=== PATIENT | female | born 1960 | race Caucasian/White ===

== ENCOUNTER → 2016-04-11 | Outpatient (CLI) | payer BC ==
[~2016-04-11] MED LIST: ACET-1138 PO; ALBUAER2 INH; CLB200 PO; CYAN10005 PO; DLD/2 PO; DXM4 PO; GABA-113 PO; IBUP-1427 PO; IBUP200T80 PO; KETO10TA PO; LDDP5 TD; MELATAB2 PO; METH4PAK PO; MRLP17X PO; NRN100 PO; NRN300 PO; ONDA4TAB10 SL; OXYC1CAP5 PO; OXYCODONE PO; PRAV10TA39 PO; PRED10TA PO; RXC5 PO; SYMIN160 INH; TRAM-10 PO; VNTHFA/IN INH
--- NOTE | 2016-04-11 12:27 | DIAGNOSTIC IMAGING REPORT ---
CT OF THE LUMBAR SPINE WITHOUT CONTRAST CT DOSE: 1360.89 mGy.cm CLINICAL HISTORY: Low back pain. Evaluate for hardware loosening. TECHNIQUE: Axial images of the lumbar spine were obtained without IV contrast. Sagittal and coronal reconstructions were viewed. COMPARISON STUDY: Lumbar spine MRI June 07, 2012 and lumbar spine radiographs November 15, 2015. FINDINGS: For purposes of numbering on this exam, the L5-S1 disc space is assigned to axial image 351 of 436. Alignment of the lumbar spine is anatomic. There are findings consistent with an L5-S1 discectomy and bilateral pedicle screw fusion posterior decompression. No significant bony bridging is noted at the level of the disc space. The bilateral pedicle screws are intact. There is no lucency surrounding the screws to indicate loosening by CT. The right L5 screw slightly extends through the right lateral aspect of the vertebral body. There are bilateral L5 pars defects. No suspicious lesion is identified. Central canal and neural foramen are suboptimally assessed by CT. Paravertebral soft tissues are unremarkable. IMPRESSION: 1. Status post L5-S1 discectomy and bilateral pedicle screw fusion. Hardware intact. No CT evidence for loosening. The right L5 pedicle screw slightly extends through the lateral aspect of the vertebral body. 2. Bilateral L5 pars defects which may be congenital, posttraumatic or postsurgical. 3. Suspected disc bulge at the L4-L5 level which is suboptimally assessed by CT. This likely results in mild narrowing of the central canal. Electronically signed by: Doc Parry M.D. 04/11/2016 12:26 PM Dictated Date/Time: 04/11/2016 12:18 PM
== END | disposition home or self-care (01) ==
LOC: C.CTS 11:52
PROVIDERS: ATTEND Orthopaedic Surgery Orthopaedic Surgery of the Spine
DX: M54.5 Low back pain (principal); Z98.1 Arthrodesis status

== ENCOUNTER → 2016-04-12 | Outpatient (CLI) | payer BC ==
[2016-04-12 11:29] LABS: BASO % 0.4 %; BASO ABS # 0.04 K/uL (0-0.2); COMPLETE YES; EOS % 1.5 %; HEMATOCRIT 39.1 % (37-47); IG% 0.2 %; LYMPH % 29.3 %; MEAN CELL VOLUME 86.3 fL (80-100); MEAN CORPUSCULAR HEMOGLOBIN 29.4 pg (25-34); MEAN PLATELET VOLUME 9.3 fL (7.4-10.4); MONO % 12.1 %; NEUT % 56.5 %; PLATELET COUNT 332 K/uL (130-400); RED BLOOD COUNT 4.53 M/uL (4.2-5.4); WHITE BLOOD COUNT 9.91 K/uL (4.8-10.8)
== END | disposition home or self-care (01) ==
LOC: C.LABBC 08:42
PROVIDERS: ATTEND Orthopaedic Surgery Orthopaedic Surgery of the Spine
DX: M54.9 Dorsalgia, unspecified (principal); M53.3 Sacrococcygeal disorders, not elsewhere classified

== ENCOUNTER 2016-05-01 19:35 | Emergency (ER) | payer BC ==
[~2016-05-01] VITALS: Ht 162.6 cm; Wt 95.0 kg
[~2016-05-01 19:35] MED LIST changes: -DLD/2 PO; -GABA-113 PO; -IBUP-1427 PO; -IBUP200T80 PO; -KETO10TA PO; -MELATAB2 PO; -METH4PAK PO; -NRN100 PO; -NRN300 PO; -ONDA4TAB10 SL; -OXYC1CAP5 PO; -OXYCODONE PO; -PRED10TA PO; -VNTHFA/IN INH
[2016-05-01 19:54] VITALS: TEMP 36.8; Ht 162.6 cm; Wt 95.0 kg
[2016-05-01] MEDS ORDERED: MoRPHine SULFATE 4 MG/ML 1 ML CARP\\VIAL IV STA (20:25)
[2016-05-01] MEDS ORDERED: PRED10TA PO (20:34)
[2016-05-01] MEDS ORDERED: NRN100 PO (20:34)
[2016-05-01] MEDS ORDERED: DLD/2 PO (20:34)
[2016-05-01] MEDS ORDERED: KETOROLAC TROMETHAMINE 30 MG/ML VIAL IV STA (20:44)
[2016-05-01] MEDS ORDERED: DEXAMETHASONE SOD INJ 10 MG/ML VIAL IV ONE (20:45)
[2016-05-01] MEDS ORDERED: MoRPHine SULFATE 4 MG/ML 1 ML CARP\\VIAL IV PRN (20:45)
[2016-05-01 20:55] LABS: BASO % 0.2 %; BASO ABS # 0.02 K/uL (0-0.2); COMPLETE YES; HEMATOCRIT 39.9 % (37-47); IG% 0.5 %; LYMPH % 10.9 %; LYMPH ABS # 1.01 K/uL (1.2-3.4); MEAN CELL VOLUME 88.5 fL (80-100); MEAN CORPUSCULAR HEMOGLOBIN 29.7 pg (25-34); MEAN CORPUSCULAR HGB CONC 33.6 g/dl (32-36); MEAN PLATELET VOLUME 9.3 fL (7.4-10.4); NEUT % 86.4 %; PLATELET COUNT 319 K/uL (130-400); RED BLOOD COUNT 4.51 M/uL (4.2-5.4)
--- NOTE | 2016-05-01 21:05 | EMERGENCY ROOM VISIT NOTE ---
History First contact with patient: 20:36 Chief Complaint: SYNCOPE Stated Complaint: SYNCOPE Nursing Triage Summary: Patient arrived via EMS. EMS reports patient had a witnessed fall from a standing position after exiting her vehicle with a coworker. Patient reported 10/10 back pain upon awakening from syncopal episode. Patient reports a history of chronic lwoer back pain and recently had a procedure done to lwoer back in which she states "they hit a nerve." Patioent has 10/10 back pain radiating down right leg. History of Present Illness The patient is a 55 year old female w/ hx of degenerative Disc disease (L5-S1) s/p Lumbar fusion LL5_s1) decompression, laminectomy, foraminectomy who presents to the Emergency Room with complaints of Lower Back pain and shooting pain down her right Right Lower extremity. 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 She also reports associated numbness in the right foot. Pain has been constant but worsens when putting pressure on on the right buttock. She received a cortisone injection in clinic approximately 3wks ago but has had minimal relief. She has been on Ibuprofen q4hrs , last dose 1PM. Review of Systems See HPI for pertinent positives & negatives. A total of 10 systems reviewed and were otherwise negative. Past Medical/Surgical History Medical Problems: (1) Kidney stones (2) Lumbar disc disease with radiculopathy (3) Personal History Of Urinary Calculi Surgical Problems: (1) S/P appendectomy (2) S/P cholecystectomy (3) S/P hysterectomy Social History Problems: (1) Tobacco Use Disorder Family History Atrial fibrillation Blood clots Cancer Diabetes mellitus Gallbladder disease Hypertension Kidney disease Kidney stones Social History Smoking Status: Current Every Day Smoker Alcohol Use: none Marital Status: Housing Status: lives with friends Occupation Status: employed Current/Historical Medications Scheduled Acetaminophen (Tylenol Extra Strength), 1,000 MG PO BID Budesonide/Formoterol Fumarate (Symbicort 160/4.5 Inhaler ), 2 PUFFS INH BID Cyanocobalamin (Vitamin B-12), 1,000 MCG PO DAILY Gabapentin (Gabapentin), 100 MG PO QID Pravastatin Sodium (Pravastatin Sodium), 10 MG PO HS Prednisone (Prednisone), 10 MG PO TAPER Scheduled PRN Albuterol (Ventolin), 2 PUFFS INH Q4 PRN for SOB/Wheezing Hydromorphone HCl (Hydromorphone HCl), 2 MG PO HS PRN for Pain Allergies Coded Allergies: Lemon (Verified Allergy, Unknown, HIVES, 05/01/16) Penicillins (Verified Allergy, Unknown, HIVES, 05/01/16) Unclassified Drugs (Verified Allergy, Unknown, METAL MORRO - RASH, ) Physical Exam Vital Signs Date Time Temp Pulse Resp B/P Pulse Ox O2 Delivery O2 Flow Rate FiO2 05/01/16 23:20 68 16 124/83 98 Room Air 05/01/16 21:48 82 16 118/76 97 Room Air 05/01/16 19:54 36.8 96 16 128/72 95 Room Air Physical Exam GENERAL: alert, mod. distress secondary to pain EYE EXAM: normal conjunctiva, PERRL and EOM's grossly intact NECK: supple, no nuchal rigidity, no adenopathy, non-tender LUNGS: Clear to auscultation. Normal chest wall mechanics HEART: no murmurs, S1 normal and S2 normal ABDOMEN: abdomen soft, non-tender, normo-active bowel sounds, no masses, no rebound or guarding. BACK: Back is symmetrical on inspection and there is no deformity. No spinal tenderness SKIN: no rashes and no bruising UPPER EXTREMITIES: upper extremities are grossly normal. LOWER EXTREMITIES: No pitting edema. exquisite tenderness to palpation, Right buttock NEURO EXAM: Normal sensorium, cranial nerves II-XII grossly intact, normal speech, no gross weakness of arms, no gross weakness of legs.Exquisite tenderness to palpation over Right buttock. Decreased sensation Right foot Medical Decision & Procedures Laboratory Results 05/01/16 20:00 Red Blood Count 4.51, Mean Corpuscular Volume 88.5, Mean Corpuscular Hemoglobin 29.7, Mean Corpuscular Hemoglobin Concent 33.6, Mean Platelet Volume 9.3, Neutrophils (%) (Auto) 86.4, Lymphocytes (%) (Auto) 10.9, Monocytes (%) (Auto) 2.0, Eosinophils (%) (Auto) 0.0, Basophils (%) (Auto) 0.2, Neutrophils # (Auto) 8.03, Lymphocytes # (Auto) 1.01, Monocytes # (Auto) 0.19, Eosinophils # (Auto) 0.00, Basophils # (Auto) 0.02 05/01/16 20:00 Test 05/01/16 20:00 White Blood Count 9.30 K/uL (4.8-10.8) Red Blood Count 4.51 M/uL (4.2-5.4) Hemoglobin 13.4 g/dL (12.0-16.0) Hematocrit 39.9 % (37-47) Mean Corpuscular Volume 88.5 fL (80-100) Mean Corpuscular Hemoglobin 29.7 pg (25-34) Mean Corpuscular Hemoglobin Concent 33.6 g/dl (32-36) Platelet Count 319 K/uL (130-400) Mean Platelet Volume 9.3 fL (7.4-10.4) Neutrophils (%) (Auto) 86.4 % Lymphocytes (%) (Auto) 10.9 % Monocytes (%) (Auto) 2.0 % Eosinophils (%) (Auto) 0.0 % Basophils (%) (Auto) 0.2 % Neutrophils # (Auto) 8.03 K/uL (1.4-6.5) Lymphocytes # (Auto) 1.01 K/uL (1.2-3.4) Monocytes # (Auto) 0.19 K/uL (0.11-0.59) Eosinophils # (Auto) 0.00 K/uL (0-0.5) Basophils # (Auto) 0.02 K/uL (0-0.2) RDW Standard Deviation 52.9 fL (36.4-46.3) RDW Coefficient of Variation 16.2 % (11.5-14.5) Immature Granulocyte % (Auto) 0.5 % Immature Granulocyte # (Auto) 0.05 K/uL (0.00-0.02) Erythrocyte Sedimentation Rate 37 mm/hr (0-21) Anion Gap 7.0 mmol/L (3-11) Est Creatinine Clear Calc Drug Dose 77.1 ml/min Estimated GFR () 82.3 Estimated GFR (Non- 71.0 BUN/Creatinine Ratio 21.6 (10-20) Calcium Level 9.3 mg/dl (8.5-10.1) C-Reactive Protein 0.89 mg/dl (0-0.29) Chemistry Specimen Hemolysis Medications Administered Medications (Trade) Dose Ordered Sig/Lulu Route Start Time Stop Time Status Last Admin Dose Admin Morphine Sulfate (MoRPHine SULFATE INJ) 4 mg NOW STAT IV 05/01/16 20:25 05/01/16 20:28 DC 05/01/16 20:48 4 MG Ketorolac Tromethamine (Toradol Inj) 30 mg NOW STAT IV 05/01/16 20:44 05/01/16 20:49 DC 05/01/16 21:10 30 MG Morphine Sulfate (MoRPHine SULFATE INJ) 4 mg Q1H PRN IV 05/01/16 20:45 05/15/16 20:44 05/01/16 22:22 4 MG Dexamethasone Sodium Phosphate (Decadron Inj) 10 mg NOW ONCE IV 05/01/16 20:45 05/01/16 20:49 DC 05/01/16 21:09 10 MG Lorazepam (Ativan Inj) 1 mg NOW STAT IV 05/01/16 21:47 05/01/16 21:48 DC 05/01/16 22:22 1 MG Medical Decision 55 year old female w/ hx of degenerative Disc disease (L5-S1) s/p Lumbar fusion LL5_s1) decompression, laminectomy, foraminectomy, p/w RLE radiculopathy and Lower back pain s/p cortisone shot 3 wks ago with minimal relief from Ibuprofen 600mg q4h, with dec'd sensation of the Rt foot Differential diagnoses includes but is not limited to lumbar radiculopathy, muscle strain, facture, cauda equina, mass, and disc herniation. -Given Decadron 10 mg Toradol 30 mg, Morphine 4 mg -MRI Lumbar spine: L4-L% 4mm post. disc herniation resulting in mild spinal canal narrowing, possible impingement of traversing L5 nerve roots. Facet arthropathy and Ligamentum Flavum contributing to mod. left, severe right, pastor foraminal narrowing -Patient was comfortable, sleeping s/p Toradol, morphine -Patient was discharged with outpatient followup with Percocet home-pack in addition to OTC ibuprofen, tylenol as needed Impression Primary Impression: Intractable low back pain Additional Impression: Lumbar disc disease with radiculopathy Departure Information Referrals Al Loera, D.O.Int.Med. (PCP) Patient Instructions My [facility] Resident Tracking Resident Involvement: Resident Care Provided Care Provided: Adult ED Problem Qualifiers
[2016-05-01 21:29] LABS: BUN/CREATININE RATIO 21.6 (10-20); C-REACTIVE PROTEIN 0.89 mg/dl (0-0.29); CALCIUM 9.3 mg/dl (8.5-10.1); CREATININE 0.9 mg/dl (0.60-1.20); POTASSIUM 4.1 mmol/L (3.5-5.1)
[2016-05-01] MEDS ORDERED: LORAZEPAM 2 MG/ML 1 ML VIAL IV STA (21:47)
[2016-05-02] MEDS ORDERED: PERCOCET HOME PACK PO ONE ×2 (00:31→00:45)
--- NOTE | 2016-05-02 00:32 | EMERGENCY ROOM VISIT NOTE ---
History Report prepared by Suzie: Stella Jonas Under the Supervision of: Dr. Jan Lambert D.O. First contact with patient: 20:26 Chief Complaint: SYNCOPE Stated Complaint: SYNCOPE Nursing Triage Summary: Patient arrived via EMS. EMS reports patient had a witnessed fall from a standing position after exiting her vehicle with a coworker. Patient reported 10/10 back pain upon awakening from syncopal episode. Patient reports a history of chronic lwoer back pain and recently had a procedure done to lwoer back in which she states "they hit a nerve." Patioent has 10/10 back pain radiating down right leg. History of Present Illness The patient is a 55 year old female who presents to the Emergency Room with complaints worsening low back pain for the past 3 weeks. She was brought to the ED via EMS. 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 She supposedly lost consciousness briefly during the episode, according to EMS, but the patient denies any loss of consciousness when asked. She rates her discomfort as a 10/10 and describes the pain as "shooting" in nature. She states the pain radiates down her right leg and she has numbness and tingling in her right foot. Movement worsens her discomfort. She has a history of chronic low back pain and recently had a cortisone injection by Dr. Larios at [facility], approximately 3 weeks ago, in which she states "they hit a nerve" and since then, the pain has worsened. She has tried taking Ibuprofen, with no relief. She reports she has an upcoming appointment with Dr. Larios later this week. She was recently prescribed a Prednisone taper and states she has already taken the first dose. 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 A total of 10 systems reviewed and were otherwise negative. Past Medical & Surgical Medical Problems: (1) Kidney stones (2) Lumbar disc disease with radiculopathy (3) Personal History Of Urinary Calculi Surgical Problems: (1) S/P appendectomy (2) S/P cholecystectomy (3) S/P hysterectomy Social History Problems: (1) Tobacco Use Disorder Family History Atrial fibrillation Blood clots Cancer Diabetes mellitus Gallbladder disease Hypertension Kidney disease Kidney stones Social History Smoking Status: Current Every Day Smoker Alcohol Use: none Marital Status: Housing Status: lives with friends Occupation Status: employed Current/Historical Medications Scheduled Acetaminophen (Tylenol Extra Strength), 1,000 MG PO BID Budesonide/Formoterol Fumarate (Symbicort 160/4.5 Inhaler ), 2 PUFFS INH BID Cyanocobalamin (Vitamin B-12), 1,000 MCG PO DAILY Gabapentin (Gabapentin), 100 MG PO QID Pravastatin Sodium (Pravastatin Sodium), 10 MG PO HS Prednisone (Prednisone), 10 MG PO TAPER Scheduled PRN Albuterol (Ventolin), 2 PUFFS INH Q4 PRN for SOB/Wheezing Hydromorphone HCl (Hydromorphone HCl), 2 MG PO HS PRN for Pain Allergies Coded Allergies: Lemon (Verified Allergy, Unknown, HIVES, 05/01/16) Penicillins (Verified Allergy, Unknown, HIVES, 05/01/16) Unclassified Drugs (Verified Allergy, Unknown, METAL MORRO - RASH, ) Physical Exam Vital Signs Date Time Temp Pulse Resp B/P Pulse Ox O2 Delivery O2 Flow Rate FiO2 05/01/16 23:20 68 16 124/83 98 Room Air 05/01/16 21:48 82 16 118/76 97 Room Air 05/01/16 19:54 36.8 96 16 128/72 95 Room Air Physical Exam CONSTITUTIONAL/VITAL SIGNS: Reviewed / noted above. GENERAL: Non-toxic in appearance. INTEGUMENTARY: Warm, dry, and [place]. HEAD: Normocephalic. EYES: without scleral icterus or trauma. ENT/OROPHARYNX: clear and moist. LYMPHADENOPATHY/NECK: Is supple without lymphadenopathy or meningismus. RESPIRATORY: Lungs clear and equal. CARDIOVASCULAR: Regular rate and rhythm. GI/ABDOMEN: Soft and nontender. No organomegaly or pulsatile mass. No rebound or guarding. Normal bowel sounds. EXTREMITIES: Warm and well perfused. Tenderness to palpation of right buttock area. Normal reflexes of lower extremities, both Achilles and Patellar tendons are intact, gross sensation of lower extremities are normal. BACK: No CVA tenderness. NEUROLOGICAL: Intact without focal deficits. PSYCHIATRIC: normal affect. MUSCULOSKELETAL: Normally developed with good muscle tone. Medical Decision & Procedures ER Provider Diagnostic Interpretation: This MRI was reviewed and interpreted by the radiologist and reviewed by myself. MRI L SPINE : Comparison is made to CT lumbar spine 04/11/16. There is normal lumbar lordosis. Vertebral body height and alignment are maintained. There is no evidence of acute fracture or subluxation. There are no marrow signal abnormalities. There has been prior posterior decompression and hardware fixation at L5-S1 with interbody fusion. The conus medullaris is seen opposite L1 and appears normal. There is multilevel disc desiccation in the lumbar spine with mild disc height loss at L2-L3 and L3-L4, and moderate disc height loss at L4-L5. L1-L2, L2-L3, L3-L4: No significant spinal canal or foraminal narrowing. L4-L5: There is a 4 mm posterior disc herniation resulting in mild spinal canal narrowing and moderate lateral recess narrowing bilaterally, possibly impinging upon the traversing L5 nerve roots. Facet arthropathy and ligamentum flavum thickening contribute to moderate left and severe right foraminal narrowing. L5-S1: There is no significant central spinal canal narrowing. Endplate osteophytes, facet degeneration, and ligamentum flavum thickening contribute to moderate bilateral foraminal narrowing. Radiologist: Lauren Smalls M.D. Laboratory Results 05/01/16 20:00 Red Blood Count 4.51, Mean Corpuscular Volume 88.5, Mean Corpuscular Hemoglobin 29.7, Mean Corpuscular Hemoglobin Concent 33.6, Mean Platelet Volume 9.3, Neutrophils (%) (Auto) 86.4, Lymphocytes (%) (Auto) 10.9, Monocytes (%) (Auto) 2.0, Eosinophils (%) (Auto) 0.0, Basophils (%) (Auto) 0.2, Neutrophils # (Auto) 8.03, Lymphocytes # (Auto) 1.01, Monocytes # (Auto) 0.19, Eosinophils # (Auto) 0.00, Basophils # (Auto) 0.02 05/01/16 20:00 Test 05/01/16 20:00 White Blood Count 9.30 K/uL (4.8-10.8) Red Blood Count 4.51 M/uL (4.2-5.4) Hemoglobin 13.4 g/dL (12.0-16.0) Hematocrit 39.9 % (37-47) Mean Corpuscular Volume 88.5 fL (80-100) Mean Corpuscular Hemoglobin 29.7 pg (25-34) Mean Corpuscular Hemoglobin Concent 33.6 g/dl (32-36) Platelet Count 319 K/uL (130-400) Mean Platelet Volume 9.3 fL (7.4-10.4) Neutrophils (%) (Auto) 86.4 % Lymphocytes (%) (Auto) 10.9 % Monocytes (%) (Auto) 2.0 % Eosinophils (%) (Auto) 0.0 % Basophils (%) (Auto) 0.2 % Neutrophils # (Auto) 8.03 K/uL (1.4-6.5) Lymphocytes # (Auto) 1.01 K/uL (1.2-3.4) Monocytes # (Auto) 0.19 K/uL (0.11-0.59) Eosinophils # (Auto) 0.00 K/uL (0-0.5) Basophils # (Auto) 0.02 K/uL (0-0.2) RDW Standard Deviation 52.9 fL (36.4-46.3) RDW Coefficient of Variation 16.2 % (11.5-14.5) Immature Granulocyte % (Auto) 0.5 % Immature Granulocyte # (Auto) 0.05 K/uL (0.00-0.02) Erythrocyte Sedimentation Rate 37 mm/hr (0-21) Anion Gap 7.0 mmol/L (3-11) Est Creatinine Clear Calc Drug Dose 77.1 ml/min Estimated GFR () 82.3 Estimated GFR (Non- 71.0 BUN/Creatinine Ratio 21.6 (10-20) Calcium Level 9.3 mg/dl (8.5-10.1) C-Reactive Protein 0.89 mg/dl (0-0.29) Chemistry Specimen Hemolysis Laboratory results as stated above per my review. Medications Administered Medications (Trade) Dose Ordered Sig/Lulu Route Start Time Stop Time Status Last Admin Dose Admin Morphine Sulfate (MoRPHine SULFATE INJ) 4 mg NOW STAT IV 05/01/16 20:25 05/01/16 20:28 DC 05/01/16 20:48 4 MG Ketorolac Tromethamine (Toradol Inj) 30 mg NOW STAT IV 05/01/16 20:44 05/01/16 20:49 DC 05/01/16 21:10 30 MG Morphine Sulfate (MoRPHine SULFATE INJ) 4 mg Q1H PRN IV 05/01/16 20:45 4 20:44 05/01/16 22:22 4 MG Dexamethasone Sodium Phosphate (Decadron Inj) 10 mg NOW ONCE IV 05/01/16 20:45 05/01/16 20:49 DC 05/01/16 21:09 10 MG Lorazepam (Ativan Inj) 1 mg NOW STAT IV 05/01/16 21:47 05/01/16 21:48 DC 05/01/16 22:22 1 MG ED Course 2037: Previous medical records were reviewed. The patient was evaluated in room C12. A complete history and physical examination was performed. 2024: Morphine Sulfate 4 mg IV. 2043: Toradol 30 mg IV. 2044: Decadron 10 mg IV, Morphine Sulfate 4 mg IV. 2146: Lorazepam 1 mg IV. 4: I reevaluated the patient. She is still in some pain but resting. 7: I reevaluated the patient. She is feeling much better. I discussed her results and discharge instructions and she verbalized complete understanding and agreement. Medical Decision Differential considered includes cauda equina syndrome, conus medullaris, spinal cord compression syndrome, peripheral nerve compression, fractures or subluxations, intra-abdominal pathology such as abdominal aortic aneurysm or kidney stones, muscle strain, transverse myelitis, spinal cord injury. This is a 55-year-old female who presents to the ED with a chief complaint of right buttock pain. The patient reports that she was trying a [employer] bus and developed pain in the right buttock area. She states that this occurred this afternoon/evening. She came in for evaluation of her symptoms. She does report some chronic right hip pain and had a steroid injection in that region about 3 weeks ago. The patient also reports history of lumbar disc disease and surgery. Not had any fevers or recent illness. She denies any specific trauma. Vital signs are normal Her exam reveals moderate tenderness to palpation the right buttock region. She has normal distal extremity reflexes, sensation and gross motor function. Her sensation is grossly normal CBC is unremarkable. Sedimentation rate and CRP is slightly elevated. BUN is 19. MRI of the spine reveals, among other things, shows some thickening of the ligamentum flavum in the L4 through S1 area and treated him to moderate left and severe right foraminal narrowing. The patient was treated here with IV morphine, Decadron IV, Toradol IV and Ativan IV. She was sleeping at the time of disposition. She will be discharged with a Percocet home pack. She has follow-up with her spine surgeon this Sunday. She was told to talk to them about the MRI report for continued evaluation. Impression Primary Impression: Sciatica of right side Scribe Attestation The scribe's documentation has been prepared under my direction and personally reviewed by me in its entirety. I confirm that the note above accurately reflects all work, treatment, procedures, and medical decision making performed by me. Departure Information Referrals Al Loera D.O.Int.Med. (PCP) Forms HOME CARE DOCUMENTATION FORM, IMPORTANT VISIT INFORMATION, Work Instructions Return To Work: 3 days Patient Instructions ED Sciatica, My [facility] Additional Instructions Follow-up with your doctor as scheduled. Return for any worsening or new concerns. No driving for the next 2 days or within 6 hours of use of Percocet.
[2016-05-02 00:49] VITALS: BP 131/76; PULSE 67; O2SAT 98
--- NOTE | 2016-05-02 07:35 | DIAGNOSTIC IMAGING REPORT ---
MRI OF THE LUMBAR SPINE WITHOUT IV CONTRAST CLINICAL HISTORY: Sciatica. COMPARISON STUDY: MRI of lumbar spine dated 03/11/2015. CT scan of lumbar spine dated 04/11/2016. TECHNIQUE: MRI of lumbar spine is performed using various T1 and T2-weighted sequences in the axial and sagittal planes. IV contrast was not administered for this examination. FINDINGS: Lumbar spine: Vertebral body height is maintained at the lumbar spine. Minimal retrolisthesis is seen at L4-L5. Alignment is otherwise preserved. There are postoperative changes from laminectomy and posterior fusion at L5-S1. No destructive bony lesion is seen. Mild chronic degenerative endplate change is seen at L2-L3. The transverse processes are intact as imaged. Intervertebral discs: There is evidence of discectomy at L5-S1. Mild degenerative disc desiccation is seen at the remaining lumbar levels. Only mild loss of height is seen, greatest at L2-L3. Spinal cord: The visualized spinal cord is normal in morphology and signal intensity. The conus medullaris terminates at the level of L1. The nerve roots of the cauda equina are normal in morphology. L1-L2: Unremarkable. L2-L3: There is minimal posterior disc bulge eccentric to the left with annular fissure. There is no significant acquired compromise of the central canal. The neural foramina are patent. There is minimal left-sided subarticular stenosis. L3-L4: There is minimal posterior disc bulge. The central canal and neural foramina are widely patent. Facet arthropathy is of no consequence. L4-L5: There is posterior disc bulge with annular fissure. Bilateral subarticular stenosis is noted. There may be impingement on the exiting bilateral L4 nerve roots. Facet arthropathy causes mild right-sided neural foraminal narrowing. There is no significant acquired compromise of the central canal at this level. L5-S1: The central canal and neural foramina are clear. Sacrum: Visualized sacrum is normal in morphology and signal intensity. Soft tissues: Postoperative change is seen posteriorly at L5-S1. The paraspinous soft tissues are otherwise normal in appearance. IMPRESSION: 1. Mild lumbosacral spondylosis as detailed above, greatest at L4-L5. See discussion for detailed level by level analysis. 2. There is no large disc herniation or significant acquired compromise of the central canal. 3. Again seen are postoperative changes from spinal fusion at L5-S1. Dictated: 05/02/2016 7:15 AM Transcribed: 05/02/2016 7:34 AM IRINA_Svitlana Electronically signed by: Phillip Marsh M.D. 05/02/2016 7:45 AM Dictated Date/Time: 05/02/2016 7:15 AM
[2016-05-04] MEDS ORDERED: IBUP-1427 PO (14:23)
[2016-05-04] MEDS ORDERED: MELATAB2 PO (14:23)
[2016-05-10] MEDS ORDERED: TRAM-10 PO (08:28)
[2016-05-10] MEDS ORDERED: GABA-113 PO (08:28)
[2016-05-10] MEDS ORDERED: OXYCODONE PO (08:28)
[2016-05-15] MEDS ORDERED: METH4PAK PO (15:22)
[2016-05-15] MEDS ORDERED: NRN300 PO (15:22)
[2016-05-15] MEDS ORDERED: DLD/2 PO (15:30)
== END 2016-05-02 00:52 | disposition home or self-care (01) ==
LOC: C.EDC 19:35 → EDBD 19:35 → C.EDC 05-02 00:52
DX: M51.16 Intervertebral disc disorders with radiculopathy, lumbar region (principal); G89.29 Other chronic pain; F17.200 Nicotine dependence, unspecified, uncomplicated; Z87.442 Personal history of urinary calculi; Z90.89 Acquired absence of other organs; Z90.49 Acquired absence of other specified parts of digestive tract; Z90.710 Acquired absence of both cervix and uterus; Z82.49 Family history of ischemic heart disease and other diseases of the circulatory system; Z83.3 Family history of diabetes mellitus; Z84.1 Family history of disorders of kidney and ureter; Z98.1 Arthrodesis status

== ENCOUNTER 2016-05-11 08:35 | Observation (INO) | payer BC ==
[2016-05-10 08:29] VITALS: BMI 36.0
[~2016-05-11] VITALS: Ht 162.6 cm; Wt 96.2 kg
[~2016-05-11 08:35] MED LIST changes: -ACET-1138 PO; -CLB200 PO; -CYAN10005 PO; -DXM4 PO; +GABA-113 PO; -LDDP5 TD; +MELATAB2 PO; -MRLP17X PO; +OXYCODONE PO; +PRED10TA PO; -RXC5 PO
[2016-05-11] MEDS ORDERED: DLD/2 PO (09:05)
[2016-05-11] MEDS ORDERED: OXYC1CAP5 PO (09:05)
[2016-05-11] MEDS ORDERED: IBUP200T80 PO (09:06)
[2016-05-11] MEDS ORDERED: VNTHFA/IN INH (09:06)
[2016-05-11] MEDS ORDERED: KETOROLAC TROMETHAMINE 30 MG/ML VIAL IV STA (09:13)
[2016-05-11] MEDS ORDERED: ONDANSETRON INJ 2 MG/ML 2 ML VIAL IV STA (09:13)
[2016-05-11] MEDS ORDERED: SODIUM CHLORIDE 0.9% 1000ML 1,000 ML IV STA (09:13)
[2016-05-11] MEDS ORDERED: DEXAMETHASONE SOD INJ 10 MG/ML VIAL IV ONE (09:15)
--- NOTE | 2016-05-11 09:17 | EMERGENCY ROOM VISIT NOTE ---
History Report prepared by Suzie: Xochitl Chatman Under the Supervision of: Dr. Domingo Oh D.O. First contact with patient: 09:07 Chief Complaint: BACK PAIN Stated Complaint: BACK PAIN History of Present Illness The patient is a 55 year old female who presents to the Emergency Room with complaints of right-sided low back pain. The patient states her symptoms began approximately 3-4 weeks ago. She noticed pain in the lower back which now radiates to the right buttocks. She's been recently seen in our facility and diagnosed with lumbar disc herniation with sciatica. The patient was taking pain medication for this but the pain medication ran out. She took her last dose of steroids this morning. She has been taking Motrin with little to no relief. She states her pain is very severe at this time. It worsens with any movement. She cannot stand because of the severe pain in her right leg. The patient denies having any numbness but does complain of significant pain in her right sciatic notch. The patient denies having any saddle anesthesia. She has not had any recent trauma. She is scheduled for surgery at the beginning of next month. She called her surgeon and was instructed to come to the emergency department by the nursing staff at his office. Source of History: patient Onset: 3-4 weeks ago Position: back (right lower) Symptom Intensity: severe Modifying Factors (Relieving): narcotics Associated Symptoms: No numbness Review of Systems See HPI for pertinent positives & negatives. A total of 10 systems reviewed and were otherwise negative. Past Medical & Surgical Medical Problems: (1) Kidney stones (2) Lumbar disc disease with radiculopathy (3) Personal History Of Urinary Calculi Surgical Problems: (1) S/P appendectomy (2) S/P cholecystectomy (3) S/P hysterectomy Social History Problems: (1) Tobacco Use Disorder Family History Atrial fibrillation Blood clots Cancer Diabetes mellitus Gallbladder disease Hypertension Kidney disease Kidney stones Social History Smoking Status: Former Smoker Alcohol Use: none Marital Status: Housing Status: lives with friends Occupation Status: employed Current/Historical Medications Scheduled Albuterol Hfa (Ventolin Hfa), 2-4 PUFFS INH Q6H Gabapentin (Neurontin), 300 MG PO TID Melatonin (Melatonin Maximum Strengt), 2 TAB PO HS Pravastatin Sodium (Pravastatin Sodium), 10 MG PO HS Tramadol (Ultram), 50 MG PO Q4-6H Scheduled PRN Budesonide/Formoterol Fumarate (Symbicort 160/4.5 Inhaler ), 2 PUFFS INH BID PRN for PRN Hydromorphone HCl (Hydromorphone HCl), 2 MG PO Q6H PRN for Pain Ibuprofen (Ibu-200), 4 TAB PO QID PRN for Pain Oxycodone Hcl (Oxycodone Hcl), 0 PO QID PRN for Pain [Oxycodone], 1 TAB PO Q6H PRN for RN Allergies Coded Allergies: Morphine (Verified Allergy, Intermediate, SHORTNESS OF BREATH, 05/11/16) SOB, feels like bugs are biting her, anxious, upper GI pain Lemon (Verified Allergy, Unknown, HIVES, 05/11/16) Penicillins (Verified Allergy, Unknown, HIVES, 05/11/16) Unclassified Drugs (Verified Allergy, Unknown, METAL MORRO - RASH, ) Physical Exam Vital Signs Date Time Temp Pulse Resp B/P Pulse Ox O2 Delivery O2 Flow Rate FiO2 05/11/16 13:06 75 05/11/16 12:20 68 123/52 96 Room Air 05/11/16 10:28 73 179/66 94 Room Air 05/11/16 09:42 77 05/11/16 08:37 36.8 91 20 104/67 97 Room Air Physical Exam GENERAL: Patient is awake and alert. She is very anxious and uncomfortable appearing. She appears to be in significant pain. EYES: The conjunctivae are clear. The pupils are round and reactive. EARS, NOSE, MOUTH AND THROAT: The nose is without any evidence of any deformity. Mucous membranes are moist tongue is midline NECK: The neck is nontender and supple. RESPIRATORY: Normal respiratory effort is noted there is no evidence of wheezing rhonchi or rales CARDIOVASCULAR: Regular rate and rhythm noted there no murmurs rubs or gallops normal S1 normal S2 GASTROINTESTINAL: The abdomen is soft. Bowel sounds are present in all quadrants. Abdomen is nontender BACK: There is significant midline tenderness in the low lumbar spine. There is also severe pain in the sciatic notch. MUSCULOSKELETAL/EXTREMITIES: There is no evidence of gross deformity full range of motion is noted in the hips and shoulders SKIN: There is no obvious evidence of any rash. There are no petechiae, pallor or cyanosis noted. NEUROLOGIC: Patient is awake alert and oriented x3 strength is symmetric patellar reflexes are 2+ bilaterally. Achilles tendon reflexes are 2 plus bilaterally. Great toe raise is symmetric. Patient has severe pain with any straight leg raising on the right leg especially. Medical Decision & Procedures ER Provider Diagnostic Interpretation: Radiology results as stated below per my review and radiologist interpretation: CHEST ONE VIEW PORTABLE CLINICAL HISTORY: syncope COMPARISON STUDY: 05/10/2016 FINDINGS: The cardiac and mediastinal contours are normal. There is no evidence of focal pulmonary consolidation. There is no evidence of failure. No pleural effusions are visualized.[ IMPRESSION: No active disease in the chest. Electronically signed by: Danny Kramer M.D. 05/11/2016 10:31 AM Dictated Date/Time: 05/11/2016 10:31 AM Laboratory Results 05/11/16 09:36 Red Blood Count 4.35, Mean Corpuscular Volume 87.6, Mean Corpuscular Hemoglobin 29.9, Mean Corpuscular Hemoglobin Concent 34.1, Mean Platelet Volume 8.5, Neutrophils (%) (Auto) 62.1, Lymphocytes (%) (Auto) 24.5, Monocytes (%) (Auto) 11.8, Eosinophils (%) (Auto) 0.8, Basophils (%) (Auto) 0.2, Neutrophils # (Auto ) 8.82, Lymphocytes # (Auto) 3.48, Monocytes # (Auto) 1.67, Eosinophils # (Auto ) 0.11, Basophils # (Auto) 0.03 05/11/16 09:36 Test 05/11/16 09:36 05/11/16 11:10 White Blood Count 14.20 K/uL (4.8-10.8) Red Blood Count 4.35 M/uL (4.2-5.4) Hemoglobin 13.0 g/dL (12.0-16.0) Hematocrit 38.1 % (37-47) Mean Corpuscular Volume 87.6 fL (80-100) Mean Corpuscular Hemoglobin 29.9 pg (25-34) Mean Corpuscular Hemoglobin Concent 34.1 g/dl (32-36) Platelet Count 295 K/uL (130-400) Mean Platelet Volume 8.5 fL (7.4-10.4) Neutrophils (%) (Auto) 62.1 % Lymphocytes (%) (Auto) 24.5 % Monocytes (%) (Auto) 11.8 % Eosinophils (%) (Auto) 0.8 % Basophils (%) (Auto) 0.2 % Neutrophils # (Auto) 8.82 K/uL (1.4-6.5) Lymphocytes # (Auto) 3.48 K/uL (1.2-3.4) Monocytes # (Auto) 1.67 K/uL (0.11-0.59) Eosinophils # (Auto) 0.11 K/uL (0-0.5) Basophils # (Auto) 0.03 K/uL (0-0.2) RDW Standard Deviation 54.1 fL (36.4-46.3) RDW Coefficient of Variation 16.8 % (11.5-14.5) Immature Granulocyte % (Auto) 0.6 % Immature Granulocyte # (Auto) 0.09 K/uL (0.00-0.02) Anion Gap 9.0 mmol/L (3-11) Est Creatinine Clear Calc Drug Dose 74.1 ml/min Estimated GFR () 81.2 Estimated GFR (Non- 70.0 BUN/Creatinine Ratio 26.8 (10-20) Calcium Level 8.9 mg/dl (8.5-10.1) Total Bilirubin 0.3 mg/dl (0.2-1) Direct Bilirubin < 0.1 mg/dl (0-0.2) Aspartate Amino Transf (AST/SGOT) 9 U/L (15-37) Alanine Aminotransferase (ALT/SGPT) 20 U/L (12-78) Alkaline Phosphatase 79 U/L (45-117) Troponin I < 0.015 ng/ml (0-0.045) Total Protein 6.5 gm/dl (6.4-8.2) Albumin 3.2 gm/dl (3.4-5.0) Lipase 81 U/L (73-393) Urine Color YELLOW Urine Appearance CLEAR (CLEAR) Urine pH 5.0 (4.5-7.5) Urine Specific [place] 1.017 (1.000-1.030) Urine Protein NEG (NEG) Urine Glucose (UA) NEG (NEG) Urine Ketones NEG (NEG) Urine Occult Blood NEG (NEG) Urine Nitrite NEG (NEG) Urine Bilirubin NEG (NEG) Urine Urobilinogen NEG (NEG) Urine Leukocyte Esterase NEG (NEG) Laboratory results per my review. Medications Administered Medications (Trade) Dose Ordered Sig/Lulu Route Start Time Stop Time Status Last Admin Dose Admin Sodium Chloride (Nss 1000ml) 1,000 ml @ 125 mls/hr Q8H STAT IV 05/11/16 09:13 05/11/16 15:41 DC 05/11/16 09:40 125 MLS/HR Morphine Sulfate (MoRPHine SULFATE INJ) 4 mg Q15M PRN IV 05/11/16 09:15 05/11/16 15:40 DC 05/11/16 12:49 4 MG Ondansetron HCl (Zofran Inj) 4 mg NOW STAT IV 05/11/16 09:13 05/11/16 09:15 DC 05/11/16 09:37 4 MG Ketorolac Tromethamine (Toradol Inj) 30 mg NOW STAT IV 05/11/16 09:13 05/11/16 09:15 DC 05/11/16 09:38 30 MG Dexamethasone Sodium Phosphate (Decadron Inj) 10 mg NOW ONCE IV 05/11/16 09:15 05/11/16 09:16 DC 05/11/16 09:38 10 MG Hydromorphone HCl (Dilaudid Inj) 0.5 mg NOW STAT IV 05/11/16 11:14 05/11/16 11:15 DC 05/11/16 11:31 0.5 MG Diphenhydramine HCl (Benadryl Inj) 12.5 mg NOW STAT IV 05/11/16 11:14 05/11/16 11:15 DC 05/11/16 11:31 12.5 MG ECG Indication: syncope Rate (beats per minute): 72 Rhythm: normal sinus Findings: no ectopy, other (no acute ST segment abnormality) Comparison ECG Date: 05/10/16 Change: no significant change ED Course 0910: The patient was evaluated in room B11B. A complete history and physical examination were performed. 912: Ordered Toradol Inj 30 mg IV, Zofran Inj 4 mg IV, NSS 1000 ml @ 125 mls/ hr IV. 15: Decadron Inj 10 mg IV, Morphine Sulfate 4 mg IV. 1059: I discussed the case with Dr. Larios - Orthopedic Surgery. He recommended hospitalizing the patient. 1114: Upon reevaluation, the patient is feeling better. I discussed results and treatment plan with the patient. She verbalizes agreement and understanding. Ordered Benadryl Inj 12.5 mg IV, Dilaudid Inj 0.5 mg IV. 1127: I discussed the case with Dr. Ruthie HOUSTON Hospitalist. The patient will be evaluated for further management. Medical Decision Prior records/ancillary studies reviewed. Triage Nursing notes reviewed. Previous electronic medical records reviewed. Differential diagnosis: Etiologies such as musculoskeletal, disc herniation, fracture, aortic disease, metastatic disease, cord compression, discitis, infection, renal colic, gastrointestinal, acute exacerbation of chronic back pain, sciatica, cauda equina, as well as others were entertained. The patient is a 55-year-old female who presented to the emergency department for severe right low back pain and right sciatica. The patient was recently diagnosed with spinal stenosis and had an MRI which was felt to be significant enough for her to schedule surgery with her primary orthopedic spinal specialist. She was seen in our facility recently for similar complaints. She was treated and was able to be released. The patient had a preop appointment yesterday. She returns today with a friend because of very severe pain which now appears to be worsened but appears to be similar in location. The patient did not have any focal neurologic deficit. The patient was treated with IV fluids IV pain medicine IV steroids and IV antiemetics in the emergency department. On subsequent reevaluation she was only minimally improved. I discussed her presentation with her primary spinal specialist. I also discussed her case with the on-call [facility] hospitalist group. They've agreed to evaluate the patient in the emergency department for further management and disposition. The patient did have an episode of syncope which she feels is secondary to her pain. She did not receive any pain medication prior to the episode of syncope. An EKG was performed as well as a chest x-ray. I did pass this on to the admitting service. Consults Time Called: 1050 Consulting Physician: Dr. Larios - Orthopedic Surgery Returned Call: [phone] I discussed the case with him. He recommended hospitalizing the patient. Additional Consults: Time Called: 1118 Consulted Physician: Dr. Ruthie HOUSTON Hospitalist Returned Call: [phone] Additional Comments: I discussed the case with him. The patient will be evaluated for further management. Impression Primary Impression: Intractable low back pain Additional Impressions: Sciatica Syncope Scribe Attestation The scribe's documentation has been prepared under my direction and personally reviewed by me in its entirety. I confirm that the note above accurately reflects all work, treatment, procedures, and medical decision making performed by me. Departure Information Dispostion Being Evaluated By Hospitalist Referrals Axel Larios DO (PCP) Patient Instructions My [facility] Problem Qualifiers Additional Impressions: Sciatica Laterality: right Qualified Codes: M54.31 - Sciatica, right side Syncope Syncope type: unspecified Qualified Codes: R55 - Syncope and collapse
[2016-05-11] MEDS: MoRPHine SULFATE 4 MG/ML 1 ML CARP\\VIAL IV PRN ×2 (09:39→12:49)
[2016-05-11 10:04] LABS: BASO % 0.2 %; BASO ABS # 0.03 K/uL (0-0.2); COMPLETE YES; EOS % 0.8 %; HEMATOCRIT 38.1 % (37-47); IG% 0.6 %; LYMPH % 24.5 %; LYMPH ABS # 3.48 K/uL (1.2-3.4); MEAN CELL VOLUME 87.6 fL (80-100); MEAN CORPUSCULAR HEMOGLOBIN 29.9 pg (25-34); MEAN CORPUSCULAR HGB CONC 34.1 g/dl (32-36); MEAN PLATELET VOLUME 8.5 fL (7.4-10.4); MONO % 11.8 %; NEUT % 62.1 %; PLATELET COUNT 295 K/uL (130-400); RED BLOOD COUNT 4.35 M/uL (4.2-5.4)
[2016-05-11 10:12] LABS: ALT/SGPT 20 U/L (12-78); BLOOD UREA NITROGEN 24 mg/dl (7-18); BUN/CREATININE RATIO 26.8 (10-20); CALCIUM 8.9 mg/dl (8.5-10.1); CARBON DIOXIDE 27 mmol/L (21-32); CHLORIDE 105 mmol/L (98-107); CREATININE 0.91 mg/dl (0.60-1.20); GLUCOSE 86 mg/dl (70-99); SODIUM 141 mmol/L (136-145)
[2016-05-11 10:16] LABS: ALKALINE PHOSPHATASE 79 U/L (45-117); AST/SGOT 9 U/L (15-37)
--- NOTE | 2016-05-11 10:32 | DIAGNOSTIC IMAGING REPORT ---
CHEST ONE VIEW PORTABLE CLINICAL HISTORY: syncope COMPARISON STUDY: 05/10/2016 FINDINGS: The cardiac and mediastinal contours are normal. There is no evidence of focal pulmonary consolidation. There is no evidence of failure. No pleural effusions are visualized.[ IMPRESSION: No active disease in the chest. Electronically signed by: Danny Kramer M.D. 05/11/2016 10:31 AM Dictated Date/Time: 05/11/2016 10:31 AM
[2016-05-11] MEDS ORDERED: DiphenhydrAMINE HCL 50 MG/ML VIAL IV STA (11:14)
[2016-05-11] MEDS ORDERED: HYDROmorphone INJ 0.5 MG/0.5 ML SYR IV STA (11:14)
[2016-05-11 11:52] LABS: URINE APPEARANCE CLEAR (CLEAR); URINE BILIRUBIN NEG (NEG); URINE COLOR YELLOW; URINE NITRITE NEG (NEG); URINE SPECIFIC GRAVITY 1.017 (1.000-1.030); UROBILINOGEN NEG (NEG)
[2016-05-11 11:56] LABS: MANUAL MICROSCOPIC REQUIRED? NO; REVIEW REQ? NO
[2016-05-11] MEDS ORDERED: BUDESONIDE/FORMOTEROL FUMARATE 160/4.5 60 PUFFS/INHALER INH PRN (13:15)
[2016-05-11] MEDS ORDERED: ONDANSETRON INJ 2 MG/ML 2 ML VIAL IV PRN (13:15)
[2016-05-11] MEDS ORDERED: ALBUT/IPRATROP 3MG/0.5MG NEB 3 ML VIAL INH PRN (13:15)
[2016-05-11] MEDS ORDERED: ACETAMINOPHEN 325 MG TAB PO PRN (13:15)
[2016-05-11] MEDS ORDERED: HYDROmorphone INJ 1 MG/ML SYR ONE (13:25)
--- NOTE | 2016-05-11 13:25 | History and Physical ---
History & Physical Date & Time of Service: May 11, 2016 at 13:15 Chief Complaint: Back Pain Primary Care Physician: Axel Larios DO History of Present Illness Source: patient, family, hospital records This patient is a 55-year-old female that presents the emergency department complaining of intractable lower back pain radiating down her right leg has gotten progressively worse over the last few weeks. The patient was seen in the emergency department a few weeks ago. An MRI was performed. It showed a mild disc bulge at L4-L5. The patient is following with Dr. Larios from orthopedics. 3 weeks ago, the patient had a steroid injection in her back. She thinks that this made the pain worse. She was seen in the emergency department on 05/05 intractable back pain. She was stepping out of a jay bus when she felt a sharp shooting pain in her right leg. This caused her to go unresponsive. An ambulance was called and she was brought to emergency department for evaluation. Patient denies any injuries. No significant abnormalities were noted during that ER visit. The patient presents to emergency department from home today. Her sister brought her in. She reportedly went unresponsive for a few seconds in the letter. The sister said that she just slumped over. She was not responding to verbal stimuli. There is no reports of shaking. No loss of control of urinary or bowel function. The patient denies any previous syncopal episodes prior to admit to that she has had in the last few weeks. She denies any chest pain or pressure. No dyspnea on exertion. She did not feel dizzy prior to the episode. No headaches or changes in vision. The patient has been taking Dilaudid for pain control. She did not take any this morning. She has been trying to only take ibuprofen, because she functions better without the narcotics. The patient does note that she thinks that the right leg is a little bit weaker than the left. She denies any saddle paresthesias. Dr. Larios was notified that she was in the emergency department. 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) Immunizations History of Influenza Vaccine: Yes History of Tetanus Vaccine?: Yes History of Pneumococcal: No History of Hepatitis B Vaccine: No Allergies Coded Allergies: Morphine (Verified Allergy, Intermediate, SHORTNESS OF BREATH, 05/11/16) SOB, feels like bugs are biting her, anxious, upper GI pain Lemon (Verified Allergy, Unknown, HIVES, 05/11/16) Penicillins (Verified Allergy, Unknown, HIVES, 05/11/16) Unclassified Drugs (Verified Allergy, Unknown, METAL MORRO - RASH, ) Home Medications Scheduled Albuterol Hfa (Ventolin Hfa), 2-4 PUFFS INH Q6H Gabapentin (Neurontin), 300 MG PO TID Melatonin (Melatonin Maximum Strengt), 2 TAB PO HS Pravastatin Sodium (Pravastatin Sodium), 10 MG PO HS Tramadol (Ultram), 50 MG PO Q4-6H Scheduled PRN Budesonide/Formoterol Fumarate (Symbicort 160/4.5 Inhaler ), 2 PUFFS INH BID PRN for PRN Hydromorphone HCl (Hydromorphone HCl), 2 MG PO Q6H PRN for Pain Ibuprofen (Ibu-200), 4 TAB PO QID PRN for Pain Oxycodone Hcl (Oxycodone Hcl), 0 PO QID PRN for Pain [Oxycodone], 1 TAB PO Q6H 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 of Systems 10 system review performed and negative unless noted in HPI or below Physical Exam Vital Signs Date Time Temp Pulse Resp B/P Pulse Ox O2 Delivery O2 Flow Rate FiO2 05/11/16 13:06 75 05/11/16 12:20 68 123/52 96 Room Air 05/11/16 10:28 73 179/66 94 Room Air 05/11/16 09:42 77 05/11/16 08:37 36.8 91 20 104/67 97 Room Air General Appearance: + mild distress (in mild discomfort rolled on her left side ) Head: normocephalic Eyes: PERRL, EOMI ENT: + pertinent finding (oral mucosa moist) Neck: no JVD Respiratory/Chest: lungs clear Cardiovascular: regular rate, rhythm Abdomen/GI: normal bowel sounds, non tender, soft Back: + pertinent finding (no tenderness to palpation noted over the spinous processes. Tenderness to palpation over the right buttock.) Extremities/Musculoskelatal: no calf tenderness, no pedal edema Neurologic/Psych: no motor/sensory deficits, oriented x 3, + pertinent finding (no weakness appreciated in the lower extremities bilaterally.) Skin: warm/dry Diagnostics Laboratory Results Results Past 24 Hours Test 05/11/16 09:36 05/11/16 11:10 Range/Units White Blood Count 14.20 4.8-10.8 K/uL Red Blood Count 4.35 4.2-5.4 M/uL Hemoglobin 13.0 12.0-16.0 g/dL Hematocrit 38.1 37-47 % Mean Corpuscular Volume 87.6 80-100 fL Mean Corpuscular Hemoglobin 29.9 25-34 pg Mean Corpuscular Hemoglobin Concent 34.1 32-36 g/dl Platelet Count 295 130-400 K/uL Mean Platelet Volume 8.5 7.4-10.4 fL Neutrophils (%) (Auto) 62.1 % Lymphocytes (%) (Auto) 24.5 % Monocytes (%) (Auto) 11.8 % Eosinophils (%) (Auto) 0.8 % Basophils (%) (Auto) 0.2 % Neutrophils # (Auto) 8.82 1.4-6.5 K/uL Lymphocytes # (Auto) 3.48 1.2-3.4 K/uL Monocytes # (Auto) 1.67 0.11-0.59 K/uL Eosinophils # (Auto) 0.11 0-0.5 K/uL Basophils # (Auto) 0.03 0-0.2 K/uL RDW Standard Deviation 54.1 36.4-46.3 fL RDW Coefficient of Variation 16.8 11.5-14.5 % Immature Granulocyte % (Auto) 0.6 % Immature Granulocyte # (Auto) 0.09 0.00-0.02 K/uL Sodium Level 141 136-145 mmol/L Potassium Level 4.0 3.5-5.1 mmol/L Chloride Level 105 98-107 mmol/L Carbon Dioxide Level 27 21-32 mmol/L Anion Gap 9.0 3-11 mmol/L Blood Urea Nitrogen 24 7-18 mg/dl Creatinine 0.91 0.60-1.20 mg/dl Est Creatinine Clear Calc Drug Dose 74.1 ml/min Estimated GFR () 81.2 Estimated GFR (Non- 70.0 BUN/Creatinine Ratio 26.8 10-20 Random Glucose 86 70-99 mg/dl Calcium Level 8.9 8.5-10.1 mg/dl Total Bilirubin 0.3 0.2-1 mg/dl Direct Bilirubin < 0.1 0-0.2 mg/dl Aspartate Amino Transf (AST/SGOT) 9 15-37 U/L Alanine Aminotransferase (ALT/SGPT) 20 12-78 U/L Alkaline Phosphatase 79 45-117 U/L Troponin I < 0.015 0-0.045 ng/ml Total Protein 6.5 6.4-8.2 gm/dl Albumin 3.2 3.4-5.0 gm/dl Lipase 81 73-393 U/L Urine Color YELLOW Urine Appearance CLEAR CLEAR Urine pH 5.0 4.5-7.5 Urine Specific [place] 1.017 1.000-1.030 Urine Protein NEG NEG Urine Glucose (UA) NEG NEG Urine Ketones NEG NEG Urine Occult Blood NEG NEG Urine Nitrite NEG NEG Urine Bilirubin NEG NEG Urine Urobilinogen NEG NEG Urine Leukocyte Esterase NEG NEG CXR normal EKG Normal sinus rhythm 72 bpm Impression Assessment and Plan 55-year-old female presents emergency department again with intractable back pain and a possible syncopal episode lasting a few seconds. Possible syncope-possibly secondary to vasovagal related to pain -Observe in telemetry -Trend cardiac enzymes -CT of the chest to rule out PE -Check echo COPD -Continue Symbicort twice daily -Duo nebs as needed Intractable back pain -Continue Dilaudid 1 mg every 3 hours as needed for severe pain -Continue gabapentin 300 mg 3 times daily -Orthopedic consult DVT prophylaxis -Hold off on chemical means for possible OR -Teds, SCDs CODE STATUS -LEVEL I FULL CODE Disco -PT/OT eval--> hopeful for DC home. Level of Care Telemetry Resuscitation Status FULL RESUSCITATION VTE Prophylaxis VTE Risk Assessment Done? Y/N: Yes Risk Level: Low Given or contraindicated: T.E.D. Stockings, SCD's
[2016-05-11] MEDS ORDERED: OPTIRAY 320 IV PRN (13:30)
[2016-05-11] MEDS ORDERED: HYDROmorphone INJ 1 MG/ML SYR IV ONE (13:30)
[2016-05-11] MEDS ORDERED: IV FLUIDS COMPLETED PRN (13:45)
[2016-05-11] MEDS: GABAPENTIN 300 MG CAP PO SCH ×2 (14:00→20:56)
--- NOTE | 2016-05-11 14:32 | CONSULTATION REPORT ---
DATE OF CONSULTATION: 05/11/2016 CHIEF COMPLAINT: Incapacitating buttock pain on the right hand side. HISTORY OF PRESENT ILLNESS: Sheela is a delightful patient. I have known her for several years in duration. She has significant stenosis of spine in the L4-5, L5-S1 region with incapacitating back and buttock pain. No true motor loss. No associated fever, sweats, or bowel and bladder issues. PAST MEDICAL HISTORY: Positive for kidney stones, history of urinary calculi, COPD, tobacco use. PAST SURGICAL HISTORY: Appendectomy, cholecystectomy, hysterectomy, and old spinal surgery. FAMILY HISTORY: AFib, blood clots, cancer, diabetes. SOCIAL HISTORY: She is an everyday smoker. No alcohol use. She is single, lives alone. 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 ALLERGIES: MORPHINE, LEMON, PENICILLINS. REVIEW OF SYSTEMS: Denies blurred vision, double vision, tinnitus, vertigo, and malaise. No fevers, sweats, or chills. Denies any chest pain and shortness of breath. No nausea, vomiting, no loss of bowel and bladder function. OBJECTIVE: She is alert, oriented, seeing her in the Emergency Room B1. Afebrile, pulse regular at 90, respirations 20, blood pressure 123/52, pulse ox 94. Cranial nerves intact. Facial nerve roots intact. Moves extremities. Slow to move the right leg severe pain. I really cannot even touch her back and buttock region on the right hand side. She is lying with the left side down position. She seems to be able to move all extremities. I do not detect any paralysis. I have not done a rectal examination on her. No abdominal discomfort, pain with percussion. IMAGING DATA: Old images from just within the last 10-20 days demonstrates significant stenosis of the spine at the L4-5 region, very narrow canal, looks to me she has a foraminal disc herniation as well. Her implants seem to be in good positioning. She had old pedicle screws placed. I do not think they have loosened. IMPRESSION: Delightful young lady I have known for years with severe back and lower extremity difficulty, severe stenosis, chronic obstructive pulmonary disease, a few allergies, and a current everyday smoker. DISPOSITION: We are thankful for the medical team for admitting her to the hospital for medical control. I did added Toradol round the clock q. 6 hours and Decadron as well. This should help control her symptoms. She is on p.r.n. Dilaudid which are appropriate. Neurontin could also be used as an adjunct. She is scheduled for surgery coming up in about 10-14 days. I do have my surgical calendar in front of me. In all likelihood because of all the surgeries are canceled today, we will try to get her pain under control in the next 48 hours. Hopefully, get her home at strict bed rest and bring her back in for her elective surgery as planned. Possibly injections at the L4-5 and L5-S1 region on the right hand side could be a good adjunct to pain control and I will put in a consultation for pain management.
--- NOTE | 2016-05-11 14:43 | DIAGNOSTIC IMAGING REPORT ---
CT HEAD WITHOUT CONTRAST (CT) CLINICAL HISTORY: sycnope COMPARISON STUDY: No previous studies for comparison. TECHNIQUE: Axial CT of the brain is performed from the vertex to the skull base. IV contrast was not administered for this examination. CT DOSE: 1498.00 mGy.cm FINDINGS: No intra or extra-axial mass lesions are visualized. There is no CT evidence of acute cortical infarction. There is no evidence of midline shift. There is no acute hemorrhage. No calvarial fractures are visualized. There are vertebral artery calcifications. There is no evidence of pathologic ventricular dilatation. There is no evidence of acute sinusitis IMPRESSION: No acute intracranial findings Electronically signed by: Danny Kramer M.D. 05/11/2016 2:42 PM Dictated Date/Time: 05/11/2016 2:41 PM
--- NOTE | 2016-05-11 14:47 | DIAGNOSTIC IMAGING REPORT ---
CT ANGIOGRAM OF THE CHEST CLINICAL HISTORY: Atypical chest pain. Back pain. COMPARISON STUDY: Chest CT scans dated 07/16/2015 and 03/27/2013. TECHNIQUE: Following the IV administration of 113 cc of Optiray 320, CT angiogram of the chest was performed from the upper abdomen to the thoracic inlet utilizing the pulmonary embolus protocol. Images are reviewed in the axial, sagittal, and coronal planes. 3-D MIPS images are created and assessed. IV contrast was administered without complication. The examination is degraded by suboptimal contrast opacification of the pulmonary arteries. FINDINGS: Thyroid: Imaged portions of the thyroid gland are normal in size and attenuation. Thoracic aorta: There is minimal atherosclerotic calcification of the thoracic aorta, which is normal in caliber and demonstrates standard 3-vessel arch anatomy. No dissection is seen. Pulmonary vasculature: The pulmonary trunk is normal in caliber. There are no central filling defects identified in main, lobar, or proximal segmental pulmonary artery branches to suggest pulmonary embolus. Evaluation of the peripheral vessels is degraded by suboptimal contrast opacification. Heart: The heart is normal in size and configuration, and without pericardial effusion. Lungs and pleural spaces: There is no airspace consolidation or pleural effusion. Linear atelectasis versus scarring seen at left lung as per the trachea and central airways are clear. A 10 mm nodular density in the right upper lobe seen on image #228 is peribronchial in location likely represents a lymph node. This is similar in appearance dating back to the 03/27/2013 examination. Mediastinum: There is no mediastinal lymphadenopathy. Melinda: Clear. Axillae: There is no axillary lymphadenopathy. Upper abdomen: A tiny hiatal hernia is identified. Cholecystotomy clips are identified. Mild central intrahepatic biliary ductal dilatation is likely on a postoperative basis. Skeletal structures: The skeletal structures are osteopenic. No lytic or blastic bony lesions are seen. IMPRESSION: 1. There is no evidence of central pulmonary embolus in the main, lobar, or proximal segmental branches. Evaluation of the peripheral branches is degraded by suboptimal contrast opacification. There are scattered calcified granulomas. 2. There is no airspace consolidation or pleural effusion. 3. A 10 mm round nodular density in the right upper lobe is peribronchial in location and may represent a lymph node. This has not significantly changed dating back to 03/27/2013. Electronically signed by: Phillip Marsh M.D. 05/11/2016 2:46 PM Dictated Date/Time: 05/11/2016 2:38 PM
[2016-05-11] MEDS: HYDROmorphone INJ 1 MG/ML SYR IV PRN ×3 (15:58→22:48)
[2016-05-11] MEDS ORDERED: GADAVIST IV PRN (16:45)
--- NOTE | 2016-05-11 16:48 | DIAGNOSTIC IMAGING REPORT ---
MRI OF THE BRAIN WITHOUT AND WITH IV CONTRAST CLINICAL HISTORY: Syncope. COMPARISON STUDY: Head CT May 11, 2016. TECHNIQUE: Utilizing a 1.5 Ivet magnet and dedicated coil, multiplanar, multiecho imaging of the brain was performed pre and postcontrast administration. IV administration of 9 mL of Gadavist contrast was uneventful. FINDINGS: There are no areas of restricted diffusion. No acute intracranial hemorrhage, midline shift or mass effect is present. Brain volume is normal. Ventricular system is normal. Basilar cisterns are patent. There are no extra-axial collections. Flow-voids for the major intracranial vessels are present. No intracranial mass or pathologic enhancement is present. Scattered small subcortical and periventricular white matter T2 hyperintense foci suggest small vessel disease. Calvarial signal is maintained. Orbits, sinuses and mastoid air cells are unremarkable. IMPRESSION: 1. No acute intracranial findings. 2. Scattered small white matter T2 hyperintense foci which likely reflect small vessel disease. 3. No intracranial masses or pathologic enhancement. Electronically signed by: Doc Paryr M.D. 05/11/2016 4:47 PM Dictated Date/Time: 05/11/2016 4:43 PM
[2016-05-11 17:05] VITALS: BP 124/69; PULSE 59; TEMP 36.5; O2SAT 98; Ht 162.6 cm; Wt 96.2 kg
[2016-05-11] MEDS: KETOROLAC TROMETHAMINE 30 MG/ML VIAL IV SCH ×2 (17:33→23:46)
[2016-05-11] MEDS: DEXAMETHASONE INJ 6 MG in SYRINGE 0 ML IV SCH ×2 (17:33→20:56)
[2016-05-11 19:46] VITALS: BP 132/78; PULSE 66; TEMP 36.5; O2SAT 92
[2016-05-11 20:13] LABS: CKMB/CK RATIO 1.7 (0-3.0)
[2016-05-11] MEDS: PRAVASTATIN SOD 10 MG TAB PO SCH (20:56)
[2016-05-12 00:22] VITALS: BP 134/75; PULSE 77; TEMP 36.6; O2SAT 93
[2016-05-12] MEDS: HYDROmorphone INJ 1 MG/ML SYR IV PRN ×3 (03:08→20:36)
[2016-05-12] MEDS: DEXAMETHASONE INJ 6 MG in SYRINGE 0 ML IV SCH ×4 (03:24→20:35)
[2016-05-12 03:27] LABS: BASO % 0.1 %; BASO ABS # 0.01 K/uL (0-0.2); COMPLETE YES; HEMATOCRIT 38.9 % (37-47); IG% 0.6 %; LYMPH ABS # 1.22 K/uL (1.2-3.4); MEAN CELL VOLUME 88.6 fL (80-100); MEAN CORPUSCULAR HEMOGLOBIN 30.5 pg (25-34); MEAN CORPUSCULAR HGB CONC 34.4 g/dl (32-36); MEAN PLATELET VOLUME 8.8 fL (7.4-10.4); MONO % 3.1 %; NEUT % 86.2 %; PLATELET COUNT 302 K/uL (130-400); RED BLOOD COUNT 4.39 M/uL (4.2-5.4); WHITE BLOOD COUNT 12.24 K/uL (4.8-10.8)
[2016-05-12 03:44] LABS: BLOOD UREA NITROGEN 30 mg/dl (7-18); GLUCOSE 140 mg/dl (70-99)
[2016-05-12 03:45] LABS: BUN/CREATININE RATIO 24.9 (10-20); CALCIUM 8.7 mg/dl (8.5-10.1); CARBON DIOXIDE 27 mmol/L (21-32); CHLORIDE 100 mmol/L (98-107); MAGNESIUM 2.4 mg/dl (1.8-2.4); POTASSIUM 4.4 mmol/L (3.5-5.1); SODIUM 136 mmol/L (136-145)
[2016-05-12 03:49] LABS: CKMB/CK RATIO 1.2 (0-3.0)
[2016-05-12 04:00] VITALS: BP 115/61; PULSE 69; TEMP 36.4; O2SAT 91
[2016-05-12] MEDS: KETOROLAC TROMETHAMINE 30 MG/ML VIAL IV SCH ×3 (05:44→17:53)
[2016-05-12 07:28] VITALS: BP 128/74; PULSE 88; TEMP 36.5; O2SAT 97
[2016-05-12] MEDS: GABAPENTIN 300 MG CAP PO SCH ×3 (10:13→20:35)
--- NOTE | 2016-05-12 10:49 | CONSULTATION REPORT ---
DATE OF CONSULTATION: 05/12/2016 Plan of care discussed with Dr. Jennifer Ward. CONSULTING PHYSICIAN: Dr. Axel Larios. CHIEF COMPLAINT: Right-sided gluteal pain with radicular pain to the level of the foot in an L5 and S1 distribution. HISTORY OF PRESENT ILLNESS: Ms. Turk is a 55-year-old white female, who is admitted due to intractable pain in the right gluteal region, which extends in a radicular pattern in a predominant L5 and S1 distribution to the level of the foot. The patient had a lumbar spinal surgery with Dr. Larios in March 2015 with similar symptomatic pain complaints. The patient had an L5-S1 laminectomy and fusion procedure performed. The patient reported onset of her current symptomatic complaints in early March, which significantly worsened over the past few weeks. She is describing an acute sharp pain in the right gluteal region, which then travels an L5 and S1 distribution to the level of the foot. She describes the pain as sharp, shooting and burning in characteristic. She underwent an injection into the gluteal region by Dr. Larios approximately 3 weeks ago, which, she reported, increased the leg pain component. 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 The patient reports the leg will "give out and feel weak". She denies falls or injuries. She is unable to sit or lie on her right gluteal region due to the increased discomfort. The patient denies any bowel or bladder incontinence. She denies saddle anesthesia. The patient reports increased pain in the gluteal and posterior thigh location with coughing and activities. The patient has no further constitutional complaints at this time. PAST MEDICAL HISTORY: 1. Nephrolithiasis. 2. COPD. 3. History of tobacco abuse. 4. Back pain. PAST SURGICAL HISTORY: 1. Appendectomy. 2. Hysterectomy. 3. Cholecystectomy. 4. L5-S1 decompression and fusion. 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 SOCIAL HISTORY: The patient is with 2 adult children. She reports rare alcohol consumption. She smokes 1/2-1 pack per day. She denies illicit drug use. ALLERGIES: 1. LEMON. 2. PENICILLIN. 3. METAL MORRO -- RASH. CURRENT MEDICATIONS: Reviewed extensively in EMR -- refer to EMR for current list. REVIEW OF SYSTEMS: The patient denies complaints related to cardiac, pulmonary, GI, , endocrine, neurologic, hepatic, renal, ENT, dermatologic, musculoskeletal other than described above in the HPI. PHYSICAL EXAMINATION: VITAL SIGNS: Temperature 36.5 degrees Celsius, pulse 88, respiration 20 and BP 128/74, pulse oximetry 97 on room air. GENERAL: Ms. Turk is lying in the left lateral decubitus position upon entering the room, in no acute distress, sleeping. She was easily arousable. Speech and thought process were appropriate. Mood and affect were appropriate. Cognition was intact. BACK AND SPINE: She has loss of lumbar lordosis with a well-healed midline surgical incision over the lower lumbar spine. She is tender in the right lumbosacral region to light palpation. She is nontender correspondingly on the left. There is no appreciable myofascial spasm in the paravertebral or quadratus lumborum musculature. She is exquisitely tender to the right gluteal region without evidence of skin breakdown. She is nontender correspondingly on the left. The patient is tender to palpation along the posterolateral aspect of the thigh, as well, without visible abnormalities. LOWER EXTREMITIES: Strength testing was 5/5 with EHL, dorsiflexion, plantar flexion and knee flexion/extension maneuvering. Sensation was intact without deficits to sharp and dull. Straight leg raising reproduced radicular pain on the right side. Negative SLR on the left. NEUROLOGIC: Cranial nerves grossly intact. Ambulatory function was not witnessed. Babinski downgoing bilaterally. IMAGING: Lumbar spine MRI, without contrast, was reviewed, dated 05/02/2016, which revealed mild lumbosacral spondylosis. It is greatest at L4-L5. Posterior disc bulge with annular fissure. Bilateral subarticular stenosis. May be impinging upon the exiting bilateral L4 nerve roots. Facet arthropathy causing mild right-sided neural foraminal narrowing. No large disc herniation or significant acquired compromise of the central canal was appreciated. Postoperative changes from spinal fusion at L5 and S1. Lumbar spine CT, without contrast, dated 04/11/2016, reveals status post L5 and S1 discectomy and bilateral pedicle screw fusion. Hardware is intact. No CT evidence for loosening. The right L5 pedicle screw slightly extends through the lateral aspect of the vertebral body. Bilateral L5 pars defects may be congenital, posttraumatic or postsurgical. Suspected disc bulge at the L4 level, which is suboptimally assessed by CT. This likely results in mild narrowing of the central canal. ASSESSMENT: 1. Lumbar radiculopathy -- right lower extremity. 2. History of L5-S1 laminectomy and fusion, March 2015. 3. Tobacco abuse. 4. Chronic obstructive pulmonary disease. TREATMENT AND RECOMMENDATIONS: 1. Will progress gabapentin to 600 mg t.i.d. Potential side effects and benefits reviewed with the patient. 2. Will initiate hydromorphone 2 mg p.o. q. 3h. on a p.r.n. basis for breakthrough pain to assess efficacy, for discharge planning to be used in place of IV hydromorphone. IV hydromorphone will be left in place for pain not well controlled with p.o. hydromorphone. 3. Would defer SURENDRA, as the patient is currently planned for surgical intervention within the next 10-14 days. Could consider MRI with contrast in an attempt to define whether epidural fibrosis is contributing to her symptomatic complaints. This will be left to the discretion of her surgeon. Thank you for the consultation on Ms. Turk. GARY
--- NOTE | 2016-05-12 11:21 | ECHOCARDIOGRAM REPORT ---
*NOTICE TO RECEIVING CONSTITUTION PARTY AGENCY This information is strictly Confidential and protected under [place] law. [place] law prohibits you from making any further disclosure of this information unless further disclosure is expressly permitted by the written consent of the person to whom it pertains or is authorized by law. A general authorization for the release of medical or other information is not sufficient for this purpose. Hospital accepts no responsibility if the information is made available to any other person, INCLUDING THE PATIENT. Interpretation Summary * Name: SOFÍA GOTTLIEB Study Date: 05/12/2016 09:24 AM BP: 115/61 mmHg * Patient Location: [facility] [place] HR: 74 * : 1960 (M/d/yyyy) Gender: Female Height: 64 in * Age: 55 yrs Ethnicity: [place] Weight: 198 lb * Ordering Physician: Jayne Bauer * Referring Physician: Self, Referred * Performed By: Katja Lovell RCS * * Reason For Study: SYNCOPE * BSA: 1.9 m2 * -- Conclusions -- * 1. Normal LV size. Mild concentric LVH. * 2. Normal LV systolic function. LVEF 60-65%. No regional wall motion abnormalities. * 3. Normal RV size and function. * 4. Grade I diastolic dysfunction. * 5. No significant valvular pathology. * 6. No prior studies for comparison. Procedure Details * Left Ventricle The left ventricle is grossly normal size. There is mild concentric left ventricular hypertrophy. Ejection Fraction = 60-65%. * Right Ventricle The right ventricle is grossly normal size. The right ventricular systolic function is normal as assessed by tricuspid annular plane systolic excursion (TAPSE) (normal >1.5 cm). * Atria Borderline left atrial enlargement. Right atrial size is normal. Septal dropout, cant rule out interatrial shunt by doppler * Mitral Valve The mitral valve is grossly normal. There is no mitral valve stenosis. There is trace mitral regurgitation. * Tricuspid Valve The tricuspid valve is not well visualized, but is grossly normal. There is no tricuspid stenosis. There is trace tricuspid regurgitation. * Aortic Valve The aortic valve opens well. The aortic valve is trileaflet. No hemodynamically significant valvular aortic stenosis. There is no significant aortic regurgitation. * Pulmonic Valve The pulmonary valve is inadequately visualized, but the Doppler data is adequate for interpretation. There is no pulmonic valvular stenosis. Trace pulmonic valvular regurgitation. * Great Vessels The aortic root and proximal ascending aorta are normal sized. No Doppler or imaging evidence of an aortic coarctation. * Pericardium/Pleural There is no pericardial effusion. * Great Vessels Normal inferior vena cava size and collapsability with sniff indicates a normal right atrial pressure of 3 mmHg There is no evidence of pulmonary hypertension. The PA systolic pressure is less than 36 mmHg. * Left Ventricular Diastolic Function Grade I diastolic dysfunction, (abnormal relaxation pattern). * * MMode 2D Measurements and Calculations * IVSd 1.2 cm * IVSs 1.3 cm * * LVIDd 4.7 cm * LVIDs 3.1 cm * LVPWd 1.3 cm * LVPWs 1.8 cm * * IVS/LVPW 0.92 * FS 32.4 % * EDV(Teich) 100.1 ml * ESV(Teich) 39.3 ml * EF(Teich) 60.7 % * * EDV(cubed) 100.8 ml * ESV(cubed) 31.2 ml * EF(cubed) 69.1 % * % IVS thick 6.7 % * % LVPW thick 40.1 % * * LV mass(C)d 223.3 grams * LV mass(C)dI 114.7 grams/m\S\2 * LV mass(C)s 179.5 grams * LV mass(C)sI 92.2 grams/m\S\2 * * CO(Teich) 6.5 l/min * CI(Teich) 3.3 l/min/m\S\2 * SV(Teich) 60.7 ml * SI(Teich) 31.2 ml/m\S\2 * CO(cubed) 7.5 l/min * CI(cubed) 3.8 l/min/m\S\2 * SV(cubed) 69.7 ml * SI(cubed) 35.8 ml/m\S\2 * * Ao root diam 3.6 cm * Ao root area 10.3 cm\S\2 * ACS 2.0 cm * LA dimension 4.2 cm * * asc Aorta Diam 3.0 cm * * LA/Ao 1.2 * * LVAd ap4 36.1 cm\S\2 * LVLd ap4 8.5 cm * EDV(MOD-sp4) 127.0 ml * LVAs ap4 20.0 cm\S\2 * LVLs ap4 6.9 cm * ESV(MOD-sp4) 51.0 ml * EF(MOD-sp4) 59.8 % * * LVAd ap2 34.6 cm\S\2 * LVLd ap2 8.7 cm * EDV(MOD-sp2) 116.0 ml * LVAs ap2 17.5 cm\S\2 * LVLs ap2 6.2 cm * ESV(MOD-sp2) 44.0 ml * EF(MOD-sp2) 62.1 % * * CO(MOD-sp4) 8.1 l/min * CI(MOD-sp4) 4.2 l/min/m\S\2 * SV(MOD-sp4) 76.0 ml * SI(MOD-sp4) 39.0 ml/m\S\2 * * CO(MOD-sp2) 7.7 l/min * CI(MOD-sp2) 4.0 l/min/m\S\2 * SV(MOD-sp2) 72.0 ml * SI(MOD-sp2) 37.0 ml/m\S\2 * * * * * * Doppler Measurements and Calculations * MV E max rogerio 105.6 cm/sec * MV A max rogerio 118.0 cm/sec * * MV E/A 0.90 * * MV P1/2t max rogerio 123.1 cm/sec * MV P1/2t 129.9 msec * MVA(P1/2t) 1.7 cm\S\2 * MV dec slope 277.6 cm/sec\S\2 * MV dec time 0.29 sec * * Ao V2 max 166.1 cm/sec * Ao max PG 11.0 mmHg * Ao max PG (full) 5.1 mmHg * * LV V1 max PG 5.9 mmHg * * LV V1 max 121.9 cm/sec * * PA V2 max 114.9 cm/sec * PA max PG 5.3 mmHg * * *
[2016-05-12 11:22] VITALS: BP 127/65; PULSE 74; TEMP 36.8; O2SAT 93
[2016-05-12] MEDS ORDERED: POLYETHYLENE (MIRALAX) 17 GM PACK PO PRN (13:00)
[2016-05-12] MEDS: HYDROmorphone HCL 2 MG TAB PO PRN (14:58)
--- NOTE | 2016-05-12 15:09 | PROGRESS NOTE ---
DATE: 05/12/2016 SUBJECTIVE: Moderate complaints of pain, no significant resolution. She is on fairly high dose medication. She has no fever, sweats or chills. OBJECTIVE: White cell count is slightly elevated at 12.4, hemoglobin stable 13.4. She is slightly weak in the lower extremity with quadriceps and dorsiflexion, pain with straight leg raising. She is minimally comfortable. Images reviewed, demonstrating stenosis of the spine. DISPOSITION: Includes conservative care ____ surgery coming up in a few weeks. We will try to get her quieted down this week and hopefully get her discharged.
--- NOTE | 2016-05-12 16:00 | Progress Note ---
Subjective Date of Service: May 12, 2016. Subjective Pt evaluation today including: conversation w/ patient, conversation w/ family , physical exam, chart review, lab review, review of studies, conversation w/ actuarial consultant, review of inpatient medication list Generally feeling better, however has severe right lateral thigh pain, radiation to right lower extremity Problem List Medical Problems: (1) Failure of outpatient treatment Status: Acute (2) Intractable low back pain Status: Acute (3) Lower back pain Status: Acute (4) Pyelonephritis Status: Acute (5) Sciatica Status: Acute (6) Syncope Status: Acute Review of Systems Constitutional: No chills, No fatigue, No fever, No problem reported, No sweats , No weakness, No weight loss Eyes: No diplopia, No discharge, No eye pain, No redness, No worsening of vision ENT: No dental problems, No hearing loss, No nasal symptoms, No sore throat, No tinnitus, No trouble swallowing, No unusual epistaxis Respiratory: No cough, No dyspnea at rest, No dyspnea on exertion, No hemoptysis, No shortness of breath, No sputum, No wheezing Cardiac: No PND, No chest pain, No claudication, No edema, No orthopnea, No palpitations Abdomen: No constipation, No diarrhea, No nausea, No pain, No vomiting Musculoskeletal: + joint pain, + muscle pain, No calf pain, No swelling Female : No abnormal vaginal bleeding, No dysuria, No hematuria, No incontinence, No urinary frequency, No vaginal discharge Neurologic: No balance problems, No memory loss, No numbness/tingling, No paralysis, No vertigo, No weakness Psychiatric: No anhedonism, No anxiety, No depression symptoms, No insomnia, No substance abuse Heme: No abnormal bleeding/bruising, No clotting problems, No night sweats, No swollen lymph nodes Endo: No excessive thirst, No excessive urination, No fatigue Skin: No bleeding, No color change, No itch, No new/changing skin lesions, No rash Objective Vital Signs Date Time Temp Pulse Resp B/P Pulse Ox O2 Delivery O2 Flow Rate FiO2 05/12/16 12:00 Room Air 05/12/16 11:22 36.8 74 18 127/65 93 Room Air 05/12/16 08:00 Room Air 05/12/16 07:28 36.5 88 20 128/74 97 Room Air 05/12/16 04:00 Room Air 05/12/16 04:00 36.4 69 16 115/61 91 Room Air 05/12/16 00:22 36.6 77 20 134/75 93 Room Air 05/12/16 00:00 Room Air 05/11/16 20:00 Room Air 05/11/16 19:46 36.5 66 18 132/78 92 Room Air 05/11/16 17:05 36.5 59 18 124/69 98 Room Air Physical Exam General Appearance: WD/WN, no apparent distress, + obese Eyes: normal inspection, PERRL, EOMI, sclerae normal ENT: normal ENT inspection, hearing grossly normal, pharynx normal Neck: supple, no adenopathy, thyroid normal, no JVD, no carotid bruits, trachea midline Respiratory/Chest: chest non-tender, lungs clear, normal breath sounds, no respiratory distress, no accessory muscle use Cardiovascular: regular rate, rhythm, no edema, no gallop, no JVD, no murmur Abdomen: normal bowel sounds, non tender, soft, no organomegaly, no pulsatile mass Extremities: normal range of motion, non-tender, normal inspection, no pedal edema, no calf tenderness, normal capillary refill, pelvis stable, + pertinent finding (right posterior butoock has severe tender, ) Neurologic/Psychiatric: 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 as tested, no motor/sensory deficits, alert, normal mood/affect, oriented x 3 Skin: normal color, warm/dry, no rash Lymphatic: no adenopathy Laboratory Results Last 24 Hours Test 05/11/16 19:35 05/12/16 03:16 Total Creatine Kinase 47 U/L 50 U/L Creatine Kinase MB 0.8 ng/ml 0.6 ng/ml Creatine Kinase MB Ratio 1.7 1.2 Troponin I < 0.015 ng/ml < 0.015 ng/ml White Blood Count 12.24 K/uL Red Blood Count 4.39 M/uL Hemoglobin 13.4 g/dL Hematocrit 38.9 % Mean Corpuscular Volume 88.6 fL Mean Corpuscular Hemoglobin 30.5 pg Mean Corpuscular Hemoglobin Concent 34.4 g/dl Platelet Count 302 K/uL Mean Platelet Volume 8.8 fL Neutrophils (%) (Auto) 86.2 % Lymphocytes (%) (Auto) 10.0 % Monocytes (%) (Auto) 3.1 % Eosinophils (%) (Auto) 0.0 % Basophils (%) (Auto) 0.1 % Neutrophils # (Auto) 10.56 K/uL Lymphocytes # (Auto) 1.22 K/uL Monocytes # (Auto) 0.38 K/uL Eosinophils # (Auto) 0.00 K/uL Basophils # (Auto) 0.01 K/uL RDW Standard Deviation 53.6 fL RDW Coefficient of Variation 16.5 % Immature Granulocyte % (Auto) 0.6 % Immature Granulocyte # (Auto) 0.07 K/uL Sodium Level 136 mmol/L Potassium Level 4.4 mmol/L Chloride Level 100 mmol/L Carbon Dioxide Level 27 mmol/L Anion Gap 9.0 mmol/L Blood Urea Nitrogen 30 mg/dl Creatinine 1.20 mg/dl Est Creatinine Clear Calc Drug Dose 57.8 ml/min Estimated GFR () 58.1 Estimated GFR (Non- 50.1 BUN/Creatinine Ratio 24.9 Random Glucose 140 mg/dl Calcium Level 8.7 mg/dl Magnesium Level 2.4 mg/dl Assessment and Plan 55-year-old female presents emergency department again with intractable back pain and a possible syncopal episode lasting a few seconds on 05/11/2016 Possible syncope-possibly secondary to vasovagal related to pain, stable improving no more episodes, MRI has no acute disease, monitoring analyst was not remarkable COPd: Stable continue current medication Lumbar spine stenosis with Intractable back pain asso with slightly weak and pain with straight leg raising. Continue Neurontin, dexamethasone, Dilaudid, continue follow-up Ortho's input, possible procedure next sunday CT of the chest to rule out PE, Check echo, check head CT and brain MRI was not remarkable Pain management consult input appreciated DVT prophylaxis -Teds, SCDs Continued [facility] stay due to: home environment unsafe for pt Discharge planning: uncertain
[2016-05-12 19:31] VITALS: BP 145/71; PULSE 77; TEMP 36.4; O2SAT 94
[2016-05-12] MEDS: DOCUSATE SODIUM 100 MG CAP PO SCH (20:34)
[2016-05-12] MEDS: PRAVASTATIN SOD 10 MG TAB PO SCH (20:34)
[2016-05-12 22:51] VITALS: BP 135/79; PULSE 76; TEMP 36.7; O2SAT 95
[2016-05-13] VITALS (7 sets, daily range): BP systolic 126–157; BP diastolic 64–79; PULSE 66–75; TEMP 36.5–36.8; O2SAT 93–96
[2016-05-13] MEDS: KETOROLAC TROMETHAMINE 30 MG/ML VIAL IV SCH ×5 (00:58→23:58)
[2016-05-13] MEDS: DEXAMETHASONE INJ 6 MG in SYRINGE 0 ML IV SCH ×2 (04:43→09:06)
[2016-05-13] MEDS: HYDROmorphone INJ 1 MG/ML SYR IV PRN ×5 (05:53→21:31)
[2016-05-13 06:14] LABS: BASO % 0.1 %; BASO ABS # 0.01 K/uL (0-0.2); COMPLETE YES; HEMATOCRIT 37.1 % (37-47); IG% 0.5 %; LYMPH % 6.3 %; LYMPH ABS # 1.06 K/uL (1.2-3.4); MEAN CELL VOLUME 87.1 fL (80-100); MEAN CORPUSCULAR HGB CONC 34.5 g/dl (32-36); MONO % 7.8 %; NEUT % 85.3 %; PLATELET COUNT 304 K/uL (130-400); RED BLOOD COUNT 4.26 M/uL (4.2-5.4); WHITE BLOOD COUNT 16.77 K/uL (4.8-10.8)
[2016-05-13 06:57] LABS: BUN/CREATININE RATIO 29.7 (10-20); CREATININE 0.88 mg/dl (0.60-1.20); POTASSIUM 4.4 mmol/L (3.5-5.1)
[2016-05-13] MEDS: GABAPENTIN 300 MG CAP PO SCH ×3 (08:25→21:30)
[2016-05-13] MEDS: DOCUSATE SODIUM 100 MG CAP PO SCH ×2 (08:25→21:30)
--- NOTE | 2016-05-13 10:57 | PROGRESS NOTE ---
DATE: 05/13/2016 DATE: 05/13/2016. SUBJECTIVE: Severe complaints of pain, right buttock pain, right lower extremity seemingly in the 4 possibly the 5 nerve root distribution right side. I have looked at her images thoroughly. She has a large facet, large synovial cyst on the right hand side trapping off the nerve root. OBJECTIVE: Vital signs stable. Alert and oriented. DISPOSITION: We have scheduled her for surgery Sunday, will probably commence around 2:00 p.m. We can keep her here, medicate her, get her comfortable. She had her EKG, lab work and our plan is for surgery on Sunday.
[2016-05-13] MEDS: HYDROmorphone HCL 2 MG TAB PO PRN (12:17)
--- NOTE | 2016-05-13 15:05 | Progress Note ---
Subjective Date of Service: May 13, 2016. Subjective Pt evaluation today including: conversation w/ patient, conversation w/ family , physical exam, chart review, lab review, review of studies, conversation w/ business risk consultant, review of inpatient medication list Generally feeling a little bit better, however the pain in the right buttock area was 8 out of 10 when up and walk, and 6 out of 10 when in rest currently Mild nausea edition, no chest pain, no fever and chill Problem List Medical Problems: (1) Failure of outpatient treatment Status: Acute (2) Intractable low back pain Status: Acute (3) Lower back pain Status: Acute (4) Pyelonephritis Status: Acute (5) Sciatica Status: Acute (6) Syncope Status: Acute Review of Systems Constitutional: + fatigue, + weakness, No chills, No fever, No problem reported , No sweats, No weight loss Eyes: No diplopia, No discharge, No eye pain, No redness, No worsening of vision ENT: No dental problems, No hearing loss, No nasal symptoms, No sore throat, No tinnitus, No trouble swallowing, No unusual epistaxis Respiratory: No cough, No dyspnea at rest, No dyspnea on exertion, No hemoptysis, No shortness of breath, No sputum, No wheezing Cardiac: No PND, No chest pain, No claudication, No edema, No orthopnea, No palpitations Abdomen: No constipation, No diarrhea, No nausea, No pain, No vomiting Musculoskeletal: No calf pain, No joint pain, No muscle pain, No swelling Female : No abnormal vaginal bleeding, No dysuria, No hematuria, No incontinence, No urinary frequency, No vaginal discharge Neurologic: + see HPI, No balance problems, No memory loss, No numbness/ tingling, No paralysis, No vertigo, No weakness Psychiatric: No anhedonism, No anxiety, No depression symptoms, No insomnia, No substance abuse Heme: No abnormal bleeding/bruising, No clotting problems, No night sweats, No swollen lymph nodes Endo: No excessive thirst, No excessive urination, No fatigue Skin: No bleeding, No color change, No itch, No new/changing skin lesions, No rash Objective Vital Signs Date Time Temp Pulse Resp B/P Pulse Ox O2 Delivery O2 Flow Rate FiO2 05/13/16 12:00 Room Air 05/13/16 11:48 36.8 75 20 157/75 95 Room Air 05/13/16 08:00 93 Room Air 05/13/16 07:38 36.5 66 16 127/64 93 Room Air 05/13/16 05:59 Room Air 05/13/16 05:08 36.7 68 18 134/73 94 Room Air 05/13/16 03:42 Room Air 05/13/16 00:15 Room Air 05/12/16 22:51 36.7 76 18 135/79 95 Room Air 05/12/16 20:00 Room Air 05/12/16 19:31 36.4 77 18 145/71 94 Room Air 05/12/16 16:00 Room Air Physical Exam General Appearance: WD/WN, no apparent distress, + obese Eyes: normal inspection, PERRL, EOMI, sclerae normal ENT: normal ENT inspection, hearing grossly normal, pharynx normal Neck: supple, no adenopathy, thyroid normal, no JVD, no carotid bruits, trachea midline Respiratory/Chest: chest non-tender, lungs clear, normal breath sounds, no respiratory distress, no accessory muscle use Cardiovascular: regular rate, rhythm, no edema, no gallop, no JVD, no murmur Abdomen: normal bowel sounds, non tender, soft, no organomegaly, no pulsatile mass Extremities: normal range of motion, non-tender, normal inspection, no pedal edema, no calf tenderness, normal capillary refill, pelvis stable 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/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: 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 tested, no motor/sensory deficits, alert, normal mood/affect, oriented x 3, + pertinent finding (hypotonic pain and straight leg raising test positive) Skin: normal color, warm/dry, no rash Lymphatic: no adenopathy Laboratory Results Last 24 Hours Test 05/13/16 05:41 White Blood Count 16.77 K/uL Red Blood Count 4.26 M/uL Hemoglobin 12.8 g/dL Hematocrit 37.1 % Mean Corpuscular Volume 87.1 fL Mean Corpuscular Hemoglobin 30.0 pg Mean Corpuscular Hemoglobin Concent 34.5 g/dl Platelet Count 304 K/uL Mean Platelet Volume 9.0 fL Neutrophils (%) (Auto) 85.3 % Lymphocytes (%) (Auto) 6.3 % Monocytes (%) (Auto) 7.8 % Eosinophils (%) (Auto) 0.0 % Basophils (%) (Auto) 0.1 % Neutrophils # (Auto) 14.31 K/uL Lymphocytes # (Auto) 1.06 K/uL Monocytes # (Auto) 1.30 K/uL Eosinophils # (Auto) 0.00 K/uL Basophils # (Auto) 0.01 K/uL RDW Standard Deviation 52.8 fL RDW Coefficient of Variation 16.6 % Immature Granulocyte % (Auto) 0.5 % Immature Granulocyte # (Auto) 0.09 K/uL Sodium Level 141 mmol/L Potassium Level 4.4 mmol/L Chloride Level 106 mmol/L Carbon Dioxide Level 28 mmol/L Anion Gap 7.0 mmol/L Blood Urea Nitrogen 26 mg/dl Creatinine 0.88 mg/dl Est Creatinine Clear Calc Drug Dose 78.9 ml/min Estimated GFR () 84.5 Estimated GFR (Non- 72.9 BUN/Creatinine Ratio 29.7 Random Glucose 145 mg/dl Calcium Level 9.0 mg/dl Assessment and Plan 55-year-old female presents emergency department with intractable back pain and a possible syncopal episode lasting a few seconds on 05/11/2016 Possible syncope-possibly secondary to vasovagal related to pain, stable improving no more episodes, MRI has no acute disease, dance instructor was not remarkable No Tele is use will change to [employer] COPd: Stable continue current medication Lumbar spine stenosis with Intractable back pain asso with slightly weak and pain with straight leg raising. Stable and little improving, PT And pain management on the case , Continue Neurontin, dexamethasone, Dilaudid, continue follow-up Ortho's input, possible procedure next sunday Chest pain medicine, and planning procedure on Sunday by orthopedic CT of the chest to rule out PE, Check echo, check head CT and brain MRI was not remarkable Pain management consult input appreciated DVT prophylaxis -Teds, SCDs Continued [facility] stay due to: home environment unsafe for pt Discharge planning: uncertain
[2016-05-13] MEDS: MAGNESIUM HYDROXIDE SUSP 30 ML UDC PO PRN (18:26)
[2016-05-13] MEDS: PRAVASTATIN SOD 10 MG TAB PO SCH (21:30)
[2016-05-13] MEDS: HEPARIN SOD 5000 UNIT/0.5 ML CARP SQ SCH (21:31)
[2016-05-14] VITALS (8 sets, daily range): BP systolic 124–154; BP diastolic 70–84; PULSE 62–83; TEMP 36.5–36.7; O2SAT 93–97
[2016-05-14] MEDS: HYDROmorphone INJ 1 MG/ML SYR IV PRN ×6 (01:28→23:04)
[2016-05-14] MEDS: KETOROLAC TROMETHAMINE 30 MG/ML VIAL IV SCH ×3 (05:56→17:58)
[2016-05-14 06:16] LABS: BASO % 0.1 %; BASO ABS # 0.01 K/uL (0-0.2); COMPLETE YES; HEMATOCRIT 36.5 % (37-47); IG% 0.6 %; LYMPH % 11.1 %; LYMPH ABS # 2.07 K/uL (1.2-3.4); MEAN CELL VOLUME 87.3 fL (80-100); MEAN CORPUSCULAR HEMOGLOBIN 28.9 pg (25-34); MEAN CORPUSCULAR HGB CONC 33.2 g/dl (32-36); MEAN PLATELET VOLUME 8.7 fL (7.4-10.4); MONO % 13.4 %; NEUT % 74.8 %; PLATELET COUNT 284 K/uL (130-400); RED BLOOD COUNT 4.18 M/uL (4.2-5.4); WHITE BLOOD COUNT 18.68 K/uL (4.8-10.8)
[2016-05-14] MEDS: GABAPENTIN 300 MG CAP PO SCH ×3 (08:42→20:59)
[2016-05-14] MEDS: DOCUSATE SODIUM 100 MG CAP PO SCH ×2 (08:43→20:59)
[2016-05-14] MEDS: HEPARIN SOD 5000 UNIT/0.5 ML CARP SQ SCH ×2 (08:45→20:38)
[2016-05-14] MEDS: MAGNESIUM HYDROXIDE SUSP 30 ML UDC PO PRN (10:11)
--- NOTE | 2016-05-14 15:06 | Progress Note ---
Subjective Date of Service: May 14, 2016. Subjective Pt evaluation today including: conversation w/ patient, physical exam, chart review, lab review, review of studies, conversation w/ eap consultant, review of inpatient medication list Right buttock lower extremity pain significantly improve, has been out of bed to the restroom, and up and walk with branch assistant Problem List Medical Problems: (1) Failure of outpatient treatment Status: Acute (2) Intractable low back pain Status: Acute (3) Lower back pain Status: Acute (4) Pyelonephritis Status: Acute (5) Sciatica Status: Acute (6) Syncope Status: Acute Review of Systems Constitutional: No chills, No fatigue, No fever, No problem reported, No sweats , No weakness, No weight loss Eyes: No diplopia, No discharge, No eye pain, No redness, No worsening of vision ENT: No dental problems, No hearing loss, No nasal symptoms, No sore throat, No tinnitus, No trouble swallowing, No unusual epistaxis Respiratory: No cough, No dyspnea at rest, No dyspnea on exertion, No hemoptysis, No shortness of breath, No sputum, No wheezing Cardiac: No PND, No chest pain, No claudication, No edema, No orthopnea, No palpitations Abdomen: No constipation, No diarrhea, No nausea, No pain, No vomiting Musculoskeletal: No calf pain, No joint pain, No muscle pain, No swelling Female : No abnormal vaginal bleeding, No dysuria, No hematuria, No incontinence, No urinary frequency, No vaginal discharge Neurologic: No balance problems, No memory loss, No numbness/tingling, No paralysis, No vertigo, No weakness Psychiatric: No anhedonism, No anxiety, No depression symptoms, No insomnia, No substance abuse Heme: No abnormal bleeding/bruising, No clotting problems, No night sweats, No swollen lymph nodes Endo: No excessive thirst, No excessive urination, No fatigue Skin: No bleeding, No color change, No itch, No new/changing skin lesions, No rash Objective Vital Signs Date Time Temp Pulse Resp B/P Pulse Ox O2 Delivery O2 Flow Rate FiO2 05/14/16 11:24 36.7 66 16 136/83 96 Room Air 05/14/16 08:00 Room Air 05/14/16 07:18 36.6 62 20 125/72 97 Room Air 05/14/16 05:29 36.6 68 18 130/73 96 Room Air 05/14/16 04:52 93 Room Air 05/14/16 00:05 93 Room Air 05/13/16 23:53 36.7 66 18 126/71 96 Room Air 05/13/16 20:00 Room Air 05/13/16 19:46 36.5 66 18 147/79 93 Room Air 05/13/16 16:00 Room Air 05/13/16 15:22 36.6 68 20 146/77 95 Room Air Physical Exam General Appearance: WD/WN, no apparent distress, + obese Eyes: normal inspection, PERRL, EOMI, sclerae normal ENT: normal ENT inspection, hearing grossly normal, pharynx normal Neck: supple, no adenopathy, thyroid normal, no JVD, no carotid bruits, trachea midline Respiratory/Chest: chest non-tender, lungs clear, normal breath sounds, no respiratory distress, no accessory muscle use Cardiovascular: regular rate, rhythm, no edema, no gallop, no JVD, no murmur Abdomen: normal bowel sounds, non tender, soft, no organomegaly, no pulsatile mass Extremities: normal range of motion, non-tender, normal inspection, no pedal edema, no calf tenderness, normal capillary refill, pelvis stable Neurologic/Psychiatric: 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 as tested, no motor/sensory deficits, alert, normal mood/affect, oriented x 3, + pertinent finding (right buttock local mild tender) Skin: normal color, warm/dry, no rash Lymphatic: no adenopathy Laboratory Results Last 24 Hours Test 05/14/16 05:51 White Blood Count 18.68 K/uL Red Blood Count 4.18 M/uL Hemoglobin 12.1 g/dL Hematocrit 36.5 % Mean Corpuscular Volume 87.3 fL Mean Corpuscular Hemoglobin 28.9 pg Mean Corpuscular Hemoglobin Concent 33.2 g/dl Platelet Count 284 K/uL Mean Platelet Volume 8.7 fL Neutrophils (%) (Auto) 74.8 % Lymphocytes (%) (Auto) 11.1 % Monocytes (%) (Auto) 13.4 % Eosinophils (%) (Auto) 0.0 % Basophils (%) (Auto) 0.1 % Neutrophils # (Auto) 13.98 K/uL Lymphocytes # (Auto) 2.07 K/uL Monocytes # (Auto) 2.50 K/uL Eosinophils # (Auto) 0.00 K/uL Basophils # (Auto) 0.01 K/uL RDW Standard Deviation 54.7 fL RDW Coefficient of Variation 17.0 % Immature Granulocyte % (Auto) 0.6 % Immature Granulocyte # (Auto) 0.12 K/uL Assessment and Plan 55-year-old female presents emergency department with intractable back pain and a possible syncopal episode lasting a few seconds on 05/11/2016 Possible syncope, which is possibly secondary to vasovagal and related to pain, stable improving, no more episodes, MRI has no acute disease, monitor worker was not remarkable No Tele is use will change to [employer] COPd: Stable continue current medication Lumbar spine stenosis with Intractable back pain asso with slightly weak and pain with straight leg raising. Stable and significant improving, PT And pain management on the case , Has been on Neurontin, dexamethasone, Dilaudid, Will discontinue dexamethasone, Increase the Neurontin Continue Dilaudid as needed for the pain continue follow-up Ortho's input, procedure tomorrow CT of the chest to rule out PE, Chest CT showed A 10 mm round nodular density in the right upper lobe is peribronchial in location and may represent a lymph node. This has not significantly changed dating back to 03/27/2013. I told patient to continue follow-up with PCP about this. check head CT and brain MRI was not remarkable Pain management consult input appreciated DVT prophylaxis -Teds, SCDs Continued [facility] stay due to: home environment unsafe for pt Discharge planning: uncertain
[2016-05-14] MEDS ORDERED: HYDROmorphone INJ 1 MG/ML SYR IV PRN (18:00)
[2016-05-14] MEDS: PRAVASTATIN SOD 10 MG TAB PO SCH (20:59)
[2016-05-14] MEDS ORDERED: NURSING VERBAL MED ORDER ONE (22:45)
[2016-05-15] MEDS: KETOROLAC TROMETHAMINE 30 MG/ML VIAL IV SCH ×3 (00:19→12:30)
[2016-05-15] MEDS: HYDROmorphone INJ 1 MG/ML SYR IV PRN ×5 (02:38→14:16)
--- NOTE | 2016-05-15 07:50 | ORTHOPEDICS PROGRESS NOTE ---
DATE: 05/11/2016 SUBJECTIVE: Significant complaints of pain, barely ambulatory. Also, admits some GI upset has not moved her bowels. Denies any shortness of breath, confusion, chest pain. IMAGING DATA: MRI scan demonstrates a significant pressure on the lumbar spine, L4-L5. ASSESSMENT: Spinal stenosis, lumbar spine. DISPOSITION: Includes surgery tomorrow, which the 15 of May for lumbar spine laminectomy, decompression of the spine, possibly fusion of the spine. I anticipate the surgery will take approximately 2 hours under general anesthetic and her length of stay approximately 2 additional days.
[2016-05-15 07:52] VITALS: BP 112/60; PULSE 69; TEMP 36.6; O2SAT 94
[2016-05-15] MEDS: GABAPENTIN 300 MG CAP PO SCH ×2 (08:05→12:25)
[2016-05-15] MEDS: DOCUSATE SODIUM 100 MG CAP PO SCH (08:05)
[2016-05-15] MEDS: HEPARIN SOD 5000 UNIT/0.5 ML CARP SQ SCH (08:06)
--- NOTE | 2016-05-15 15:07 | Progress Note ---
Subjective Date of Service: May 15, 2016. Subjective Pt evaluation today including: conversation w/ patient, conversation w/ family , physical exam, chart review, lab review, review of studies, conversation w/ data consultant, review of inpatient medication list Pain better controlled, patient is ready to have procedure today, no other complaint Problem List Medical Problems: (1) Failure of outpatient treatment Status: Acute (2) Intractable low back pain Status: Acute (3) Lower back pain Status: Acute (4) Pyelonephritis Status: Acute (5) Sciatica Status: Acute (6) Syncope Status: Acute Review of Systems Constitutional: No chills, No fatigue, No fever, No problem reported, No sweats , No weakness, No weight loss Eyes: No diplopia, No discharge, No eye pain, No redness, No worsening of vision ENT: No dental problems, No hearing loss, No nasal symptoms, No sore throat, No tinnitus, No trouble swallowing, No unusual epistaxis Respiratory: No cough, No dyspnea at rest, No dyspnea on exertion, No hemoptysis, No shortness of breath, No sputum, No wheezing Cardiac: No PND, No chest pain, No claudication, No edema, No orthopnea, No palpitations Abdomen: No constipation, No diarrhea, No nausea, No pain, No vomiting Musculoskeletal: + joint pain, No calf pain, No muscle pain, No swelling Female : No abnormal vaginal bleeding, No dysuria, No hematuria, No incontinence, No urinary frequency, No vaginal discharge Neurologic: No balance problems, No memory loss, No numbness/tingling, No paralysis, No vertigo, No weakness Psychiatric: No anhedonism, No anxiety, No depression symptoms, No insomnia, No substance abuse Heme: No abnormal bleeding/bruising, No clotting problems, No night sweats, No swollen lymph nodes Endo: No excessive thirst, No excessive urination, No fatigue Skin: No bleeding, No color change, No itch, No new/changing skin lesions, No rash Objective Vital Signs Date Time Temp Pulse Resp B/P Pulse Ox O2 Delivery O2 Flow Rate FiO2 05/15/16 11:50 Room Air 05/15/16 07:52 36.6 69 16 112/60 94 Room Air 05/15/16 07:45 Room Air 05/15/16 00:00 Room Air 05/14/16 23:47 36.5 83 20 154/84 94 Room Air 05/14/16 20:00 36.5 67 18 127/78 94 Room Air 05/14/16 20:00 Room Air 05/14/16 16:00 Room Air Physical Exam General Appearance: WD/WN, no apparent distress, + obese Eyes: normal inspection, PERRL, EOMI, sclerae normal ENT: normal ENT inspection, hearing grossly normal, pharynx normal Neck: supple, no adenopathy, thyroid normal, no JVD, no carotid bruits, trachea midline Respiratory/Chest: chest non-tender, lungs clear, normal breath sounds, no respiratory distress, no accessory muscle use Cardiovascular: regular rate, rhythm, no edema, no gallop, no JVD, no murmur Abdomen: normal bowel sounds, non tender, soft, no organomegaly, no pulsatile mass Extremities: normal range of motion, non-tender, normal inspection, no pedal edema, no calf tenderness, normal capillary refill, pelvis stable, + pertinent finding (right lower neck pain) 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/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: 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 as tested, no motor/sensory deficits, alert, normal mood/affect, oriented x 3 Skin: normal color, warm/dry, no rash Lymphatic: no adenopathy Assessment and Plan 55-year-old female presents emergency department with intractable back pain and a possible syncopal episode lasting a few seconds on 05/11/2016 Possible syncope, which is possibly secondary to vasovagal and related to pain, stable improving, no more episodes, MRI has no acute disease, buttonhole facer was not remarkable Was in telemetry Has changed to [employer] COPd: Stable continue current medication Lumbar spine stenosis with Intractable back pain asso with slightly weak and pain with straight leg raising. Stable and significant improving, PT And pain management on the case , Has been on Neurontin, dexamethasone, Dilaudid, Has discontinue dexamethasone, Increase the Neurontin Continue Dilaudid as needed for the pain continue follow-up Ortho's input, procedure will be done today CT of the chest to rule out PE, Chest CT showed A 10 mm round nodular density in the right upper lobe is peribronchial in location and may represent a lymph node. This has not significantly changed dating back to 03/27/2013. I told patient to continue follow-up with PCP about this. check head CT and brain MRI was not remarkable Pain management consult input appreciated DVT prophylaxis -Teds, SCDs Continued [facility] stay due to: home environment unsafe for pt Discharge planning: uncertain
[2016-05-15] MEDS ORDERED: METH4PAK PO (15:22)
[2016-05-15] MEDS ORDERED: NRN300 PO (15:22)
--- NOTE | 2016-05-15 15:22 | Discharge Instructions ---
Discharge Instructions Date of Service May 15, 2016. Admission Reason for Admission: Syncope Discharge Discharge Diagnosis / Problem: Lumbar spine stenosis with Intractable back pain Discharge Goals Goal(s): Decrease discomfort, Improve function, Increase independence, Improve disease control, Improve nutritional status, Learn about illness, Diagnostic testing, Therapeutic intervention Activity Recommendations Activity Limitations: as noted below . Instructions / Follow-Up Instructions / Follow-Up you have Possible syncope, which is possibly secondary to vasovagal and related to pain, you have Lumbar spine stenosis with Intractable back pain asso with slightly weak and pain with straight leg raising. I give you higher dose of Neurontin, I am giving you medro dose pack I am giving you Dilaudid piclls you need to follow up with pcp for pain magt. you need to follow up with ortho for procedure plan - you need to follow up with your primary care physician in 1 week, - take medication as instructed, never overdose or any misuse, or take with alcohol, because misuse of medicine may cause organ damage or , call your primary care physician if have questions of medicaitons. - call your primary care physician OR go to local emergency room if has any fever/chill, chest pain, shortness of breathing, nausea/vomiting/abdominal pain , facial droop/slurry speech/local weakness, or if has any questions. - fall precaution - diet as instructed - you need to follow up with your subspecialist - you should understand that it is important to follow up the above instruction , and "not following the above instruction" may cause delayed or missed care of your medical conditions which may cause permanent organ damage and even . Current Hospital Diet Patient's current hospital diet: AHA Diet (Heart Healthy) Discharge Diet Recommended Diet: AHA Diet (Heart Healthy) Pending Studies Studies pending at discharge: no Laboratory Results Hemoglobin A1c Test 02/28/16 08:53 Range/Units Estimated Average Glucose 120 mg/dl Hemoglobin A1c 5.8 H 4.5-5.6 % Lipid Panel Test 02/28/16 08:53 Range/Units Triglycerides Level 329 H 0-150 mg/dl Cholesterol Level 216 H 0-200 mg/dl HDL Cholesterol 41 mg/dl Cholesterol/HDL Ratio 5.3 LDL Cholesterol, Calculated 109 mg/dl Medical Emergencies . Who to Call and When: Medical Emergencies: If at any time you feel your situation is an emergency, please call 911 immediately. . Non-Emergent Contact Non-Emergency issues call your: Primary Care Provider, Specialist (ortho) . . "Provider Documentation" section prepared by Santiago Hendricks. VTE Core Measure Inpt VTE Proph given/why not?: Parker Mcgraw, SCD's
[2016-05-15] MEDS ORDERED: DLD/2 PO (15:30)
--- NOTE | 2016-05-15 15:58 | PROGRESS NOTE ---
DATE: 05/15/2016 SUBJECTIVE: Significant complaints of pain. Bed rest, left lateral decubitus, barely ambulatory. Alert, oriented. No chest pain. 36.5 hematocrit. Afebrile, moves his bowels. ASSESSMENT: Severe spinal stenosis, lumbar spine with facet joint arthrosis, nerve root compression. DISPOSITION: Because of insurance issues, we are discharging her home now. Bed rest, narcotics, medication, walker, ice and will try to get her approved for surgery at the earliest convenience. Definitely would try to get her on for May 22, may be as early as, the or .
[2016-05-15] MEDS ORDERED: NURSING VERBAL MED ORDER ONE ×2 (16:00→16:15)
[2016-05-15] MEDS ORDERED: HYDROmorphone INJ 1 MG/ML SYR IV ONE (16:00)
[2016-05-15 16:09] VITALS: BP 112/60; PULSE 69; TEMP 36.6; O2SAT 94
[2016-05-15] MEDS ORDERED: METHYLPREDNISOLONE 4 MG TAB PO ONE (16:15)
--- NOTE | 2016-05-15 16:16 | Discharge Summary ---
Discharge Summary Date of Service May 15, 2016. Discharge Summary Admission Date: May 11, 2016 at 13:14 Discharge Date: May 15, 2016 Principal Diagnosis: Lumbar spine stenosis with Intractable back pain Problems/Secondary Diagnoses: Possible syncope, which is possibly secondary to vasovagal and related to pain, Immunizations: Have You Had Influenza Vaccine: Yes History of Tetanus Vaccine?: Yes History of Pneumococcal: No History of Hepatitis B Vaccine: No Procedures: no Consultations: Dr. Larios Medication Reconciliation New Medications: Methylprednisolone (Medrol Dosepak) 4 Mg Luis Miguel 1 PKT PO UD for 6 Days, #1 PKT Gabapentin (Gabapentin) 300 Mg Cap 600 MG PO TID for 30 Days, #180 CAP Continued Medications: Albuterol Hfa (Ventolin Hfa) 200 Puffs/45955 Mcg Aers 2-4 PUFFS INH Q6H, #1 INHALER Budesonide/Formoterol Fumarate (Symbicort 160/4.5 Inhaler ) Aero 2 PUFFS INH BID PRN for PRN, INHALER Hydromorphone HCl (Hydromorphone HCl) 2 Mg Tab 2 MG PO Q6H PRN for Pain for 3 Days, #10 (This prescription has been renewed) Ibuprofen (Ibu-200) 200 Mg Tab 4 TAB PO QID PRN for Pain for 5 Days, #80 TAB Melatonin (Melatonin Maximum Strengt) 5 Mg Tab 2 TAB PO HS, TAB Oxycodone Hcl (Oxycodone Hcl) 5 Mg Cap 0 PO QID PRN for Pain for 30 Days, CAP dose unknown she thinks it might be a 10mg Pravastatin Sodium (Pravastatin Sodium) 10 Mg Tab 10 MG PO HS for 90 Days, #90 TAB 3 Refills Tramadol (Ultram) 50 Mg Tab 50 MG PO Q4-6H, TAB Discontinued Medications: Gabapentin (Neurontin) 300 Mg Cap 300 MG PO TID, CAP [Oxycodone] () 1 TAB PO Q6H PRN for consultant intern Exam upset/crying b/c insurance denied procedure Review of Systems: Constitutional: + problem reported (see today's note) Physical Exam: General Appearance: + pertinent finding (see today's note) Hospital Course 55-year-old female presents emergency department with intractable back pain and a possible syncopal episode lasting a few seconds on 05/11/2016 Possible syncope, which is possibly secondary to vasovagal and related to pain, stable improving, no more episodes, MRI has no acute disease, 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 Stable and significant improving, PT And pain management on the case , Has been on Neurontin, dexamethasone, Dilaudid, Has discontinue dexamethasone, Increase the Neurontin Continue Dilaudid as needed for the pain has been follow-up Ortho's input, upset/crying b/c insurance denied procedure CT of the chest to rule out PE, Chest CT showed A 10 mm round nodular density in the right upper lobe is peribronchial in location and may represent a lymph node. This has not significantly changed dating back to 03/27/2013. I told patient to continue follow-up with PCP about this. check head CT and brain MRI was not remarkable Pain management consult input appreciated has discussed with patient , sister Magui, with present to RN, detail discussed the plan to home and options, pt reported to me , [place], she has roommate friend live together whose now is Lisa, but Lisa will work at day time, I asked Sheela be careful for the fall at home, I asked Magui to pass message to Lisa to watch Sheela more for the safety, I also asked Magui to check Sheela more if she is possible. I have watch Sheela in 2-3 days, with better pain control, she has been able to be up and walk with walker to rest room several times in recent 2 days, she has been reported pain is better controlled, she did concern about if the pain flair up without iv pain meds, I addressed this issues, I told her in recent 3 days her pain relieve is not only from dilaudid , but also from Neurontin, and dexamethasone, will make sure Neurontin, and dexamethasone, given upon she is leaving [facility], remind them to get Rx filled in time today, Sheela also told me she still has plenty pain pills at home, such as dilaudid, I told pt and fam that she can come to ED at anytime if pain not controlled, or if she has concerns DVT prophylaxis -Teds, SCDs Instructions / Follow-Up you have Possible syncope, which is possibly secondary to vasovagal and related to pain, you have Lumbar spine stenosis with Intractable back pain asso with slightly weak and pain with straight leg raising. I give you higher dose of Neurontin, I am giving you medro dose pack I am giving you Dilaudid piclls you need to follow up with pcp for pain magt. you need to follow up with ortho for procedure plan - you need to follow up with your primary care physician in 1 week, - take medication as instructed, never overdose or any misuse, or take with alcohol, because misuse of medicine may cause organ damage or , call your primary care physician if have questions of medicaitons. - call your primary care physician OR go to local emergency room if has any fever/chill, chest pain, shortness of breathing, nausea/vomiting/abdominal pain , facial droop/slurry speech/local weakness, or if has any questions. - fall precaution - diet as instructed - you need to follow up with your subspecialist - you should understand that it is important to follow up the above instruction , and "not following the above instruction" may cause delayed or missed care of your medical conditions which may cause permanent organ damage and even . Total Time Spent: Greater than 30 minutes This includes examination of the patient, discharge planning, medication reconciliation, and communication with other providers. Discharge Instructions Please refer to the electronic Patient Visit Report (Discharge Instructions) for additional information. Additional Copies To Al Loera D.O.Int.Med.; Axel Larios, DO
[2016-05-15 16:34] VITALS: BP 129/78; PULSE 62; TEMP 36.8; O2SAT 92
[2016-12-28] MEDS ORDERED: KETO10TA PO (11:02)
[2016-12-28] MEDS ORDERED: GABA-113 PO (11:02)
[2016-12-28] MEDS ORDERED: CYCL10TA6 PO (11:02)
[2016-12-28] MEDS ORDERED: HYDR4TAB78 PO (11:02)
== END 2016-05-15 17:15 | disposition home or self-care (01) ==
LOC: ENRESERVTM → ENRESERVDT → C.EDB 08:37 → C.MED 13:14
PROVIDERS: ADMIT Hospitalist; ATTEND Hospitalist
DX: M48.06 Spinal stenosis, lumbar region (principal); M54.40 Lumbago with sciatica, unspecified side; M47.816 Spondylosis without myelopathy or radiculopathy, lumbar region; M54.16 Radiculopathy, lumbar region; Z87.442 Personal history of urinary calculi; Z90.89 Acquired absence of other organs; Z90.49 Acquired absence of other specified parts of digestive tract; Z90.710 Acquired absence of both cervix and uterus; F17.200 Nicotine dependence, unspecified, uncomplicated; Z82.49 Family history of ischemic heart disease and other diseases of the circulatory system; Z83.3 Family history of diabetes mellitus; Z83.79 Family history of other diseases of the digestive system; Z84.1 Family history of disorders of kidney and ureter; Z83.2 Family history of diseases of the blood and blood-forming organs and certain disorders involving the immune mechanism; J44.9 Chronic obstructive pulmonary disease, unspecified; Z98.1 Arthrodesis status; Z91.048 Other nonmedicinal substance allergy status; E66.9 Obesity, unspecified; E78.00 Pure hypercholesterolemia, unspecified

== ENCOUNTER 2016-05-18 10:50 | Observation (INO) | payer BC ==
[2016-05-10 08:29] VITALS: BMI 36.0
--- NOTE | 2016-05-10 09:06 | PAT Medication Instructions ---
Service Date May 10, 2016. 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 Instructions For Your Scheduled Surgery - Take the following medications the morning of surgery with a sip of water: Tramadol (Ultram), 50 MG PO Q4-6H (may take if needed up to 4 hours prior to surgery) [Oxycodone], 1 TAB PO Q6H PRN (may take if needed up to 4 hours prior to surgery ) Gabapentin (Neurontin), 300 MG PO TID Albuterol (Ventolin), 2 PUFFS INH Q4 PRN for SOB/Wheezing (USE IF NEEDED; BRING TO HOSPITAL) Budesonide/Formoterol Fumarate (Symbicort 160/4.5 Inhaler ), 2 PUFFS INH BID PRN for PRN - Take the following medications as scheduled the night before surgery: Tramadol (Ultram), 50 MG PO Q4-6H [Oxycodone], 1 TAB PO Q6H PRN Gabapentin (Neurontin), 300 MG PO TID Melatonin (Melatonin Maximum Strengt), 2 TAB PO HS Pravastatin Sodium (Pravastatin Sodium), 10 MG PO HS Albuterol (Ventolin), 2 PUFFS INH Q4 PRN for SOB/Wheezing Budesonide/Formoterol Fumarate (Symbicort 160/4.5 Inhaler ), 2 PUFFS INH BID PRN for PRN If you have any questions please call us at [phone] or [phone] or [phone]
[2016-05-10 09:24] LABS: URINE APPEARANCE CLEAR (CLEAR); URINE BILIRUBIN NEG (NEG); URINE COLOR YELLOW; URINE NITRITE NEG (NEG); URINE SPECIFIC GRAVITY 1.021 (1.000-1.030); UROBILINOGEN NEG (NEG)
[2016-05-10 09:29] LABS: INR 0.9 (0.9-1.1); PARTIAL THROMBOPLASTIN RATIO 0.9; PROTHROMBIN TIME (PATIENT) 9.4 SECONDS (9.0-12.0)
[2016-05-10 09:30] LABS: MANUAL MICROSCOPIC REQUIRED? NO; REVIEW REQ? NO
--- NOTE | 2016-05-10 09:31 | DIAGNOSTIC IMAGING REPORT ---
CHEST PREADMISSION(PA/LAT) CLINICAL HISTORY: Preoperative evaluation. COMPARISON STUDY: Chest CT July 16, 2015. FINDINGS: Lung volumes are normal. Lungs are clear. There is no pneumothorax or pleural effusion. Cardiac size is normal. Mediastinal contours are normal. There is no evidence of pulmonary edema. IMPRESSION: No acute cardiopulmonary findings. Electronically signed by: Doc Parry M.D. 05/10/2016 9:30 AM Dictated Date/Time: 05/10/2016 9:27 AM
[2016-05-17 14:08] VITALS: BMI 36.0
[~2016-05-18] VITALS: Ht 162.6 cm; Wt 94.6 kg
[~2016-05-18 10:50] MED LIST changes: -ALBUAER2 INH; +CLINDAMYCIN 600 MG/54 ML D5W 54 ML IV SCH; +DLD/2 PO; -GABA-113 PO; +IBUP200T80 PO; +LACTATED RINGER'S 1000ML 1,000 ML IV SCH; +METH4PAK PO; +NRN300 PO; +NSS 1000ML IV SCH; +OXYC1CAP5 PO; -OXYCODONE PO; -PRED10TA PO; +VNTHFA/IN INH
[2016-05-18 11:38] VITALS: BP 92/63; PULSE 97; TEMP 36.8; O2SAT 96; Ht 162.6 cm; Wt 94.6 kg
[2016-05-18 11:47] LABS: BASO % 0.2 %; BASO ABS # 0.02 K/uL (0-0.2); EOS % 0.7 %; HEMATOCRIT 38.2 % (37-47); IG% 0.9 %; LYMPH ABS # 1.31 K/uL (1.2-3.4); MEAN CELL VOLUME 88.2 fL (80-100); MEAN CORPUSCULAR HEMOGLOBIN 29.8 pg (25-34); MEAN PLATELET VOLUME 8.7 fL (7.4-10.4); MONO % 9.4 %; NEUT % 78.8 %; PLATELET COUNT 285 K/uL (130-400); RED BLOOD COUNT 4.33 M/uL (4.2-5.4); WHITE BLOOD COUNT 13.05 K/uL (4.8-10.8)
[2016-05-18] MEDS ORDERED: FENTANYL CITRATE INJ 50 MCG/1 ML 2 ML VIAL ONE (11:57)
[2016-05-18] MEDS ORDERED: MIDAZOLAM HCL 1 MG/ML 2ML VIAL ONE (11:57)
[2016-05-18 12:03] LABS: COMPLETE YES; MEAN CORPUSCULAR HGB CONC 33.8 g/dl (32-36)
[2016-05-18] MEDS ORDERED: KETAMINE HCL INJ 50 MG/ML 10 ML VIAL ONE (12:41)
[2016-05-18] MEDS ORDERED: SODIUM CHLORIDE 0.9% INJ 10 ML VIAL ONE (12:41)
[2016-05-18] MEDS ORDERED: EpHEDrine SULFATE INJ 50 MG/ML AMP IV PRN (14:00)
[2016-05-18] MEDS ORDERED: ONDANSETRON INJ 2 MG/ML 2 ML VIAL IV PRN ×2 (14:00→17:30)
[2016-05-18] MEDS ORDERED: ATROPINE SULFATE 0.1 MG/ML 5ML SYR IV PRN (14:00)
[2016-05-18] MEDS ORDERED: HYDROmorphone INJ 0.5 MG/0.5 ML SYR IV PRN (14:00)
[2016-05-18] MEDS ORDERED: THROMBIN FOR SOLN 20000 UNIT KIT ONE (14:11)
[2016-05-18] MEDS ORDERED: BUPIVACAINE/EPINEPHRINE 0.5% MPF 1:200,000 30 ML VIAL ONE ×2 (14:11)
[2016-05-18] MEDS ORDERED: VANCOMYCIN HCL 1000MG/20ML VIAL ONE (14:11)
[2016-05-18] MEDS ORDERED: GELATIN SPONGE SZ 100 ONE (14:11)
[2016-05-18] MEDS ORDERED: BACITRACIN 50000 UNIT VIAL ONE (14:12)
--- NOTE | 2016-05-18 14:15 | History & Physical Bridge Note ---
H&P Re-Evaluation Bridge Note: I have examined the patient, reviewed the History & Physical and in the interval since the performance of the History & Physical I have noted the following changes of clinical significance: No changes noted
--- NOTE | 2016-05-18 14:29 | History and Physical ---
History & Physical Date May 18, 2016. History of Present Illness The patient is a 55 year old female with complaints of Past Medical/Surgical History Medical Problems: (1) Kidney stones (2) Lumbar disc disease with radiculopathy (3) Personal History Of Urinary Calculi Surgical Problems: (1) S/P appendectomy (2) S/P cholecystectomy (3) S/P hysterectomy Social History Problems: (1) Tobacco Use Disorder Additional History Hepatic Disease: No Endocrine Disorder: Yes Kidney Disease: Yes Heart Disease: No Bleeding Tendencies: No Infectious Diseases: No Allergies Coded Allergies: Morphine (Verified Allergy, Intermediate, HIVES, 05/18/16) SOB, feels like bugs are biting her, anxious, upper GI pain Lemon (Verified Allergy, Unknown, HIVES, 05/11/16) Penicillins (Verified Allergy, Unknown, HIVES, 05/11/16) Unclassified Drugs (Verified Allergy, Unknown, METAL MORRO - RASH, ) Home Medications Scheduled Albuterol Hfa (Ventolin Hfa), 2-4 PUFFS INH Q6H Gabapentin (Gabapentin), 600 MG PO TID Melatonin (Melatonin Maximum Strengt), 2 TAB PO HS Methylprednisolone (Medrol Dosepak), 1 PKT PO UD Pravastatin Sodium (Pravastatin Sodium), 10 MG PO HS Tramadol (Ultram), 50 MG PO Q4-6H Scheduled PRN Budesonide/Formoterol Fumarate (Symbicort 160/4.5 Inhaler ), 2 PUFFS INH BID PRN for PRN Hydromorphone HCl (Hydromorphone HCl), 2 MG PO Q6H PRN for Pain Ibuprofen (Ibu-200), 4 TAB PO QID PRN for Pain Physical Examination Skin: warm/dry, no rash Eyes: normal inspection ENT: normal ENT inspection Head: atraumatic Respiratory/Chest: lungs clear Cardiovascular: regular rate, rhythm, no edema Abdomen / GI: normal bowel sounds Back: normal inspection Extremities: normal range of motion Neurologic/Psych: alert Diagnosis Severe stenosis L4-5 ASA Classification: ASA Class III Plan of Treatment laminectomy L4-5
--- NOTE | 2016-05-18 14:35 | History & Physical Bridge Note ---
H&P Re-Evaluation Bridge Note: I have examined the patient, reviewed the History & Physical and in the interval since the performance of the History & Physical I have noted the following changes of clinical significance. Fusion L4-5, addition
[2016-05-18] MEDS ORDERED: HYDROmorphone INJ 2 MG/ML SYR/VIAL ONE (15:00)
[2016-05-18] MEDS ORDERED: ONDANSETRON INJ 2 MG/ML 2 ML VIAL ONE ×2 (15:14→16:14)
[2016-05-18] MEDS ORDERED: PROPOFOL IV EMULSION 10 MG/ML 20 ML VIAL IV ONE (15:14)
[2016-05-18] MEDS ORDERED: LIDOCAINE HCL 2% 2 ML VIAL (20MG/ML) ONE (15:14)
[2016-05-18] MEDS ORDERED: GLYCOPYRROLATE INJ 0.2 MG/ML VIAL ONE (15:14)
[2016-05-18] MEDS ORDERED: ROCURONIUM BROMIDE 10 MG/ML 5 ML VIAL ONE (15:14)
[2016-05-18] MEDS ORDERED: NEOSTIGMINE METHYLSULFATE 5 MG/5 ML SYR ONE (15:14)
[2016-05-18] MEDS ORDERED: DEXAMETHASONE SOD INJ 4 MG/ML VIAL ONE (15:14)
[2016-05-18] MEDS ORDERED: PHENYLEPHRINE HCL INJ 10 MG/ML VIAL ONE (15:14)
[2016-05-18] MEDS ORDERED: ACETAMINOPHEN 1000 MG/100 ML IV IV ONE (15:41)
--- NOTE | 2016-05-18 16:47 | DIAGNOSTIC IMAGING REPORT ---
Intraoperative lumbar spine single view CLINICAL HISTORY: L4-L5 LAMINECTOMY COMPARISON STUDY: No previous studies for comparison. FINDINGS: 3 seconds of fluoroscopic time was utilized. A single intraoperative fluoroscopic spot images provided for interpretation. There are postsurgical changes of discectomies and interbody fusions at the L4-5 and L5-S1 levels. Pedicle screws are visualized the L4, L5, and S1 levels. IMPRESSION: Postsurgical changes as described above Electronically signed by: Danny Kramer M.D. 05/18/2016 4:45 PM Dictated Date/Time: 05/18/2016 4:44 PM
[2016-05-18] MEDS: SODIUM CHLORIDE 0.9% 1000ML 1,000 ML IV SCH ×2 (17:16→22:25)
[2016-05-18] MEDS ORDERED: SODIUM CHLORIDE 0.9% 1000ML 1,000 ML IV SCH (17:16)
--- NOTE | 2016-05-18 17:19 | [facility] Post Operative Brief Note ---
Immediate Operative Summary Operative Date May 18, 2016. Pre-Operative Diagnosis Severe stenosis at L4-L5 Post-Operative Diagnosis Severe stenosis at L4-L5 Procedure(s) Performed Removal prior instrumentation, reinsertion of instrumentation L4-S1, Decompression and posterior lumbar interbody fusion L4-L5 Surgeon Dr. Larios Remote Broadcast Technician Surgeon(s) Chay Lackey PA-C Estimated Blood Loss 250ML Findings stenosis and instability Specimens A. Explanted spine hardware Complication(s) None Disposition Recovery Room / PACU
[2016-05-18] MEDS: FENTANYL CITRATE INJ 50 MCG/1 ML 2 ML VIAL IV PRN ×2 (17:28→17:35)
[2016-05-18] MEDS ORDERED: METOCLOPRAMIDE HCL INJ 5 MG/ML 2 ML VIAL IV PRN (17:30)
[2016-05-18] MEDS ORDERED: NALOXONE HCL 0.4 MG/1 ML VIAL/CARP IV PRN (17:30)
[2016-05-18] MEDS ORDERED: ACETAMINOPHEN 325 MG TAB PO PRN (17:30)
[2016-05-18] MEDS ORDERED: BUDESONIDE/FORMOTEROL FUMARATE 160/4.5 60 PUFFS/INHALER INH PRN (17:30)
[2016-05-18] MEDS ORDERED: PROMETHAZINE HCL INJ 12.5 MG in SODIUM CHLORIDE 0.9% 50ML 50 ML IV PRN (17:30)
[2016-05-18] MEDS ORDERED: IBUPROFEN 800 MG TAB PO PRN (17:30)
[2016-05-18] MEDS ORDERED: CEFAZOLIN IV 1,000 MG in DEXTROSE 5% 50ML 50 ML IV SCH (17:30)
[2016-05-18] MEDS ORDERED: LORAZEPAM INJ 1 MG in SYRINGE 0 ML IV PRN (17:30)
[2016-05-18] MEDS ORDERED: MAGNESIUM HYDROXIDE SUSP 30 ML UDC PO PRN (17:30)
[2016-05-18] MEDS ORDERED: LORAZEPAM 1 MG TAB PO PRN (17:30)
[2016-05-18] MEDS ORDERED: HYDROmorphone HCL 0.5MG/ML 50 ML CASSETTE ONE (17:32)
--- NOTE | 2016-05-18 17:40 | Anesthesiology Progress Note ---
Anesthesia Post Op Note Date & Time May 18, 2016 at 17:40 Vital Signs Vital Signs Past 12 Hours Date Time Temp Pulse Resp B/P Pulse Ox O2 Delivery O2 Flow Rate FiO2 05/18/16 11:38 36.8 97 16 92/63 96 Room Air Notes Mental Status: alert / awake / arousable, participated in evaluation Pt Amnestic to Procedure: Yes Nausea / Vomiting: adequately controlled Pain: adequately controlled Airway Patency, RR, SpO2: stable & adequate BP & HR: stable & adequate Hydration State: stable & adequate Anesthetic Complications: no major complications apparent
[2016-05-18 17:52] LABS: HEMATOCRIT 35.7 % (37-47)
--- NOTE | 2016-05-18 17:59 | OPERATIVE REPORT ---
DATE OF OPERATION: 05/18/2016 PREOPERATIVE DIAGNOSES: Painful implants, lumbar spine; spinal stenosis, lumbar spine; instability, lumbar spine. POSTOPERATIVE DIAGNOSES: Same. PROCEDURES: 1. Removal of painful implants, specifically the L5 pedicle screw on the right hand side; decompression of L4 and L5 foraminotomy; partial facetectomy; decompression of nerve roots bilaterally. 2. Pedicle screw instrumentation L4, L5 and sacrum. 3. Posterior lumbar interbody fusion L4-L5.pulmonary 4. Posterolateral fusion at L4-L5. SURGEON: Axel Larios DO AUTOMATIC PAINT SPRAYER OPERATOR: Chay Lackey PA-C DESCRIPTION OF PROCEDURE: The patient was taken to the operating room, a general intubated anesthetic provided to patient, placed prone, scrubbed, prepped, draped sterile. We made a skin incision, fascial incision, put in a deep self-retaining retractor. We could see the implants quite readily from old prior surgery. We then were able to remove the implant at 5 and implant at the sacrum and realigning reinsertions after the case was fdc underway. We were able to decompress the neural elements. We did good foraminotomies, good facetectomies at L4 and L5, and I was very pleased with the decompression of nerve roots on the right and on the left. We then instrumented the spine safely, got pedicle screw into L4, L5 and the sacrum bilaterally. Then we also did an interbody fusion at L4-L5. I thought there were some pretty growth instability. We retracted the dura over from the left hand side. We were able to do a complete clean out of the disc. We packed this with bone. We advanced interbody device or a cage at L4-L5 given patient interbody support. I was pleased with that fixation. We tightened down the construct. We put some compression on the construct. We tightened all the lug nuts. We then irrigated. We bone grafted out of the transverse processes with patient's own bone or autograft. We closed fascia to fascia over vancomycin powder and over Hemovac drain with 1 Vicryl. We closed 2-0 on the subcuticular layer, 3-0 nylon on the skin. Sterile dressings applied. The patient returned to PACU stable. No apparent complications. I attest to the content of the Intraoperative Record and any orders documented therein. Any exceptio ns are noted below.
[2016-05-18 18:15] VITALS: BP_SYST 116; BP_SYST 119; BP_DIAS 71; BP_DIAS 74; PULSE 71; PULSE 90; TEMP 36.4; TEMP 36.7; O2SAT 98; O2SAT 99
[2016-05-18] MEDS: HYDROmorphone HCL 0.5MG/ML 50 ML CASSETTE IV PRN ×2 (18:16→22:52)
[2016-05-18 18:45] VITALS: BP 111/69; PULSE 81; TEMP 36.7; O2SAT 98
[2016-05-18 19:15] VITALS: BP 117/73; PULSE 87; TEMP 36.8; O2SAT 91
--- NOTE | 2016-05-18 19:45 | Medical Consult ---
History General Date of Service: May 18, 2016. Stated Complaint: L4-L5 Disc Herniation HPI The patient is a 55 year old female who presents to [facility] with complaints of L4-L5 Disc Herniation. The patient's primary care provider is Al Loera D.O.Int.Med.. Historian: patient Review of Systems Constitutional: denies: chills, diaphoresis Cardiovascular: denies: chest pain, chest pressure, no symptoms Respiratory: denies: cough, no symptoms, orthopnea Gastrointestinal: denies: abdominal pain, constipation, diarrhea Genitourinary - Female: denies: hematuria, hesitancy Past Medical History Past Medical History: asthma, kidney stones Past Surgical History: appendectomy, cholecystectomy, hysterectomy, lithotripsy , ureteral stent Family History Atrial fibrillation Blood clots Cancer Diabetes mellitus Gallbladder disease Hypertension Kidney disease Kidney stones Social History Hx Tobacco Use In Past Year?: No (SMOKED 1/2-1 PPD X 39 YRS-QUIT 04/11/15) Smoking Status: Former Smoker Alcohol: never Marital status: Housing status: lives alone Occupational Status: employed Immunizations History of Influenza Vaccine: Yes History of Tetanus Vaccine?: Yes History of Pneumococcal: No History of Hepatitis B Vaccine: No Allergies Coded Allergies: Morphine (Verified Allergy, Intermediate, HIVES, 05/18/16) SOB, feels like bugs are biting her, anxious, upper GI pain Lemon (Verified Allergy, Unknown, HIVES, 05/11/16) Penicillins (Verified Allergy, Unknown, HIVES, 05/11/16) Unclassified Drugs (Verified Allergy, Unknown, METAL MORRO - RASH, ) Current Medications Reported Home Medications Medications Dose Route/Sig Max Daily Dose Days Date Category Hydromorphone HCl 2 Mg Tab 2 Mg PO Q6H PRN 3 05/15/16 Rx Medrol Dosepak (Methylprednisolone) 4 Mg Luis Miguel 1 Pkt PO UD 6 05/15/16 Rx Gabapentin 300 Mg Cap 600 Mg PO TID 30 05/15/16 Rx Ventolin Hfa (Albuterol) 200 Puffs/47540 Mcg Aers 2-4 Puffs INH Q6H 05/11/16 Reported Ibu-200 (Ibuprofen) 200 Mg Tab 4 Tab PO QID PRN 5 05/11/16 Reported Ultram (Tramadol HCl) 50 Mg Tab 50 Mg PO Q4-6H 05/10/16 Reported Melatonin Maximum Strengt (Melatonin) 5 Mg Tab 2 Tab PO HS 05/04/16 Reported Symbicort 160/4.5 Inhaler (Budesonide/Formoterol Fumarate) Aero 2 Puffs INH BID PRN 11/15/15 Reported Pravastatin Sodium 10 Mg Tab 10 Mg PO HS 90 11/15/15 Reported Physical Physical Exam Vital Signs: Date Time Temp Pulse Resp B/P Pulse Ox O2 Delivery O2 Flow Rate FiO2 05/18/16 19:15 36.8 87 16 117/73 91 Nasal Cannula 4.0 05/18/16 18:45 36.7 81 16 111/69 98 Nasal Cannula 4.0 05/18/16 17:55 36.9 73 14 129/71 97 Nasal Cannula 4 05/18/16 17:45 87 23 140/70 97 Nasal Cannula 4 05/18/16 17:35 92 21 114/92 100 Mask 10 05/18/16 17:25 79 13 145/67 100 Mask 10 05/18/16 17:15 36.8 90 16 152/80 100 Mask 10 05/18/16 11:38 36.8 97 16 92/63 96 Room Air Diagnostics Labs Results Past 24 Hours Test 05/18/16 11:36 05/18/16 11:39 05/18/16 17:21 05/18/16 17:40 Range/Units Bedside Glucose 106 128 70-90 mg/dl White Blood Count 13.05 4.8-10.8 K/uL Red Blood Count 4.33 4.2-5.4 M/uL Hemoglobin 12.9 11.9 12.0-16.0 g/dL Hematocrit 38.2 35.7 37-47 % Mean Corpuscular Volume 88.2 80-100 fL Mean Corpuscular Hemoglobin 29.8 25-34 pg Mean Corpuscular Hemoglobin Concent 33.8 32-36 g/dl Platelet Count 285 130-400 K/uL Mean Platelet Volume 8.7 7.4-10.4 fL Neutrophils (%) (Auto) 78.8 % Lymphocytes (%) (Auto) 10.0 % Monocytes (%) (Auto) 9.4 % Eosinophils (%) (Auto) 0.7 % Basophils (%) (Auto) 0.2 % Neutrophils # (Auto) 10.28 1.4-6.5 K/uL Lymphocytes # (Auto) 1.31 1.2-3.4 K/uL Monocytes # (Auto) 1.23 0.11-0.59 K/uL Eosinophils # (Auto) 0.09 0-0.5 K/uL Basophils # (Auto) 0.02 0-0.2 K/uL RDW Standard Deviation 55.5 36.4-46.3 fL RDW Coefficient of Variation 17.2 11.5-14.5 % Immature Granulocyte % (Auto) 0.9 % Immature Granulocyte # (Auto) 0.12 0.00-0.02 K/uL Radiology Interpretation: CXR NORMAL EKG Interpretation: NORMAL EKG Impression Assessment and Plan 55 F doing well post op continue inhalers for reactive airway pain control per primary team mild glucose elevation follow with ssi mild acute blood loss anemia no need for transfusion at present dvt prevention is mechanical
[2016-05-18] MEDS: KETOROLAC TROMETHAMINE 30 MG/ML VIAL IV SCH ×2 (19:59→23:42)
[2016-05-18] MEDS: PRAVASTATIN SOD 10 MG TAB PO SCH (20:58)
[2016-05-18] MEDS: INSULIN ASPART 100 UNITS/ML 3 ML PEN SC SCH (20:58)
[2016-05-18] MEDS ORDERED: MELATONIN PO SCH (21:00)
[2016-05-18 21:14] VITALS: BP 143/91; PULSE 81; TEMP 36.3; O2SAT 95
[2016-05-18] MEDS: CLINDAMYCIN IV 600 MG in DEXTROSE 5% ADD-VANTAGE 50ML 50 ML IV SCH (21:55)
[2016-05-18] MEDS ORDERED: NURSING VERBAL MED ORDER ONE (22:30)
[2016-05-18 23:22] VITALS: BP 110/65; PULSE 76; TEMP 36.4; O2SAT 94
[2016-05-18] MEDS: DEXAMETHASONE INJ 10 MG in SYRINGE 0 ML IV SCH (23:43)
[2016-05-19 03:49] VITALS: BP 125/78; PULSE 63; TEMP 36.6; O2SAT 99
[2016-05-19] MEDS: KETOROLAC TROMETHAMINE 30 MG/ML VIAL IV SCH ×3 (05:45→18:38)
[2016-05-19] MEDS: CLINDAMYCIN IV 600 MG in DEXTROSE 5% ADD-VANTAGE 50ML 50 ML IV SCH ×2 (05:45→15:09)
[2016-05-19] MEDS ORDERED: BISACODYL 10 MG SUPP PR PRN (06:00)
[2016-05-19] MEDS ORDERED: DC PCA SCH (06:00)
[2016-05-19] MEDS ORDERED: BISACODYL 5 MG TABEC PO PRN (06:00)
[2016-05-19 07:00] VITALS: BP 111/67; PULSE 60; TEMP 36.4; O2SAT 94
[2016-05-19] MEDS ORDERED: OXYCODONE/ACETAMINOPHEN 5-325 TAB PO PRN (08:00)
[2016-05-19] MEDS ORDERED: HYDROmorphone INJ 2 MG/ML SYR/VIAL IV PRN (08:00)
[2016-05-19] MEDS: POLYETHYLENE (MIRALAX) 17 GM PACK PO SCH (08:21)
[2016-05-19] MEDS: GABAPENTIN 300 MG CAP PO SCH ×3 (08:22→20:38)
[2016-05-19] MEDS: DEXAMETHASONE INJ 10 MG in SYRINGE 0 ML IV SCH ×3 (08:23→23:41)
--- NOTE | 2016-05-19 08:29 | Anesthesiology Progress Note ---
Anesthesia Post Op Note Date & Time May 19, 2016 at 08:28 Vital Signs Pain Intensity: 1.0 Vital Signs Past 12 Hours Date Time Temp Pulse Resp B/P Pulse Ox O2 Delivery O2 Flow Rate FiO2 05/19/16 07:00 36.4 60 18 111/67 94 Room Air 05/19/16 03:49 36.6 63 18 125/78 99 Room Air 05/18/16 23:45 Room Air 05/18/16 23:22 36.4 76 16 110/65 94 Room Air 05/18/16 21:14 36.3 81 18 143/91 95 Nasal Cannula 4.0 Notes Mental Status: alert / awake / arousable, participated in evaluation Pt Amnestic to Procedure: Yes Nausea / Vomiting: adequately controlled Pain: adequately controlled Airway Patency, RR, SpO2: stable & adequate BP & HR: stable & adequate Hydration State: stable & adequate Anesthetic Complications: no major complications apparent
--- NOTE | 2016-05-19 08:40 | PROGRESS NOTE ---
DATE: 05/19/2016 DATE: 05/19/2016. SUBJECTIVE: Improved, stable. We eradicated her leg pain. OBJECTIVE: VITAL SIGNS: Temperature 36.4, 111/67 blood pressure, 35.7 hematocrit. IMPRESSION: Status post lumbar spine decompression and fusion lumbar spine for severe stenosis of the spine L4 to sacrum. DISPOSITION: Will have her up and ambulatory today and she has informed me that she has already been walking. Her dressings will be changed tomorrow. Hopefully, discharge her home tomorrow after lunch time. Dr. Velázquez will be rounding on Ms. Turk tomorrow on Sunday.
--- NOTE | 2016-05-19 08:43 | Discharge Instructions ---
Discharge Instructions Date of Service May 19, 2016. Admission Reason for Admission: L4-L5 Disc Herniation Discharge Discharge Diagnosis / Problem: stenosi/reconstruction Discharge Goals Goal(s): Improve function Activity Recommendations Activity Limitations: as noted below Lifting Limitations: until after follow-up appointment Exercise/Sports Limitations: until after follow-up appointment May Resume Sexual Activity: after follow-up appointment Shower/Bathe: keep incision dry Driving or Machine Use: . Current Hospital Diet Patient's current hospital diet: Regular Diet Discharge Diet Recommended Diet: Regular Diet Procedures Procedures Performed: Removal prior instrumentation, reinsertion of instrumentation L4-S1, Decompression and posterior lumbar interbody fusion L4-L5 Pending Studies Studies pending at discharge: no Laboratory Results Hemoglobin A1c Test 02/28/16 08:53 Range/Units Estimated Average Glucose 120 mg/dl Hemoglobin A1c 5.8 H 4.5-5.6 % Lipid Panel Test 02/28/16 08:53 Range/Units Triglycerides Level 329 H 0-150 mg/dl Cholesterol Level 216 H 0-200 mg/dl HDL Cholesterol 41 mg/dl Cholesterol/HDL Ratio 5.3 LDL Cholesterol, Calculated 109 mg/dl Medical Emergencies . Who to Call and When: Medical Emergencies: If at any time you feel your situation is an emergency, please call 911 immediately. . Non-Emergent Contact Non-Emergency issues call your: Surgeon Call Non-Emergent contact if: you have any medication questions . "Provider Documentation" section prepared by Axel Larios. VTE Core Measure Inpt VTE Proph given/why not?: Treatment not indicated
[2016-05-19] MEDS: INSULIN ASPART 100 UNITS/ML 3 ML PEN SC SCH ×4 (09:19→22:23)
[2016-05-19 09:34] LABS: BUN/CREATININE RATIO 22.3 (10-20); CALCIUM 8.7 mg/dl (8.5-10.1); CREATININE 1.1 mg/dl (0.60-1.20); POTASSIUM 4.1 mmol/L (3.5-5.1)
[2016-05-19] MEDS: HYDROmorphone INJ 1 MG/ML SYR IV PRN ×2 (10:26→21:36)
[2016-05-19] MEDS ORDERED: IV FLUIDS COMPLETED PRN (12:15)
--- NOTE | 2016-05-19 12:28 | Progress Note ---
Subjective Date of Service: May 19, 2016. Subjective Pt evaluation today including: conversation w/ patient, physical exam, chart review, lab review, review of studies, review of inpatient medication list No concerns expressed Resting comfortably in bed Problem List Medical Problems: (1) Failure of outpatient treatment Status: Acute (2) Lower back pain Status: Acute (3) Pyelonephritis Status: Acute (4) Sciatica Status: Acute (5) Syncope Status: Acute Review of Systems Constitutional: No chills, No fever Respiratory: No cough, No dyspnea on exertion, No shortness of breath, No sputum, No wheezing Cardiac: No chest pain, No orthopnea Abdomen: No constipation, No diarrhea, No nausea, No pain, No vomiting Musculoskeletal: No joint pain, No muscle pain Female : No dysuria, No urinary frequency Skin: No itch, No rash Objective Vital Signs Date Time Temp Pulse Resp B/P Pulse Ox O2 Delivery O2 Flow Rate FiO2 05/19/16 08:33 Room Air 05/19/16 07:00 36.4 60 18 111/67 94 Room Air 05/19/16 03:49 36.6 63 18 125/78 99 Room Air 05/18/16 23:45 Room Air 05/18/16 23:22 36.4 76 16 110/65 94 Room Air 05/18/16 21:14 36.3 81 18 143/91 95 Nasal Cannula 4.0 05/18/16 19:15 36.8 87 16 117/73 91 Nasal Cannula 4.0 05/18/16 18:45 36.7 81 16 111/69 98 Nasal Cannula 4.0 05/18/16 18:20 Nasal Cannula 4.0 05/18/16 18:20 Nasal Cannula 4.0 05/18/16 18:15 36.7 90 18 116/71 99 Nasal Cannula 4.0 05/18/16 18:15 36.4 71 18 119/74 98 Nasal Cannula 4.0 05/18/16 17:55 36.9 73 14 129/71 97 Nasal Cannula 4 05/18/16 17:45 87 23 140/70 97 Nasal Cannula 4 05/18/16 17:35 92 21 114/92 100 Mask 10 05/18/16 17:25 79 13 145/67 100 Mask 10 05/18/16 17:15 36.8 90 16 152/80 100 Mask 10 Physical Exam General Appearance: WD/WN, no apparent distress Neck: supple, no adenopathy Respiratory/Chest: lungs clear, normal breath sounds Cardiovascular: no edema, no gallop Abdomen: non tender, soft Neurologic/Psychiatric: alert, oriented x 3 Laboratory Results Last 24 Hours Test 05/18/16 17:21 05/18/16 17:40 05/19/16 07:42 05/19/16 09:00 Bedside Glucose 128 mg/dl 229 mg/dl Hemoglobin 11.9 g/dL Hematocrit 35.7 % Sodium Level 135 mmol/L Potassium Level 4.1 mmol/L Chloride Level 98 mmol/L Carbon Dioxide Level 27 mmol/L Anion Gap 10.0 mmol/L Blood Urea Nitrogen 25 mg/dl Creatinine 1.10 mg/dl Est Creatinine Clear Calc Drug Dose 63.0 ml/min Estimated GFR () 64.5 Estimated GFR (Non- 55.7 BUN/Creatinine Ratio 22.3 Random Glucose 185 mg/dl Calcium Level 8.7 mg/dl Test 05/19/16 12:17 Bedside Glucose 161 mg/dl Assessment and Plan 55 F doing well post op no acute blood loss anemia continue inhalers for reactive airway pain control per primary team mild glucose elevation follow with ssi mild acute blood loss anemia no need for transfusion at present dvt prevention is mechanical OK to DC from medical perspective
[2016-05-19 13:23] VITALS: BP 119/73; PULSE 86; O2SAT 95
[2016-05-19] MEDS: OXYCODONE/ACETAMINOPHEN 5-325 TAB PO PRN ×2 (15:14→20:38)
[2016-05-19 15:28] VITALS: BP 129/72; PULSE 76; TEMP 36.6; O2SAT 97
[2016-05-19] MEDS: PRAVASTATIN SOD 10 MG TAB PO SCH (20:37)
[2016-05-19 23:01] VITALS: BP 109/60; PULSE 67; TEMP 36.5; O2SAT 95
[2016-05-20] MEDS: HYDROmorphone INJ 1 MG/ML SYR IV PRN ×2 (00:45→04:22)
[2016-05-20] MEDS: OXYCODONE/ACETAMINOPHEN 5-325 TAB PO PRN ×2 (02:32→08:49)
[2016-05-20 06:57] VITALS: BP 101/63; PULSE 75; TEMP 36.5; O2SAT 96
[2016-05-20 07:30] VITALS: BP 101/63; PULSE 75; TEMP 36.5; O2SAT 96
--- NOTE | 2016-05-20 08:37 | PROGRESS NOTE ---
DATE: 05/20/2016 DATE: 05/20/2016. SUBJECTIVE: A 55-year-old white female postop day 2 from a posterior spinal decompression. She is doing pretty well. Pain seems to be controlled. Denies any chest pain or shortness of breath. Not feeling dizzy or lightheaded. OBJECTIVE: VITAL SIGNS: Temperature 36.5. Vital signs stable. PHYSICAL EXAMINATION: GENERAL: Reveals a pleasant elderly female. She is walking around her room with a walker quite well when I visited her this morning. BACK: Examination of the back reveals the dressing to be clean, dry and intact. She can dorsiflex and plantarflex her feet appropriately. Neurologically she is intact. ASSESSMENT: A 55-year-old white female postop day 2 from a posterior decompression for stenosis doing reasonably well. Pain seems to be controlled. PLAN: We are going to get her some therapy today. She is doing pretty well with current pain regimen. If she does okay in therapy will discharge her home. She has got home tramadol as well as Vicodin. She will follow up with Dr. Larios in 10-12 days.
[2016-05-20] MEDS: INSULIN ASPART 100 UNITS/ML 3 ML PEN SC SCH (08:42)
[2016-05-20] MEDS: GABAPENTIN 300 MG CAP PO SCH (08:47)
[2016-05-20] MEDS: DEXAMETHASONE INJ 10 MG in SYRINGE 0 ML IV SCH (08:48)
[2016-05-20] MEDS: POLYETHYLENE (MIRALAX) 17 GM PACK PO SCH (08:48)
--- NOTE | 2016-05-24 09:52 | DISCHARGE SUMMARY ---
DATE OF DISCHARGE: 05/20/2016. Improved, stable. Minimal complaints of pain. Vital signs stable. Wound clean and dry. Neurologically intact. ASSESSMENT: Status post reconstructive spine surgery. She will be discharged home in improved and stable condition. Instructions given. Precautions given. Prescriptions and a back brace. Followup examination in the office in 10 days.
[2016-12-28] MEDS ORDERED: CYCL10TA6 PO (11:02)
[2016-12-28] MEDS ORDERED: HYDR4TAB78 PO (11:02)
[2016-12-28] MEDS ORDERED: KETO10TA PO (11:02)
[2016-12-28] MEDS ORDERED: GABA-113 PO (11:02)
== END 2016-05-20 10:40 | disposition home or self-care (01) ==
LOC: ENRESERVDT → ENRESERVTM → C.ACU 10:50 → C.3E 17:22 → INTOOBSV 17:22
PROVIDERS: ADMIT Orthopaedic Surgery Orthopaedic Surgery of the Spine; ATTEND Orthopaedic Surgery Orthopaedic Surgery of the Spine
DX: M48.06 Spinal stenosis, lumbar region (principal)

== ENCOUNTER → 2016-09-29 | Outpatient (CLI) | payer BC ==
[~2016-09-29] MED LIST changes: -CLINDAMYCIN 600 MG/54 ML D5W 54 ML IV SCH; +CYCL5TAB PO; +KETO10TA PO; -LACTATED RINGER'S 1000ML 1,000 ML IV SCH; -METH4PAK PO; +NITR-5 PO; -NSS 1000ML IV SCH; +ONDA4TAB10 SL; -OXYC1CAP5 PO; +TIZA4CAP PO; +TRAZ50TA35 PO
--- NOTE | 2016-09-29 13:50 | DIAGNOSTIC IMAGING REPORT ---
KUB HISTORY: Lower right back pain. COMPARISON: KUB 10/12/2015. FINDINGS: The bowel gas pattern is unremarkable. There are no dilated loops of small bowel to suggest an obstruction. No renal calculi. No ureteral calculi. No pneumoperitoneum or pneumatosis. Cholecystectomy. Stable calcification adjacent to the right L5 transverse process consistent with a phlebolith. Posterior decompression fusion from L4 through S1 with pedicle screws and rods. IMPRESSION: No renal or ureteral stones. Electronically signed by: Tre Barnes M.D. 09/29/2016 1:49 PM Dictated Date/Time: 09/29/2016 1:47 PM
== END | disposition home or self-care (01) ==
LOC: C.RAD 13:14
PROVIDERS: ATTEND Nurse Practitioner Family
DX: N20.0 Calculus of kidney (principal)

== ENCOUNTER 2016-11-16 09:28 | Emergency (ER) | payer BC ==
[~2016-11-16] VITALS: Ht 160 cm; Wt 91.1 kg
[~2016-11-16 09:28] MED LIST changes: -CYCL5TAB PO; -KETO10TA PO; -NITR-5 PO; -ONDA4TAB10 SL; -TIZA4CAP PO; -TRAZ50TA35 PO
[2016-11-16 09:35] VITALS: TEMP 36.8; Ht 160 cm; Wt 91.1 kg
[2016-11-16] MEDS ORDERED: KETO10TA PO (10:01)
[2016-11-16] MEDS ORDERED: ONDANSETRON INJ 2 MG/ML 2 ML VIAL IV STA (10:42)
[2016-11-16] MEDS ORDERED: HYDROmorphone INJ 1 MG/ML SYR IV STA (10:42)
[2016-11-16 11:05] LABS: MANUAL MICROSCOPIC REQUIRED? NO; REVIEW REQ? NO; URINE APPEARANCE CLEAR (CLEAR); URINE BILIRUBIN NEG (NEG); URINE COLOR YELLOW; URINE EPITHELIAL CELL AUTO >30 /lpf (0-5); URINE NITRITE POS (NEG); URINE PH 6.5 (4.5-7.5); URINE SPECIFIC GRAVITY 1.014 (1.000-1.030); UROBILINOGEN NEG (NEG)
[2016-11-16 11:10] LABS: BASO % 0.4 %; BASO ABS # 0.03 K/uL (0-0.2); COMPLETE YES; EOS % 0.7 %; HEMATOCRIT 40.9 % (37-47); IG% 0.3 %; LYMPH % 36.1 %; LYMPH ABS # 2.53 K/uL (1.2-3.4); MEAN CELL VOLUME 90.1 fL (80-100); MEAN CORPUSCULAR HGB CONC 33.3 g/dl (32-36); MEAN PLATELET VOLUME 8.8 fL (7.4-10.4); MONO % 10.1 %; NEUT % 52.4 %; PLATELET COUNT 268 K/uL (130-400); RED BLOOD COUNT 4.54 M/uL (4.2-5.4); WHITE BLOOD COUNT 7.01 K/uL (4.8-10.8)
[2016-11-16] MEDS ORDERED: LORAZEPAM 2 MG/ML 1 ML VIAL IV STA (11:11)
[2016-11-16 11:29] LABS: BUN/CREATININE RATIO 22.5 (10-20); CALCIUM 8.8 mg/dl (8.5-10.1); CREATININE 0.83 mg/dl (0.60-1.20); POTASSIUM 4.1 mmol/L (3.5-5.1)
--- NOTE | 2016-11-16 12:17 | DIAGNOSTIC IMAGING REPORT ---
LUMBAR SPINE W/O CONTRAST CLINICAL HISTORY: 56 years-old Female presenting with low back pain radiating down rt leg. TECHNIQUE: Multisequence, multiplanar MR imaging of the lumbar spine was performed without the use of intravenous contrast. IV contrast: None. COMPARISON: 05/01/2016. FINDINGS: Localizer images: Unremarkable. Postsurgical changes of bilateral transpedicular screw and reta fixation, which has been extended from L5-S1 to now span from L4-S1 with laminectomy defects of L4 and L5. Minimal T2 hyperintensity in the operative bed without focal fluid collection. Adequate posterior decompression at these levels. Otherwise normal lumbar lordosis. Vertebral bodies maintain normal height, alignment, and bone marrow signal intensity. Intervertebral disc desiccation at L4-5 and L5-S1. An interbody spacer may be present at L4-5. Nonoperative disc levels are normal. No significant spinal canal narrowing although mild disc bulges are noted at L2-3 and L3-4. This does not result in significant neural foraminal narrowing at L2-3, however, in combination with mild facet arthropathy, mild bilateral neural foraminal narrowing noted at L3-4. These degenerative changes are not significantly different than prior exam. Spinal cord ends in good position at L1. Cauda equina normal in morphology. No apparent mass effect on the exiting nerve roots. Paraspinal soft tissues at the nonoperative levels are normal. IMPRESSION: 1. Interval extension of posterior lumbar fusion now spanning from L4 to S1 with associated laminectomy defects. 2. Mild degenerative changes at L2-3 and L3-4 with mild bilateral neural foraminal narrowing at L3-4. This is not significantly changed from the prior exam. Electronically signed by: Nnamdi Jensen M.D. 11/16/2016 12:15 PM Dictated Date/Time: 11/16/2016 12:09 PM
[2016-11-16] MEDS ORDERED: ONDA4TAB10 SL (13:08)
--- NOTE | 2016-11-16 13:13 | EMERGENCY ROOM VISIT NOTE ---
History Report prepared by Suzie: Tawanda Gleason Under the Supervision of: Dr. Chay Sun M.D. First contact with patient: 10:35 Chief Complaint: BACK PAIN Stated Complaint: BACK PAIN History of Present Illness The patient is a 56 year old female who presents to the Emergency Room with complaints of constant centralized lower back pain beginning three days ago. She has had two previous back surgeries with the most recent one occurring six months ago. She describes her current pain as "pinching". The patient denies any recent injury or trauma. She also complains of intermittent tingling to her right leg beginning thee days ago. She saw her surgeon two days ago and is awaiting approval for an MRI. The patient states that she has been vomiting and has had chills. She denies any fevers. She notes that she has a history of kidney stones. The patient states that her current pain and tingling feels like previous symptoms that she has had. Source of History: patient, family Onset: Three days ago Position: back (lower centralized) Quality: other ("pinching") Timing: constant Associated Symptoms: + chills, + vomiting, No fevers Note: Additional symptoms: intermittent right leg tingling. Review of Systems See HPI for pertinent positives & negatives. A total of 10 systems reviewed and were otherwise negative. Past Medical & Surgical Medical Problems: (1) Kidney stones (2) Lumbar disc disease with radiculopathy (3) Lumbar stenosis (4) Personal History Of Urinary Calculi Surgical Problems: (1) S/P appendectomy (2) S/P cholecystectomy (3) S/P hysterectomy Social History Problems: (1) Tobacco Use Disorder Old medical records were reviewed. Nurse's notes were reviewed and I agree with. Family History Atrial fibrillation Blood clots Cancer Diabetes mellitus Gallbladder disease Hypertension Kidney disease Kidney stones Social History Smoking Status: Current Every Day Smoker Alcohol Use: none Drug Use: none Marital Status: Housing Status: lives with friends Occupation Status: employed Current/Historical Medications Scheduled Albuterol Hfa (Ventolin Hfa), 2-4 PUFFS INH Q6H Gabapentin (Gabapentin), 600 MG PO TID Ondasetron Odt (Zofran Odt), 4 MG SL Q6H Scheduled PRN Budesonide/Formoterol Fumarate (Symbicort 160/4.5 Inhaler ), 2 PUFFS INH BID PRN for PRN Hydromorphone HCl (Hydromorphone HCl), 2 MG PO Q6H PRN for Pain Ibuprofen (Ibu-200), 4 TAB PO QID PRN for Pain Ketorolac (Toradol), 10 MG PO Q6 PRN for Pain Allergies Coded Allergies: Morphine (Verified Allergy, Intermediate, HIVES, 05/18/16) SOB, feels like bugs are biting her, anxious, upper GI pain Lemon (Verified Allergy, Unknown, HIVES, 05/11/16) Penicillins (Verified Allergy, Unknown, HIVES, 05/11/16) Unclassified Drugs (Verified Allergy, Unknown, METAL MORRO - RASH, ) Physical Exam Vital Signs Date Time Temp Pulse Resp B/P (MAP) Pulse Ox O2 Delivery O2 Flow Rate FiO2 11/16/16 13:30 78 16 103/74 97 11/16/16 12:21 84 16 120/72 94 Room Air 11/16/16 11:17 84 16 119/74 94 Room Air 11/16/16 09:35 36.8 99 20 120/72 96 Room Air Physical Exam General: Well developed well nourished in no acute distress, breathing comfortably on room air. Normal speech. Appears uncomfortable. HEENT: Normal cephalic atraumatic. Pupils are equal round and reactive to light. Extraocular movements are intact. Oropharynx is pink with moist mucous membranes. No swelling of the mouth lips or tongue. Neck: Supple with a midline trachea. No meningeal signs or stiffness, no JVD or bruits. No Stridor. Chest: Clear to auscultation bilaterally. No wheezes or rhonchi. No increased work of breathing. Heart: regular rate and rhythm. Abdomen: Soft nontender, nondistended without rebound guarding or rigidity. Extremities: No cyanosis clubbing or edema. No calf tenderness or assymetry. Reflexes intact. Spine/Back. No CVA tenderness. Back pain is worse with movement. Skin: Good turgor without rashes. Neurologic exam: Cranial nerves two through 12 are intact. Motor and sensation are intact and symmetrical throughout. Normal reflexes. Medical Decision & Procedures ER Provider Diagnostic Interpretation: Radiology results as stated below per my review and radiologist interpretation: LUMBAR SPINE W/O CONTRAST FINDINGS: Localizer images: Unremarkable. Postsurgical changes of bilateral transpedicular screw and reta fixation, which has been extended from L5-S1 to now span from L4-S1 with laminectomy defects of L4 and L5. Minimal T2 hyperintensity in the operative bed without focal fluid collection. Adequate posterior decompression at these levels. Otherwise normal lumbar lordosis. Vertebral bodies maintain normal height, alignment, and bone marrow signal intensity. Intervertebral disc desiccation at L4-5 and L5-S1. An interbody spacer may be present at L4-5. Nonoperative disc levels are normal. No significant spinal canal narrowing although mild disc bulges are noted at L2-3 and L3-4. This does not result in significant neural foraminal narrowing at L2-3, however, in combination with mild facet arthropathy, mild bilateral neural foraminal narrowing noted at L3-4. These degenerative changes are not significantly different than prior exam. Spinal cord ends in good position at L1. Cauda equina normal in morphology. No apparent mass effect on the exiting nerve roots. Paraspinal soft tissues at the nonoperative levels are normal. IMPRESSION: 1. Interval extension of posterior lumbar fusion now spanning from L4 to S1 with associated laminectomy defects. 2. Mild degenerative changes at L2-3 and L3-4 with mild bilateral neural foraminal narrowing at L3-4. This is not significantly changed from the prior exam. Electronically signed by: Nnamdi Jensen M.D. 11/16/2016 12:15 PM Laboratory Results 11/16/16 11:00 Red Blood Count 4.54, Mean Corpuscular Volume 90.1, Mean Corpuscular Hemoglobin 30.0, Mean Corpuscular Hemoglobin Concent 33.3, Mean Platelet Volume 8.8, Neutrophils (%) (Auto) 52.4, Lymphocytes (%) (Auto) 36.1, Monocytes (%) (Auto) 10.1, Eosinophils (%) (Auto) 0.7, Basophils (%) (Auto) 0.4, Neutrophils # (Auto ) 3.67, Lymphocytes # (Auto) 2.53, Monocytes # (Auto) 0.71, Eosinophils # (Auto ) 0.05, Basophils # (Auto) 0.03 11/16/16 11:00 Test 11/16/16 10:45 11/16/16 11:00 Urine Color YELLOW Urine Appearance CLEAR (CLEAR) Urine pH 6.5 (4.5-7.5) Urine Specific [place] 1.014 (1.000-1.030) Urine Protein NEG (NEG) Urine Glucose (UA) NEG (NEG) Urine Ketones NEG (NEG) Urine Occult Blood NEG (NEG) Urine Nitrite POS (NEG) Urine Bilirubin NEG (NEG) Urine Urobilinogen NEG (NEG) Urine Leukocyte Esterase TRACE (NEG) Urine WBC (Auto) 5-10 /hpf (0-5) Urine RBC (Auto) 0-4 /hpf (0-4) Urine Hyaline Casts (Auto) 1-5 /lpf (0-5) Urine Epithelial Cells (Auto) >30 /lpf (0-5) Urine Bacteria (Auto) 4+ (NEG) White Blood Count 7.01 K/uL (4.8-10.8) Red Blood Count 4.54 M/uL (4.2-5.4) Hemoglobin 13.6 g/dL (12.0-16.0) Hematocrit 40.9 % (37-47) Mean Corpuscular Volume 90.1 fL (80-100) Mean Corpuscular Hemoglobin 30.0 pg (25-34) Mean Corpuscular Hemoglobin Concent 33.3 g/dl (32-36) Platelet Count 268 K/uL (130-400) Mean Platelet Volume 8.8 fL (7.4-10.4) Neutrophils (%) (Auto) 52.4 % Lymphocytes (%) (Auto) 36.1 % Monocytes (%) (Auto) 10.1 % Eosinophils (%) (Auto) 0.7 % Basophils (%) (Auto) 0.4 % Neutrophils # (Auto) 3.67 K/uL (1.4-6.5) Lymphocytes # (Auto) 2.53 K/uL (1.2-3.4) Monocytes # (Auto) 0.71 K/uL (0.11-0.59) Eosinophils # (Auto) 0.05 K/uL (0-0.5) Basophils # (Auto) 0.03 K/uL (0-0.2) RDW Standard Deviation 50.6 fL (36.4-46.3) RDW Coefficient of Variation 15.4 % (11.5-14.5) Immature Granulocyte % (Auto) 0.3 % Immature Granulocyte # (Auto) 0.02 K/uL (0.00-0.02) Anion Gap 8.0 mmol/L (3-11) Est Creatinine Clear Calc Drug Dose 79.2 ml/min Estimated GFR () 90.1 Estimated GFR (Non- 77.7 BUN/Creatinine Ratio 22.5 (10-20) Calcium Level 8.8 mg/dl (8.5-10.1) Laboratory studies as stated above per my review. Medications Administered Medications (Trade) Dose Ordered Sig/Lulu Route Start Time Stop Time Status Last Admin Dose Admin Ondansetron HCl (Zofran Inj) 4 mg NOW STAT IV 11/16/16 10:42 11/16/16 10:44 DC 11/16/16 11:04 4 MG Hydromorphone HCl (Dilaudid Inj) 1 mg NOW STAT IV 11/16/16 10:42 11/16/16 10:44 DC 11/16/16 11:04 1 MG Lorazepam (Ativan Inj) 0.5 mg NOW STAT IV 11/16/16 11:11 11/16/16 11:12 DC 11/16/16 11:17 0.5 MG ED Course 1036: Past medical records reviewed. The patient was evaluated in room B7, and a complete history and physical examination were performed. 1042: Ordered Dilaudid Inj 1 mg IV, Zofran Inj 4 mg IV. 1111: Ordered Ativan Inj 0.5 mg IV. 1304: Upon reevaluation, the patient is resting comfortably. She denies any urinary symptoms. I discussed the results and treatment plan with her. She verbalized agreement of the treatment plan. The patient was discharged home. Medical Decision Differentials include, but are not limited to; disc disease, acute exacerbation of chronic pain, infection, trauma and electrolyte or metabolic abnormality. This patient comes in as described above. She was placed in room B7. She's been having ongoing back pain. She has of chronic back pain has had several surgeries. She was seen recently by Dr. Larios. She's had some nausea as well. She's been on Dilaudid at home as well as Toradol. On my exam, she appears mildly uncomfortable with movement. She has no acute deficits. She does state it radiates down her leg but she has no numbness or weakness. She has nothing to suggest cauda equina syndrome. IV access established and she was given Dilaudid 1 mg IV here as well as IV Zofran. She also received Ativan 0.5 mg IV as she was very claustrophobic to enable the MRI. MRI shows no acute findings compared to her old she does have some chronic degenerative changes she has no white count or fever to suggest infection. She's had no acute electrode or metabolic abnormalities. Her urinalysis is suboptimal greater than 30 epithelial cells but there is some bacteria. She has no symptoms to suggest UTI.she has no CVA tenderness. She has no dysuria or hematuria. She feels better when like to go home and to get her prescription for Zofran she can use if needed for nausea. I think some of the pain medication may be making her nauseated. She to return if: increasing pain, worsening of symptoms, fever or chills, any new problems or concerns. She is happy the plan and discharged home. Medication Reconcilliation Current Medication List: was personally reviewed by me Blood Pressure Screening Patient's blood pressure: Normal blood pressure Blood pressure disposition: Did not require urgent referral Consults Time Called: 1040 Consulting Physician: Dr. Larios -Orthopedics Returned Call: [phone] Discussed the patient's case. Dr. Larios recommends an MRI spine without contrast. Impression Primary Impression: Low back pain Additional Impression: Lumbar disc disease Scribe Attestation The scribe's documentation has been prepared under my direction and personally reviewed by me in its entirety. I confirm that the note above accurately reflects all work, treatment, procedures, and medical decision making performed by me. Departure Information Dispostion Home / Self-Care Prescriptions Ondasetron Odt (ZOFRAN ODT) 4 Mg Tab 4 MG SL Q6H for Nausea, #15 TAB Prov: Chay Sun M.D. 11/16/16 Referrals Axel Larios DO (PCP) Forms HOME CARE DOCUMENTATION FORM, IMPORTANT VISIT INFORMATION Patient Instructions My [facility] Additional Instructions Rest. Drink plenty of fluids. For nausea May use Zofran 4 mg every 6 hours as needed May take before you take your pain medicine and take her pain medicine with food Return if: Increasing pain, numbness weakness, fever or chills, any new problems or concerns. Follow-up with Dr. Larios or your regular doctor this week or early next week for recheck Return to ER any point if symptoms worsen Problem Qualifiers
[2016-11-16 13:30] VITALS: BP 103/74; PULSE 78; O2SAT 97
== END 2016-11-16 13:34 | disposition home or self-care (01) ==
LOC: C.EDB 09:30
DX: M54.5 Low back pain (principal); M51.16 Intervertebral disc disorders with radiculopathy, lumbar region; Z82.49 Family history of ischemic heart disease and other diseases of the circulatory system; Z83.3 Family history of diabetes mellitus; F17.200 Nicotine dependence, unspecified, uncomplicated

== ENCOUNTER 2016-11-23 13:03 | Emergency (ER) | payer BC ==
[~2016-11-23] VITALS: Ht 160 cm; Wt 91.4 kg
[~2016-11-23 13:03] MED LIST changes: +KETO10TA PO; -MELATAB2 PO; +ONDA4TAB10 SL; -PRAV10TA39 PO; -TRAM-10 PO
[2016-11-23 13:08] VITALS: TEMP 36.8; Ht 160 cm; Wt 91.4 kg
[2016-11-23] MEDS ORDERED: NITR-5 PO (13:37)
[2016-11-23] MEDS ORDERED: TRAZ50TA35 PO (13:37)
[2016-11-23] MEDS ORDERED: TIZA4CAP PO (13:37)
--- NOTE | 2016-11-23 13:41 | EMERGENCY ROOM VISIT NOTE ---
History First contact with patient: 13:13 Chief Complaint: BACK PAIN Stated Complaint: BACK PAIN History of Present Illness The patient is a 56 year old female who presents to the Emergency Room with complaints of low back pain times one and half weeks. The patient does report a history of lumbar surgery completed in May of this year. She was seen here in the emergency department approximately one half weeks ago and diagnosed with a urinary tract infection on urine culture. The patient states she was given a call approximately one week ago and advised to start taking Macrobid. She states she has only been taking this medication for one or 2 days. The patient did have an MRI completed at that time which did not show any acute changes of the hardware in her lumbar spine. She states she also has a history of "problems with kidney stones" and is concerned that that could be her problem at this time. The patient is currently taking Zanaflex, Zofran, Macrobid, and trazodone for her pain, urinary tract infection, and nausea. She became more concerned this morning when she got out of the shower approximately 3 hours ago and noticed a lump in the left side of her lower back. She states she initially thought it was a charley horse, but it did not improve after rubbing the lump. She states the pain is significant especially on palpation of that area. She has been taking her regular medications without relief of the discomfort. Her low back pain is the same pain as has been going on for 1-1/2 weeks, but she states it is worsening. She does describe some slight suprapubic discomfort and pain and burning with urination, but states that is improving with the Macrobid. She called Dr. Larios's office today and was advised come to the emergency department in case there was a problem with her hardware. She is describing some numbness and tingling into her legs, but states this is normally related to her chronic neuropathy. She does take gabapentin for that problem and states it does help. She denies any bowel or bladder dysfunction, denies any fever, chills, bodyaches, chest pain, dyspnea, or other concerning symptoms. She states she has been nauseated and vomiting and Zofran does help. Nausea and vomiting worsen with food. She denies any hematuria. Review of Systems A complete 10 point review of systems was reviewed with the patient with pertinent positives and negatives as per history of present illness. All else were negative. Past Medical/Surgical History Medical Problems: (1) Kidney stones (2) Lumbar disc disease with radiculopathy (3) Lumbar stenosis (4) Personal History Of Urinary Calculi Surgical Problems: (1) S/P appendectomy (2) S/P cholecystectomy (3) S/P hysterectomy Social History Problems: (1) Tobacco Use Disorder Family History Atrial fibrillation Blood clots Cancer Diabetes mellitus Gallbladder disease Hypertension Kidney disease Kidney stones Social History Smoking Status: Current Every Day Smoker Alcohol Use: none Drug Use: none Marital Status: Housing Status: lives with friends Occupation Status: employed Current/Historical Medications Scheduled Cyclobenzaprine Hcl (Flexeril), 5-10 MG PO TID Gabapentin (Gabapentin), 600 MG PO TID Nitrofurantoin Monohyd Macrocr (Macrobid), 100 MG PO BID Ondasetron Odt (Zofran Odt), 4 MG SL Q6H Scheduled PRN Tizanidine (Zanaflex), 4-8 MG PO Q8 PRN for Muscle Spasms Trazodone Hcl (Trazodone), 50-100 MG PO HS PRN for Sleep Physical Exam Vital Signs Date Time Temp Pulse Resp B/P (MAP) Pulse Ox O2 Delivery O2 Flow Rate FiO2 11/23/16 14:52 66 20 144/95 96 Room Air 11/23/16 14:07 72 11/23/16 13:49 78 18 129/98 94 Room Air 11/23/16 13:08 36.8 83 18 145/91 95 Room Air Physical Exam VITALS: Vitals are noted on the nurse's note and reviewed by myself. Vital signs stable. GENERAL: This is a 56-year-old female, in no acute distress, nondiaphoretic, well-developed well-nourished. SKIN: The skin was without rashes, erythema, edema, or bruising. There is no tenting of the skin. Capillary reflex less than 2 seconds. HEAD: Normocephalic atraumatic. EARS: External auditory canals clear, tympanic membranes pearly encinas without erythema or effusion bilaterally. EYES: Pupils equal round and reactive to light and accommodation. Conjunctivae without injection, sclerae without icterus. Extraocular movements intact. NOSE: Patent, turbinates without inflammation or discharge. No sinus tenderness. MOUTH: Mucous membranes moist. Tonsils are not enlarged. Pharynx without erythema or exudate. Uvula midline. Airway patent. Tongue does not deviate. NECK: Supple without nuchal rigidity. No lymphadenopathy. No thyromegaly. Cervical spine is nontender. No JVD. HEART: Regular rate and rhythm without murmurs gallops or rubs. LUNGS: Clear to auscultation bilaterally without wheezes, rales or rhonchi. No dullness to percussion. No retractions or accessory muscle use. ABDOMEN: Positive bowel sounds x 4. Normal tympanic percussion. Significant tenderness and guarding on very light palpation of the left side of the abdomen. Left upper and left lower quadrants. Unable to complete a very thorough examination due to the patient's discomfort and her pushing my hands away. Otherwise, the abdomen was soft, nontender, without masses or organomegaly. Michaels sign negative. No guarding or rebound tenderness. MUSCULOSKELETAL: No muscle atrophy, erythema, or edema noted. Full range of motion without joint tenderness in all extremities. There is some significant tenderness in the left lumbar region. This is to the left of the spine. There is a knot and muscle spasms noted in this area. Normal gait. Strength 5/5 throughout. NEURO: Patient was alert and oriented to person place and time. Normal sensation to light and sharp touch. Deep tendon reflexes 2+ throughout. No focal neurological deficits. Medical Decision & Procedures ER Provider Diagnostic Interpretation: LABS: Urinalysis was unremarkable. CBC was without leukocytosis, anemia, thrombocytopenia. Lipase was positive at 710. CMP was unremarkable. Renal and hepatic function normal. Electrolytes were normal. Cardiac enzymes were negative. CT ABD/PELVIS WITH IV AND PO CONTRAST: Reviewed by myself, and interpreted by radiologist: ABD/PELVIS IV AND ORAL CONT CLINICAL HISTORY: 56 years-old Female presenting with Left side abdominal pain/tenderness. TECHNIQUE: Multidetector CT of the abdomen and pelvis was performed after the administration of oral and intravenous contrast. IV contrast: 93 mL of Optiray 320. A dose lowering technique was used consistent with the principles of ALARA (as low as reasonably achievable). COMPARISON: 07/13/2015. CT DOSE (mGy.cm): The estimated cumulative dose is 693.87 mGy.cm. FINDINGS: Parent Aide topogram: Cholecystectomy clips and posterior lumbar fusion hardware from L4 to S1. Lung bases: Minimal dependent changes likely atelectasis. Normal heart size. No pericardial or pleural effusion. Liver: Normal morphology. No liver lesion. Patent hepatic vasculature. Biliary: Mild prominence of intrahepatic and extrahepatic bile ducts likely a reservoir effect in the post cholecystectomy state. Gallbladder surgically absent. Pancreas: Mild parenchymal atrophy. Spleen: Normal. Adrenal glands: Normal. Kidneys and ureters: Interval resolution of perinephric fat stranding seen previously. Well-defined exophytic hypodensity in the left kidney consistent with simple cyst. Scarring at the posterior upper pole of the left kidney may indicate chronic reflux uropathy. Mild pelviectasis bilaterally. No convincing evidence of hydronephrosis. No nephrolithiasis. No significant urothelial thickening. Ureters normal. Bladder: Normal. Pelvic organs: Uterus surgically absent. No adnexal masses. Bowel: Diverticulosis of the sigmoid colon. No pericolonic fat stranding. No bowel obstruction. Peritoneal cavity: No free fluid or intraperitoneal gas. Lymph nodes: No enlarged lymph nodes in the abdomen or pelvis. Vasculature: Atherosclerosis of the normal caliber abdominal aorta. IVC patent. Abdominal wall: Normal. Musculoskeletal: Postsurgical changes of L4-S1 posterior fusion with interbody spacers and L5 laminectomy. IMPRESSION: 1. No acute intra-abdominal pathology. 2. Resolution of previously perinephric fat stranding and urothelial bladder wall thickening. Electronically signed by: Nnamdi Jensen M.D. 11/23/2016 4:12 PM Dictated Date/Time: 11/23/2016 4:04 PM Laboratory Results 11/23/16 13:40 Red Blood Count 4.34, Mean Corpuscular Volume 90.6, Mean Corpuscular Hemoglobin 30.9, Mean Corpuscular Hemoglobin Concent 34.1, Mean Platelet Volume 9.0, Neutrophils (%) (Auto) 52.9, Lymphocytes (%) (Auto) 34.5, Monocytes (%) (Auto) 10.7, Eosinophils (%) (Auto) 1.2, Basophils (%) (Auto) 0.5, Neutrophils # (Auto ) 3.45, Lymphocytes # (Auto) 2.25, Monocytes # (Auto) 0.70, Eosinophils # (Auto ) 0.08, Basophils # (Auto) 0.03 11/23/16 13:40 Test 11/23/16 13:30 11/23/16 13:32 11/23/16 13:40 Urine Color YELLOW Urine Appearance CLEAR (CLEAR) Urine pH 5.5 (4.5-7.5) Urine Specific [place] 1.016 (1.000-1.030) Urine Protein NEG (NEG) Urine Glucose (UA) NEG (NEG) Urine Ketones NEG (NEG) Urine Occult Blood NEG (NEG) Urine Nitrite NEG (NEG) Urine Bilirubin NEG (NEG) Urine Urobilinogen NEG (NEG) Urine Leukocyte Esterase NEG (NEG) Urine Test NEG (NEG) Creatine Kinase MB Ratio (0-3.0) White Blood Count 6.52 K/uL (4.8-10.8) Red Blood Count 4.34 M/uL (4.2-5.4) Hemoglobin 13.4 g/dL (12.0-16.0) Hematocrit 39.3 % (37-47) Mean Corpuscular Volume 90.6 fL (80-100) Mean Corpuscular Hemoglobin 30.9 pg (25-34) Mean Corpuscular Hemoglobin Concent 34.1 g/dl (32-36) Platelet Count 277 K/uL (130-400) Mean Platelet Volume 9.0 fL (7.4-10.4) Neutrophils (%) (Auto) 52.9 % Lymphocytes (%) (Auto) 34.5 % Monocytes (%) (Auto) 10.7 % Eosinophils (%) (Auto) 1.2 % Basophils (%) (Auto) 0.5 % Neutrophils # (Auto) 3.45 K/uL (1.4-6.5) Lymphocytes # (Auto) 2.25 K/uL (1.2-3.4) Monocytes # (Auto) 0.70 K/uL (0.11-0.59) Eosinophils # (Auto) 0.08 K/uL (0-0.5) Basophils # (Auto) 0.03 K/uL (0-0.2) RDW Standard Deviation 50.8 fL (36.4-46.3) RDW Coefficient of Variation 15.2 % (11.5-14.5) Immature Granulocyte % (Auto) 0.2 % Immature Granulocyte # (Auto) 0.01 K/uL (0.00-0.02) Anion Gap 8.0 mmol/L (3-11) Est Creatinine Clear Calc Drug Dose 79.3 ml/min Estimated GFR () 90.1 Estimated GFR (Non- 77.7 BUN/Creatinine Ratio 22.6 (10-20) Calcium Level 9.2 mg/dl (8.5-10.1) Total Bilirubin 0.5 mg/dl (0.2-1) Aspartate Amino Transf (AST/SGOT) 11 U/L (15-37) Alanine Aminotransferase (ALT/SGPT) 20 U/L (12-78) Alkaline Phosphatase 96 U/L (45-117) Creatine Kinase MB 0.7 ng/ml (0.5-3.6) Troponin I < 0.015 ng/ml (0-0.045) Total Protein 7.8 gm/dl (6.4-8.2) Albumin 3.7 gm/dl (3.4-5.0) Globulin 4.1 gm/dl (2.5-4.0) Albumin/Globulin Ratio 0.9 (0.9-2) Lipase 710 U/L (73-393) Medications Administered Medications (Trade) Dose Ordered Sig/Lulu Route Start Time Stop Time Status Last Admin Dose Admin Ketorolac Tromethamine (Toradol Inj) 30 mg NOW STAT IV 11/23/16 14:21 11/23/16 14:22 DC 11/23/16 14:32 30 MG Ondansetron HCl (Zofran Inj) 4 mg NOW STAT IV 11/23/16 14:21 11/23/16 14:22 DC 11/23/16 14:32 4 MG Hydromorphone HCl (Dilaudid Inj) 1 mg NOW STAT IV 11/23/16 16:06 11/23/16 16:07 DC 11/23/16 16:13 1 MG ECG Indication: abdominal pain Rate (beats per minute): 69 Rhythm: normal sinus Findings: no acute ischemic change, no ectopy Medical Decision The patient was seen and evaluated as above. She did present with similar pain to what she has experienced chronically. The patient did report noticing a lump in her left lower back, which I do feel is related to a muscle spasm. The patient is on chronic pain management, and did request pain medication throughout the emergency Department visit. She was initially given Toradol 30 mg IV, and noted significant improvement in her pain. A little while later, she did request more pain medication. She was given 1 mg Dilaudid through the IV and noted improvement. The patient's lipase was noted to be elevated, and she does report a family history of pancreatitis as well as pancreatic cancer. Her lipase was 710, and not high enough to be admitted. I do not suspect that her pancreas as the cause of her acute pain, but I did encourage her to follow up closely with gastroenterology. I discussed with the patient that I suspect muscle spasms as the cause of her discomfort. She is encouraged to follow-up with her back surgeon and consider chronic pain management. Differential diagnosis includes: Pancreatitis, diverticulitis, gastroenteritis, muscle spasms, low back strain, chronic low back pain, nephrolithiasis, hydronephrosis, urinary tract infection, pyelonephritis, malignancy, and others. [place] Drug Monitoring Program Search Results: patient reviewed within database Medication Reconcilliation Current Medication List: was personally reviewed by me Blood Pressure Screening Patient's blood pressure: Normal blood pressure Impression Primary Impression: Strain of lumbar region Additional Impressions: Muscle spasm of back Abdominal pain Elevated lipase Departure Information Dispostion Home / Self-Care Condition GOOD Prescriptions Cyclobenzaprine Hcl (FLEXERIL) 5 Mg Tab 5-10 MG PO TID, #18 TAB PRN Prov: Michelle Reeves PA-C 11/23/16 Referrals Corin Rader MD (PCP) Patient Instructions ED Abdominal Pain Unkn Cause, ED Neck Back Pain General, [facility] Additional Instructions You have been treated in the Emergency Department your Abdominal and back Pain. Laboratory results and imaging studies have ruled out any emergent causes for your abdominal pain which would warrant admission or surgery. The hardware in your back did not appear to be causing a problem. You have received pain medicine in the emergency department which impairs your ability to operate a vehicle. It is illegal for you to drive after receiving these medicines. We did note an elevated lipase test on your labs. This could indicate a problem with your pancreas. This does not suggest acute pancreatitis at this time, but I do recommend to follow-up with your PCP and/or second watch sergeant for further evaluation. You have been prescribed Flexeril (cyclobenzaprine) 1-2 tabs orally, three times per day. Do NOT exceed 30 mg (6 tabs) per day. Take your first dose at bedtime as it can make you drowsy. Always take all medications as prescribed. This is to be taken in place of the Zanaflex which was previously prescribed to you. Please finish the antibiotics you've been started on for urinary tract infection. Please use your regularly prescribed pain medication. Please take Zofran as previously prescribed for nausea and/or vomiting. For pain control, you can use the following [id number] medicines (if >12 yo): Ibuprofen(Motrin, Advil) may be used for fever or pain. Use 600mg every six hours as needed. Take with food. Avoid using more than 2400mg in a 24 hour period. Do not use 2400mg per day for more than three consecutive days without physician direction. Prolonged inappropriate use can lead to stomach upset or ulcers. (AND/OR) Acetaminophen(Tylenol) may be used for fever or pain. Use 1000mg every six hours as needed. Avoid using more than 3000mg in a 24 hour period. Use a heating pad to help loosen the muscles in her back. You should use this throughout the day. Drink plenty of water and stay well hydrated. As with any trip to the Emergency Department, you should follow-up with your Primary Care Provider in 1 to 2 days from today's visit. Return to the emergency department if your symptoms persist despite treatment plan outlined above or if the following symptoms occur: increased fevers, chills , worsening nausea/vomiting, blood in your stool or urine or intractable pain despite aforementioned treatment course, loss of control of your bowel or bladder, numbness or tingling in your groin. Work Instructions Return To Work: 1 day Problem Qualifiers Primary Impression: Strain of lumbar region Encounter type: subsequent encounter Qualified Codes: S39.012D - Strain of muscle, fascia and tendon of lower back, subsequent encounter Additional Impressions: Abdominal pain Abdominal location: generalized Qualified Codes: R10.84 - Generalized abdominal pain
[2016-11-23 13:45] LABS: URINE APPEARANCE CLEAR (CLEAR); URINE BILIRUBIN NEG (NEG); URINE COLOR YELLOW; URINE NITRITE NEG (NEG); URINE PH 5.5 (4.5-7.5); URINE SPECIFIC GRAVITY 1.016 (1.000-1.030); UROBILINOGEN NEG (NEG); ZZUR CULT IF INDIC CLEAN CATCH NO
[2016-11-23 13:46] LABS: MANUAL MICROSCOPIC REQUIRED? NO; REVIEW REQ? NO
[2016-11-23 13:47] LABS: PREG INTERNAL NEGATIVE QC NEG CLEAR BACKGROUND; PREG INTERNAL POSITIVE QC POS CONTROL LINE
[2016-11-23 14:02] LABS: BASO % 0.5 %; BASO ABS # 0.03 K/uL (0-0.2); COMPLETE YES; EOS % 1.2 %; HEMATOCRIT 39.3 % (37-47); IG% 0.2 %; LYMPH % 34.5 %; LYMPH ABS # 2.25 K/uL (1.2-3.4); MEAN CELL VOLUME 90.6 fL (80-100); MEAN CORPUSCULAR HEMOGLOBIN 30.9 pg (25-34); MEAN CORPUSCULAR HGB CONC 34.1 g/dl (32-36); MONO % 10.7 %; NEUT % 52.9 %; PLATELET COUNT 277 K/uL (130-400); RED BLOOD COUNT 4.34 M/uL (4.2-5.4); WHITE BLOOD COUNT 6.52 K/uL (4.8-10.8)
[2016-11-23] MEDS ORDERED: ONDANSETRON INJ 2 MG/ML 2 ML VIAL IV STA (14:21)
[2016-11-23] MEDS ORDERED: KETOROLAC TROMETHAMINE 30 MG/ML VIAL IV STA (14:21)
[2016-11-23 14:40] LABS: BLOOD UREA NITROGEN 19 mg/dl (7-18); BUN/CREATININE RATIO 22.6 (10-20); CALCIUM 9.2 mg/dl (8.5-10.1); CARBON DIOXIDE 25 mmol/L (21-32); CHLORIDE 107 mmol/L (98-107); CREATININE 0.83 mg/dl (0.60-1.20); GLUCOSE 90 mg/dl (70-99); POTASSIUM 3.9 mmol/L (3.5-5.1); SODIUM 140 mmol/L (136-145)
[2016-11-23 14:46] LABS: ALB/GLOB RATIO 0.9 (0.9-2); ALKALINE PHOSPHATASE 96 U/L (45-117); ALT/SGPT 20 U/L (12-78); AST/SGOT 11 U/L (15-37)
[2016-11-23] MEDS ORDERED: OPTIRAY 320 IV PRN (15:30)
[2016-11-23] MEDS ORDERED: HYDROmorphone INJ 1 MG/ML SYR IV STA (16:06)
--- NOTE | 2016-11-23 16:14 | DIAGNOSTIC IMAGING REPORT ---
ABD/PELVIS IV AND ORAL CONT CLINICAL HISTORY: 56 years-old Female presenting with Left side abdominal pain/tenderness. TECHNIQUE: Multidetector CT of the abdomen and pelvis was performed after the administration of oral and intravenous contrast. IV contrast: 93 mL of Optiray 320. A dose lowering technique was used consistent with the principles of ALARA (as low as reasonably achievable). COMPARISON: 07/13/2015. CT DOSE (mGy.cm): The estimated cumulative dose is 693.87 mGy.cm. FINDINGS: Government Teacher topogram: Cholecystectomy clips and posterior lumbar fusion hardware from L4 to S1. Lung bases: Minimal dependent changes likely atelectasis. Normal heart size. No pericardial or pleural effusion. Liver: Normal morphology. No liver lesion. Patent hepatic vasculature. Biliary: Mild prominence of intrahepatic and extrahepatic bile ducts likely a reservoir effect in the post cholecystectomy state. Gallbladder surgically absent. Pancreas: Mild parenchymal atrophy. Spleen: Normal. Adrenal glands: Normal. Kidneys and ureters: Interval resolution of perinephric fat stranding seen previously. Well-defined exophytic hypodensity in the left kidney consistent with simple cyst. Scarring at the posterior upper pole of the left kidney may indicate chronic reflux uropathy. Mild pelviectasis bilaterally. No convincing evidence of hydronephrosis. No nephrolithiasis. No significant urothelial thickening. Ureters normal. Bladder: Normal. Pelvic organs: Uterus surgically absent. No adnexal masses. Bowel: Diverticulosis of the sigmoid colon. No pericolonic fat stranding. No bowel obstruction. Peritoneal cavity: No free fluid or intraperitoneal gas. Lymph nodes: No enlarged lymph nodes in the abdomen or pelvis. Vasculature: Atherosclerosis of the normal caliber abdominal aorta. IVC patent. Abdominal wall: Normal. Musculoskeletal: Postsurgical changes of L4-S1 posterior fusion with interbody spacers and L5 laminectomy. IMPRESSION: 1. No acute intra-abdominal pathology. 2. Resolution of previously perinephric fat stranding and urothelial bladder wall thickening. Electronically signed by: Nnamdi Jensen M.D. 11/23/2016 4:12 PM Dictated Date/Time: 11/23/2016 4:04 PM
[2016-11-23] MEDS ORDERED: CYCL5TAB PO (16:36)
[2016-11-23 16:58] VITALS: BP 126/79; PULSE 84; O2SAT 95
== END 2016-11-23 17:00 | disposition home or self-care (01) ==
LOC: C.EDB 13:04
DX: R10.84 Generalized abdominal pain (principal); S39.012D Strain of muscle, fascia and tendon of lower back, subsequent encounter; X58.XXXD Exposure to other specified factors, subsequent encounter; G89.29 Other chronic pain; G62.9 Polyneuropathy, unspecified; Z87.442 Personal history of urinary calculi; Z90.49 Acquired absence of other specified parts of digestive tract; Z90.710 Acquired absence of both cervix and uterus; F17.210 Nicotine dependence, cigarettes, uncomplicated; Z80.9 Family history of malignant neoplasm, unspecified; Z83.3 Family history of diabetes mellitus; Z82.49 Family history of ischemic heart disease and other diseases of the circulatory system; Z84.1 Family history of disorders of kidney and ureter; Z79.899 Other long term (current) drug therapy

== ENCOUNTER → 2016-11-28 | Outpatient (CLI) | payer BC ==
[~2016-11-28] MED LIST changes: +CYCL5TAB PO; -DLD/2 PO; -IBUP200T80 PO; -KETO10TA PO; +NITR-5 PO; -SYMIN160 INH; +TIZA4CAP PO; +TRAZ50TA35 PO; -VNTHFA/IN INH
[2016-11-28 18:17] LABS: URINE APPEARANCE CLEAR (CLEAR); URINE BILIRUBIN NEG (NEG); URINE COLOR DK YELLOW; URINE NITRITE NEG (NEG); URINE SPECIFIC GRAVITY 1.022 (1.000-1.030); UROBILINOGEN NEG (NEG)
[2016-11-28 18:21] LABS: MANUAL MICROSCOPIC REQUIRED? NO; REVIEW REQ? NO
== END | disposition home or self-care (01) ==
LOC: C.LABSPEC 17:32
PROVIDERS: ATTEND Family Medicine
DX: R30.0 Dysuria (principal)

== ENCOUNTER 2016-12-04 10:42 | Emergency (ER) | payer BC ==
[~2016-12-04] VITALS: Ht 160 cm; Wt 90.0 kg
[2016-12-04 11:09] VITALS: Ht 160 cm; Wt 90.0 kg
[2016-12-04] MEDS ORDERED: IBUP-1451 PO (11:56)
[2016-12-04] MEDS ORDERED: ONDANSETRON INJ 2 MG/ML 2 ML VIAL IV STA (12:00)
[2016-12-04] MEDS ORDERED: SODIUM CHLORIDE 0.9% 500ML 500 ML IV STA (12:00)
[2016-12-04] MEDS ORDERED: HYDROmorphone INJ 1 MG/ML SYR IV STA ×2 (12:00→13:17)
[2016-12-04] MEDS ORDERED: KETOROLAC TROMETHAMINE 30 MG/ML VIAL IV STA ×2 (12:00→20:09)
--- NOTE | 2016-12-04 12:10 | EMERGENCY ROOM VISIT NOTE ---
History Report prepared by Suzie: Milana Quiñones Under the Supervision of: Dr. Jan Montes M.D. First contact with patient: 11:52 Chief Complaint: BACK PAIN Stated Complaint: BACK PAIN History of Present Illness The patient is a 56 year old female who presents to the Emergency Room with complaints of constant left lower back pain beginning in May. The patient notes lightheadedness, dizziness nausea, and decreased appetite but denies loss of control of bowels or bladder. She had a back surgery done in May and has had two other back surgeries previously. The patient follows up with Dr. Larios- Orthopedics and saw him a month ago. The patient has been taking 800 mg of ibuprofen for her pain. She notes that she is unstable when going down stairs. The patient also follows up with Dr. Salas and her last appointment was with her last week and was told not to take her Toradol until she saw her again. The patient is prescribed Gabapentin, hydromorphone and prednisone but states she hasn't been taking any of them. Source of History: patient Onset: May Position: back (lower) Timing: constant Modifying Factors (Relieving): other (none) Associated Symptoms: + nausea, No urinary symptoms Review of Systems See HPI for pertinent positives & negatives. A total of 10 systems reviewed and were otherwise negative. Past Medical & Surgical Medical Problems: (1) Kidney stones (2) Lumbar disc disease with radiculopathy (3) Lumbar stenosis (4) Personal History Of Urinary Calculi Surgical Problems: (1) S/P appendectomy (2) S/P cholecystectomy (3) S/P hysterectomy Social History Problems: (1) Tobacco Use Disorder Family History Atrial fibrillation Blood clots Cancer Diabetes mellitus Gallbladder disease Hypertension Kidney disease Kidney stones Social History Smoking Status: Never Smoker Alcohol Use: none Drug Use: none Marital Status: Housing Status: lives with friends Occupation Status: employed Current/Historical Medications Scheduled Lidocaine (Lidoderm Patch 5%), 1 PATCH TD DAILY Scheduled PRN Ibuprofen Tab (Motrin), 800 MG PO Q8H PRN for Pain Oxycodone/Acetaminophen 5MG/325MG (Percocet 5MG/325MG), 1-2 TAB PO Q4H PRN for Pain Allergies Coded Allergies: Morphine (Verified Allergy, Intermediate, HIVES, 12/04/16) SOB, feels like bugs are biting her, anxious, upper GI pain Lemon (Verified Allergy, Unknown, HIVES, 12/04/16) Penicillins (Verified Allergy, Unknown, HIVES, 12/04/16) Unclassified Drugs (Verified Allergy, Unknown, METAL MORRO - RASH, 12/04) Physical Exam Vital Signs Date Time Temp Pulse Resp B/P (MAP) Pulse Ox O2 Delivery O2 Flow Rate FiO2 12/04/16 20:35 36.8 84 18 115/69 96 12/04/16 19:42 83 10 97 12/04/16 19:31 147/80 12/04/16 19:18 115/67 12/04/16 19:12 82 11 97 12/04/16 18:50 84 18 115/69 96 Nasal Cannula 2.0 12/04/16 18:43 115/69 12/04/16 18:42 97 15 12/04/16 18:12 82 17 12/04/16 17:42 87 19 93 12/04/16 17:16 103/47 12/04/16 17:16 79 18 103/47 97 Nasal Cannula 2.0 12/04/16 17:12 78 18 96 12/04/16 16:59 78 12/04/16 16:42 76 15 95 12/04/16 16:15 85 18 147/76 97 Room Air 12/04/16 16:12 84 27 95 12/04/16 15:42 86 16 94 12/04/16 15:31 147/76 12/04/16 15:20 104/72 12/04/16 15:14 148/91 12/04/16 15:12 93 17 98 12/04/16 15:11 127/67 12/04/16 14:42 95 14 97 12/04/16 14:26 91 18 132/56 94 Nasal Cannula 2.0 12/04/16 14:25 132/56 12/04/16 13:42 81 20 93 12/04/16 13:36 123/63 12/04/16 13:36 79 18 123/63 97 Room Air 12/04/16 13:12 95 20 12/04/16 12:42 82 14 96 12/04/16 12:40 89 18 127/83 95 Room Air 12/04/16 12:38 127/83 12/04/16 12:38 96 Room Air 12/04/16 12:35 109 12/04/16 12:30 96 18 112/75 110 132/113 12/04/16 12:28 132/113 12/04/16 11:09 36.8 103 18 137/84 96 Room Air Physical Exam GENERAL: Patient is a healthy-appearing well-nourished female. Can walk on heels and toes. HEAD: Normocephalic atraumatic EYES: Ocular movements intact pupils equal and react to light OROPHARYNX mucous membranes are moist no exudates present no erythema or edema present NECK: Supple no nuchal rigidity CHEST: Good equal expansion LUNGS: Clear and equal to auscultation CARDIAC: Normal S1 and S2 ABDOMEN: Soft nontender no guarding BACK: No CVA tenderness EXTREMITIES: No pain upon palpation normal muscle strength in all groups no clubbing cyanosis or edema NEURO: Patient is following commands and answering questions appropriately. Alert and oriented x3 Cranial Nerves 2-12 grossly intact Medical Decision & Procedures ER Provider Diagnostic Interpretation: Radiology results as stated below per my review and radiologist interpretation: CHEST ONE VIEW PORTABLE FINDINGS: The bones soft tissues and hemidiaphragms are normal. The cardiomediastinal silhouette is normal. The lungs are clear. The pulmonary vasculature is normal. IMPRESSION: Negative chest. The above report was generated using voice recognition software. It may contain grammatical, syntax or spelling errors. Electronically signed by: Brandon Mcelroy M.D. CT HEAD WITHOUT CONTRAST (CT) FINDINGS: No intra or extra-axial mass lesions are visualized. There is no CT evidence of acute cortical infarction. There is no evidence of midline shift. There is no acute hemorrhage. No calvarial fractures are visualized. There are minimal white matter hypodensities likely on a small vessel basis. There is no evidence of pathologic ventricular dilatation. There is no evidence of acute sinusitis There is pneumatization of the left middle turbinate. IMPRESSION: No acute intracranial findings Electronically signed by: Danny Kramer M.D. L-SPINE MIN 4 VIEWS ROUTINE FINDINGS: There is no pathologic bowel dilatation. There are surgical clips in the right upper quadrant consistent with a prior cholecystectomy. There are postsurgical changes of an L4-5 and L5-S1 discectomy with interbody fusion. There is posterior pedicle screw fixation with L4-L5 and S1 pedicle screws with adjoining spinal rods. The L4-5 interbody implant is positioned with its radiopaque marker, at or just posterior to the posterior margins of the L4 and L5 vertebra. IMPRESSION: No significant change from the prior study. Postsurgical changes of discectomies and interbody fusions at the L4-5, and L5-S1 levels. Electronically signed by: Danny Kramer M.D. Laboratory Results 12/04/16 12:18 Red Blood Count 5.02, Mean Corpuscular Volume 91.0, Mean Corpuscular Hemoglobin 29.7, Mean Corpuscular Hemoglobin Concent 32.6, Mean Platelet Volume 8.9, Neutrophils (%) (Auto) 57.4, Lymphocytes (%) (Auto) 31.5, Monocytes (%) (Auto) 9.4, Eosinophils (%) (Auto) 0.9, Basophils (%) (Auto) 0.3, Neutrophils # (Auto) 5.33, Lymphocytes # (Auto) 2.92, Monocytes # (Auto) 0.87, Eosinophils # (Auto) 0.08, Basophils # (Auto) 0.03 12/04/16 12:18 12/04/16 13:14 Test 12/04/16 12:18 12/04/16 12:36 12/04/16 12:44 12/04/16 13:14 White Blood Count 9.28 K/uL (4.8-10.8) Red Blood Count 5.02 M/uL (4.2-5.4) Hemoglobin 14.9 g/dL (12.0-16.0) Hematocrit 45.7 % (37-47) Mean Corpuscular Volume 91.0 fL (80-100) Mean Corpuscular Hemoglobin 29.7 pg (25-34) Mean Corpuscular Hemoglobin Concent 32.6 g/dl (32-36) Platelet Count 339 K/uL (130-400) Mean Platelet Volume 8.9 fL (7.4-10.4) Neutrophils (%) (Auto) 57.4 % Lymphocytes (%) (Auto) 31.5 % Monocytes (%) (Auto) 9.4 % Eosinophils (%) (Auto) 0.9 % Basophils (%) (Auto) 0.3 % Neutrophils # (Auto) 5.33 K/uL (1.4-6.5) Lymphocytes # (Auto) 2.92 K/uL (1.2-3.4) Monocytes # (Auto) 0.87 K/uL (0.11-0.59) Eosinophils # (Auto) 0.08 K/uL (0-0.5) Basophils # (Auto) 0.03 K/uL (0-0.2) RDW Standard Deviation 53.0 fL (36.4-46.3) RDW Coefficient of Variation 15.9 % (11.5-14.5) Immature Granulocyte % (Auto) 0.5 % Immature Granulocyte # (Auto) 0.05 K/uL (0.00-0.02) Anion Gap 5.0 mmol/L (3-11) Est Creatinine Clear Calc Drug Dose 70.2 ml/min Estimated GFR () 78.5 Estimated GFR (Non- 67.7 BUN/Creatinine Ratio 28.7 (10-20) Calcium Level 9.3 mg/dl (8.5-10.1) Total Bilirubin 0.7 mg/dl (0.2-1) Alanine Aminotransferase (ALT/SGPT) 29 U/L (12-78) Alkaline Phosphatase 102 U/L (45-117) Creatine Kinase MB < 0.5 ng/ml (0.5-3.6) Creatine Kinase MB Ratio (0-3.0) Troponin I < 0.015 ng/ml (0-0.045) Total Protein 8.1 gm/dl (6.4-8.2) Albumin 3.7 gm/dl (3.4-5.0) Thyroid Stimulating Hormone (TSH) 1.930 uIu/ml (0.300-4.500) Bedside Glucose 105 mg/dl (70-90) Urine Color DK YELLOW Urine Appearance CLEAR (CLEAR) Urine pH 5.0 (4.5-7.5) Urine Specific [place] 1.025 (1.000-1.030) Urine Protein NEG (NEG) Urine Glucose (UA) NEG (NEG) Urine Ketones NEG (NEG) Urine Occult Blood NEG (NEG) Urine Nitrite NEG (NEG) Urine Bilirubin NEG (NEG) Urine Urobilinogen NEG (NEG) Urine Leukocyte Esterase NEG (NEG) Direct Bilirubin 0.1 mg/dl (0-0.2) Aspartate Amino Transf (AST/SGOT) 12 U/L (15-37) Total Creatine Kinase 32 U/L (26-192) Labs reviewed by ED physician. Medications Administered Medications (Trade) Dose Ordered Sig/Lulu Route Start Time Stop Time Status Last Admin Dose Admin Hydromorphone HCl (Dilaudid Inj) 1 mg NOW STAT IV 12/04/16 12:00 12/04/16 12:04 DC 12/04/16 12:38 1 MG Ketorolac Tromethamine (Toradol Inj) 30 mg NOW STAT IV 12/04/16 12:00 12/04/16 12:04 DC 12/04/16 12:38 30 MG Ondansetron HCl (Zofran Inj) 4 mg NOW STAT IV 12/04/16 12:00 12/04/16 12:04 DC 12/04/16 12:37 4 MG Sodium Chloride 500 ml @ 999 mls/hr Q31M STAT IV 12/04/16 12:00 12/04/16 12:30 DC 12/04/16 12:38 999 MLS/HR Hydromorphone HCl (Dilaudid Inj) 1 mg NOW STAT IV 12/04/16 13:17 12/04/16 13:18 DC 12/04/16 13:36 1 MG Lidocaine (Lidoderm Patch 5%) 1 patch QAM STAT TD 12/04/16 14:34 12/04/16 14:35 DC 12/04/16 14:43 1 PATCH Cyclobenzaprine HCl (Flexeril Tab) 10 mg NOW STAT PO 12/04/16 19:56 12/04/16 19:58 DC 12/04/16 20:15 10 MG Oxycodone/ Acetaminophen (Percocet 5-325mg Tab) 2 tab NOW ONCE PO 12/04/16 20:15 12/04/16 20:16 DC 12/04/16 20:28 2 TAB Oxycodone/ Acetaminophen (Percocet 5/ 325MG Home Pack) 1 homepack UD ONCE PO 12/04/16 20:15 12/04/16 20:16 DC 12/04/16 20:28 1 HOMEPACK Ketorolac Tromethamine (Toradol Inj) 30 mg NOW STAT IV 12/04/16 20:09 12/04/16 20:10 DC 12/04/16 20:29 30 MG ED Course 1152: Past medical records reviewed. The patient was evaluated in room C7. A complete history and physical examination was performed. 1200: Sodium Chloride 500 ml @ 999 mls/hr, Zofran Inj 4 mg IV, Toradol Inj 30 mg IV, Dilaudid Inj 1 mg IV. 1236: I checked on the patient. Per nursing staff, the patient passed out when she stood up. 1317: Dilaudid Inj 1 mg IV. 1356: I reevaluated the patient. She is tearful and states that she is still in pain. 1434: Lidocaine 1 patch TD. 1534: I updated patient on test going to try to get her into a rehab center. Medical Decision Differential diagnosis: Etiologies such as musculoskeletal, disc herniation, fracture, aortic disease, metastatic disease, cord compression, discitis, infection, renal colic, gastrointestinal, acute exacerbation of chronic back pain, sciatica, cauda equina, as well as others were entertained. This is a 56-year-old female who presents emergency department complaining of multiple complaints. The patient is complaining of lightheadedness, dizziness, back pain. She also reports she's had multiple falls at home. I will note that the patient has been seen twice this month for her back pain. An IV was established, patient given normal saline bolus, Dilaudid, Lidoderm. I will note that the patient has a normal CBC normal renal profile normal EKG normal cardiac enzymes. In addition the patient also has a normal chest x-ray as well as a normal lumbar spine x-ray. She also has a normal CT of the head. As the patient has had multiple falls at home I strongly recommended to the patient that she go to rehabilitation facility. She was evaluated by physical therapy and occupational therapy in the emergency department. Unfortunately she did not meet criteria for hospital admission and she is unable to meet criteria for heartide tonight. For this reason I contacted case management who [facility]. In the meanwhile, the patient will be started on a lidoderm patch and given a short supply of percocet for pain control. Medication Reconcilliation Current Medication List: was personally reviewed by me Blood Pressure Screening Patient's blood pressure: Normal blood pressure Impression Primary Impression: Strain of lumbar region Scribe Attestation The scribe's documentation has been prepared under my direction and personally reviewed by me in its entirety. I confirm that the note above accurately reflects all work, treatment, procedures, and medical decision making performed by me. Departure Information Dispostion Home / Self-Care Prescriptions Lidocaine (Lidoderm Patch 5%) 1 Ea Tdsy 1 PATCH TD DAILY for 30 Days, #30 PATCH Prov: Jan Montes MD 12/04/16 Oxycodone/Acetaminophen 5MG/325MG (PERCOCET 5MG/325MG) Tab 1-2 TAB PO Q4H Y for Pain, #14 TAB Prov: Jan Montes MD 12/04/16 Referrals Corin Rader MD (PCP) Patient Instructions My [facility] Problem Qualifiers Primary Impression: Strain of lumbar region Encounter type: initial encounter Qualified Codes: S39.012A - Strain of muscle, fascia and tendon of lower back, initial encounter
[2016-12-04 12:36] LABS: BASO % 0.3 %; BASO ABS # 0.03 K/uL (0-0.2); COMPLETE YES; EOS % 0.9 %; HEMATOCRIT 45.7 % (37-47); IG% 0.5 %; LYMPH % 31.5 %; LYMPH ABS # 2.92 K/uL (1.2-3.4); MEAN CORPUSCULAR HEMOGLOBIN 29.7 pg (25-34); MEAN CORPUSCULAR HGB CONC 32.6 g/dl (32-36); MEAN PLATELET VOLUME 8.9 fL (7.4-10.4); MONO % 9.4 %; NEUT % 57.4 %; PLATELET COUNT 339 K/uL (130-400); RED BLOOD COUNT 5.02 M/uL (4.2-5.4); WHITE BLOOD COUNT 9.28 K/uL (4.8-10.8)
[2016-12-04 12:38] VITALS: O2SAT 96
[2016-12-04 12:57] LABS: URINE APPEARANCE CLEAR (CLEAR); URINE BILIRUBIN NEG (NEG); URINE COLOR DK YELLOW; URINE NITRITE NEG (NEG); URINE SPECIFIC GRAVITY 1.025 (1.000-1.030); UROBILINOGEN NEG (NEG)
[2016-12-04 12:58] LABS: MANUAL MICROSCOPIC REQUIRED? NO; REVIEW REQ? NO
[2016-12-04 13:09] LABS: ALKALINE PHOSPHATASE 102 U/L (45-117); ALT/SGPT 29 U/L (12-78); BLOOD UREA NITROGEN 27 mg/dl (7-18); BUN/CREATININE RATIO 28.7 (10-20); CALCIUM 9.3 mg/dl (8.5-10.1); CARBON DIOXIDE 26 mmol/L (21-32); CHLORIDE 105 mmol/L (98-107); CREATININE 0.93 mg/dl (0.60-1.20); GLUCOSE 94 mg/dl (70-99); SODIUM 136 mmol/L (136-145)
--- NOTE | 2016-12-04 13:38 | DIAGNOSTIC IMAGING REPORT ---
CT HEAD WITHOUT CONTRAST (CT) CLINICAL HISTORY: Multiple falls. Dizziness, weakness, confusion. COMPARISON STUDY: 05/11/2016 TECHNIQUE: Axial CT of the brain is performed from the vertex to the skull base. IV contrast was not administered for this examination. A dose lowering technique was utilized adhering to the principles of ALARA. CT DOSE: 679.75 mGycm FINDINGS: No intra or extra-axial mass lesions are visualized. There is no CT evidence of acute cortical infarction. There is no evidence of midline shift. There is no acute hemorrhage. No calvarial fractures are visualized. There are minimal white matter hypodensities likely on a small vessel basis. There is no evidence of pathologic ventricular dilatation. There is no evidence of acute sinusitis There is pneumatization of the left middle turbinate. IMPRESSION: No acute intracranial findings Electronically signed by: Danny Kramer M.D. 12/04/2016 1:37 PM Dictated Date/Time: 12/04/2016 1:28 PM
--- NOTE | 2016-12-04 14:04 | DIAGNOSTIC IMAGING REPORT ---
CHEST ONE VIEW PORTABLE CLINICAL HISTORY: Pt c/o gen weakness dyspnea COMPARISON STUDY: 05/11/2016 FINDINGS: The bones soft tissues and hemidiaphragms are normal. The cardiomediastinal silhouette is normal. The lungs are clear. The pulmonary vasculature is normal. IMPRESSION: Negative chest. The above report was generated using voice recognition software. It may contain grammatical, syntax or spelling errors. Electronically signed by: Brandon Mcelroy M.D. 12/04/2016 2:03 PM Dictated Date/Time: 12/04/2016 2:03 PM
--- NOTE | 2016-12-04 14:28 | DIAGNOSTIC IMAGING REPORT ---
L-SPINE MIN 4 VIEWS ROUTINE CLINICAL HISTORY: Low back pain COMPARISON STUDY: 11/14/2016 FINDINGS: There is no pathologic bowel dilatation. There are surgical clips in the right upper quadrant consistent with a prior cholecystectomy. There are postsurgical changes of an L4-5 and L5-S1 discectomy with interbody fusion. There is posterior pedicle screw fixation with L4-L5 and S1 pedicle screws with adjoining spinal rods. The L4-5 interbody implant is positioned with its radiopaque marker, at or just posterior to the posterior margins of the L4 and L5 vertebra. IMPRESSION: No significant change from the prior study. Postsurgical changes of discectomies and interbody fusions at the L4-5, and L5-S1 levels. Electronically signed by: Danny Kramer M.D. 12/04/2016 2:26 PM Dictated Date/Time: 12/04/2016 2:22 PM
[2016-12-04] MEDS ORDERED: LIDODERM (LIDOCAINE) PATCH 5% TD STA (14:34)
[2016-12-04 15:06] LABS: POTASSIUM 4.4 mmol/L (3.5-5.1)
[2016-12-04] MEDS ORDERED: CYCLOBENZAPRINE HCL 5 MG TAB PO STA (19:56)
[2016-12-04] MEDS ORDERED: NF656 TD (20:12)
[2016-12-04] MEDS ORDERED: OXYC-57 PO (20:12)
[2016-12-04] MEDS ORDERED: PERCOCET HOME PACK PO ONE (20:15)
[2016-12-04] MEDS ORDERED: OXYCODONE/ACETAMINOPHEN 5-325 TAB PO ONE (20:15)
[2016-12-04 20:35] VITALS: BP 115/69; PULSE 84; TEMP 36.8; O2SAT 96
== END 2016-12-04 20:35 | disposition home or self-care (01) ==
LOC: C.EDB 10:48 → C.EDC 20:35
DX: S39.012A Strain of muscle, fascia and tendon of lower back, initial encounter (principal); X58.XXXA Exposure to other specified factors, initial encounter; M54.16 Radiculopathy, lumbar region; F17.200 Nicotine dependence, unspecified, uncomplicated; Z87.442 Personal history of urinary calculi; Z90.49 Acquired absence of other specified parts of digestive tract; Z90.710 Acquired absence of both cervix and uterus; Z98.890 Other specified postprocedural states; Z88.0 Allergy status to penicillin; Z88.5 Allergy status to narcotic agent; Z91.018 Allergy to other foods; Z80.9 Family history of malignant neoplasm, unspecified; Z83.3 Family history of diabetes mellitus; Z83.79 Family history of other diseases of the digestive system; Z82.49 Family history of ischemic heart disease and other diseases of the circulatory system; Z84.1 Family history of disorders of kidney and ureter; Z83.2 Family history of diseases of the blood and blood-forming organs and certain disorders involving the immune mechanism

== ENCOUNTER → 2017-05-16 | Outpatient (CLI) | payer BC ==
[~2017-05-16] MED LIST changes: +CYCL10TA6 PO; -CYCL5TAB PO; +GABA-113 PO; +HYDR4TAB78 PO; +IBUP-1451 PO; +KETO10TA PO; +NF656 TD; -NITR-5 PO; -NRN300 PO; -ONDA4TAB10 SL; -TIZA4CAP PO; -TRAZ50TA35 PO
--- NOTE | 2017-05-16 12:45 | DIAGNOSTIC IMAGING REPORT ---
KUB CLINICAL HISTORY: Nephrolithiasis. Right flank pain. Hematuria. COMPARISON STUDY: KUB September 29, [address] of the abdomen and pelvis November 23, 2016. FINDINGS: There are are cholecystectomy clips and postoperative findings within the lumbosacral spine. A 4 mm calcification overlying the right transverse process of L5 was shown to represent a phlebolith on prior CT. No urinary calculi are identified on this exam. The bowel gas pattern is normal. IMPRESSION: 1. No urinary calculi identified. 2. No evidence for a bowel obstruction. Electronically signed by: Doc Parry M.D. 05/16/2017 12:44 PM Dictated Date/Time: 05/16/2017 12:42 PM
== END | disposition home or self-care (01) ==
LOC: C.RAD 12:12
PROVIDERS: ATTEND Urology
DX: N20.0 Calculus of kidney (principal)

== ENCOUNTER → 2017-06-06 | Outpatient (CLI) | payer BC ==
[~2017-06-06] MED LIST changes: +OPTIRAY 300 IV PRN
--- NOTE | 2017-06-06 15:19 | DIAGNOSTIC IMAGING REPORT ---
IVP W/OR W/O TOMOGRAMS CLINICAL HISTORY: Nephrolithiasis COMPARISON STUDY: KUB dated 05/16/2017, CT scan dated 11/23/2016 FINDINGS: Web Development Instructor radiograph reveals a normal bowel gas pattern. There are postsurgical changes within the lower lumbar spine. There are surgical clips within the right upper quadrant consistent with a prior cholecystectomy. No urinary tract calculi are visualized. The patient was injected with 20 cc of Optiray 300. The 1 minute film reveals prompt bilateral nephrograms. Nephrotomography reveal an exophytic 4.5 cm mid pole left renal mass, consistent with the patient's known cyst. Single nondilated ureters drain each kidney. No collecting system or ureteral filling defects are visualized. There is no significant calyceal displacement. There is a very small post void residual. No bladder lesions were evident. IMPRESSION: 1. 4.5 cm mid pole left renal mass consistent with the patient's known cyst 2. No calculi identified. No obstructive changes are visualized. Electronically signed by: Danny Kramer M.D. 06/06/2017 3:18 PM Dictated Date/Time: 06/06/2017 3:15 PM
== END | disposition home or self-care (01) ==
LOC: C.RAD 05-28 12:27
PROVIDERS: ATTEND Urology
DX: N20.0 Calculus of kidney (principal); N28.89 Other specified disorders of kidney and ureter

== ENCOUNTER 2019-07-12 13:57 | Inpatient (IN) ==
[2019-07-12] MEDS ORDERED: dilTIAZem HCl 5 MG/ML 5 ML VIAL IV STA (14:14)
[2019-07-12] MEDS ORDERED: STAT IV Infusion **Titration per Protocol STA (14:14)
[2019-07-12] MEDS ORDERED: LORazepam 0.5 MG/1 ML VIAL IV STA ×2 (14:14→16:56)
[2019-07-12] MEDS ORDERED: ACETAMINOPHEN 1,000 MG/100 ML VIAL IV STA (14:14)
[2019-07-12] MEDS ORDERED: dilTIAZem HCL 125 MG in DEXTROSE 5% 100 ML IV SCH (14:15)
[2019-07-12] MEDS ORDERED: SODIUM CHLORIDE 0.9% 500 ML IV SCH (14:15)
--- NOTE | 2019-07-12 14:20 | Emergency Department Note ---
Impression & Plan Atrial fibrillation with RVR, Precordial chest pain, SOB (shortness of breath), Hypokalemia ED Provider Note NAME: SOFÍA GOTTLIEB AGE: 58 SEX: F : 1960 ARRIVES VIA: Ambulance INFORMANT: [Patient][ems, nurses] ED PROVIDER(S): [Phillip Akins MD] CHIEF COMPLAINT: Chest pain HISTORY OF PRESENT ILLNESS: The patient is a 58-year-old female presents with an hour or so of left-sided chest pain and left arm numbness. She feels her heart racing. She feels somewhat short of breath. She describes the pain as sharp, constant and a 10/10. Pain is nonradiating. Nothing makes things better or worse. The patient states that she ate lunch and this suddenly came over her. The patient was in this ED about 24 hours ago, she was diagnosed with bronchitis. She has pending coronavirus testing. The patient states that she is using her inhaler as prescribed. She has never had A. fib or A flutter. No history of any heart disease or lung disease really. As per EMS, she was in A. fib by ECG. REVIEW OF SYSTEMS: See HPI for pertinent positives and negatives. A total of ten systems were reviewed and were otherwise negative. PMHx/PSHx: See Below SOCIAL HISTORY: See Below. PHYSICAL EXAM: GENERAL: Patient is in moderate distress, anxious HEENT: No acute trauma, normocephalic atraumatic, mucous membranes moist, no nasal congestion, no scleral icterus. NECK: No stridor, no adenopathy, no meningismus, trachea is midline. LUNGS: Clear to auscultation bilaterally, no wheeze, no rhonchi, breath sounds equal. She does cough with exhalation. HEART: Tachycardic, irregular, no murmurs heard. ABDOMEN: Soft, nontender, bowel sounds positive, no hernias, no peritonitis. EXTREMITIES: No cyanosis or edema, full range of motion of all the joints without pain or difficulty, no signs for acute trauma. NEUROLOGIC: Oriented x 3, no acute motor or sensory deficits, no focal weakness. SKIN: No rash, no jaundice, no diaphoresis. Psychiatric: Seems anxious, nonsuicidal DIFFERENTIAL DIAGNOSIS: Cardiac ischemia, aortic dissection, pulmonary embolism, pneumothorax, pneumonia, pericarditis, myocarditis, esophageal rupture, GERD, atrial fibrillation or atrial flutter, SVT, coronavirus, cholecystitis, pancreatitis, musculoskeletal, as well as other pathologies. EMERGENCY DEPARTMENT COURSE/PROCEDURES: ECG: Indication was chest pain. EKG shows atrial fibrillation with a rapid response. The heart rate is 127. There is some nondescript diffuse ST change, no ST elevation, no PVCs. The QTc is 438. Continuous Cardiac Monitoring: An order was placed for continuous cardiac monitoring. The monitor shows a rate of 98 with atrial fibrillation. Critical Care Note: I have personally spent greater than 41 minutes of critical care time in the direct management of this patient. This includes bedside care, interpretation of diagnostic studies, and testing, discussion with consultants, patient, and family members, and other required patient management activities. This 41 minutes is in excess of all separately billable procedures. MEDICAL DECISION MAKING: There is no leukocytosis or concerning anemia. No coagulopathy. Potassium was somewhat low at 3.3, no kidney failure. No concerning liver enzyme elevation. The patient appeared to be in a euthyroid state. Chest film did not show pneumonia, CHF or pneumothorax. EKG showed a rapid A. fib, no acute ischemic change. Cardiac enzyme testing x1 was not consistent with acute cardiac injury. Rapid coronavirus testing was negative. The patient presented somewhat distressed. She appeared short of breath, she seemed uncomfortable. She was anxious, she was quite tachycardic. The patient was aggressively managed. She was given IV saline for hydration. She received IV Ativan to help with her anxiety. She was given a dose of IV potassium because of the lower potassium value. She was given a bolus of IV Cardizem and placed on a Cardizem drip. She received IV Tylenol for pain. With the above medications, the patient seems improved. Her heart rate has decreased. She seems to be much more comfortable. The patient requires a hospital stay. She presents in a rapid A. fib. She was recently diagnosed with bronchitis. She was reassured that she did not have coronavirus. I spoke to the patient and case management. The on-call hospitalist has been consulted. Past Med/Surg History Medical History Dependent edema (Resolved) Depression (Resolved) Dyslipidemia (Chronic) Dysuria (Resolved) Headache (Resolved) Insomnia (Resolved) Kidney stones (Resolved) Low vitamin B12 level (Resolved) Neck pain (Resolved) Nephrolithiasis (Resolved 05/01/13) Prediabetes (Chronic) Surgical History History of lumbar fusion S/P appendectomy (Resolved) S/P cholecystectomy (Resolved) S/P hysterectomy (Resolved) Family History Sister Colorectal cancer Afib Brother Colorectal cancer Mother Myocardial infarction Afib Father Prostate cancer Denies family history of Ovarian cancer Breast cancer Social History Preferred Language: Indonesian Communication Ability: Effective Visual Impairment: No Limitations Hearing Ability: Normal Regional Transportation Manager Required: No Beliefs That Will Affect Care: None marital status: Current Living Situation: Alone current occupational status: employed 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 Other Information That Helps Us Care for You: No Feels Safe at Home: Yes Safety Concerns: Feels Safe At This Time Smoking Status: Current every day smoker Tobacco Type: cigarettes ; Age Started Using Tobacco: 13 ; packs per day: 0.75 ; Cigarettes Per Day: 15 ; Do You Dip or Chew Tobacco: No ; Second Hand Exposure: No ; Tobacco Cessation Education Requested by Patient: No Hx Alcohol Use: Yes Alcohol Intake Frequency: Rarely Hx Substance Use: No Childhood Exposure to Second-Hand Smoke: No Dental Care, Regularly: Yes Physical Activity Frequency: 3-4 Times per Week Seatbelt Use: always Sunscreen Use: Yes Allergies Allergies Allergy/AdvReac Type Severity Reaction Status Date / Time morphine Allergy Intermediate HIVES Verified 07/12/19 16:33 lemon Allergy Unknown HIVES Verified 07/12/19 16:33 Penicillins Allergy Unknown HIVES Verified 07/12/19 16:33 Unclassified Drugs Allergy Unknown METAL Uncoded 07/12/19 16:33 MORRO - RASH Home Meds Home Medications Medication Instructions Recorded Confirmed acetaminophen [Tylenol] 325 - 650 mg PO QID PRN MDD 3,000 07/12/19 07/12/19 mg Previous Rx's Medication Instructions Recorded albuterol sulfate 90 mcg/actuation 1 puffs INH Q6H PRN #18 gm 03/06/19 aerosol inhaler budesonide-formoterol HFA 160 2 puffs INH BID #10.2 gm 03/06/19 mcg-4.5 mcg/actuation aerosol inhaler dicyclomine 20 mg tablet 20 mg PO QID #120 tab 03/21/19 Results & Data (ED) Vital Signs Vital Signs - 24 hr 07/12/19 14:03 07/12/19 14:53 07/12/19 14:55 Temperature 37 C Temperature Source Oral Pulse Rate 141 H 105 H 99 H Pulse Rate from SpO2 Sensor 106 H 108 H Respiratory Rate 21 18 15 Respiratory Effort / Characteristics Non-Labored Spontaneous Respiratory Depth Normal Blood Pressure 111/75 109/69 117/74 Blood Pressure Mean 81 82 96 Blood Pressure Position Lying Pulse Oximetry 96 98 79 L Oxygen Delivery Method Room Air Sepsis Recent Fever Within 48 Hours Yes Sepsis Action Taken by Nursing No Action Required 07/12/19 14:56 07/12/19 15:00 07/12/19 15:01 Temperature Temperature Source Pulse Rate 99 H 108 H 117 H Pulse Rate from SpO2 Sensor 104 H 109 H 118 H Respiratory Rate 17 19 18 Respiratory Effort / Characteristics Respiratory Depth Blood Pressure 121/70 Blood Pressure Mean 79 Blood Pressure Position Pulse Oximetry 85 L 93 89 L Oxygen Delivery Method Sepsis Recent Fever Within 48 Hours Sepsis Action Taken by Nursing 07/12/19 15:04 07/12/19 15:14 07/12/19 15:15 Temperature Temperature Source Pulse Rate 115 H 115 H Pulse Rate from SpO2 Sensor 108 H 111 H Respiratory Rate 19 23 Respiratory Effort / Characteristics Respiratory Depth Blood Pressure 105/68 Blood Pressure Mean 77 Blood Pressure Position Pulse Oximetry 96 96 96 Oxygen Delivery Method Room Air Sepsis Recent Fever Within 48 Hours Sepsis Action Taken by Nursing 07/12/19 15:16 07/12/19 15:17 07/12/19 15:20 Temperature Temperature Source Pulse Rate 111 H 122 H 110 H Pulse Rate from SpO2 Sensor 110 H 123 H 117 H Respiratory Rate 20 23 22 Respiratory Effort / Characteristics Respiratory Depth Blood Pressure 112/77 113/60 Blood Pressure Mean 83 74 Blood Pressure Position Pulse Oximetry 95 95 96 Oxygen Delivery Method Sepsis Recent Fever Within 48 Hours Sepsis Action Taken by Nursing 07/12/19 15:25 07/12/19 15:30 07/12/19 15:31 Temperature Temperature Source Pulse Rate 110 H 105 H 102 H Pulse Rate from SpO2 Sensor 108 H 111 H 104 H Respiratory Rate 18 19 23 Respiratory Effort / Characteristics Respiratory Depth Blood Pressure 119/79 99/69 L Blood Pressure Mean 91 81 Blood Pressure Position Pulse Oximetry 94 93 93 Oxygen Delivery Method Sepsis Recent Fever Within 48 Hours Sepsis Action Taken by Nursing 07/12/19 15:35 07/12/19 15:40 07/12/19 15:49 Temperature Temperature Source Pulse Rate 107 H 107 H 114 H Pulse Rate from SpO2 Sensor 113 H 104 H 112 H Respiratory Rate 23 24 13 Respiratory Effort / Characteristics Respiratory Depth Blood Pressure 100/73 98/66 L 88/63 L Blood Pressure Mean 84 71 74 Blood Pressure Position Pulse Oximetry 93 95 95 Oxygen Delivery Method Sepsis Recent Fever Within 48 Hours Sepsis Action Taken by Nursing 07/12/19 15:55 07/12/19 16:00 07/12/19 16:05 Temperature Temperature Source Pulse Rate 107 H 100 H 96 H Pulse Rate from SpO2 Sensor 109 H 97 H 104 H Respiratory Rate 25 H 19 19 Respiratory Effort / Characteristics Respiratory Depth Blood Pressure 114/89 115/70 118/74 Blood Pressure Mean 97 102 90 Blood Pressure Position Pulse Oximetry 96 93 95 Oxygen Delivery Method Sepsis Recent Fever Within 48 Hours Sepsis Action Taken by [facility] Medications Current Medication List: was personally reviewed by me Laboratory Data Attestation: I reviewed the patient's lab results. Result diagrams: 07/12/19 14:35 07/12/19 14:35 Lab Results 07/12/19 07/12/19 07/12/19 Range/Units 14:35 14:35 14:35 WBC 5.03 (4.8-10.8) K/uL RBC 4.52 (4.2-5.4) M/uL Hgb 13.9 (12.0-16.0) g/dL Hct 40.9 (37-47) % MCV 90.5 (80-100) fL MCH 30.8 (25-34) pg MCHC 34.0 (32-36) g/dL RDW Std Deviation 47.3 H (36.4-46.3) fL RDW Coeff of Sylwia 14.4 (11.5-14.5) % Plt Count 173 (130-400) K/uL MPV 9.1 (7.4-10.4) fL Immature Gran % (Auto) 0.2 % Neut % (Auto) 37.2 % Lymph % (Auto) 42.7 % Crawford % (Auto) 18.3 % Eos % (Auto) 1.0 % Baso % (Auto) 0.6 % Immature Gran # (Auto) 0.01 (0.00-0.02) K/uL Neut # (Auto) 1.87 (1.4-6.5) K/uL Lymph # (Auto) 2.15 (1.2-3.4) K/uL Crawford # (Auto) 0.92 H (0.11-0.59) K/uL Eos # (Auto) 0.05 (0-0.5) K/uL Baso # (Auto) 0.03 (0-0.2) K/uL PT 10.3 (9.0-12.0) Seconds INR 1.0 (0.9-1.1) APTT 28.0 (21.0-31.0) Seconds PTT Ratio 1.0 Sodium 141 (136-145) mmol/L Potassium 3.3 L (3.5-5.1) mmol/L Chloride 110 H (98-107) mmol/L Carbon Dioxide 24 (21-32) mmol/L Anion Gap 6.0 (3-11) BUN 9 D (7-18) mg/dl Creatinine 0.83 (0.6-1.2) mg/dl Est Cr Clr Drug Dosing 75.5 ml/min Est GFR ( Amer) 88.8 Est GFR (Non-Af Amer) 76.6 BUN/Creatinine Ratio 10.3 (10-20) Glucose 122 H (70-99) mg/dl Calcium 9.2 (8.5-10.1) mg/dl Magnesium 2.1 (1.8-2.4) mg/dl Total Bilirubin 0.2 (0.2-1) mg/dl AST 24 (15-37) U/L ALT 28 (12-78) U/L Alkaline Phosphatase 91 (45-117) U/L Troponin I 0.027 (0-0.045) ng/ml Total Protein 7.5 (6.4-8.2) gm/dl Albumin 3.2 L (3.4-5.0) gm/dl Globulin 4.3 H (2.5-4.0) gm/dl Albumin/Globulin Ratio 0.8 L (0.9-2) TSH 1.540 (0.300-4.500) uIu/ml COVID-19 PCR (Negative) 07/12/19 Range/Units 14:40 WBC (4.8-10.8) K/uL RBC (4.2-5.4) M/uL Hgb (12.0-16.0) g/dL Hct (37-47) % MCV (80-100) fL MCH (25-34) pg MCHC (32-36) g/dL RDW Std Deviation (36.4-46.3) fL RDW Coeff of Sylwia (11.5-14.5) % Plt Count (130-400) K/uL MPV (7.4-10.4) fL Immature Gran % (Auto) % Neut % (Auto) % Lymph % (Auto) % Crawford % (Auto) % Eos % (Auto) % Baso % (Auto) % Immature Gran # (Auto) (0.00-0.02) K/uL Neut # (Auto) (1.4-6.5) K/uL Lymph # (Auto) (1.2-3.4) K/uL Crawford # (Auto) (0.11-0.59) K/uL Eos # (Auto) (0-0.5) K/uL Baso # (Auto) (0-0.2) K/uL PT (9.0-12.0) Seconds INR (0.9-1.1) APTT (21.0-31.0) Seconds PTT Ratio Sodium (136-145) mmol/L Potassium (3.5-5.1) mmol/L Chloride (98-107) mmol/L Carbon Dioxide (21-32) mmol/L Anion Gap (3-11) BUN (7-18) mg/dl Creatinine (0.6-1.2) mg/dl Est Cr Clr Drug Dosing ml/min Est GFR ( Amer) Est GFR (Non-Af Amer) BUN/Creatinine Ratio (10-20) Glucose (70-99) mg/dl Calcium (8.5-10.1) mg/dl Magnesium (1.8-2.4) mg/dl Total Bilirubin (0.2-1) mg/dl AST (15-37) U/L ALT (12-78) U/L Alkaline Phosphatase (45-117) U/L Troponin I (0-0.045) ng/ml Total Protein (6.4-8.2) gm/dl Albumin (3.4-5.0) gm/dl Globulin (2.5-4.0) gm/dl Albumin/Globulin Ratio (0.9-2) TSH (0.300-4.500) uIu/ml COVID-19 PCR NEGATIVE (Negative) Administered Medications Diltiazem HCl 125 mg/ Dextrose 125 mls @ 7.5 mls/hr IV .[id number] [facility]; Protocol Stop: 08/11/19 14:14 Last Titration: 07/12/19 16:23 Dose: 7.5 mg/hr, 7.5 mls/hr Documented by: [id number] Cosigned by: [id number] Admin: 07/12/19 15:15 Dose: 5 mg/hr, 5 mls/hr Documented by: [id number] Cosigned by: [id number] Discontinued Medications Aspirin (Aspirin) Confirm Administered Dose 324 mg .ROUTE .STK-MED ONE Stop: 07/12/19 16:41 Last Admin: 07/12/19 16:58 Dose: 324 mg Documented by: [id number] Diltiazem HCl (Cardizem) 15 mg IV NOW STA Stop: 07/12/19 14:15 Last Admin: 07/12/19 14:45 Dose: 15 mg Documented by: [id number] Cosigned by: [id number] Heparin Sodium/Dextrose () 1 ea IV Q15M [facility]; Protocol Stop: 08/11/19 16:14 Last Admin: 07/12/19 16:23 Dose: 1 ea Documented by: [id number] Heparin Sodium/Dextrose (Heparin Sodium/Dextrose) Confirm Administered Dose 25,000 units IV .STK-MED ONE Stop: 07/12/19 16:08 Last Admin: 07/12/19 16:18 Dose: Not Given Documented by: [id number] Sodium Chloride (Nss) 500 mls @ 999 mls/hr IV .Q31M [facility] Stop: 07/12/19 14:45 Last Infusion: 07/12/19 15:59 Dose: 0 mls/hr Documented by: [id number] Admin: 07/12/19 14:44 Dose: 999 mls/hr Documented by: [id number] Lorazepam (Ativan) 0.5 mg in 1 mls @ 1 mls/min IV NOW STA Stop: 07/12/19 14:15 Last Admin: 07/12/19 14:44 Dose: 1 mls/min Documented by: [id number] Acetaminophen (Ofirmev) 1,000 mg in 100 mls @ 400 mls/hr IV NOW STA Stop: 07/12/19 14:28 Last Infusion: 07/12/19 15:45 Dose: 0 mls/hr Documented by: [id number] Admin: 07/12/19 14:49 Dose: 400 mls/hr Documented by: [id number] Potassium Chloride (K David / Wtr) 10 meq in 100 mls @ 100 mls/hr IV ONE ONE Stop: 07/12/19 16:13 Last Infusion: 07/12/19 17:43 Dose: 0 mls/hr Documented by: [id number] Admin: 07/12/19 16:18 Dose: 100 mls/hr Documented by: [id number] Sodium Chloride (Nss 1000ml) 500 mls @ 999 mls/hr IV .Q31M ONE Stop: 07/12/19 16:12 Last Infusion: 07/12/19 16:32 Dose: 0 mls/hr Documented by: [id number] Admin: 07/12/19 15:58 Dose: 999 mls/hr Documented by: [id number] Lorazepam (Ativan) Confirm Administered Dose 2 mg .ROUTE .STK-MED ONE Stop: 07/12/19 17:02 Last Increment: 07/12/19 17:04 Dose: 0.5 mg Documented by: [id number] Metoprolol Tartrate (Lopressor) Confirm Administered Dose 5 mg IV .STK-MED ONE Stop: 07/12/19 16:51 Last Admin: 07/12/19 16:58 Dose: 5 mg Documented by: [id number] Metoprolol Tartrate (Lopressor) 25 mg PO NOW STA Stop: 07/12/19 18:36 Last Admin: 07/12/19 18:53 Dose: 25 mg Documented by: [id number] Miscellaneous () 1 ea N/A NOW STA Stop: 07/12/19 14:15 Last Admin: 07/12/19 15:24 Dose: 1 ea Documented by: [id number] Imaging Data Radiologist's Impression: XR chest 1V portable CLINICAL HISTORY: weakness COMPARISON STUDY: 07/11/2019 FINDINGS: The cardiac and mediastinal contours are normal. There is no evidence of focal pulmonary consolidation. There is no evidence of failure. No pleural effusions are visualized.[ IMPRESSION: No active disease in the chest. Blood Pressure Blood Pressure Findings: Normal blood pressure Discharge Plan Visit Data Chief Complaint: Chest Pain Stated Complaint: Chest Pain (Tested for COVID - No results yet) ED Provider: Phillip Akins Discharge Problem: Atrial fibrillation with RVR, Precordial chest pain, SOB (shortness of breath), Hypokalemia Patient Disposition: Admitted As Inpatient Condition: Good Discharge Instructions Interventions: ED Discharge Assessment Last Done: 07/12/19 18:35
[2019-07-12 14:50] LABS: Basophils # (auto) 0.03 K/uL (0-0.2); Basophils % (auto) 0.6 %; Eosinophils # (auto) 0.05 K/uL (0-0.5); Hematocrit (blood only) 40.9 % (37-47); Hemoglobin 13.9 g/dL (12.0-16.0); Immature Granulocytes # (auto) 0.01 K/uL (0.00-0.02); Immature Granulocytes % (auto) 0.2 %; Lymphocytes # (auto) 2.15 K/uL (1.2-3.4); Lymphocytes % (auto) 42.7 %; Mean Corpuscular Hemoglobin 30.8 pg (25-34); Mean Corpuscular Volume 90.5 fL (80-100); Mean Platelet Volume 9.1 fL (7.4-10.4); Monocytes # (auto) 0.92 K/uL (0.11-0.59); Monocytes % (auto) 18.3 %; Neutrophils # (auto) 1.87 K/uL (1.4-6.5); Neutrophils % (auto) 37.2 %; Platelet Count 173 K/uL (130-400); RDW Coefficient of Variation 14.4 % (11.5-14.5); RDW Standard Deviation 47.3 fL (36.4-46.3); Red Blood Count 4.52 M/uL (4.2-5.4); White Blood Count 5.03 K/uL (4.8-10.8)
[2019-07-12 15:05] LABS: Prothrombin Time 10.3 Seconds (9.0-12.0)
--- NOTE | 2019-07-12 15:07 | XRay Report ---
XR chest 1V portable CLINICAL HISTORY: weakness COMPARISON STUDY: 07/11/2019 FINDINGS: The cardiac and mediastinal contours are normal. There is no evidence of focal pulmonary co nsolidation. There is no evidence of failure. No pleural effusions are visualized.[ IMPRESSION: No active disease in the chest. ACT 112: Negative or not required by law. Electronically signed by: Danny Kramer M.D. 07/12/2019 3:05 PM
[2019-07-12 15:12] LABS: Albumin Level 3.2 gm/dl (3.4-5.0); BUN Creatinine Ratio 10.3 (10-20); Calcium 9.2 mg/dl (8.5-10.1); Creatinine Clr Calc Pharmacy 75.5 ml/min; Est GFR (African American) 88.8; Est GFR (Non-African American) 76.6; Magnesium 2.1 mg/dl (1.8-2.4); Potassium 3.3 mmol/L (3.5-5.1)
[2019-07-12] MEDS ORDERED: POTASSIUM CHLORIDE / WTR 10 MEQ/100 ML PLCT IV ONE (15:14)
[2019-07-12 15:25] LABS: Albumin Globulin Ratio 0.8 (0.9-2); Bilirubin,Total 0.2 mg/dl (0.2-1); Globulin 4.3 gm/dl (2.5-4.0); Thyroid Stimulating Hormone 1.54 uIu/ml (0.300-4.500); Total Protein 7.5 gm/dl (6.4-8.2); Troponin I 0.027 ng/ml (0-0.045)
[2019-07-12] MEDS ORDERED: SODIUM CHLORIDE 0.9% 1000ML 500 ML IV ONE ×2 (15:42→18:41)
[2019-07-12] MEDS ORDERED: HEPARIN 25000 UNIT/500 ML D5W IV ONE (16:07)
[2019-07-12] MEDS: Heparin IV Low Dose *NO* Bolus IV SCH ×5 (16:23→22:56)
[2019-07-12] MEDS ORDERED: ASPIRIN CHEW 324 MG PO STA (16:32)
--- NOTE | 2019-07-12 16:35 | History & Physical Report ---
Date of Service July 12, 2019 Assessment & Plan (1) Atrial fibrillation with RVR: Anticoagulation with IV heparin drip Initially started on diltiazem IV drip in ER, bolus + 10mg/hr. Given possible ACS (see below) will switch to metoprolol. 5mg IV given stat which improved HR considerably to approx 70 bpm. Start metoprolol tartrate 25mg BID (2) Chest pain: Mostly chest wall pain but unable to rule out underlying cardiac pain from CAD in setting of rapid rate. Not much improvement with rate-control but Ativan did seem to help suggesting more MSK although difficult to r/o underlying ACS since occurred at time of a. fib. Continue to trend troponins (3) Left upper extremity numbness: Associated left arm numbness concerning for cardiac pain vs. CVA. However mostly likely acute neuropathic pain from cervical spine. No acute trauma to suggest need for re-imaging but given current stress and muscle spasm in back suspect this is exacerbating underlying degenerative changes in her C5-6 as seen on prior XRs. Continue to monitor for now. If troponin significantly increasing will treat more aggressively with nitroglycerin/morphine. Admission and Anticipated Discharge Date Admission Date: 07/12/2019 History of Present Illness Chief Complaint: Chest pain, rapid heart rate Primary Care Provider: Corin Rader MD Sheela Turk is a 58 year old female who presents to the ER with chest pain. Initial episode started yesterday, lasted for around 10-15 minutes, relieved with rest, milder than today. She felt well on getting up this morning. Recurrent episode of chest pain started around 1pm. Started around 15-20 minutes after eating with generalized feeling of illness. Severity 10/10, currently 5.5/10 with ativan given in ER which helped. She notes also having some diarrhea. Generally "not eating right" for the last week. Just not felt like eating. No taste or appetite 2-3 days. Allergies Allergy/AdvReac Type Severity Reaction Status Date / Time morphine Allergy Intermediate HIVES Verified 07/12/19 16:33 lemon Allergy Unknown HIVES Verified 07/12/19 16:33 Penicillins Allergy Unknown HIVES Verified 07/12/19 16:33 Unclassified Drugs Allergy Unknown METAL Uncoded 07/12/19 16:33 MORRO - RASH Home Medications Home Medications Medication Instructions Recorded Confirmed Type albuterol sulfate 90 mcg/actuation 1 puffs INH Q6H PRN #18 gm 03/06/19 07/12/19 Rx aerosol inhaler budesonide-formoterol HFA 160 2 puffs INH BID #10.2 gm 03/06/19 07/12/19 Rx mcg-4.5 mcg/actuation aerosol inhaler dicyclomine 20 mg tablet 20 mg PO QID #120 tab 03/21/19 07/12/19 Rx acetaminophen [Tylenol] 325 - 650 mg PO QID PRN MDD 3,000 07/12/19 07/12/19 History mg Past Med/Surg History Medical History Dependent edema (Resolved) Depression (Resolved) Dyslipidemia (Chronic) Dysuria (Resolved) Headache (Resolved) Insomnia (Resolved) Kidney stones (Resolved) Low vitamin B12 level (Resolved) Neck pain (Resolved) Nephrolithiasis (Resolved 05/01/13) Prediabetes (Chronic) Surgical History History of lumbar fusion S/P appendectomy (Resolved) S/P cholecystectomy (Resolved) S/P hysterectomy (Resolved) Family History Sister Colorectal cancer Afib Brother Colorectal cancer Mother Myocardial infarction Afib Father Prostate cancer Denies family history of Ovarian cancer Breast cancer Social History Preferred Language: Vietnamese Communication Ability: Effective Visual Impairment: No Limitations Hearing Ability: Normal Hse Advisor Required: No Beliefs That Will Affect Care: None marital status: Current Living Situation: Alone current occupational status: employed 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 Other Information That Helps Us Care for You: No Feels Safe at Home: Yes Safety Concerns: Feels Safe At This Time Smoking Status: Current every day smoker Tobacco Type: cigarettes ; Age Started Using Tobacco: 13 ; packs per day: 0.75 ; Cigarettes Per Day: 15 ; Do You Dip or Chew Tobacco: No ; Second Hand Exposure: No ; Tobacco Cessation Education Requested by Patient: No Hx Alcohol Use: Yes Alcohol Intake Frequency: Rarely Hx Substance Use: No Childhood Exposure to Second-Hand Smoke: No Dental Care, Regularly: Yes Physical Activity Frequency: 3-4 Times per Week Seatbelt Use: always Sunscreen Use: Yes Review of Systems Review of Systems: All systems reviewed & are unremarkable except as noted in HPI & below Physical Exam Constitutional: well developed and + acute distress (chest pain); + not well nourished Eyes: PERRL, conjunctivae normal, anicteric sclerae ENMT: external ear and nose normal, oropharynx normal Neck: trachea midline, no thyromegaly Respiratory: normal respiratory effort, lungs clear to auscultation Cardiovascular: Rate/Rhythm: + tachycardic and + irregularly irregular Heart Sounds: no murmur Vessels: no JVD Extremities: normal capillary refill; no calf tenderness and no pedal edema Pain on palpation of left chest wall Gastrointestinal (Abdomen): normal bowel sounds, soft, nontender, no hepatosplenomegaly Skin: no rashes, warm and dry Neurologic: moves all extremities and awake Motor/Sensory: + sensory deficit (Left T1 distribution numbness); no tremor Psychiatric: A+Ox3, euthymic affect Results & Data Results & Data ([facility]) Vital Signs (Past 12 Hours) Vital Signs Temp Pulse Resp BP Pulse Ox 07/12/19 16:23 110 H 21 96 07/12/19 16:15 108 H 20 117/77 93 07/12/19 16:05 96 H 19 118/74 95 07/12/19 16:00 100 H 19 115/70 93 07/12/19 15:55 107 H 25 H 114/89 96 07/12/19 15:49 114 H 13 88/63 L 95 07/12/19 15:40 107 H 24 98/66 L 95 07/12/19 15:35 107 H 23 100/73 93 07/12/19 15:31 102 H 23 93 07/12/19 15:30 105 H 19 99/69 L 93 07/12/19 15:25 110 H 18 119/79 94 07/12/19 15:20 110 H 22 113/60 96 07/12/19 15:17 122 H 23 112/77 95 07/12/19 15:16 111 H 20 95 07/12/19 15:15 115 H 23 105/68 96 07/12/19 15:14 115 H 19 96 07/12/19 15:04 96 07/12/19 15:01 117 H 18 89 L 07/12/19 15:00 108 H 19 121/70 93 07/12/19 14:56 99 H 17 85 L 07/12/19 14:55 99 H 15 117/74 79 L 07/12/19 14:53 105 H 18 109/69 98 07/12/19 14:03 37 C 141 H 21 111/75 96 Diagnostic Findings XR chest 1V portable IMPRESSION: No active disease in the chest. ECG Indication: chest pain and tachycardia Rate (beats per minute): 127 Rhythm: atrial fibrillation Comparison ECG Date: from (02/25/2019) Change: the following changes noted (Atrial fibrillation has replaced NSR) Code Status & VTE Plan Code Status Everything except intubation VTE Prophylaxis Plan VTE Prophylaxis will be ordered: Yes PG Care Time/CCT Total # of Minutes Spent Total Time Spent with Patient: Total time spent is greater than 50% in coordination of care (as documented) at patient's floor/unit and/or counseling patient: Coding Level of Care Code 23227 Initial Inpt Care Lvl 3 Diagnoses Atrial fibrillation with RVR I48.91 Chest pain R07.9 Left upper extremity numbness R20.0
[2019-07-12] MEDS ORDERED: METOPROLOL TARTRATE 1 MG/ML VIAL IV STA (16:39)
[2019-07-12] MEDS ORDERED: ASPIRIN CHEW 324 MG ONE (16:40)
[2019-07-12] MEDS ORDERED: METOPROLOL TARTRATE 1 MG/ML VIAL IV ONE (16:50)
[2019-07-12] MEDS ORDERED: LORazepam 2 MG/4 ML VIAL ONE (17:01)
[2019-07-12] MEDS ORDERED: HEPARIN SODIUM/DEXTROSE 25,000 UNITS/500 ML BAG IV SCH ×2 (17:20→19:45)
[2019-07-12] MEDS ORDERED: Heparin IV Standard *NO* Bolus ONE (18:12)
[2019-07-12] MEDS ORDERED: METOPROLOL TARTRATE 25 MG TAB PO STA (18:35)
[2019-07-12] MEDS ORDERED: ONDANSETRON INJ 2 MG/ML 2 ML VIAL IV PRN (19:27)
[2019-07-12] MEDS ORDERED: ACETAMINOPHEN 325 MG TAB PO PRN (19:27)
[2019-07-12] MEDS ORDERED: POLYETHYLENE (MIRALAX) 17 GM PACK PO PRN (19:27)
[2019-07-12] MEDS ORDERED: LACTATED RINGER'S 500 ML IV ONE (20:50)
[2019-07-12] MEDS: Heparin IV Standard *NO* Bolus IV SCH ×4 (21:03→22:55)
[2019-07-12 21:11] LABS: Hematocrit (blood only) 35.4 % (37-47); Hemoglobin 11.8 g/dL (12.0-16.0); Mean Corpuscular Hemoglobin 30.3 pg (25-34); Mean Platelet Volume 9.3 fL (7.4-10.4); Platelet Count 169 K/uL (130-400); RDW Coefficient of Variation 14.5 % (11.5-14.5); RDW Standard Deviation 47.7 fL (36.4-46.3); Red Blood Count 3.89 M/uL (4.2-5.4); White Blood Count 5.36 K/uL (4.8-10.8)
[2019-07-12] MEDS: LORazepam 0.5 MG TAB PO PRN (21:15)
[2019-07-12 21:16] LABS: Mean Corpuscular Hgb Conc 33.3 g/dL (32-36)
[2019-07-12] MEDS: LACTATED RINGER'S 1,000 ML IV SCH (21:19)
[2019-07-12 21:24] LABS: BUN Creatinine Ratio 11.4 (10-20); Calcium 7.9 mg/dl (8.5-10.1); Creatinine Clr Calc Pharmacy 77.4 ml/min; Est GFR (African American) 91.5; Est GFR (Non-African American) 78.9; Potassium 3.3 mmol/L (3.5-5.1)
[2019-07-12] MEDS: DICYCLOMINE HCL 20 MG TAB PO SCH ×2 (21:27→21:28)
[2019-07-12 22:03] LABS: Partial Thromboplastin Ratio > 5.0; Partial Thromboplastin Time > 139.0 Seconds (21.0-31.0)
[2019-07-12 22:03] LABS: Basophils # (auto) 0.03 K/uL (0-0.2); Basophils % (auto) 0.6 %; Eosinophils # (auto) 0.06 K/uL (0-0.5); Eosinophils % (auto) 1.1 %; Immature Granulocytes # (auto) 0.01 K/uL (0.00-0.02); Immature Granulocytes % (auto) 0.2 %; Lymphocytes # (auto) 2.85 K/uL (1.2-3.4); Lymphocytes % (auto) 53.2 %; Monocytes # (auto) 0.87 K/uL (0.11-0.59); Monocytes % (auto) 16.2 %; Neutrophils # (auto) 1.54 K/uL (1.4-6.5); Neutrophils % (auto) 28.7 %; RBC Morphology Unremarkable
[2019-07-12] MEDS ORDERED: POTASSIUM CHLORIDE 20 MEQ TABCR PO STA (22:28)
[2019-07-12 23:31] LABS: Partial Thromboplastin Ratio 1.1; Partial Thromboplastin Time 30.4 Seconds (21.0-31.0)
[2019-07-12] MEDS ORDERED: HEPARIN IV BOLUS 5,000 UNITS in SYRINGE 0 ML IV ONE (23:41)
[2019-07-13] MEDS: LACTATED RINGER'S 1,000 ML IV SCH ×2 (02:08→10:39)
[2019-07-13 06:58] LABS: Hematocrit (blood only) 34.7 % (37-47); Hemoglobin 11.6 g/dL (12.0-16.0); Mean Corpuscular Hemoglobin 30.3 pg (25-34); Mean Corpuscular Hgb Conc 33.4 g/dL (32-36); Mean Corpuscular Volume 90.6 fL (80-100); Mean Platelet Volume 9.3 fL (7.4-10.4); Platelet Count 181 K/uL (130-400); RDW Coefficient of Variation 14.5 % (11.5-14.5); RDW Standard Deviation 48.3 fL (36.4-46.3); Red Blood Count 3.83 M/uL (4.2-5.4); White Blood Count 6.55 K/uL (4.8-10.8)
[2019-07-13 07:22] LABS: Partial Thromboplastin Ratio 2.7
[2019-07-13 07:27] LABS: Partial Thromboplastin Time 74.6 Seconds (21.0-31.0)
[2019-07-13 07:30] LABS: Calcium 8.3 mg/dl (8.5-10.1); Potassium 3.5 mmol/L (3.5-5.1)
--- NOTE | 2019-07-13 07:41 | Electrocardiogram Report ---
Test Reason : Blood Pressure : / mmHG Vent. Rate : 127 BPM Atrial Rate : 087 BPM P-R Int : 000 ms QRS Dur : 090 ms QT Int : 302 ms P-R-T Axes : 000 066 080 degrees QTc Int : 438 ms Atrial fibrillation with rapid ventricular response Cannot rule out Anterior infarct , age undetermined Abnormal ECG When compared with ECG of 25-FEB-2019 10:52, Atrial fibrillation has replaced Sinus rhythm Vent. rate has increased BY 47 BPM Confirmed by Tadeo Steel ([id number]) on 07/13/2019 7:41:02 AM Referred By: REFERRED SELF Confirmed By:Tadeo Steel
[2019-07-13 07:42] LABS: BUN Creatinine Ratio 11.1 (10-20); Creatinine Clr Calc Pharmacy 104.5 ml/min; Est GFR (African American) 114.8; Est GFR (Non-African American) 99.1; Troponin I 0.025 ng/ml (0-0.045)
--- NOTE | 2019-07-13 07:46 | Electrocardiogram Report ---
Test Reason : Blood Pressure : / mmHG Vent. Rate : 099 BPM Atrial Rate : 115 BPM P-R Int : 000 ms QRS Dur : 086 ms QT Int : 364 ms P-R-T Axes : 000 043 070 degrees QTc Int : 467 ms Atrial fibrillation Cannot rule out Anterior infarct (cited on or before 12-JUL-2019) Abnormal ECG When compared with ECG of 12-JUL-2019 14:03, (unconfirmed) No significant change was found Confirmed by Tadeo Steel ([id number]) on 07/13/2019 7:46:13 AM Referred By: REFERRED SELF Confirmed By:Tadeo Steel
--- NOTE | 2019-07-13 07:49 | Electrocardiogram Report ---
Test Reason : Blood Pressure : / mmHG Vent. Rate : 069 BPM Atrial Rate : 241 BPM P-R Int : 000 ms QRS Dur : 088 ms QT Int : 430 ms P-R-T Axes : 000 074 085 degrees QTc Int : 460 ms Atrial fibrillation Abnormal ECG When compared with ECG of 12-JUL-2019 16:46, (unconfirmed) No significant change was found Confirmed by Tadeo Steel ([id number]) on 07/13/2019 7:49:18 AM Referred By: REFERRED SELF Confirmed By:Tadeo Stele
[2019-07-13] MEDS: DICYCLOMINE HCL 20 MG TAB PO SCH ×4 (07:53→20:03)
[2019-07-13] MEDS: FLUTICASONE/VILANTEROL 200/25MCG 14 PUFFS/INHALER INH SCH (07:54)
[2019-07-13] MEDS: ACETAMINOPHEN 325 MG TAB PO SCH ×4 (07:54→20:04)
--- NOTE | 2019-07-13 10:03 | XCELERA ---
[id number]
[2019-07-13] MEDS: APIXABAN 5 MG TABLET PO SCH ×2 (10:39→20:04)
[2019-07-13] MEDS: METOPROLOL TARTRATE 25 MG TAB PO SCH ×2 (10:39→20:04)
--- NOTE | 2019-07-13 12:55 | Hospitalist Progress Note ---
Date of Service July 13, 2019 Assessment & Plan (1) Atrial fibrillation with RVR: New onset this admission. TSH WNL Anticoagulation: Switched heparin IV drip to Eliquis 5mg BID Rate control with metoprolol tartrate 25mg BID (2) Chest pain: Mostly chest wall pain. No troponin rise and significant pain therefore not ACS. Appears to be improving today without intervention. (3) Left upper extremity numbness: T1 numbness. Initially felt possibly demand ischemia but given lack of troponin elevation and continued numbness much more likely related to degenerative changes in neck. (4) Syncope: Occurred 07/12/2019 in setting of diltiazem and metoprolol use. Diltiazem drip now discontinued. (5) Anxiety: Continue lorazepam 0.5mg PO Q6H PRN during admission. Suggest follow up with PCP after this. (6) BRBPR (bright red blood per rectum): In setting of syncope yesterday and starting anticoagulation. Repeat CBC in AM. Ok to continue on Eliquis currently. Admission and Anticipated Discharge Date Admission Date: July 12, 2019 Initially planned on discharge today but patient started having blood in stool. Therefore given syncopal episode the night before in addition to starting anticoagulation will keep overnight for repeat H&H in AM. Anticipated date of discharge: 07/14/19 Subjective Patient reports doing generally well this morning. Had a fainting episode on getting up last night in setting of both diltiazem and metoprolol use during transition period. Chest pain improved but still present on palpation. Left arm numbness the same in T1 distribution. No change with better heart rate control. Keen to go home. In afternoon bright red blood per rectum noted by patient. No chest pain, dizziness, shortness of breath. Review of Systems Review of Systems: All systems reviewed & are unremarkable except as noted in HPI & below Physical Exam Constitutional: well developed; + not well nourished and no acute distress Eyes: + anicteric sclerae; normal pupil size ENMT: external ear and nose normal, oropharynx normal Respiratory: normal respiratory effort, lungs clear to auscultation Cardiovascular: Rate/Rhythm: regular rate and + irregularly irregular Heart Sounds: no murmur Vessels: no JVD Extremities: normal capillary refill; no calf tenderness and no pedal edema Gastrointestinal (Abdomen): normal bowel sounds, soft, nontender, no hepatosplenomegaly Skin: no rashes, warm and dry Neurologic: moves all extremities and awake Motor/Sensory: + sensory deficit (Left T1 distribution numbness); no tremor Psychiatric: A+Ox3, euthymic affect Results & Data Results & Data ([facility]) Vital Signs (Past 12 Hours) Vital Signs Temp Pulse Resp BP BP Pulse Ox 07/13/19 12:11 36.7 C 116 H 20 110/74 96 07/13/19 08:04 36.9 C 87 18 113/74 96 07/13/19 04:31 36.8 C 79 18 122/76 97 PG Care Time/CCT Total # of Minutes Spent Total Time Spent with Patient: Total time spent is greater than 50% in coordination of care (as documented) at patient's floor/unit and/or counseling patient: Coding Level of Care Code 57308 Subseq Hosp Care Lvl 2 Diagnoses Atrial fibrillation with RVR I48.91 Chest pain R07.9 Left upper extremity numbness R20.0 Syncope R55 Anxiety F41.9 BRBPR (bright red blood per rectum) K62.5
[2019-07-14] MEDS ORDERED: ALBUTEROL 0.083% NEBU SOLN 3 ML VIAL NEB ONE (05:04)
[2019-07-14] MEDS: DICYCLOMINE HCL 20 MG TAB PO SCH ×4 (08:23→19:37)
[2019-07-14] MEDS: APIXABAN 5 MG TABLET PO SCH ×2 (08:23→19:36)
[2019-07-14] MEDS: METOPROLOL TARTRATE 25 MG TAB PO SCH ×2 (08:23→19:38)
[2019-07-14] MEDS: ACETAMINOPHEN 325 MG TAB PO SCH ×4 (08:24→19:37)
[2019-07-14] MEDS: FLUTICASONE/VILANTEROL 200/25MCG 14 PUFFS/INHALER INH SCH (08:24)
[2019-07-14] MEDS: LORazepam 0.5 MG TAB PO PRN ×3 (08:26→22:06)
[2019-07-14 08:59] LABS: Hemoglobin 11.3 g/dL (12.0-16.0); Mean Corpuscular Hemoglobin 29.8 pg (25-34); Mean Corpuscular Hgb Conc 32.3 g/dL (32-36); Mean Corpuscular Volume 92.3 fL (80-100); Mean Platelet Volume 9.3 fL (7.4-10.4); Platelet Count 226 K/uL (130-400); RDW Coefficient of Variation 14.4 % (11.5-14.5); RDW Standard Deviation 48.9 fL (36.4-46.3); Red Blood Count 3.79 M/uL (4.2-5.4); White Blood Count 6.22 K/uL (4.8-10.8)
[2019-07-14 09:35] LABS: BUN Creatinine Ratio 12.5 (10-20); Calcium 8.6 mg/dl (8.5-10.1); Creatinine Clr Calc Pharmacy 81.3 ml/min; Est GFR (African American) 92.9; Est GFR (Non-African American) 80.1; Potassium 3.3 mmol/L (3.5-5.1)
--- NOTE | 2019-07-14 09:54 | Hospitalist Progress Note ---
Date of Service July 14, 2019 Assessment & Plan (1) Atrial fibrillation with RVR: New onset this admission. TSH WNL Anticoagulation: Switched heparin IV drip to Eliquis 5mg BID Rate control with metoprolol tartrate 25mg BID HR appears well controlled. (2) Chest pain: Mostly chest wall pain. No troponin rise and significant pain therefore not ACS. Appears to be improving today without intervention. (3) Left upper extremity numbness: T1 numbness. Initially felt possibly demand ischemia but given lack of troponin elevation and continued numbness much more likely related to degenerative changes in neck. (4) Syncope: Occurred 07/12/2019 in setting of diltiazem and metoprolol use. Diltiazem drip now discontinued. Patient had another episode of syncpe. Consulted cardio. Echo already completed, was on monitor, however as she fell it appears the monitor was disconnected. This loss of signal was for a few seconds. Doubt that she was in any sort of arrythmia. Will continue to monitor and check orthostatic vitals. will monitor for another 24 hours. (5) Anxiety: Continue lorazepam 0.5mg PO Q6H PRN during admission. Suggest follow up with PCP after this. (6) BRBPR (bright red blood per rectum): In setting of syncope yesterday and starting anticoagulation. hemoglobin appears stable. Ok to continue on Eliquis currently. Admission and Anticipated Discharge Date Admission Date: July 12, 2019 Subjective Patient had a code purple as she was ambulating the halls with the Physical therapist. She had ambulated baout 45 feet from her room, but patient reported feeling lightheaded and weak. She went to sit dwon on the ground andher eyes rolled back as per the physcial therapist. Patient was then placed supine on the ground, BP was taken and was elevated at 170/90. Patient did not fully pass out and did not lose consciousness. She was never post ictal and did not have urinary or fecal incontinence. Nor did she bite her toungue. Patient does not fully remember the event and appears distraught about it. She states she has not had an significant bleeding today from her bottom. Reviewed tele monitor, her monitor went off at 9:3 near the time she passed out. She states she has left sided chest pain at this time. Revieweing her chart it appears she had another syncopal episode on 07/11. Review of Systems Review of Systems: All systems reviewed & are unremarkable except as noted in HPI & below Physical Exam Physical Exam: Constitutional: well developed; + not well nourished and no acute distress Eyes: + anicteric sclerae; normal pupil size ENMT: external ear and nose normal, oropharynx normal Respiratory: normal respiratory effort, lungs clear to auscultation Cardiovascular: Rate/Rhythm: regular rate and + irregularly irregular Heart Sounds: no murmur Vessels: no JVD Extremities: normal capillary refill; no calf tenderness and no pedal edema Gastrointestinal (Abdomen): normal bowel sounds, soft, nontender, no hepatosplenomegaly Skin: no rashes, warm and dry Neurologic: moves all extremities and awake Motor/Sensory: + sensory deficit (Left T1 distribution numbness); no tremor Psychiatric: A+Ox3, euthymic affect Results & Data Results & Data ([facility]) Vital Signs (Past 12 Hours) Vital Signs Temp Pulse Pulse Resp BP Pulse Ox 07/14/19 06:38 36.6 C 79 18 131/80 93 07/14/19 05:16 76 22 96 07/14/19 03:37 36.7 C 74 18 111/72 95 07/14/19 00:17 36.6 C 81 18 128/81 95 07/13/19 23:28 78 PG Care Time/CCT Total # of Minutes Spent Total Time Spent with Patient: Total time spent is greater than 50% in coordination of care (as documented) at patient's floor/unit and/or counseling patient: Coding Level of Care Code 72648 Subseq Hosp Care Lvl 3 Diagnoses Atrial fibrillation with RVR I48.91 Chest pain R07.9 Left upper extremity numbness R20.0 Syncope R55 Anxiety F41.9 BRBPR (bright red blood per rectum) K62.5 Time Spent (min) 35
--- NOTE | 2019-07-14 10:51 | Cardiology Consultation ---
Date of Consultation July 14, 2019 Assessment & Plan (1) Paroxysmal atrial fibrillation: Mrs. Turk is a 58 year old female with a history of Depression, Anxiety, Prediabetes, Lumbar Spinal Stenosis who was admitted to [facility] on 07/12/2019 after experiencing a poor appetite, decreased taste and smell, and loose stools x 3 days followed by the onset of tingling in the posterior left upper arm, atypical chest discomfort, and palpitations. She was concerned that she may have had coronavirus -- but her COVID 19 test was negative. Patient was iagnosed with PAF with RVR and she was and still is Hypokalemic -- fortunately she has converted back to a normal sinus rhythm. We had a long discussion regarding what atrial fibrillation is, the natural history of atrial fibrillation, and various management strategies. Patient verbalizes understanding of this discussion. Patient's [id number] is 1 based on her gender -- so either aspirin or oral anticoagulation is indicated. Recommend the followin. Continue Eliquis 5 mg b.i.d. to reduce the risk of stroke associated with atrial fibrillation. 2. Continue Lopressor 25 mg b.i.d.. Can convert to long-acting Toprol XL 50 mg daily at the time of discharge if patient desires. 3. Correct hypokalemia. We will continue to follow. Plan on seeing her within 1-2 weeks of discharge from the hospital. (2) Atrial fibrillation with RVR: Patient converted back to normal sinus rhythm spontaneously. -- Continue Eliquis 5 mg b.i.d. to reduce the risk of stroke associated with atrial fibrillation. -- Continue Lopressor 25 mg b.i.d.. Can convert to long-acting Toprol XL 50 mg daily at the time of discharge if patient desires. -- Correct hypokalemia. (3) Syncope: First episode of near syncope / ? syncope was likely secondary to iatrogenic hypotension -- after Diltiazem discontinued her BP is up normal to high range. Her second episode of weakness and dark vision had no hemodynamic reason to occur -- she was in a NSR at a normal rate without evidence of any arrhythmias on the monitor when this occurred, and she was actually hypertensive while lying and sitting immediately afterwards. Continue on telemetry for the time being. Her Echocardiogram 07/13/2019 showed a structurally normal heart with normal biventricular systolic function, no significant valvular abnormalities. Check orthostatic vital signs. Patient had one 12 beat run of nonsustained V-tach on telemetry which was asymptomatic. (4) Hypokalemia: -- Give one dose of KCL 20 mEq now. -- Follow daily labs. History of Present Illness Reason for Consultation: -- Newly diagnosed Paroxysmal Atrial Fibrillation with RVR. -- ? Syncope. Requesting Physician: Mil Valladares Attending Physician: Tadeo Steel MD History of Present Illness Mrs. Turk is a 58 year old female with a history of Depression, Anxiety, Prediabetes, Lumbar Spinal Stenosis who was admitted to [facility] on 07/12/2019 after experiencing a poor appetite, decreased taste and smell, and loose stools x 3 days followed by the onset of tingling in the posterior left upper arm, chest discomfort, and palpitations. She was concerned that she may have had coronavirus -- but her COVID 19 test was negative. Diagnosed with PAF with RVR and she is hypokalemic. Patient was initially placed on a Diltiazem bolus and drip (which improved her ventricular response rate) and on a Heparin drip. The plan was to transition to Metoprolol -- which was added on 07/13/2019. On 07/13/2019, patient became hypotensive secondary to Diltiazem and Metoprolol with systolic BP's in the 80's -- and possibly had a syncopal episode. Diltiazem was then discontinued and BP mara to her baseline range. Chest pain remained present and was atypical -- worsened by movement of torso and with direct palpation. No associated symptoms -- specifically denies any associated nausea, vomiting, diaphoresis, or dyspnea. No radiation of her chest pain. Cardiac enzymes are negative x 3. Initial EKGs showed A-Fib, but no ST abnormalities. Today's EKG shows NSR at 76 bpm. Earlier today, patient was ambulating in the hallway with the physical therapist, developed a feeling of weakness and vision "went black" but she did not lose consciousness -- she was helped to a seated position followed by a lying position -- SBP lying was 170 mmHg and after sitting up went to 155 mmHg, HR was regular in the 70's and 80's -- no abnormal rhythms or cardiac pause was noted with either episode. Allergies Allergy/AdvReac Type Severity Reaction Status Date / Time morphine Allergy Intermediate HIVES Verified 07/12/19 16:33 lemon Allergy Unknown HIVES Verified 07/12/19 16:33 Penicillins Allergy Unknown HIVES Verified 07/12/19 16:33 Unclassified Drugs Allergy Unknown METAL Uncoded 07/12/19 16:33 MORRO - RASH Home Medications Home Medications Medication Instructions Recorded Confirmed Type albuterol sulfate 90 mcg/actuation 1 puffs INH Q6H PRN #18 gm 03/06/19 07/12/19 Rx aerosol inhaler budesonide-formoterol HFA 160 2 puffs INH BID #10.2 gm 03/06/19 07/12/19 Rx mcg-4.5 mcg/actuation aerosol inhaler dicyclomine 20 mg tablet 20 mg PO QID #120 tab 03/21/19 07/12/19 Rx acetaminophen [Tylenol] 325 - 650 mg PO QID PRN MDD 3,000 07/12/19 07/12/19 History mg Patient History Medical History Dependent edema (Resolved) Depression (Resolved) Dyslipidemia (Chronic) Dysuria (Resolved) Headache (Resolved) Insomnia (Resolved) Kidney stones (Resolved) Low vitamin B12 level (Resolved) Neck pain (Resolved) Nephrolithiasis (Resolved 05/01/13) Prediabetes (Chronic) Surgical History History of lumbar fusion S/P appendectomy (Resolved) S/P cholecystectomy (Resolved) S/P hysterectomy (Resolved) Family History Sister Colorectal cancer Afib Brother Colorectal cancer Mother Myocardial infarction Afib Father Prostate cancer Denies family history of Ovarian cancer Breast cancer Social History Preferred Language: Mauritanian Communication Ability: Effective Visual Impairment: No Limitations Hearing Ability: Normal Hair Spinner Required: No Beliefs That Will Affect Care: None marital status: Current Living Situation: Alone current occupational status: employed 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 Other Information That Helps Us Care for You: No Feels Safe at Home: Yes Safety Concerns: Feels Safe At This Time Smoking Status: Current every day smoker Tobacco Type: cigarettes ; Age Started Using Tobacco: 13 ; packs per day: 0.75 ; Cigarettes Per Day: 15 ; Do You Dip or Chew Tobacco: No ; Second Hand Exposure: No ; Tobacco Cessation Education Requested by Patient: No Hx Alcohol Use: Yes Alcohol Intake Frequency: Rarely Hx Substance Use: No Childhood Exposure to Second-Hand Smoke: No Dental Care, Regularly: Yes Physical Activity Frequency: 3-4 Times per Week Seatbelt Use: always Sunscreen Use: Yes Physical Exam Physical Exam: GENERAL: Patient in no acute distress. HEENT: Head is atraumatic, normocephalic. EOM's intact. Facies symmetric. No perioral cyanosis. NECK: No JVD. JVP is at the level of the clavicle sitting upright. Carotid upstrokes are + 2 bilaterally. No bruits are noted. CHEST/LUNGS: Diminished breath sounds throughout, otherwise clear. No wheezes, rales, or crackles. CVS: S1 and S2 are regular without murmurs, gallops, or rubs. PMI is nondisplaced. No lifts, heaves, or thrills. No abdominal aortic or renal bruits. ABDOMINAL EXAM: Bowel sounds are present. No masses, organomegaly, or tenderness. EXTREMITIES: No clubbing or cyanosis. No edema. Intact posterior tibial and radial pulses bilaterally. MUSCULOSKELETAL EXAM: Reproducible chest wall tenderness to palpation. NEUROLOGIC EXAM: Patient is awake, alert, and oriented. Pleasant and cooperative. Answers questions appropriately. Speech is clear. Normal movement in all 4 extremities. TELEMETRY: -- NSR today -- no significant pause when patient converted from A-Fib to NSR. -- One asymptomatic 12 beat run of non-sustained V-Tach on 07/13/2019 at 8:03 pm. -- No cardiac pauses. ECHOCARDIOGRAM 07/13/2019: -- Normal biventricular systolic function. -- LVEF 55% to 60%. -- Normal LV size, wall motion, and systolic function. -- Normal biatrial dimensions. -- Mild MR. -- No LVH. -- Normal estimated RVSP. Results & Data ([facility]) Vital Signs (Past 12 Hours) Vital Signs Temp Pulse Pulse Resp BP Pulse Ox 07/14/19 06:38 36.6 C 79 18 131/80 93 07/14/19 05:16 76 22 96 07/14/19 03:37 36.7 C 74 18 111/72 95 07/14/19 00:17 36.6 C 81 18 128/81 95 07/13/19 23:28 78 Laboratory Results Laboratory Results - last 24 hr 07/13/19 07/14/19 07/14/19 12:35 08:33 08:33 WBC 6.22 RBC 3.79 L Hgb 11.3 L Hct 35.0 L MCV 92.3 MCH 29.8 MCHC 32.3 RDW Std Deviation 48.9 H RDW Coeff of Sylwia 14.4 Plt Count 226 MPV 9.3 Sodium 141 Potassium 3.3 L Chloride 111 H Carbon Dioxide 25 Anion Gap 6.0 BUN 10 Creatinine 0.80 Est Cr Clr Drug Dosing 81.3 Est GFR ( Amer) 92.9 Est GFR (Non-Af Amer) 80.1 BUN/Creatinine Ratio 12.5 Glucose 127 H POC Glucose Calcium 8.6 Stool Occult Bld Scrn Negative 07/14/19 09:39 WBC RBC Hgb Hct MCV MCH MCHC RDW Std Deviation RDW Coeff of Sylwia Plt Count MPV Sodium Potassium Chloride Carbon Dioxide Anion Gap BUN Creatinine Est Cr Clr Drug Dosing Est GFR ( Amer) Est GFR (Non-Af Amer) BUN/Creatinine Ratio Glucose POC Glucose 147 H Calcium Stool Occult Bld Scrn Medications Administered Active Medications Generic Name Dose Route Start Last Admin Trade Name Freq PRN Reason Stop Dose Admin Acetaminophen 650 mg 07/13/19 08:00 07/14/19 08:24 Tylenol PO 08/12/19 07:59 650 mg Q4HWA GURPREET Administration Apixaban 5 mg 07/13/19 09:30 07/14/19 08:23 Eliquis PO 08/12/19 09:29 5 mg BID GURPREET Administration Dicyclomine HCl 20 mg 07/12/19 19:45 07/14/19 08:23 Bentyl PO 08/11/19 19:44 20 mg QID GURPREET Administration Fluticasone/Vilanterol 1 puffs 07/13/19 09:00 07/14/19 08:24 Breo Ellipta 200/25 Mcg Inh INH 08/12/19 08:59 1 puffs DAILY GURPREET Administration Lorazepam 0.5 mg 07/12/19 21:02 07/14/19 08:26 Ativan PO 08/11/19 21:01 0.5 mg Q6H PRN Administration Anxiety Metoprolol Tartrate 25 mg 07/13/19 09:30 07/14/19 08:23 Lopressor PO 08/12/19 09:29 25 mg BID GURPREET Administration Ondansetron HCl 4 mg 07/12/19 19:27 Zofran IV 08/11/19 19:26 Q6H PRN Nausea Polyethylene Glycol 17 gm 07/12/19 19:27 Miralax Powder Packet PO 08/11/19 19:26 DAILY PRN Constipation PG Care Time/CCT Total # of Minutes Spent Total Time Spent with Patient: Total time spent is greater than 50% in coordination of care (as documented) at patient's floor/unit and/or counseling patient: Coding Level of Care Code 17461 Inpt Consult Level 4 Diagnoses Paroxysmal atrial fibrillation I48.0 Atrial fibrillation with RVR I48.91 Syncope R55 Hypokalemia E87.6
[2019-07-14] MEDS ORDERED: POTASSIUM CHLORIDE 20 MEQ TABCR PO ONE (14:37)
--- NOTE | 2019-07-14 16:23 | Electrocardiogram Report ---
Test Reason : Blood Pressure : / mmHG Vent. Rate : 076 BPM Atrial Rate : 076 BPM P-R Int : 168 ms QRS Dur : 096 ms QT Int : 418 ms P-R-T Axes : 052 058 072 degrees QTc Int : 470 ms Normal sinus rhythm Normal ECG When compared with ECG of 13-JUL-2019 06:52, Sinus rhythm has replaced Atrial fibrillation Confirmed by Tadeo Steel ([id number]) on 07/14/2019 4:23:35 PM Referred By: REFERRED SELF Confirmed By:Tadeo Steel
[2019-07-15] MEDS: ACETAMINOPHEN 325 MG TAB PO SCH ×3 (08:44→15:22)
[2019-07-15] MEDS: APIXABAN 5 MG TABLET PO SCH (08:44)
[2019-07-15] MEDS: DICYCLOMINE HCL 20 MG TAB PO SCH ×3 (08:44→16:44)
[2019-07-15] MEDS: METOPROLOL TARTRATE 25 MG TAB PO SCH (08:44)
[2019-07-15] MEDS: FLUTICASONE/VILANTEROL 200/25MCG 14 PUFFS/INHALER INH SCH (08:45)
--- NOTE | 2019-07-21 23:38 | Discharge Summary ---
Date of Service July 15, 2019 Admission HPI Per Admitting Provider Sheela Turk is a 58 year old female who presents to the ER with chest pain. Initial episode started yesterday, lasted for around 10-15 minutes, relieved with rest, milder than today. She felt well on getting up this morning. Recurrent episode of chest pain started around 1pm. Started around 15-20 minutes after eating with generalized feeling of illness. Severity 10/10, currently 5.5/10 with ativan given in ER which helped. She notes also having some diarrhea. Generally "not eating right" for the last week. Just not felt like eating. No taste or appetite 2-3 days. Principal Diagnosis a. fib rvr Discharge Exam Constitutional: well developed; + not well nourished and no acute distress Eyes: + anicteric sclerae; normal pupil size ENMT: external ear and nose normal, oropharynx normal Respiratory: normal respiratory effort, lungs clear to auscultation Cardiovascular: Rate/Rhythm: regular rate and + irregularly irregular Heart Sounds: no murmur Vessels: no JVD Extremities: normal capillary refill; no calf tenderness and no pedal edema Gastrointestinal (Abdomen): normal bowel sounds, soft, nontender, no hepatosplenomegaly Skin: no rashes, warm and dry Neurologic: moves all extremities and awake Motor/Sensory: + sensory deficit (Left T1 distribution numbness); no tremor Psychiatric: A+Ox3, euthymic affect Discharge Data Allergies Allergy/AdvReac Type Severity Reaction Status Date / Time morphine Allergy Intermediate HIVES Verified 07/18/19 09:17 lemon Allergy Unknown HIVES Verified 07/18/19 09:17 Penicillins Allergy Unknown HIVES Verified 07/18/19 09:17 Unclassified Drugs Allergy Unknown METAL Uncoded 07/18/19 09:17 MORRO - RASH Consultations 07/12/19 15:42 ED Decision to Admit Stat 07/14/19 09:48 Consult Cardiology Routine Hospital Course (1) Atrial fibrillation with RVR: New onset this admission. TSH WNL Anticoagulation: Switched heparin IV drip to Eliquis 5mg BID Rate control with metoprolol tartrate 25mg BID HR appears well controlled. (2) Chest pain: Mostly chest wall pain. No troponin rise and significant pain therefore not ACS. Appears to be improving today without intervention. (3) Left upper extremity numbness: T1 numbness. Initially felt possibly demand ischemia but given lack of troponin elevation and continued numbness much more likely related to degenerative changes in neck. (4) Syncope: Occurred 07/12/2019 in setting of diltiazem and metoprolol use. Diltiazem drip now discontinued. Patient had another episode of syncpe. Consulted cardio. Echo already completed, was on monitor, however as she fell it appears the monitor was disconnected. This loss of signal was for a few seconds. Doubt that she was in any sort of arrythmia. Will continue to monitor and check orthostatic vitals. will monitor for another 24 hours. D/W cardio, cardio will set up outpatient cardiac monitoring (5) Anxiety: Continue lorazepam 0.5mg PO Q6H PRN during admission. Suggest follow up with PCP after this. (6) BRBPR (bright red blood per rectum): In setting of syncope yesterday and starting anticoagulation. hemoglobin appears stable. Ok to continue on Eliquis currently. Total Time Total Time Spent Total Time Spent (In Minutes): 32 Total Time Includes: Examination of the Patient, Discharge Planning and Medication Reconciliation Discharge Plan Discharge Items Patient Disposition: Home - Self-Care Reason For Visit: [place]. DEON WITH RVR Discharge Diagnosis: Atrial fibrillation with rapid ventricular rate Left sided costochondritis Left T1 radiculopathy Condition on Discharge: Good Activity: Resume your previous activity Non-emergency contact: Primary Care Provider Call non-emergency contact if: you have any medication questions and your symptoms worsen Follow-up/Referrals: Corin Rader MD [Primary Care Provider] - 07/25/19 10:20 am (appt: with Dr Rader) Diet: Heart Healthy Addtl Attending Provider Instructions: You have been hospitalized for an acute medical problem. During your stay at [facility], we have made an effort to correct the problem that brought you to the hospital while keeping you as comfortable as possible. Medications were used to bring your condition under control and your discharge instructions will include directions for any medications you should take after leaving the hospital. Please make sure you see your Primary Care Provider as part of your follow up plan. Check BMP and CBC in 1 week. Pending Studies at Discharge: No Stand-Alone Forms: My [facility] [employer], Work/School Release (Inpt), Smoking Cessation Medications and DC Order Prescriptions: New Eliquis 5 mg Tablet 5 mg PO BID Qty: 60 RF: 0 metoprolol succinate 50 mg tablet extended release 24 hr 50 mg PO QPM Qty: 30 RF: 0 Continued albuterol sulfate [Ventolin HFA] 90 mcg/actuation HFA aerosol inhaler 1 puffs INH Q6H PRN (Reason: Shortness Of Breath) Qty: 18 RF: 3 dicyclomine 20 mg tablet 20 mg PO QID Qty: 120 RF: 2 acetaminophen [Tylenol] 325 mg Tablet 325 - 650 mg PO QID MDD 3,000 mg PRN (Reason: Pain) RF: 0 No Action potassium chloride 20 mEq tablet extended release 20 meq PO BID Qty: 7 RF: 0 Discharge Orders: Discharge Order (Routine); Ordered 07/15/19 Ordered By: Mil Valladares Admission Data Admit Date/Time: 07/12/19 16:09 Attending Provider: Mil Valladares Admit Provider: Calvin Fallon Primary Care Provider: Corin Rader Other Providers: Calvin Fallon ; Tadeo Steel Other Interventions: Discharge Summary Assessment (RN) Last Done: 07/15/19 16:35 DC Date/Time DO NOT enter until pt leaves facility: 07/15/19 17:38 Coding Level of Care Code D/C Day Management >30 mins Diagnoses Atrial fibrillation with RVR I48.91 Chest pain R07.9 Left upper extremity numbness R20.0 Syncope R55 Anxiety F41.9 BRBPR (bright red blood per rectum) K62.5 Time Spent (min) 32
== END 2019-07-15 17:38 | disposition home or self-care (01) | DRG 309 ==
LOC: ED 13:57 → SUATTDRO 16:09 → 2S 16:09

== ENCOUNTER 2021-10-05 14:50 | Inpatient (IN) ==
[2021-10-05 16:28] LABS: Basophils # (auto) 0.06 K/uL (0-0.2); Basophils % (auto) 0.7 %; Eosinophils # (auto) 0.08 K/uL (0-0.50); Hematocrit (blood only) 36.9 % (34.1-44.9); Hemoglobin 11.6 g/dl (12.0-16.0); Immature Granulocytes # (auto) 0.04 K/uL (0.00-0.02); Immature Granulocytes % (auto) 0.5 %; Lymphocytes # (auto) 2.52 K/uL (1.2-3.4); Mean Corpuscular Hemoglobin 28.1 pg (25.0-34.0); Mean Corpuscular Hgb Conc 31.4 g/dL (32.0-36.0); Mean Corpuscular Volume 89.3 fL (80.0-100.0); Mean Platelet Volume 9.1 fL (9.4-12.3); Monocytes % (auto) 11.1 %; Neutrophils # (auto) 4.52 K/uL (1.4-6.5); Neutrophils % (auto) 55.7 %; Platelet Count 369 K/uL (130-400); RDW Coefficient of Variation 16.9 % (11.5-14.5); RDW Standard Deviation 54.6 fL (36.4-46.3); Red Blood Count 4.13 M/uL (3.93-5.22); White Blood Count 8.12 K/ul (4.8-10.8)
[2021-10-05 16:46] LABS: Alanine Aminotransferase 9 U/L (7-52); Albumin Globulin Ratio 1.3 (0.9-2); Albumin Level 4.1 gm/dl (3.4-5.0); Alkaline Phosphatase 115 U/L (34-104); Anion Gap 8 (3-11); Aspartate Aminotransferase 12 U/L (13-39); BUN Creatinine Ratio 15.9 (10-20); Bilirubin,Total 0.2 mg/dl (0.2-1.0); Blood Urea Nitrogen 14 mg/dl (6-23); Calcium 9.3 mg/dl (8.5-10.1); Carbon Dioxide 24 mmol/L (21-32); Chloride 107 mmol/L (98-107); Est GFR (Non-African American) 69.9 ml/min; Globulin 3.1 gm/dl (2.5-4.0); Glucose 109 mg/dl (70-99(Fasting)); Potassium 3.8 mmol/L (3.5-5.1); Sodium 139 mmol/L (136-145); Total Protein 7.2 gm/dl (6.0-8.3)
[2021-10-05] MEDS ORDERED: ONDANSETRON INJ 2 MG/ML 2 ML VIAL IV STA (17:26)
[2021-10-05] MEDS ORDERED: MoRPHine SULFATE 4 MG/ML 1 ML CARP\\VIAL IV STA ×2 (17:26→19:10)
[2021-10-05] MEDS ORDERED: dexAMETHasone**PF** 10 MG/ML VIAL IV ONE (17:26)
--- NOTE | 2021-10-05 18:26 | Emergency Department Note ---
Impression & Plan Lumbar radiculopathy, Central stenosis of spinal canal ED Provider Note CHIEF COMPLAINT: Back pain HISTORY OF PRESENT ILLNESS: Sheela Turk is a 61 year old female with history of chronic right sided lower back pain with RLE radiculopathy s/p spinal fusion from L4-S1, a-fib on Eliquis and bASA, HTN, DLD, among others listed below who presents to the Emergency Department for evaluation of an exacerbation of pain to her right lower back radiating into her right hip/buttock and lateral thigh which has been worsening over the past several days. The patient did recently visit Orthopedic Spine at [facility] and had an MRI of her lumbar spine on 09/28/21 which did show a large posterior disc osteophyte complex at L3-4 with mild- moderate central canal stenosis and a large right lateral disc extrusion which impinges on the exiting right L3 nerve root. After reviewing her MRI, Orthopedic Spine did state that surgical intervention would likely be necessary, however, she has not yet had the surgical consultation with Dr. Schmidt and states that it is not scheduled until next week. The patient had previously been seen in the ED for similar problems last month and was placed on a Medrol dose pack at that time but did not notice much change after taking it. After following up with her PCP, she was also prescribed Oxycodone IR, however, she states that she has not been able to take it as she has continued to work. She has only been taking Tylenol and cyclobenzaprine which she states has not provided any relief. Over the past few days, her pain has subsequently become much worse and she has been having trouble sleeping secondary to this. Currently, she rates her discomfort as a 10/10 which worsens with certain positions. She does note numbness/tingling radiating down her right lateral thigh as well as her bilateral feet. She also notes weakness to her right leg and has to use her hands to help lift it up. She otherwise denies saddle paresthesias or loss of continence of her bowels/bl adder. No pain radiating into her upper back, neck, or upper extremities. No recent fevers/chills, respiratory difficulties, chest pain, abdominal pain, nausea, vomiting, diarrhea or urinary symptoms. REVIEW OF SYSTEMS: 10 systems were reviewed and were negative unless otherwise stated in HPI as above PHYSICAL EXAM: VITALS: Vitals are noted on the nurse's note and reviewed by myself. Hyperte nsive, additional vital signs stable. General: Resting in bed, tearful, appears uncomfortable complaining of back pain HEENT: Normocephalic, PERRL, EOMI, mucous membranes moist, oropharynx clear Neck: No mid-line cervical or paraspinal cervical tenderness, ROM intact without pain Resp: Good inspiratory effort on room air, lung sounds clear bilaterally CV: Regular rate and rhythm, peripheral pulses palpated Back: Tender to palpation over the midline lumbar spine and right paraspinal musculature Abd: Soft, non-distended, non-tender MSK/neuro: Notes tenderness over the right hip and lateral thigh but not reproducible to palpation. Notes numbness/tingling to the right lateral thigh and bilateral feet but sensation intact on exam. Strength 4/5 throughout RLE. No tenderness to palpation over the LLE or BUE, strength remains 5/5 and sensation intact throughout these extremities Neuro: Awake, alert and oriented x 3, interacting and answering questions appropriately Differential diagnosis includes musculoskeletal, disc herniation, fracture, cord compression, discitis, sciatica, cauda equina, as well as other pathologies. EMERGENCY DEPARTMENT COURSE: Physical exam and history were performed. Nursing triage notes, EMR, and medication list were personally reviewed. Patient was noted to be hypertensive, additional vital signs stable. Patient is a 61 year old female with history of chronic right sided lower back pain with RLE radiculopathy s/p spinal fusion from L4-S1, a-fib on Eliquis and bASA, HTN, DLD, among others listed below who presents to the Emergency Department for evaluation of an exacerbation of pain to her right lower back radiating into her right hip/buttock and lateral thigh which has been worsening over the past several days. The patient did recently visit Orthopedic Spine at [facility] and had an MRI of her lumbar spine on 09/28/21 which did show a large posterior disc osteophyte complex at L3-4 with mild-moderate central canal stenosis and a large right lateral disc extrusion which impinges on the exiting right L3 nerve root. After reviewing her MRI, Orthopedic Spine did state that surgical intervention would likely be necessary, however, she has not yet had the surgical consultation with Dr. Schmidt and states that it is not scheduled until next week. Additional history as described above. See physical exam as noted above. The patient was offered pain medication. IV access was established and she was given morphine 4 mg x 2, Decadron 10 mg IV and Zofran 4 mg throughout her emergency department course. Labs were obtained as ordered by triage and reviewed by myself as below. Of note, no concern for leukocytosis with WBC of 8.12. Very mild anemia with hemoglobin 11.6. Electrolytes WNL. Renal indices stable. LFTs nondiagnostic. The patient was reevaluated several times throughout her emergency department course and continued with pain despite given the medications as noted above. She did not feel like she could go home due to her ongoing symptoms. I did contact Dr. Schmidt and discussed her case with him. He did agree to admit the patient to the hospital for further management as necessary. The patient did verbalize her understanding agreement with treatment plan as above The chart was completed utilizing [employer]. Grammatical errors, random word insertions, pronoun errors, and incomplete se ntences are an occasional consequence of this system due to software limitations, ambient noise, and hardware issues. Any formal questions or concerns about the content, text, or information contained within the body of this dictation should be directly addressed to the provider for clarification. Past Med/Surg History Medical History Asthma Depression Dyslipidemia History of COVID-19 02/2020 History of kidney stones HTN (hypertension) Insomnia Nephrolithiasis Obesity Paroxysmal atrial fibrillation on Eliquis, follows with [facility] cardiology Prediabetes Surgical History H/O arthroscopy of right knee History of section x2 History of colonoscopy History of lithotripsy History of lumbar fusion x2--2015/2016 History of tooth extraction full upper denture S/P appendectomy S/P cholecystectomy S/P hysterectomy candy bso [place] teeth removed Family History Sister Afib Family history of diabetes mellitus Pancreatic cancer Heart disease Kidney stones Mother Afib Myocardial infarction Family history of diabetes mellitus Heart disease Father Prostate cancer Grandmother (Maternal) Family history of diabetes mellitus Brother Kidney stones Other No family history of adverse response to anesthesia Denies family history of Ovarian cancer Breast cancer Social History Smoking Status: Current some day smoker Tobacco Type: Cigarettes Age Started Using Tobacco: 16; Age Quit Using Tobacco: 58; packs per day: 0.75; Years Smoked: 42; Cigarettes Per Day: 6 cigs per day or less; Second Hand Exposure: No; Hx Alcohol Use: Yes Alcohol type: wine Hx Substance Use: No Preferred Language: Bulgarian Communication Ability: Effective Visual Impairment: No Limitations Hearing Ability: Normal Lime Supervisor Required: No Beliefs That Will Affect Care: None marital status: Current Living Situation: Alone current occupational status: employed 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 How many Children do You have: 3 Feels Safe at Home: Yes Childhood Exposure to Second-Hand Smoke: No caffeine: Yes during the past year weight has: increased > 10 lbs Dental Care, Regularly: Yes Physical Activity Frequency: 1-2 Times per Week Seatbelt Use: always Sunscreen Use: Yes Assistive Devices: Denture - Upper and Glasses Allergies Allergies Allergy/AdvReac Type Severity Reaction Status Date / Time lemon Allergy Intermediate Hives Verified 10/05/21 17:00 Penicillins Allergy Intermediate Hives Verified 10/05/21 17:00 bupropion [From Wellbutrin] AdvReac Intermediate Gastrointestinal Verified 10/05/21 17:00 Upset surgical syed Allergy Intermediate "infection Uncoded 10/05/21 17:00 at hysterectomy site d/t allergy from syed" Home Meds Home Medications Medication Instructions Recorded Confirmed aspirin 81 mg tablet,delayed 81 mg PO QAM 02/26/20 10/05/21 release multivitamin 1 tab PO QAM 10/28/20 10/05/21 diltiazem HCl 120 mg 120 mg PO HS 02/14/21 10/05/21 capsule,extended release 24 hr ibuprofen 125 mg-acetaminophen 250 1 tab PO Q8H PRN Pain 05/05/21 10/05/21 mg tablet (Advil Dual Action) benzonatate 200 mg capsule 200 mg PO TID PRN Cough 10/05/21 10/05/21 bupropion HCl 150 mg tablet,12 hr 150 mg PO BID 10/05/21 10/05/21 sustained-release cholecalciferol (vitamin D3) 1,250 50,000 unit PO 2XWK 10/05/21 10/05/21 mcg (50,000 unit) capsule Previous Rx's Medication Instructions Recorded albuterol sulfate 90 mcg/actuation 1 puff inhalation Q6H PRN 05/18/20 aerosol inhaler (Ventolin HFA) Shortness Of Breath #18 grams diclofenac sodium 1 % topical gel 2 g topical QID #100 grams 04/18/21 ondansetron HCl 4 mg tablet 4 mg PO Q8H PRN nausea and 04/30/21 vomiting #10 tabs apixaban 5 mg tablet (Eliquis) 5 mg PO BID #180 tabs 06/30/21 cyclobenzaprine 10 mg tablet 10 mg PO HS PRN Muscle Spasm #30 08/08/21 tabs famotidine 40 mg tablet 40 mg PO PM #90 tabs 08/08/21 oxycodone 10 mg tablet 10 mg PO BID PRN pain #30 tabs 09/14/21 dicyclomine 10 mg capsule 10 mg PO QID PRN Gi Upset #90 caps 09/26/21 atorvastatin 80 mg tablet 80 mg PO PM #90 tabs 10/05/21 Results & Data (ED) Vital Signs Vital Signs - 24 hr 10/05/21 14:52 10/05/21 18:38 Temperature 36.8 C Temperature Source Temporal Artery Scan Pulse Rate 97 H Pulse Rate [Right Finger] 71 Respiratory Rate 18 16 Respiratory Effort / Characteristics Non-Labored Spontaneous Respiratory Depth Normal Normal Respiratory Pattern Regular Blood Pressure 133/80 Blood Pressure [Right Arm] 166/84 H Blood Pressure Mean 97 Blood Pressure Mean [Right Arm] 111 Pulse Oximetry 94 94 Oxygen Delivery Method Room Air Room Air Sepsis Recent Fever Within 48 Hours No Sepsis New/Unexplained Change in Mental Status No Sepsis Action Taken by Nursing No Action Required Laboratory Data Result diagrams: 10/05/21 16:01 10/05/21 16:01 Lab Results 10/05/21 10/05/21 10/05/21 Range/Units 16:01 16:01 20:25 WBC 8.12 (4.8-10.8) K/ul RBC 4.13 (3.93-5.22) M/uL Hgb 11.6 L (12.0-16.0) g/dl Hct 36.9 (34.1-44.9) % MCV 89.3 (80.0-100.0) fL MCH 28.1 (25.0-34.0) pg MCHC 31.4 L (32.0-36.0) g/dL RDW Std Deviation 54.6 H (36.4-46.3) fL RDW Coeff of Sylwia 16.9 H (11.5-14.5) % Plt Count 369 (130-400) K/uL MPV 9.1 L (9.4-12.3) fL Immature Gran % (Auto) 0.5 % Neut % (Auto) 55.7 % Lymph % (Auto) 31.0 % [place] % (Auto) 11.1 % Eos % (Auto) 1.0 % Baso % (Auto) 0.7 % Neut # (Auto) 4.52 (1.4-6.5) K/uL Lymph # (Auto) 2.52 (1.2-3.4) K/uL [place] # (Auto) 0.90 H (0.24-0.82) K/uL Eos # (Auto) 0.08 (0-0.50) K/uL Baso # (Auto) 0.06 (0-0.2) K/uL Immature Gran # (Auto) 0.04 H (0.00-0.02) K/uL Sodium 139 (136-145) mmol/L Potassium 3.8 (3.5-5.1) mmol/L Chloride 107 (98-107) mmol/L Carbon Dioxide 24 (21-32) mmol/L Anion Gap 8 (3-11) BUN 14 (6-23) mg/dl Creatinine 0.88 (0.6-1.2) mg/dl Est Cr Clr Drug Dosing Not Reportable Est GFR ( Amer) 81.0 ml/min Est GFR (Non-Af Amer) 69.9 ml/min BUN/Creatinine Ratio 15.9 (10-20) Glucose 109 H (70-99(Fasting)) mg/dl Calcium 9.3 (8.5-10.1) mg/dl Total Bilirubin 0.2 (0.2-1.0) mg/dl AST 12 L (13-39) U/L ALT 9 (7-52) U/L Alkaline Phosphatase 115 H (34-104) U/L Total Protein 7.2 (6.0-8.3) gm/dl Albumin 4.1 (3.4-5.0) gm/dl Globulin 3.1 (2.5-4.0) gm/dl Albumin/Globulin Ratio 1.3 (0.9-2) SARS-CoV-2, RNA, NAAT NEGATIVE (NEGATIVE) Administered Medications Discontinued Medications Dexamethasone Sodium Phosphate (DexamethasonePf 10 Mg/Ml Vial) 10 mg IV NOW ONE Stop: 10/05/21 17:27 Last Admin: 10/05/21 17:37 Dose: 10 mg Documented By: KEITH Morphine Sulfate (Morphine Sulfate 4 Mg/Ml 1 Ml Carp\\Vial) 4 mg IV NOW STA Stop: 10/05/21 17:27 Last Admin: 10/05/21 17:37 Dose: 4 mg Documented By: KEITH Morphine Sulfate (Morphine Sulfate 4 Mg/Ml 1 Ml Carp\\Vial) 4 mg IV NOW STA Stop: 10/05/21 19:11 Last Admin: 10/05/21 19:25 Dose: 4 mg Documented By: MIRANDA Ondansetron HCl (Ondansetron Inj 2 Mg/Ml 2 Ml Vial) 4 mg IV NOW STA Stop: 10/05/21 17:27 Last Admin: 10/05/21 17:37 Dose: 4 mg Documented By: KEITH Discharge Plan Visit Data Chief Complaint: Back Injury/Pain Stated Complaint: LOWER BACK PAIN ED Provider: Savage Harding ED Midlevel Provider: Iram Whitten Discharge Problem: Lumbar radiculopathy, Central stenosis of spinal canal Patient Disposition: Admitted As Inpatient Forms Stand Alone Forms: [facility] Prescriptions Prescriptions: No Action albuterol sulfate [Ventolin HFA] 90 mcg/actuation HFA aerosol inhaler 1 puff INH Q6H PRN (Reason: Shortness Of Breath) Qty: 18 3RF oxycodone 10 mg tablet 10 mg PO BID PRN (Reason: pain) Qty: 30 0RF dicyclomine 10 mg capsule 10 mg PO QID PRN (Reason: Gi Upset) Qty: 90 1RF atorvastatin 80 mg tablet 80 mg PO PM Qty: 90 3RF multivitamin Tablet 1 tab PO QAM Eliquis 5 mg tablet 5 mg PO BID Qty: 180 3RF diclofenac sodium 1 % gel 2 g topical QID Qty: 100 2RF Rx Instructions: apply to single elbow, wrist or hand; for hand includes palm/fingers/back of hand cyclobenzaprine 10 mg tablet 10 mg PO HS PRN (Reason: Muscle Spasm) Qty: 30 1RF famotidine 40 mg tablet 40 mg PO PM Qty: 90 3RF aspirin 81 mg Tablet,Delayed Release (Dr/Ec) 81 mg PO QAM diltiazem HCl 120 mg capsule,extended release 24hr 120 mg PO HS Advil Dual Action 125-250 mg Tablet 1 tab PO Q8H PRN (Reason: Pain) bupropion HCl 150 mg tablet sustained-release 12 hr 150 mg PO BID benzonatate 200 mg capsule 200 mg PO TID PRN (Reason: Cough) cholecalciferol (vitamin D3) 1,250 mcg (50,000 unit) capsule 50,000 unit PO 2XWK Rx Instructions: 50,000 unit PO twice weekly; ondansetron HCl 4 mg tablet 4 mg PO Q8H PRN (Reason: nausea and vomiting) Qty: 10 0RF Referrals Referrals: Corin Rader MD [Primary Care Provider] -
[2021-10-05] MEDS ORDERED: HYDROmorphone INJ 1 MG/ML SYRINGE ONE (22:03)
[2021-10-05] MEDS ORDERED: PROMETHAZINE HCL 12.5 MG in SODIUM CHLORIDE 0.9% 50 ML IV PRN (22:47)
[2021-10-05] MEDS ORDERED: ONDANSETRON 4 MG OD TAB PO PRN (22:47)
[2021-10-05] MEDS ORDERED: ACETAMINOPHEN 500 MG TAB PO PRN (22:47)
[2021-10-05] MEDS ORDERED: NALOXONE HCL 0.4 MG/1 ML VIAL/CARP IV PRN (22:47)
[2021-10-05] MEDS ORDERED: DICYCLOMINE HCL 10 MG CAP PO PRN (22:47)
[2021-10-05] MEDS ORDERED: METOCLOPRAMIDE HCL INJ 5 MG/ML 2 ML VIAL IV PRN (22:47)
[2021-10-05] MEDS ORDERED: ONDANSETRON INJ 2 MG/ML 2 ML VIAL IV PRN (22:47)
[2021-10-05] MEDS ORDERED: MAGNESIUM HYDROXIDE SUSP 30 ML UDC PO PRN (22:47)
[2021-10-05] MEDS ORDERED: BENZONATATE 100 MG CAPSULE PO PRN (22:47)
[2021-10-05] MEDS ORDERED: LORazepam 0.5 MG TAB PO PRN (22:47)
[2021-10-05] MEDS ORDERED: traMADol HCL 50 MG TABLET PO PRN (22:47)
[2021-10-05] MEDS ORDERED: ACETAMINOPHEN 1,000 MG/100 ML VIAL IV PRN (22:47)
[2021-10-05] MEDS ORDERED: HYDROmorphone INJ 0.5 MG/0.5 ML SYR IV PRN (22:47)
[2021-10-06] MEDS: HYDROmorphone INJ 1 MG/ML SYRINGE IV PRN ×6 (00:49→23:24)
[2021-10-06] MEDS: ATORVASTATIN 40 MG TAB PO SCH ×2 (00:50→20:24)
[2021-10-06] MEDS: LACTATED RINGER'S 1,000 ML IV SCH ×2 (00:50→13:08)
[2021-10-06] MEDS: dilTIAZem HCL 120 MG CAPCR PO SCH ×2 (00:51→20:24)
[2021-10-06] MEDS: buPROPion SR 150 MG TABCR PO SCH ×3 (00:51→20:24)
[2021-10-06] MEDS: FAMOTIDINE 40 MG TABLET PO SCH ×2 (00:51→20:25)
[2021-10-06] MEDS: DOCUSATE SODIUM/SENNA 50/8.6MG TAB PO SCH ×2 (00:51→20:29)
[2021-10-06] MEDS: oxyCODONE HCL IR 5 MG TAB (IMMEDIATE RELEASE) PO PRN ×2 (03:10→17:41)
--- NOTE | 2021-10-06 08:58 | Hospitalist Consultation ---
Date of Consultation October 06, 2021 Assessment & Plan (1) Lumbar radiculopathy: Attending: Dr. Chino Impression: 61-year-old female with history of central canal stenosis of the lower back. Status post lumbar fusion discectomy with Dr. Schmidt in the past. She presents with severe pain which has been ongoing. She was started on narcotics as well as cyclobenzaprine by outpatient providers and most recently had CT scan, x-rays, MRI of the back showing acute changes. Dr. Schmidt is admitting the patient for probable surgical intervention. The medicine team was consulted for medical management. (2) Central stenosis of spinal canal: Status post lumbar fusion with Dr. Schmidt in the past Recent MRI with herniation of the disc. Anticipate surgical intervention tomorrow Last dose of apixaban was yesterday morning. Hold while inpatient until surgery Neurochecks per protocol Fall precaution should be implemented Further management per Dr. Schmidt (3) Prediabetes: Hemoglobin A1c was obtained 08/09/2021 and was 5.8% Patient is currently not on any insulin or diabetic medications orally. Random glucose is 109 on admission Will follow BSG's secondary to steroid use and acute stress secondary to pain while inpatient. Patient to go to the OR tomorrow. We will start diabetic carb consistent diet today No indication for sliding scale insulin at this time. We will follow BSG's and implement as needed Continue with outpatient management (4) Dyslipidemia: Continue atorvastatin 80 mg p.o. daily Outpatient management (5) Depression: Exacerbated by chronic back pain Continue Wellbutrin 150 mg p.o. twice daily Continue with pain control with narcotics and analgesics as prescribed by orthopedics and primary care PDMP is reviewed and there is no evidence of chronic narcotic or benzodiazepine use. Patient does appear to take Advil on a regular basis at home for pain. We will continue with famotidine and alternate with Tylenol to reduce chance of gastritis (6) Anxiety: It does not appear the she has any benzodiazepines prescribed per the [place] drug management program. Patient may benefit from low-dose lorazepam to help with anxiety and pain as w ell as possible nausea while inpatient but would defer outpatient prescriptions to PCP for monitoring (7) Paroxysmal atrial fibrillation: Patient anticoagulated with apixaban 5 mg p.o. twice daily Last dose was the morning of 10/05/2021. Continue to hold as patient is most likely going to have surgery tomorrow Patient currently is in normal sinus rhythm and is rate controlled. No indication for heparin drip or other anticoagulation at this time Was an EKG is from February 14, 2021. Inasmuch as patient most likely will require surgical intervention per outpatient notes from orthopedics, will obtain EKG this morning check QTC Outpatient medications include Diltiazem 120 mg PO HS Patient is currently rate controlled with a pulse of 80 bpm. (8) Vitamin D deficiency: Continue cholecalciferol 50,000 units p.o. 2 times weekly as an outpatient. Okay to hold while inpatient (9) PAD (peripheral artery disease): Anticoagulated with apixaban as well as aspirin 81 mg p.o. daily as an antiplatelet agent Monitoring of pedal pulses qshift (10) HTN (hypertension): Continue home dose of diltiazem Currently she is hemodynamically stable. Her current blood pressure is 110/64 (11) Nephrolithiasis: Previously followed with urology. History of stent placement with lithotripsy in April 2021 Followed up with urology in May 2021 for cystoscopy and stent removal Patient has had no other outpatient visits or follow-ups required since that time. (12) Tobacco use: [id number] smoking history Patient continues to smoke about 1/2 pack/day Discussed need for complete tobacco abstention due to comorbidities as well as risk of poor tissue healing No prior pulmonary function testing Will order albuterol HFA as needed shortness of breath or wheezes Patient does not feel the need for nicotine patch at this time Continue to encourage complete abstention of tobacco products. Smoking cessation education ordered (13) DVT prophylaxis: Patient is chronically anticoagulated with apixaban 5 mg p.o. twice daily as well as taking baby aspirin for peripheral arterial disease At this time will defer on chemical prophylaxis secondary to probable surgical intervention Will order JEFF hose and SCDs Ambulate per orders of orthopedics Supervising Physician Co-Signing Physician Notes PA Supervision Note: I personally saw and examined the patient. I verified all mirza points and agree with MARYELLEN Pizano with the following exceptions and/or additions: S-Pt here with intractable pain from lumbar radiculopathy Denies CP, SOB, abd pain. Last dose Eliquis AM of 10/05 Plans for OR with Dr. Schmidt for lumbar surgery tomorrow History and ROS reviewed as above O- Vitals reviewed Gen: [AAOx3, NAD] HEENT: [anicteric sclerae, EOMI] CV: [RRR no mgr nl S1S2] Pulm: [CTAB no wcr] Abd: [+BS soft NT ND no masses or hernias] Ext: [no edema] Skin: [no rashes, warm/dry] Labs, Rads, and ECG reviewed A/P-61 yo female here with lumbar radiculopathy, HNP, needs surgery Medically optimized for this intermediate risk surgery and should proceed as planned control DM with insulin while steroids on board Recommend smoking cessation after discharge History of Present Illness Reason for Consultation: Medical management Requesting Physician: Dr. Schmidt Attending Physician: Feliciano Schmidt DO History of Present Illness Attending: Dr. Chino This is a 61-year-old female that was admitted yesterday for lumbar pain. She has a past medical history status post spinal fusion of L4-S1 in the past. She also has a history of atrial fibrillation on anticoagulation with Eliquis as well as aspirin, hypertension, degenerative disc disease, dyslipidemia, vitamin D deficiency, peripheral arterial disease with decreased pedal pulses, nephrolithiasis. Patient was seen in the emergency department 08/29/2021 for right lower back pain. A CT scan of the lumbar spine was obtained at that time and showed minimal degenerative change and posterior fixation of hardware spanning L4-S1. There were no issues or concerns for acute abnormalities at that time. Patient was then referred to Dr. Schmidt as an outpatient. She was given acute narcotics in the emergency department but was not sent home with any other additional medications. She was however sent home with a Medrol Dosepak starting 08/30/2021. The patient was then seen by Dr. Schmidt in the outpatient clinic on 09/16/2021. X-ray of the lumbar spine 3 view was obtained and shows stable L4-S1 fusion with adjacent disc disease at L3-L4. There is mild retrolisthesis and interbody displacement at L4-L5. MRI of her lumbar spine on 09/28/21 revealed a large posterior disc osteophyte complex at L3-4 with mild-moderate central canal stenosis and a large right lateral disc extrusion which impinges on the exiting right L3 nerve root. After reviewing her MRI, Orthopedic Spine did state that surgical intervention would likely be necessary. Patient is scheduled see Dr. Schmidt next week. Patient had post ER visit on 09/01/[address] Wayne Cifuentes in [place]. At that point the patient was continued on Medrol Dosepak and prescribed oxycodone ER 10 mg twice daily. Due to her chronic issues and surgical history he did not feel it was appropriate to refer to physical therapy at that time. [facility] paperwork was completed for [address] Cifuentes at that time. Due to increased pain and ambulatory dysfunction, patient was referred for admission and evaluation by Dr. Schmidt. Patient also has a history of nephrolithiasis. Patient had previous procedure done in April 2021 with Cystoscopy, Ureteronephroscopy, Retrograde Pyelogram, Laser Lithotripsy, basket extraction of stone, Insertion of Stent Catheter Left. She was seen in follow-up 05/14/2021 for cystoscopy and removal of stent. Her most recent urology visit was 05/30/2021. She has been stable since that time. Patient states her back pain is significant better with pain medication. W ithout the pain medication she has severe pain and cannot ambulate or even roll in bed. She states when she gets her pain medication on time that she can function. Patient did have to ambulate to the bathroom while I was there for her evaluation. She had difficulty standing but did use a rolling walker with kyphotic positioning to get into the bathroom. She is able to participate with the examination as well as interview. She reports that she was seen by Dr. Schmidt this morning and he will plan on taking her to the OR tomorrow. Patient reports that she is a current everyday smoker. She has approximately 40 pack years history. She currently does not desire nicotine patch. She denies any COPD, asthma, other pulmonary disease. Patient currently denies fever, chills, sweats, rigors. No shortness of breath. She does report occasional wheezes at home but no dyspnea. She has no chest pain or tightness. She has radiculopathy in the legs but no claudication and she denies any calf tenderness or pain. She has no asymmetrical edema of the lower extremities. She has no other acute complaints at this time. Allergies Allergy/AdvReac Type Severity Reaction Status Date / Time lemon Allergy Intermediate Hives Verified 10/05/21 17:00 Penicillins Allergy Intermediate Hives Verified 10/05/21 17:00 bupropion [From Wellbutrin] AdvReac Intermediate Gastrointestinal Verified 10/05/21 17:00 Upset surgical syed Allergy Intermediate "infection Uncoded 10/05/21 17:00 at hysterectomy site d/t allergy from syed" Home Medications Medication Instructions Recorded Confirmed Type aspirin 81 mg tablet,delayed 81 mg PO QAM 02/26/20 10/05/21 History release albuterol sulfate 90 mcg/actuation 1 puff inhalation Q6H PRN 05/18/20 10/05/21 Rx aerosol inhaler (Ventolin HFA) Shortness Of Breath #18 grams multivitamin 1 tab PO QAM 10/28/20 10/05/21 History diltiazem HCl 120 mg 120 mg PO HS 02/14/21 10/05/21 History capsule,extended release 24 hr diclofenac sodium 1 % topical gel 2 g topical QID #100 grams 04/18/21 10/05/21 Rx ondansetron HCl 4 mg tablet 4 mg PO Q8H PRN nausea and 04/30/21 10/05/21 Rx vomiting #10 tabs ibuprofen 125 mg-acetaminophen 250 1 tab PO Q8H PRN Pain 05/05/21 10/05/21 History mg tablet (Advil Dual Action) apixaban 5 mg tablet (Eliquis) 5 mg PO BID #180 tabs 06/30/21 10/05/21 Rx cyclobenzaprine 10 mg tablet 10 mg PO HS PRN Muscle Spasm #30 08/08/21 10/05/21 Rx tabs famotidine 40 mg tablet 40 mg PO PM #90 tabs 08/08/21 10/05/21 Rx oxycodone 10 mg tablet 10 mg PO BID PRN pain #30 tabs 09/14/21 10/05/21 Rx dicyclomine 10 mg capsule 10 mg PO QID PRN Gi Upset #90 caps 09/26/21 10/05/21 Rx atorvastatin 80 mg tablet 80 mg PO PM #90 tabs 10/05/21 10/05/21 Rx benzonatate 200 mg capsule 200 mg PO TID PRN Cough 10/05/21 10/05/21 History bupropion HCl 150 mg tablet,12 hr 150 mg PO BID 10/05/21 10/05/21 History sustained-release cholecalciferol (vitamin D3) 1,250 50,000 unit PO 2XWK 10/05/21 10/05/21 History mcg (50,000 unit) capsule Patient History Medical History Asthma Depression Dyslipidemia History of COVID-19 02/2020 History of kidney stones HTN (hypertension) Insomnia Nephrolithiasis Obesity Paroxysmal atrial fibrillation on Eliquis, follows with [facility] cardiology Prediabetes Tobacco use Surgical History H/O arthroscopy of right knee History of section x2 History of colonoscopy History of lithotripsy History of lumbar fusion x2-- History of tooth extraction full upper denture S/P appendectomy S/P cholecystectomy S/P hysterectomy candy bso [place] teeth removed Family History Sister Afib Family history of diabetes mellitus Pancreatic cancer Heart disease Kidney stones Mother Afib Myocardial infarction Family history of diabetes mellitus Heart disease Father Prostate cancer Grandmother (Maternal) Family history of diabetes mellitus Brother Kidney stones Other No family history of adverse response to anesthesia Denies family history of Ovarian cancer Breast cancer Social History Smoking Status: Current every day smoker Tobacco Type: Cigarettes Age Started Using Tobacco: 16; Age Quit Using Tobacco: 58; packs per day: 0.75; Years Smoked: 42; Cigarettes Per Day: 10; Second Hand Exposure: No; Do You Dip or Chew Tobacco: No; Hx Alcohol Use: Yes Alcohol type: wine Hx Substance Use: No Preferred Language: Kazakh Communication Ability: Effective Visual Impairment: No Limitations Hearing Ability: Normal Geospatial Intelligence Analyst Required: No Beliefs That Will Affect Care: None marital status: Current Living Situation: Alone current occupational status: employed 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 Patient does appear to have acute distress with ambulation or moving about in the bed. EYES: No icterus, gaze conjugate. Pupils are equal and round NOSE: No evidence of epistaxis MOUTH: No lesions or candidiasis. Tongue is midline NECK: Supple. No carotid bruits or lymphadenopathy appreciated LUNGS: CTA B/L, no wheezes, rales or rhonchi HEART: Regular, rate controlled. No ectopy. Patient appears to be in normal sinus rhythm at the time of my examination. ABDOMEN: Soft, NT, ND, BS Present EXTREMITIES: No asymmetrical LE edema, pedal pulses intact and equal bilaterally. No calf tenderness. Sensation is equal and appropriate bilateral lower extremities. NEURO: A&OX3. Patient able to move all 4 extremities spontaneously and to command. Results & Data Results & Data ([facility]) Vital Signs (Past 12 Hours) Vital Signs Temp Pulse Pulse Resp BP Pulse Ox O2 Del Method 10/06/21 07:06 36.7 C 80 16 110/64 93 Room Air 10/06/21 05:31 Room Air 10/06/21 05:20 36.6 C 74 16 172/92 H 91 Room Air 10/05/21 22:35 36.8 C 91 H 16 146/84 H 92 Room Air Critical Care Results & Data Vital Signs (Past 12 Hours) Vital Signs Temp Pulse Pulse Resp BP Pulse Ox O2 Del Method 10/06/21 07:06 36.7 C 80 16 110/64 93 Room Air 10/06/21 05:31 Room Air 10/06/21 05:20 36.6 C 74 16 172/92 H 91 Room Air 10/05/21 22:35 36.8 C 91 H 16 146/84 H 92 Room Air Lab & Micro Results (Past 24 Hours) RBC 4.13 M/uL (3.93-5.22) 10/05/21 WBC 8.12 K/ul (4.8-10.8) 10/05/21 Hgb 11.6 g/dl (12.0-16.0) L 10/05/21 Hct 36.9 % (34.1-44.9) 10/05/21 MCV 89.3 fL (80.0-100.0) 10/05/21 MCH 28.1 pg (25.0-34.0) 10/05/21 MCHC 31.4 g/dL (32.0-36.0) L 10/05/21 RDW Standard Deviation 54.6 fL (36.4-46.3) H 10/05/21 RDW Coefficient of Variation 16.9 % (11.5-14.5) H 10/05/21 Plt Count 369 K/uL (130-400) 10/05/21 MPV 9.1 fL (9.4-12.3) L 10/05/21 Neutrophils (%) (Auto) 55.7 % 10/05/21 Lymphocytes (%) (Auto) 31.0 % 10/05/21 Monocytes # (Auto) 0.90 K/uL (0.24-0.82) H 10/05/21 Eosinophils # (Auto) 0.08 K/uL (0-0.50) 10/05/21 Immature Granulocyte % (Auto) 0.5 % 10/05/21 Neutrophils # (Auto) 4.52 K/uL (1.4-6.5) 10/05/21 Lymphocytes # (Auto) 2.52 K/uL (1.2-3.4) 10/05/21 Monocytes # (Auto) 0.90 K/uL (0.24-0.82) H 10/05/21 Eosinophils # (Auto) 0.08 K/uL (0-0.50) 10/05/21 Basophils # (Auto) 0.06 K/uL (0-0.2) 10/05/21 Immature Granulocyte # (Auto) 0.04 K/uL (0.00-0.02) H 10/05 Na 139 mmol/L (136-145) 10/05/21 K 3.8 mmol/L (3.5-5.1) 10/05/21 Cl 107 mmol/L (98-107) 10/05/21 CO2 24 mmol/L (21-32) 10/05/21 Anion Gap 8 (3-11) 10/05/21 BUN 14 mg/dl (6-23) 10/05/21 Creatinine 0.88 mg/dl (0.6-1.2) 10/05/21 Estimated GFR ( Amer) 81.0 ml/min 10/05/21 Estimated GFR (Non-Af Amer) 69.9 ml/min 10/05/21 BUN/Creatinine Ratio 15.9 (10-20) 10/05/21 Glu 109 mg/dl (70-99(Fasting)) H 10/05/21 Ca 9.3 mg/dl (8.5-10.1) 10/05/21 Total Bilirubin 0.2 mg/dl (0.2-1.0) 10/05/21 AST 12 U/L (13-39) L 10/05/21 ALT 9 U/L (7-52) 10/05/21 Alkaline Phosphatase 115 U/L (34-104) H 10/05/21 TP 7.2 gm/dl (6.0-8.3) 10/05/21 Albumin 4.1 gm/dl (3.4-5.0) 10/05/21 Globulin 3.1 gm/dl (2.5-4.0) 10/05/21 Albumin/Globulin Ratio 1.3 (0.9-2) 10/05/21 Calcium Level 9.3 mg/dl (8.5-10.1) 10/05/21 16:01 RT Ventilator Mngmt (Last Documented) Ventilator Ordered Settings Respiratory Rate 16 10/06/21 07:06 Ventilator - PT Measurements Respiratory Rate 16 PG Care Time/CCT Total # of Minutes Spent Total Time Spent with Patient: Total time spent is greater than 50% in coordination of care (as documented) at patient's floor/unit and/or counseling patient: 60 Coding Level of Care Code 75214 Inpt Consult Level 5 Diagnoses Lumbar radiculopathy M54.16 Central stenosis of spinal canal M48.00 Prediabetes R73.03 Dyslipidemia E78.5 Depression F32.9 Anxiety F41.9 Paroxysmal atrial fibrillation I48.0 Vitamin D deficiency E55.9 PAD (peripheral artery disease) I73.9 HTN (hypertension) I10 Nephrolithiasis N20.0 Tobacco use Z72.0 DVT prophylaxis Z29.9 Time Spent (min) 60
[2021-10-06] MEDS: ASPIRIN 81 MG ECTAB PO SCH (10:00)
--- NOTE | 2021-10-06 10:28 | History & Physical Report ---
Date of Service October 06, 2021 Assessment & Plan (1) Lumbar radiculopathy: Plan: MRI lumbar spine does demonstrate adjacent level spinal stenosis with disc osteophyte complex creating subarticular foraminal stenosis and gross neural compression bilaterally. In light of her findings and clinical presentation with steady decline in function I am recommending a lumbar decompression and fusion L3-L4 with removal instrumentation L4-S1 urgently. She would be at risk for permanent neurologic deficit. Risk benefits pros cons and alternatives were outlined in detail. Risk include but not limited to anesthesia blindness stroke paralysis nerve damage bilateral prior transfusion infection requiring reoperation. Passively marked improvement of her neurogenic claudication and radiculopathy and hopefully up and ambulating as soon as possible. At this time we will make her n.p.o. after midnight we will plan for surgery tomorrow. Admission and Anticipated Discharge Date Admission Date: October 05, 2021 History of Present Illness Chief Complaint: Back and right leg pain Primary Care Provider: Corin Rader MD This is a 61-year-old female who presents emergency room with consistent decline in function. She has pain rating into the right buttock lateral thigh extending to her foot. It is markedly exacerbated with standing and walking. Is become increasingly limiting in nature. She is undergone extensive course of nonoperative care without improvement. She does have a history of undergoing an L4-L5 L5-S1 fusion approximately [address] Brantley and had been doing well for many years. She denies any precipitating trauma fall or event. 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 The left lower extremity is asymptomatic. Allergies Allergy/AdvReac Type Severity Reaction Status Date / Time lemon Allergy Intermediate Hives Verified 10/05/21 17:00 Penicillins Allergy Intermediate Hives Verified 10/05/21 17:00 bupropion [From Wellbutrin] AdvReac Intermediate Gastrointestinal Verified 10/05/21 17:00 Upset surgical syed Allergy Intermediate "infection Uncoded 10/05/21 17:00 at hysterectomy site d/t allergy from syed" Home Medications Medication Instructions Recorded Confirmed Type aspirin 81 mg tablet,delayed 81 mg PO QAM 02/26/20 10/05/21 History release albuterol sulfate 90 mcg/actuation 1 puff inhalation Q6H PRN 05/18/20 10/05/21 Rx aerosol inhaler (Ventolin HFA) Shortness Of Breath #18 grams multivitamin 1 tab PO QAM 10/28/20 10/05/21 History diltiazem HCl 120 mg 120 mg PO HS 02/14/21 10/05/21 History capsule,extended release 24 hr diclofenac sodium 1 % topical gel 2 g topical QID #100 grams 04/18/21 10/05/21 Rx ondansetron HCl 4 mg tablet 4 mg PO Q8H PRN nausea and 04/30/21 10/05/21 Rx vomiting #10 tabs ibuprofen 125 mg-acetaminophen 250 1 tab PO Q8H PRN Pain 05/05/21 10/05/21 History mg tablet (Advil Dual Action) apixaban 5 mg tablet (Eliquis) 5 mg PO BID #180 tabs 06/30/21 10/05/21 Rx cyclobenzaprine 10 mg tablet 10 mg PO HS PRN Muscle Spasm #30 08/08/21 10/05/21 Rx tabs famotidine 40 mg tablet 40 mg PO PM #90 tabs 08/08/21 10/05/21 Rx oxycodone 10 mg tablet 10 mg PO BID PRN pain #30 tabs 09/14/21 10/05/21 Rx dicyclomine 10 mg capsule 10 mg PO QID PRN Gi Upset #90 caps 09/26/21 10/05/21 Rx atorvastatin 80 mg tablet 80 mg PO PM #90 tabs 10/05/21 10/05/21 Rx benzonatate 200 mg capsule 200 mg PO TID PRN Cough 10/05/21 10/05/21 History bupropion HCl 150 mg tablet,12 hr 150 mg PO BID 10/05/21 10/05/21 History sustained-release cholecalciferol (vitamin D3) 1,250 50,000 unit PO 2XWK 10/05/21 10/05/21 History mcg (50,000 unit) capsule Past Med/Surg History Medical History Asthma Depression Dyslipidemia History of COVID-19 02/2020 History of kidney stones HTN (hypertension) Insomnia Nephrolithiasis Obesity Paroxysmal atrial fibrillation on Eliquis, follows with [facility] cardiology Prediabetes Surgical History H/O arthroscopy of right knee History of section x2 History of colonoscopy History of lithotripsy History of lumbar fusion x2--2016/2016 History of tooth extraction full upper denture S/P appendectomy S/P cholecystectomy S/P hysterectomy candy bso [place] teeth removed Family History Sister Afib Family history of diabetes mellitus Pancreatic cancer Heart disease Kidney stones Mother Afib Myocardial infarction Family history of diabetes mellitus Heart disease Father Prostate cancer Grandmother (Maternal) Family history of diabetes mellitus Brother Kidney stones Other No family history of adverse response to anesthesia Denies family history of Ovarian cancer Breast cancer Social History Smoking Status: Current every day smoker Tobacco Type: Cigarettes Age Started Using Tobacco: 16; Age Quit Using Tobacco: 58; packs per day: 0.75; Years Smoked: 42; Cigarettes Per Day: 10; Second Hand Exposure: No; Do You Dip or Chew Tobacco: No; Hx Alcohol Use: Yes Alcohol type: wine Hx Substance Use: No Preferred Language: Wolof Communication Ability: Effective Visual Impairment: No Limitations Hearing Ability: Normal Marine Engineer Required: No Beliefs That Will Affect Care: None marital status: Current Living Situation: Alone current occupational status: employed 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 She exhibits a negative logroll bilaterally. She is +5 or 5 plantar flexion dorsiflexion bilaterally. Quadriceps is a 4/5 on the right compared to 5 or 5 on the left. Sensory is markedly diminished to the right lower extremity compared to the left. Deep tendon reflexes diminished. Results & Data Results & Data ([facility]) Vital Signs (Past 12 Hours) Vital Signs Temp Pulse Pulse Resp BP Pulse Ox O2 Del Method 10/06/21 07:06 36.7 C 80 16 110/64 93 Room Air 10/06/21 05:31 Room Air 10/06/21 05:20 36.6 C 74 16 172/92 H 91 Room Air 10/05/21 22:35 36.8 C 91 H 16 146/84 H 92 Room Air Code Status & VTE Plan VTE Prophylaxis Plan VTE Prophylaxis will be ordered: Yes
[2021-10-06] MEDS ORDERED: ALBUTEROL HFA 8 GM INHALER INH PRN (11:38)
--- NOTE | 2021-10-06 15:22 | Electrocardiogram Report ---
Test Reason : Blood Pressure : / mmHG Vent. Rate : 063 BPM Atrial Rate : 063 BPM P-R Int : 238 ms QRS Dur : 088 ms QT Int : 424 ms P-R-T Axes : 052 023 060 degrees QTc Int : 433 ms Sinus rhythm with 1st degree A-V block Poor R wave progression, consider anterior [place] vs. lead placement vs. LVH Abnormal ECG When compared with ECG of 14-FEB-2021 20:36, [place] interval has increased Vent. rate has decreased BY 31 BPM Confirmed by Clayton Wu ([id number]) on 10/06/2021 3:21:51 PM Referred By: REFERRED SELF Confirmed By:Clayton Wu
--- NOTE | 2021-10-06 17:21 | Anesthesiology Consultation ---
Date of Service October 06, 2021 Assessment & Plan (1) Encounter for pre-operative examination: Chart Review Chart Review: Acceptable Risk for Surgery and Patient NOT seen in Pre Admission Testing Patient tolerated general anesthesia on 05/12/23. Consults Requested none History Surgery Operation Date: 10/07/21 12:50 Proposed Procedures p L3-L4 Decompression and Fusion, L4-S1 Hardware Removal, Spinal Cord Monitoring - Feliciano Schmidt, Height/Weight Height: 5 ft 4 in Weight: 95.9 kg Allergies Allergy/AdvReac Type Severity Reaction Status Date / Time lemon Allergy Intermediate Hives Verified 10/05/21 17:00 Penicillins Allergy Intermediate Hives Verified 10/05/21 17:00 bupropion [From Wellbutrin] AdvReac Intermediate Gastrointestinal Verified 10/05/21 17:00 Upset surgical syed Allergy Intermediate "infection Uncoded 10/05/21 17:00 at hysterectomy site d/t allergy from syed" Medications Home Medications Medication Instructions Recorded Confirmed Last Taken aspirin 81 mg tablet,delayed 81 mg PO QAM 02/26/20 10/05/21 05/11/21 06:30 release albuterol sulfate 90 mcg/actuation 1 puff inhalation Q6H PRN 05/18/20 10/05/21 Unknown aerosol inhaler (Ventolin HFA) Shortness Of Breath #18 grams multivitamin 1 tab PO QAM 10/28/20 10/05/21 05/10/21 08:30 diltiazem HCl 120 mg 120 mg PO HS 02/14/21 10/05/21 05/10/21 20:30 capsule,extended release 24 hr diclofenac sodium 1 % topical gel 2 g topical QID #100 grams 04/18/21 10/05/21 05/04/21 23:30 ondansetron HCl 4 mg tablet 4 mg PO Q8H PRN nausea and 04/30/21 10/05/21 Unknown vomiting #10 tabs ibuprofen 125 mg-acetaminophen 250 1 tab PO Q8H PRN Pain 05/05/21 10/05/21 05/10/21 20:30 mg tablet (Advil Dual Action) apixaban 5 mg tablet (Eliquis) 5 mg PO BID #180 tabs 06/30/21 10/05/21 Unknown cyclobenzaprine 10 mg tablet 10 mg PO HS PRN Muscle Spasm #30 08/08/21 10/05/21 Unknown tabs famotidine 40 mg tablet 40 mg PO PM #90 tabs 08/08/21 10/05/21 Unknown oxycodone 10 mg tablet 10 mg PO BID PRN pain #30 tabs 09/14/21 10/05/21 Unknown dicyclomine 10 mg capsule 10 mg PO QID PRN Gi Upset #90 caps 09/26/21 10/05/21 Unknown atorvastatin 80 mg tablet 80 mg PO PM #90 tabs 10/05/21 10/05/21 Unknown benzonatate 200 mg capsule 200 mg PO TID PRN Cough 10/05/21 10/05/21 Unknown bupropion HCl 150 mg tablet,12 hr 150 mg PO BID 10/05/21 10/05/21 Unknown sustained-release cholecalciferol (vitamin D3) 1,250 50,000 unit PO 2XWK 10/05/21 10/05/21 Unknown mcg (50,000 unit) capsule Active Medications Generic Name Dose Route Start Last Admin Trade Name Freq PRN Reason Stop Dose Admin Aspirin 81 mg 10/06/21 09:00 10/06/21 10:00 Aspirin 81 Mg Ectab PO 11/05/21 08:59 81 mg QAM GURPREET Administration Atorvastatin Calcium 80 mg 10/05/21 22:47 10/06/21 00:50 Atorvastatin 40 Mg Tab PO 11/04/21 22:46 80 mg PM GURPREET Administration Bupropion HCl 150 mg 10/05/21 22:47 10/06/21 10:00 Bupropion Sr 150 Mg Tabcr PO 11/04/21 22:46 150 mg BID GURPREET Administration Diltiazem HCl 120 mg 10/05/21 22:47 10/06/21 00:51 Diltiazem Hcl 120 Mg Capcr PO 11/04/21 22:46 120 mg HS GURPREET Administration Famotidine 40 mg 10/05/21 22:47 10/06/21 00:51 Famotidine 40 Mg Tablet PO 11/04/21 22:46 40 mg PM GURPREET Administration Hydromorphone HCl 1 mg 10/05/21 22:47 10/06/21 13:11 Hydromorphone Inj 1 Mg/Ml Syringe IV 10/19/21 22:46 1 mg Q3H PRN Administration severe pain (scale 7-10) Lactated Ringer's 1,000 mls @ 75 mls/hr 10/05/21 22:47 10/06/21 13:08 Lr IV 11/04/21 22:46 Infused .[id number] GURPREET Infusion Oxycodone HCl 5 - 10 mg 10/05/21 22:47 10/06/21 03:10 Oxycodone Hcl Ir 5 Mg Tab (Immediate Release) PO 10/19/21 22:46 10 mg Q4H PRN Administration mod to severe pain Senna/Docusate Sodium 2 tab 10/05/21 22:47 10/06/21 00:51 Docusate Sodium/Senna 50/8.6mg Tab PO 11/04/21 22:46 Not Given HS GURPREET NPO Date Last Intake of Fluids: 10/05/21 Time Last Intake of Fluids: 23:59 Date Last Intake of Solids: 10/05/21 Time Last Intake of Solids: 23:59 Past Medical History Medical History Asthma Depression Dyslipidemia History of COVID-19 02/2020 History of kidney stones HTN (hypertension) Insomnia Nephrolithiasis Obesity Paroxysmal atrial fibrillation on Eliquis, follows with [facility] Prediabetes Tobacco use Past Family History Family History Sister Afib Family history of diabetes mellitus Pancreatic cancer Heart disease Kidney stones Mother Afib Myocardial infarction Family history of diabetes mellitus Heart disease Father Prostate cancer Grandmother (Maternal) Family history of diabetes mellitus Brother Kidney stones Other No family history of adverse response to anesthesia Denies family history of Ovarian cancer Breast cancer Past Surgical History Surgical History H/O arthroscopy of right knee History of section x2 History of colonoscopy History of lithotripsy History of lumbar fusion x2-- History of tooth extraction full upper denture S/P appendectomy S/P cholecystectomy S/P hysterectomy candy bso [place] teeth removed Social History Smoking Status: Current every day smoker tobacco type: cigarettes Smoking cigarettes per day: 10 Do You Dip or Chew Tobacco: No Hx Alcohol Use: Yes Alcohol type: wine alcohol intake frequency: holidays/special occasions only Hx Substance Use: No substance use type: does not use Physical Exam Vital Signs Last Vital Signs Temp 36.6 C 10/06/21 15:28 Pulse 74 10/06/21 15:28 Resp 17 10/06/21 15:28 BP 135/76 10/06/21 15:28 Pulse Ox 93 10/06/21 15:28 O2 Del Method 10/06/21 15:28 Testing Laboratory Results 10/05/21 16:01 10/05/21 16:01 Blood Type O Positive 10/06/21 15:40 Antibody Screen NEGATIVE 10/06/21 15:40 10/06/21 16:45 POC Glucose 161 H Electrocardiogram Date: 10/06/21 DICTATED BY:Clayton Wu MD Test Reason : Blood Pressure : / mmHG Vent. Rate : 063 BPM Atrial Rate : 063 BPM P-R Int : 238 ms QRS Dur : 088 ms QT Int : 424 ms P-R-T Axes : 052 023 060 degrees QTc Int : 433 ms Sinus rhythm with 1st degree A-V block Poor R wave progression, consider anterior [place] vs. lead placement vs. LVH Abnormal ECG When compared with ECG of 14-FEB-2021 20:36, [place] interval has increased Vent. rate has decreased BY 31 BPM Confirmed by Clyaton Wu ([id number]) on 10/06/2021 3:21:51 PM Referred By: REFERRED SELF Confirmed By:Clayton Wu Echocardiogram Date: 07/13/19 EF: 55-60 LV Function: normal Valvular Disease: + MR (mild)
[2021-10-07] MEDS: LACTATED RINGER'S 1,000 ML IV SCH ×3 (07:19→18:16)
[2021-10-07] MEDS: HYDROmorphone INJ 1 MG/ML SYRINGE IV PRN ×3 (07:25→16:51)
[2021-10-07] MEDS: buPROPion SR 150 MG TABCR PO SCH ×2 (07:50→19:57)
[2021-10-07] MEDS: ASPIRIN 81 MG ECTAB PO SCH (07:51)
[2021-10-07] MEDS ORDERED: PROPOFOL IV EMULSION 10 MG/ML 20 ML VIAL IV ONE ×2 (11:50→16:02)
[2021-10-07] MEDS ORDERED: ONDANSETRON INJ 2 MG/ML 2 ML VIAL ONE (11:50)
[2021-10-07] MEDS ORDERED: LIDOCAINE 2% MPF LOCAL 5 ML VIAL INFIL ONE (11:50)
[2021-10-07] MEDS ORDERED: DEXAMETHASONE SOD INJ 4 MG/ML VIAL ONE (11:50)
[2021-10-07] MEDS ORDERED: MIDAZOLAM HCL 1 MG/ML 2ML VIAL ONE (11:50)
[2021-10-07] MEDS ORDERED: fentaNYL citrate 100 MCG/2 ML VIAL ONE (11:51)
[2021-10-07] MEDS ORDERED: KETAMINE 50 MG/5 ML SYRINGE ONE (11:51)
[2021-10-07] MEDS ORDERED: HYDROmorphone INJ 2 MG/ML SYR/VIAL ONE (11:51)
[2021-10-07] MEDS ORDERED: PROMETHAZINE HCL 12.5 MG in SODIUM CHLORIDE 0.9% 50 ML IV PRN ×2 (13:00→18:05)
[2021-10-07] MEDS ORDERED: ATROPINE SULFATE 0.1 MG/ML 10ML SYR IV PRN (13:00)
[2021-10-07] MEDS ORDERED: ONDANSETRON INJ 2 MG/ML 2 ML VIAL IV PRN ×2 (13:00→18:05)
--- NOTE | 2021-10-07 13:28 | History & Physical Bridge Note ---
Date of Service October 07, 2021 History & Physical Bridge Note I have examined the patient, reviewed the History & Physical and in the interval since the performance of the History & Physical I have noted the following changes of clinical significance: no changes noted Lumbar decompression and fusion L3-L4, removal hardware L4-S1
[2021-10-07] MEDS ORDERED: CLINDAMYCIN 600 MG/D5W 50 ML BAG IV ONE (13:44)
[2021-10-07] MEDS ORDERED: BUPIVACAINE/EPINEPHRINE 0.25% 1:200,000 30 ML VIAL ONE (13:44)
[2021-10-07] MEDS ORDERED: ceFAZolin 330 MG/ML 1 GM VIAL ONE (13:45)
[2021-10-07] MEDS ORDERED: FLOSEAL HEMOSTATIC MATRIX 10ML TOP ONE (14:59)
[2021-10-07] MEDS ORDERED: ROCURONIUM BROMIDE 10 MG/ML 5 ML VIAL IV ONE (15:22)
--- NOTE | 2021-10-07 16:05 | Operative Report ---
Post Operative Report Pre & Post Diagnosis Operation Date: 10/07/21 12:50 Pre-Op Diagnosis: Lumbar spinal stenosis with radiculopathy Post-Op Diagnosis: Same I identified the patient and participated in the time-out.: Yes Procedure Operation Date: 10/07/21 12:50 Actual Procedures #1 removal of posterior instrumentation L4-S1. #2 exploration of fusion L4-S1. #3 lumbar decompression bilateral medial facetectomies and foraminotomies L2-L3 L3-L4. #4 posterior spinal fusion L3-L4. #5 placement of posterior instrumentation L3-S1. #5 interbody fusion L3-L4. #6 placement of Spira lamina 22 mm cage at L3-L4. #8 placement locally harvested morselized autograft in the posterior gutters. #9 placement of I factor model V toss interbody space and posterior lateral gutters. Surgeon Feliciano Schmidt, DO Senior [employer] Security Analyst Anders Alvarado Estimated Blood Loss 50 Findings See Below Patient is 5 foot 4 weighs over 95 kg with a BMI in excess of 36. The patient's body habitus did contribute to significant technical difficulty requiring her deeper retractors longer instruments in order to perform her procedure. This at least 50% increased operative time. Specimens None Indications This is a 61-year-old female who presents with severe lumbar radiculopathy and inability to ambulate subsequent here for urgent decompression fusion. Description of Procedure Patient was met with identified informed consent obtained. Patient was then taken to the operative suite underwent a patient placed in a prone position on the Shashi table on top of the Luis Carlos frame. All bony prominences well-padded eyes inspected to ensure no external pressure placed upon them. This point the lumbar spine was prepped and draped in a normal sterile fashion. Sharp dissection with the assistance of Bovie cautery was performed down to and exposing the lamina and transverse processes of L3 and instrumentation at L4-L5 and S1 levels bilaterally. I then proceeded to move the hardware bilaterally explore the fusion mass and noted to be mature and intact. Then performed a complete laminectomy of L3 partial laminectomy of L2 including bilateral medial facetectomies and foraminotomies addressing for severe spinal stenosis as well as evidence of disc herniation extending into the right neuroforamen at L3-L4. Pedicle screws were then placed at L3-L4 and S1 levels bilaterally with assistance of fluoroscopy the proper sized reta placed. By way the transforaminal approach on the right a complete discectomy of L3-L4 was performed endplates curetted to subcortically bone and a 11 x 22 mm spiral cage filled with I factor tapped in position. The rods then locked in final position bilaterally. The transverse processes of L3 3 L4 burred to subcortical bleeding bone. I factor combined with V toss and locally harvested morselized autograft was placed in the posterior gutters. 15 round ANT drain inserted. The incision was then closed with 1 Vicryl in the fascia 2-0 Vicryl subcutaneously and 4 Monocryl for final skin closure. Steri-Strip sterile dressings placed. Patient waken taken PACU stable condition. Please note spinal cord monitoring was utilized throughout the procedure no changes noted. Lastly Anders Alvarado was present at the entire surgeon while the patient positioning complex portions of the surgery and final skin closure. I attest to the content of the Intraoperative Record and any orders documented therein. Any exceptions are noted below.
--- NOTE | 2021-10-07 16:47 | Fluoroscopy Report ---
FL lumbar spine 2-3V CLINICAL HISTORY: L3-L4 DECOMPRESSION AND FUSION/ L4-S1 HW REMOVAL COMPARISON STUDY: Lumbar spine CT August 30, 2019. Lumbar spine MRI September 28, 2021. FLUOROSCOPY TIME: 11 seconds. FLUOROSCOPIC IMAGES: 2 FINDINGS: Posterior decompression is noted. There are bilateral pedicle screws at the L3, L4 and S1 l evels. Interval L3-L4 discectomy with interbody spacer placement as noted. Previous L5-S1 and L4-L5 d iscectomies are noted. There is slight posterior positioning of the L4-L5 , unchanged. No unexpected radiopaque foreign bodies. Hardware is intact. IMPRESSION: Postoperative findings consistent with interval L3-L4 discectomy and posterior decompres charissa with pedicle screw fusion from L3 through S1. ACT 112: Negative or not required by law. Electronically signed by: Doc Parry M.D. 10/07/2021 4:45 PM
--- NOTE | 2021-10-07 17:08 | Anesthesiology Progress Note ---
Date of Service October 07, 2021 Anesthesia Post Procedure Vital Signs Vital Signs: Temp Pulse Pulse Resp BP BP Pulse Ox 10/07/21 16:50 69 12 139/65 94 10/07/21 16:40 60 7 L 139/73 96 10/07/21 17:00 67 14 121/83 95 10/07/21 16:30 63 15 132/71 99 10/07/21 16:21 36.7 C 65 27 H 117/83 98 10/07/21 12:28 36.6 C 73 20 129/60 94 10/07/21 10:56 36.6 C 63 18 153/75 H 94 10/07/21 08:00 36.8 C 68 18 145/79 H 95 10/07/21 00:05 36.7 C 64 20 125/63 94 10/06/21 20:19 80 14 147/76 H 96 O2 Del Method O2 Flow Rate 10/07/21 16:50 Room Air 10/07/21 16:40 Room Air 10/07/21 17:00 Room Air 10/07/21 16:30 Oxymask 5 10/07/21 16:21 Oxymask 5 10/07/21 12:28 Room Air 10/07/21 10:56 Room Air 10/07/21 08:00 Room Air 10/07/21 00:05 Room Air 10/06/21 20:19 Room Air Pain Intensity Back: Pain Intensity: 4 Transfer of Care Handoff Completed per policy Notes Mental Status: alert / awake / arousable and participated in evaluation Patient Amnestic to Procedure: Yes Nausea / Vomiting: adequately controlled Pain: adequately controlled Airway Patency, RR, SpO2: stable & adequate BP & HR: stable & adequate Hydration State: stable & adequate Anesthetic Complications: no major complications apparent and Pt Satisfied with anesthetic care
[2021-10-07] MEDS: CLINDAMYCIN/D5W 600 MG/50 ML BAG IV SCH ×2 (17:32→17:35)
[2021-10-07] MEDS ORDERED: SOD PHOSPHATE/SOD BIPHOSPHATE ENEMA 132 ML BTL PR PRN (18:05)
[2021-10-07] MEDS ORDERED: ALUMINUM/MAGNESIUM SUSP 30 ML UDC PO PRN (18:05)
[2021-10-07] MEDS ORDERED: LORazepam 0.5 MG in SYRINGE 0.25 ML IV PRN (18:05)
[2021-10-07] MEDS ORDERED: LORazepam 0.5 MG TAB PO PRN (18:05)
[2021-10-07] MEDS ORDERED: MAGNESIUM HYDROXIDE SUSP 30 ML UDC PO PRN (18:05)
[2021-10-07] MEDS ORDERED: FAMOTIDINE 20 MG TAB PO PRN (18:05)
[2021-10-07] MEDS ORDERED: traMADol HCL 50 MG TABLET PO PRN (18:05)
[2021-10-07] MEDS ORDERED: ACETAMINOPHEN 1,000 MG/100 ML VIAL IV PRN (18:05)
[2021-10-07] MEDS ORDERED: bisacodyL 10 MG SUPP PR PRN (18:05)
[2021-10-07] MEDS ORDERED: diphenhydrAMINE Capsule 25 MG CAP PO PRN (18:05)
[2021-10-07] MEDS ORDERED: METOCLOPRAMIDE HCL INJ 5 MG/ML 2 ML VIAL IV PRN (18:05)
[2021-10-07] MEDS ORDERED: ONDANSETRON 4 MG OD TAB PO PRN (18:05)
[2021-10-07] MEDS ORDERED: NALOXONE HCL 0.4 MG/1 ML VIAL/CARP IV PRN (18:05)
[2021-10-07] MEDS ORDERED: hydrOXYzine HCl 25 MG TAB PO PRN (18:05)
--- NOTE | 2021-10-07 19:05 | Hospitalist Progress Note ---
Date of Service October 07, 2021 Assessment & Plan (1) Lumbar radiculopathy: Plan: Pt is a 61-year-old female with history of central canal stenosis of the lower back. Status post lumbar fusion discectomy with Dr. Schmidt in the past. She presents with severe pain which has been ongoing. She was started on narcotics as well as cyclobenzaprine by outpatient providers and most recently had CT scan, x-rays, MRI of the back showing acute changes. Dr. Schmidt admitted the patient for surgical intervention. The medicine team was consulted for medical management. Now s/p removal of posterior instrumentation L4-S1, lumbar decompression bilateral medial facetectomies and foraminotomies L2-L3 L3-L4, posterior spinal fusion L3-L4, placement of posterior instrumentation L3-S1, interbody fusion L3- L4, placement of Spira lamina 22 mm cage at L3-L4, placement locally harvested morselized autograft in the posterior gutters, and placement of I factor model V toss interbody space and posterior lateral gutters. -doing well post-op -pain control, bowel regimen, IVFs as per Ortho -drain management as per Ortho -continue to hold home Eliquis until ok to restart as per Ortho -follow CBC, BMP in AM (2) Central stenosis of spinal canal: Plan: as above (3) Prediabetes: Plan: Hemoglobin A1c was obtained 08/09/2021 and was 5.8% Patient is currently not on any insulin or diabetic medications orally. Will follow BSG's secondary to steroid use and acute stress secondary to pain while inpatient. -add on SSI (4) Dyslipidemia: Plan: Continue atorvastatin 80 mg p.o. daily (5) Depression: Plan: Exacerbated by chronic back pain Continue Wellbutrin 150 mg p.o. twice daily Continue with pain control with narcotics and analgesics as prescribed by orthopedics and primary care PDMP is reviewed and there is no evidence of chronic narcotic or benzodiazepine use. Patient does appear to take Advil on a regular basis at home for pain. We will continue with famotidine and alternate with Tylenol to reduce chance of gastritis -would advise no NSAIDs due to being on Eliquis (6) Anxiety: Plan: as above (7) Paroxysmal atrial fibrillation: Plan: Patient anticoagulated with apixaban 5 mg p.o. twice daily Last dose was the morning of 10/05/2021. Continue to hold due to spinal surgery Patient currently is in normal sinus rhythm and is rate controlled. No indication for heparin drip or other anticoagulation at this time continue Diltiazem 120 mg PO HS (8) Vitamin D deficiency: Plan: Continue cholecalciferol 50,000 units p.o. 2 times weekly as an outpatient. Okay to hold while inpatient (9) PAD (peripheral artery disease): Plan: Anticoagulated with apixaban as well as aspirin 81 mg p.o. daily as an antiplatelet agent (10) HTN (hypertension): Plan: Continue home dose of diltiazem Currently she is hemodynamically stable. (11) Nephrolithiasis: Plan: Previously followed with urology. History of stent placement with lithotripsy in April 2021 Followed up with urology in May 2021 for cystoscopy and stent removal Patient has had no other outpatient visits or follow-ups required since that time. (12) Tobacco use: Plan: [id number] smoking history Patient continues to smoke about 1/2 pack/day Discussed need for complete tobacco abstention due to comorbidities as well as risk of poor tissue healing No prior pulmonary function testing Will order albuterol HFA as needed shortness of breath or wheezes Patient does not feel the need for nicotine patch at this time Continue to encourage complete abstention of tobacco products. Smoking cessation education ordered (13) DVT prophylaxis: Plan: Patient is chronically anticoagulated with apixaban 5 mg p.o. twice daily as well as taking baby aspirin for peripheral arterial disease At this time will defer on chemical prophylaxis secondary to surgical intervention - JEFF thomas and Shonda -Ambulate per orders of orthopedics Dispo-Hospitalist service will continue to follow along Admission and Anticipated Discharge Date Admission Date: October 05, 2021 Subjective Pt was gone all day for surgery and recovery, just returned to her room at dinner time. Feels much better than prior to surgery-no pain. Ate dinner, no nausea. No CP. Feels a little SOB after moving around, POx 94% on RA. Review of Systems Review of Systems: All systems reviewed & are unremarkable except as noted in HPI & below Physical Exam Constitutional: WD/WN, vitals as above Eyes: + anicteric sclerae Neck: trachea midline, no thyromegaly Respiratory: normal respiratory effort, lungs clear to auscultation Cardiovascular: RRR, no murmur, no edema Chest (Breasts): Chest: normal inspection of chest Gastrointestinal (Abdomen): normal bowel sounds, soft, nontender, no hepatosplenomegaly Musculoskeletal: Extremities: extremities normal to inspection; no cyanosis and no clubbing with ANT drain with serosang fluid Skin: no rashes, warm and dry Neurologic: moves all extremities and awake; no focal motor deficits Psychiatric: A+Ox3, euthymic affect Lymphatic: no lymphedema Results & Data Results & Data ([facility]) Vital Signs (Past 12 Hours) Vital Signs Temp Pulse Pulse Resp BP BP Pulse Ox 10/07/21 18:56 36.6 C 70 16 147/79 H 95 10/07/21 18:33 36.4 C L 62 16 129/74 94 10/07/21 18:05 36.4 C L 66 18 147/82 H 98 10/07/21 17:50 60 20 129/72 92 10/07/21 17:20 36.4 C L 71 12 127/62 98 10/07/21 16:50 69 12 139/65 94 10/07/21 16:40 60 7 L 139/73 96 10/07/21 17:10 36.4 C L 66 12 140/68 94 10/07/21 17:00 67 14 121/83 95 10/07/21 16:30 63 15 132/71 99 10/07/21 16:21 36.7 C 65 27 H 117/83 98 10/07/21 12:28 36.6 C 73 20 129/60 94 10/07/21 10:56 36.6 C 63 18 153/75 H 94 10/07/21 08:00 36.8 C 68 18 145/79 H 95 O2 Del Method O2 Flow Rate 10/07/21 18:56 Room Air 10/07/21 18:33 Room Air 10/07/21 18:05 Room Air 10/07/21 17:50 Room Air 10/07/21 17:20 Room Air 10/07/21 16:50 Room Air 10/07/21 16:40 Room Air 10/07/21 17:10 Room Air 10/07/21 17:00 Room Air 10/07/21 16:30 Oxymask 5 10/07/21 16:21 Oxymask 5 10/07/21 12:28 Room Air 10/07/21 10:56 Room Air 10/07/21 08:00 Room Air PG Care Time/CCT Total # of Minutes Spent Total Time Spent with Patient: Total time spent is greater than 50% in coordination of care (as documented) at patient's floor/unit and/or counseling patient: Coding Level of Care Code 84221 Subseq Hosp Care Lvl 2 Diagnoses Lumbar radiculopathy M54.16 Central stenosis of spinal canal M48.00 Prediabetes R73.03 Dyslipidemia E78.5 Depression F32.9 Anxiety F41.9 Paroxysmal atrial fibrillation I48.0 Vitamin D deficiency E55.9 PAD (peripheral artery disease) I73.9 HTN (hypertension) I10 Nephrolithiasis N20.0 Tobacco use Z72.0 DVT prophylaxis Z29.9
[2021-10-07] MEDS ORDERED: GLUCOSE 10 TAB/TUBE PO PRN (19:08)
[2021-10-07] MEDS ORDERED: GLUCAGON FOR INJ 1 MG VIAL SQ PRN (19:08)
[2021-10-07] MEDS ORDERED: DEXTROSE 50% 50 ML SYRINGE IV PRN (19:08)
[2021-10-07] MEDS ORDERED: GLUCOSE 40% GEL 15 GM TUBE PO PRN (19:08)
[2021-10-07] MEDS ORDERED: CARBOHYDRATES FOR HYPOGLYCEMIA PO PRN (19:08)
[2021-10-07] MEDS: dilTIAZem HCL 120 MG CAPCR PO SCH (19:57)
[2021-10-07] MEDS: ATORVASTATIN 40 MG TAB PO SCH (19:58)
[2021-10-07] MEDS: FAMOTIDINE 40 MG TABLET PO SCH (19:58)
[2021-10-07] MEDS: DOCUSATE SODIUM/SENNA 50/8.6MG TAB PO SCH (20:03)
[2021-10-07] MEDS: oxyCODONE HCL IR 5 MG TAB (IMMEDIATE RELEASE) PO PRN (20:05)
[2021-10-07] MEDS: INSULIN ASPART PER UNIT SC SCH (21:42)
[2021-10-07] MEDS: HYDROmorphone INJ 0.5 MG/0.5 ML SYR IV PRN (23:06)
[2021-10-08] MEDS: LACTATED RINGER'S 1,000 ML IV SCH (01:03)
[2021-10-08 06:15] LABS: Basophils # (auto) 0.02 K/uL (0-0.2); Basophils % (auto) 0.1 %; Hemoglobin 10.6 g/dl (12.0-16.0); Immature Granulocytes % (auto) 0.7 %; Lymphocytes # (auto) 1.27 K/uL (1.2-3.4); Lymphocytes % (auto) 9.3 %; Mean Corpuscular Hemoglobin 28.2 pg (25.0-34.0); Mean Corpuscular Hgb Conc 32.1 g/dL (32.0-36.0); Mean Corpuscular Volume 87.8 fL (80.0-100.0); Mean Platelet Volume 9.3 fL (9.4-12.3); Monocytes # (auto) 1.14 K/uL (0.24-0.82); Monocytes % (auto) 8.3 %; Neutrophils # (auto) 11.19 K/uL (1.4-6.5); Neutrophils % (auto) 81.6 %; Platelet Count 350 K/uL (130-400); RDW Coefficient of Variation 16.6 % (11.5-14.5); RDW Standard Deviation 53.4 fL (36.4-46.3); Red Blood Count 3.76 M/uL (3.93-5.22); White Blood Count 13.72 K/ul (4.8-10.8)
[2021-10-08] MEDS: POLYETHYLENE (MIRALAX) 17 GM PACK PO SCH ×3 (06:31→17:56)
[2021-10-08] MEDS: ACETAMINOPHEN 500 MG TAB PO PRN ×2 (06:37→21:20)
[2021-10-08] MEDS: oxyCODONE HCL IR 5 MG TAB (IMMEDIATE RELEASE) PO PRN ×2 (06:37→21:21)
[2021-10-08 06:42] LABS: BUN Creatinine Ratio 25.3 (10-20); Calcium 8.9 mg/dl (8.5-10.1); Creatinine Clr Calc Pharmacy 81.9 ml/min; Est GFR (African American) 92.3 ml/min; Est GFR (Non-African American) 79.7 ml/min
[2021-10-08] MEDS: HYDROmorphone INJ 1 MG/ML SYRINGE IV PRN ×2 (08:13→15:26)
[2021-10-08] MEDS: dexAMETHasone 6 MG in SYRINGE 0 ML IV SCH (08:19)
[2021-10-08] MEDS: ASPIRIN 81 MG ECTAB PO SCH (08:19)
[2021-10-08] MEDS: buPROPion SR 150 MG TABCR PO SCH ×2 (08:19→21:17)
--- NOTE | 2021-10-08 09:52 | Orthopedic Progress Note ---
Date of Service October 08, 2021 Assessment & Plan (1) Lumbar radiculopathy: Plan: At this time continue physical therapy monitor her ANT output over the discharge home in the next day or so. Admission and Anticipated Discharge Date Admission Date: October 05, 2021 Subjective Patient is back pain is controlled leg symptoms markedly improved Physical Exam Physical Exam: On exam she is up and ambulating with physical therapy. She is using a walker. She is comfortable and good strength testing. Results & Data ([facility]) Vital Signs (Past 12 Hours) Vital Signs Temp Pulse Resp BP BP Pulse Ox O2 Del Method 10/08/21 07:08 36.7 C 62 16 133/68 90 Room Air 10/08/21 03:18 36.5 C 71 16 136/75 92 Room Air
[2021-10-08] MEDS: INSULIN ASPART PER UNIT SC SCH ×4 (10:20→21:00)
--- NOTE | 2021-10-08 15:04 | Hospitalist Progress Note ---
Date of Service October 08, 2021 Assessment & Plan (1) Lumbar radiculopathy: Plan: Pt is a 61-year-old female with history of central canal stenosis of the lower back. Status post lumbar fusion discectomy with Dr. Schmidt in the past. She presents with severe pain which has been ongoing. She was started on narcotics as well as cyclobenzaprine by outpatient providers and most recently had CT scan, x-rays, MRI of the back showing acute changes. Dr. Schmidt admitted the patient for surgical intervention. The medicine team was consulted for medical management. Now s/p removal of posterior instrumentation L4-S1, lumbar decompression bilateral medial facetectomies and foraminotomies L2-L3 L3-L4, posterior spinal fusion L3-L4, placement of posterior instrumentation L3-S1, interbody fusion L3- L4, placement of Spira lamina 22 mm cage at L3-L4, placement locally harvested morselized autograft in the posterior gutters, and placement of I factor model V toss interbody space and posterior lateral gutters. -doing well post-op -pain control, bowel regimen as per Ortho -drain management as per Ortho -continue to hold home Eliquis until ok to restart as per Ortho post-op hgb acceptable Vitals stable (2) Central stenosis of spinal canal: Plan: as above (3) Prediabetes: Plan: Hemoglobin A1c was obtained 08/09/2021 and was 5.8% Patient is currently not on any insulin or diabetic medications orally. Will follow BSG's secondary to steroid use and acute stress secondary to pain while inpatient. -continue on SSI here but won't need after discharge (4) Dyslipidemia: Plan: Continue atorvastatin 80 mg p.o. daily (5) Depression: Plan: Exacerbated by chronic back pain Continue Wellbutrin 150 mg p.o. twice daily Continue with pain control with narcotics and analgesics as prescribed by orthopedics and primary care PDMP is reviewed and there is no evidence of chronic narcotic or benzodiazepine use. Patient does appear to take Advil on a regular basis at home for pain. We will continue with famotidine and alternate with Tylenol to reduce chance of gastritis -would advise no NSAIDs due to being on Eliquis on discharge (6) Anxiety: Plan: as above (7) Paroxysmal atrial fibrillation: Plan: Patient anticoagulated with apixaban 5 mg p.o. twice daily Last dose was the morning of 10/05/2021. Continue to hold due to spinal surgery Patient currently is in normal sinus rhythm and is rate controlled. No indication for heparin drip or other anticoagulation at this time continue Diltiazem 120 mg PO HS -restart Eliquis when ok with Surgeon (8) Vitamin D deficiency: Plan: Continue cholecalciferol 50,000 units p.o. 2 times weekly as an outpatient. Okay to hold while inpatient (9) PAD (peripheral artery disease): Plan: Anticoagulated with apixaban as well as aspirin 81 mg p.o. daily as an antiplatelet agent (10) HTN (hypertension): Plan: Continue home dose of diltiazem Currently she is hemodynamically stable. (11) Nephrolithiasis: Plan: Previously followed with urology. History of stent placement with lithotripsy in April 2021 Followed up with urology in May 2021 for cystoscopy and stent removal Patient has had no other outpatient visits or follow-ups required since that time. (12) Tobacco use: Plan: [id number] smoking history Patient continues to smoke about 1/2 pack/day Discussed need for complete tobacco abstention due to comorbidities as well as risk of poor tissue healing No prior pulmonary function testing Will order albuterol HFA as needed shortness of breath or wheezes Patient does not feel the need for nicotine patch at this time Continue to encourage complete abstention of tobacco products. Smoking cessation education ordered (13) DVT prophylaxis: Plan: Patient is chronically anticoagulated with apixaban 5 mg p.o. twice daily as well as taking baby aspirin for peripheral arterial disease At this time will defer on chemical prophylaxis secondary to surgical intervention - JEFF thomas and Shonda -Ambulate per orders of orthopedics Dispo-Hospitalist service will sign off at this time as patient is medically stable Admission and Anticipated Discharge Date Admission Date: October 05, 2021 Subjective Having pain in back but none down legs. Is eating and drinking, voiding on own, no BM yet. Was walking in the halls today Review of Systems Review of Systems: All systems reviewed & are unremarkable except as noted in HPI & below Physical Exam Constitutional: WD/WN, vitals as above Eyes: + anicteric sclerae Neck: trachea midline, no thyromegaly Respiratory: normal respiratory effort, lungs clear to auscultation Cardiovascular: RRR, no murmur, no edema Chest (Breasts): Chest: normal inspection of chest Gastrointestinal (Abdomen): normal bowel sounds, soft, nontender, no hepatosplenomegaly Musculoskeletal: Extremities: extremities normal to inspection; no cyanosis and no clubbing Skin: no rashes, warm and dry dressing lower back c/d/i, ANT drain in place with serosang fluid Neurologic: moves all extremities and awake; no focal motor deficits Psychiatric: A+Ox3, euthymic affect Lymphatic: no lymphedema Results & Data Results & Data ([facility]) Vital Signs (Past 12 Hours) Vital Signs Temp Pulse Resp BP BP Pulse Ox O2 Del Method 10/08/21 07:08 36.7 C 62 16 133/68 90 Room Air 10/08/21 03:18 36.5 C 71 16 136/75 92 Room Air Laboratory Results 10/08/21 10/08/21 10/08/21 Range/Units 11:52 07:56 05:37 WBC (4.8-10.8) K/ul RBC (3.93-5.22) M/uL Hgb (12.0-16.0) g/dl Hct (34.1-44.9) % MCV (80.0-100.0) fL MCH (25.0-34.0) pg MCHC (32.0-36.0) g/dL RDW Std Deviation (36.4-46.3) fL RDW Coeff of Sylwia (11.5-14.5) % Plt Count (130-400) K/uL MPV (9.4-12.3) fL Immature Gran % (Auto) % Neut % (Auto) % Lymph % (Auto) % [place] % (Auto) % Eos % (Auto) % Baso % (Auto) % Neut # (Auto) (1.4-6.5) K/uL Lymph # (Auto) (1.2-3.4) K/uL [place] # (Auto) (0.24-0.82) K/uL Eos # (Auto) (0-0.50) K/uL Baso # (Auto) (0-0.2) K/uL Immature Gran # (Auto) (0.00-0.02) K/uL Sodium 139 (136-145) mmol/L Potassium 4.0 (3.5-5.1) mmol/L Chloride 104 (98-107) mmol/L Carbon Dioxide 27 (21-32) mmol/L Anion Gap 8 (3-11) BUN 20 (6-23) mg/dl Creatinine 0.79 (0.6-1.2) mg/dl Est Cr Clr Drug Dosing 81.9 ml/min Est GFR ( Amer) 92.3 ml/min Est GFR (Non-Af Amer) 79.7 ml/min BUN/Creatinine Ratio 25.3 H (10-20) Glucose 131 H (70-99(Fasting)) mg/dl POC Glucose 180 H 136 H (70-99) mg/dl Calcium 8.9 (8.5-10.1) mg/dl 10/08/21 10/07/21 10/07/21 Range/Units 05:37 20:43 18:31 WBC 13.72 H (4.8-10.8) K/ul RBC 3.76 L (3.93-5.22) M/uL Hgb 10.6 L (12.0-16.0) g/dl Hct 33.0 L (34.1-44.9) % MCV 87.8 (80.0-100.0) fL MCH 28.2 (25.0-34.0) pg MCHC 32.1 (32.0-36.0) g/dL RDW Std Deviation 53.4 H (36.4-46.3) fL RDW Coeff of Sylwia 16.6 H (11.5-14.5) % Plt Count 350 (130-400) K/uL MPV 9.3 L (9.4-12.3) fL Immature Gran % (Auto) 0.7 % Neut % (Auto) 81.6 % Lymph % (Auto) 9.3 % [place] % (Auto) 8.3 % Eos % (Auto) 0.0 % Baso % (Auto) 0.1 % Neut # (Auto) 11.19 H (1.4-6.5) K/uL Lymph # (Auto) 1.27 (1.2-3.4) K/uL [place] # (Auto) 1.14 H (0.24-0.82) K/uL Eos # (Auto) 0.00 (0-0.50) K/uL Baso # (Auto) 0.02 (0-0.2) K/uL Immature Gran # (Auto) 0.10 H (0.00-0.02) K/uL Sodium (136-145) mmol/L Potassium (3.5-5.1) mmol/L Chloride (98-107) mmol/L Carbon Dioxide (21-32) mmol/L Anion Gap (3-11) BUN (6-23) mg/dl Creatinine (0.6-1.2) mg/dl Est Cr Clr Drug Dosing ml/min Est GFR ( Amer) ml/min Est GFR (Non-Af Amer) ml/min BUN/Creatinine Ratio (10-20) Glucose (70-99(Fasting)) mg/dl POC Glucose 162 H 112 H (70-99) mg/dl Calcium (8.5-10.1) mg/dl PG Care Time/CCT Total # of Minutes Spent Total Time Spent with Patient: Total time spent is greater than 50% in coordination of care (as documented) at patient's floor/unit and/or counseling patient: Coding Level of Care Code 24945 Subseq Hosp Care Lvl 1 Diagnoses Lumbar radiculopathy M54.16 Central stenosis of spinal canal M48.00 Prediabetes R73.03 Dyslipidemia E78.5 Depression F32.9 Anxiety F41.9 Paroxysmal atrial fibrillation I48.0 Vitamin D deficiency E55.9 PAD (peripheral artery disease) I73.9 HTN (hypertension) I10 Nephrolithiasis N20.0 Tobacco use Z72.0 DVT prophylaxis Z29.9
[2021-10-08] MEDS: DOCUSATE SODIUM/SENNA 50/8.6MG TAB PO SCH (21:16)
[2021-10-08] MEDS: dilTIAZem HCL 120 MG CAPCR PO SCH (21:17)
[2021-10-08] MEDS: ATORVASTATIN 40 MG TAB PO SCH (21:17)
[2021-10-08] MEDS: FAMOTIDINE 40 MG TABLET PO SCH (21:17)
[2021-10-09] MEDS: POLYETHYLENE (MIRALAX) 17 GM PACK PO SCH ×5 (00:13→22:00)
[2021-10-09] MEDS: HYDROmorphone INJ 0.5 MG/0.5 ML SYR IV PRN ×2 (00:33→08:18)
[2021-10-09] MEDS: oxyCODONE HCL IR 5 MG TAB (IMMEDIATE RELEASE) PO PRN ×3 (07:17→21:40)
[2021-10-09] MEDS: ACETAMINOPHEN 500 MG TAB PO PRN (07:18)
[2021-10-09] MEDS: ASPIRIN 81 MG ECTAB PO SCH (08:15)
[2021-10-09] MEDS: dexAMETHasone 6 MG in SYRINGE 0 ML IV SCH (08:15)
[2021-10-09] MEDS: buPROPion SR 150 MG TABCR PO SCH ×2 (08:15→21:32)
[2021-10-09] MEDS: INSULIN ASPART PER UNIT SC SCH ×4 (09:10→21:13)
--- NOTE | 2021-10-09 10:22 | Orthopedic Progress Note ---
Date of Service October 09, 2021 Assessment & Plan (1) Lumbar radiculopathy: Plan: At this time continue physical therapy monitor her ANT output anticipate discharge home tomorrow. Admission and Anticipated Discharge Date Admission Date: October 05, 2021 Subjective Patient's back pain is controlled leg symptoms markedly improved Physical Exam Physical Exam: On exam she is good strength testing appears comfortable. Results & Data ([facility]) Vital Signs (Past 12 Hours) Vital Signs Temp Pulse Resp BP Pulse Ox O2 Del Method 10/09/21 07:30 Room Air 10/09/21 07:08 36.5 C 75 16 114/66 92 Room Air
[2021-10-09] MEDS: ATORVASTATIN 40 MG TAB PO SCH (21:31)
[2021-10-09] MEDS: DOCUSATE SODIUM/SENNA 50/8.6MG TAB PO SCH (21:32)
[2021-10-09] MEDS: FAMOTIDINE 40 MG TABLET PO SCH (21:32)
[2021-10-09] MEDS: dilTIAZem HCL 120 MG CAPCR PO SCH (21:32)
[2021-10-10] MEDS: POLYETHYLENE (MIRALAX) 17 GM PACK PO SCH ×2 (06:18→12:26)
[2021-10-10] MEDS: dexAMETHasone 6 MG in SYRINGE 0 ML IV SCH (08:04)
[2021-10-10] MEDS: ASPIRIN 81 MG ECTAB PO SCH (08:05)
[2021-10-10] MEDS: buPROPion SR 150 MG TABCR PO SCH (08:05)
[2021-10-10] MEDS: INSULIN ASPART PER UNIT SC SCH ×2 (08:23→12:32)
[2021-10-10] MEDS: oxyCODONE HCL IR 5 MG TAB (IMMEDIATE RELEASE) PO PRN (09:13)
--- NOTE | 2021-10-10 12:36 | Discharge Summary ---
Date of Service October 10, 2021 Admission HPI Per Admitting Provider This is a 61-year-old female who presents emergency room with consistent decline in function. She has pain rating into the right buttock lateral thigh extending to her foot. It is markedly exacerbated with standing and walking. Is become increasingly limiting in nature. She is undergone extensive course of nonoperative care without improvement. She does have a history of undergoing an L4-L5 L5-S1 fusion approximately [address] Brantley and had been doing well for many years. She denies any precipitating trauma fall or event. 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 The left lower extremity is asymptomatic. Principal Diagnosis Lumbar spinal stenosis with radiculopathy Discharge Data Allergies Allergy/AdvReac Type Severity Reaction Status Date / Time lemon Allergy Intermediate Hives Verified 10/05/21 17:00 Penicillins Allergy Intermediate Hives Verified 10/05/21 17:00 bupropion [From Wellbutrin] AdvReac Intermediate Gastrointestinal Verified 10/05/21 17:00 Upset surgical syed Allergy Intermediate "infection Uncoded 10/05/21 17:00 at hysterectomy site d/t allergy from syed" Consultations 10/05/21 20:14 ED Decision to Admit Stat 10/05/21 22:47 Consult Internal Medicine Routine Procedures Performed Operation Date: 10/07/21 12:50 Actual Procedures p L3-L4 Decompression and Fusion, Spinal Cord Monitoring(Not Applicable) - Feliciano Schmidt DO s L4-S1 Hardware Removal(Not Applicable) - Feliciano Schmidt DO Ordered Studies 10/07/21 14:10 FL lumbar spine 2-3V Routine Hospital Course (1) Lumbar disc disease with radiculopathy: Patient was admitted with severe radiculopathy inability ambulate. She underwent surgery the following day tolerated this well was taken to orthopedic for postoperative. Postop day 1 she was up and ambulating progressed appropriately through postop day #2 and 3 with ANT drain decreasing appropriate. Excellent strength testing. Safely discharge home. Discharge orders instructions from the chart for further review. Total Time Total Time Spent Total Time Spent (In Minutes): 20 minutes Discharge Plan Discharge Items Patient Disposition: Home - Self-Care Reason For Visit: LUMBAR STENOSIS Discharge Diagnosis: Lumbar spinal stenosis Activity: As commented below Non-emergency contact: Primary Care Provider Call non-emergency contact if: you have any medication questions Follow-up/Referrals: Corin Rader MD [Primary Care Provider] - Diet: Regular Addtl Attending Provider Instructions: ACTIVITY RECOMMENDATIONS: SELF CARE INSTRUCTIONS AFTER THORACIC/LUMBAR FUSIONS 1. You may walk to your tolerance. It is good exercise for your legs and back. Expect some back and intermittent leg aches and pains. 2. You may perform "counter-top" level activities (make a sandwich, bud with a project, etc.). 3. No bending or lifting of more than 10 pounds or back twisting of any nature (roll like a log when turning in bed). 4. You may ride in a car for 20-30 minutes at a time. No driving until after your first visit with your doctor. 5. Frequent changes of position and restricting sitting to 30 minutes at a time will help limit the amount of back spasms and stiffness you may experience. 6. You may discontinue the use of ambulatory aids (cane, crutches, etc.) once your strength and confidence allow. 7. You may fraud investigator the shower and let water strike your incision when you arrive home at least once daily. Do not take a tub bath, sit in a hot tub or go into a swimming pool until after your first recheck in the office. SPECIAL CARE INSTRUCTIONS: VERY IMPORTANT TO READ AND REVIEW A. Your surgical incision has been closed with a cosmetic suture under the skin that will dissolve in about 6 weeks. In 14 days, you can use a pair of clean scissors and cut the suture that is left outside of the skin at the ends of your incision. 1. The small skin tapes can be removed 7 days after surgery if they have not fallen off by that point. 2. You may keep the wound open to air as much as possible to promote healing after post-op day number 5 unless told otherwise by your doctor. 3. If you think the wound looks like it is becoming infected (redness or worsening drainage) and/or you are experiencing fever, chill or worsening back pain and muscle spasms, contact the office so that we may evaluate you as soon as possible. B. Complications are uncommon, but please contact us if you have any signs or symptoms of: 1. wound infection (fever higher than 102.5 degrees F, redness, separation of wound, drainage, or increasing pain from the incision) 2. blood clots in legs (pain, swelling, redness and warmth in legs) 3. urinary tract infection (fever higher than 102.5 degrees F, burning upon urination or increased frequency of urination) 4. nerve problems (inability to walk on your toes or heels, numbness, loss of bowel or bladder control) 5. any other symptoms that concern you C. Please call the office at if you have any concerns or questions about your operation or recovery. D. No smoking! Smoking drastically decreases the chance of a solid fusion. E. Do not take any anti-inflammatory medications (Indocin, Advil, Motrin, Aspirin, Naprosyn, etc.) as these may inhibit the chance of a solid fusion. Tylenol is okay to take for pain. MANAGING PAIN AFTER SPINAL SURGERY 1. Narcotic medication is intended for short-term use and will be provided for surgical pain. Surgical pain usually lasts for a period of 4-6 weeks. Narcotic medication includes Percocet, Vicodin, Darvocet, Tylenol #3 or Lortab. 2. Longer-term pain is more appropriately treated with non-narcotic medication such as Tylenol ES. 3. Muscle spasm is not appropriately treated with narcotics. Muscle relaxers such as Soma, Flexeril or Skelaxin can be used along with Tylenol ES. 4. Remember that we all live with some "aches and pains". This is not unusual or uncommon after an injury or as we get older. a. Back pain is expected and may include muscle spasms for 4 to 6 weeks after surgery. The pain should gradually improve. If the pain worsens for no apparent reason, please contact the office. b. Intermittent leg pain may also be experienced and should not be concerned about unless it worsens for no apparent reason. If so, please contact the office. 5. We will provide appropriate medication within the normal guidelines of their prescribed use. We will also be very cautious and aware of potential abuse and extended duration of patients' medication needs. a. Pain medications are for your comfort and to assist with sleep and rest so that the tissue can heal. They are not provided in order to return to normal activity and should not be used through the day. To do so or worsening pain at night can result from ongoing tissue damage and development of tolerance to the prescribed medicine. 6. Please allow 2-3 days to process refills. Prescriptions will not be mailed but must be picked up at the office. FOLLOW UP VISIT: Keep your scheduled follow-up appointment. Any questions, please call the office at . Pending Studies at Discharge: No Stand-Alone Forms: My [facility], Smoking Cessation Medications and DC Order Prescriptions: New tramadol 50 mg tablet 50 mg PO Q6H PRN (Reason: pain, moderate) Qty: 30 0RF oxycodone 5 mg tablet 5 mg PO Q6H PRN (Reason: pain, severe) Qty: 30 0RF Continued albuterol sulfate [Ventolin HFA] 90 mcg/actuation HFA aerosol inhaler 1 puff INH Q6H PRN (Reason: Shortness Of Breath) Qty: 18 3RF oxycodone 10 mg tablet 10 mg PO BID PRN (Reason: pain) Qty: 30 0RF dicyclomine 10 mg capsule 10 mg PO QID PRN (Reason: Gi Upset) Qty: 90 1RF atorvastatin 80 mg tablet 80 mg PO PM Qty: 90 3RF multivitamin Tablet 1 tab PO QAM Eliquis 5 mg tablet 5 mg PO BID Qty: 180 3RF diclofenac sodium 1 % gel 2 g topical QID Qty: 100 2RF Rx Instructions: apply to single elbow, wrist or hand; for hand includes palm/fingers/back of hand cyclobenzaprine 10 mg tablet 10 mg PO HS PRN (Reason: Muscle Spasm) Qty: 30 1RF famotidine 40 mg tablet 40 mg PO PM Qty: 90 3RF aspirin 81 mg Tablet,Delayed Release (Dr/Ec) 81 mg PO QAM diltiazem HCl 120 mg capsule,extended release 24hr 120 mg PO HS bupropion HCl 150 mg tablet sustained-release 12 hr 150 mg PO BID benzonatate 200 mg capsule 200 mg PO TID PRN (Reason: Cough) cholecalciferol (vitamin D3) 1,250 mcg (50,000 unit) capsule 50,000 unit PO 2XWK Rx Instructions: 50,000 unit PO twice weekly; ondansetron HCl 4 mg tablet 4 mg PO Q8H PRN (Reason: nausea and vomiting) Qty: 10 0RF Discontinued Advil Dual Action 125-250 mg Tablet 1 tab PO Q8H PRN (Reason: Pain) Discharge Orders: Discharge Order (Routine); Ordered 10/10/21 Ordered By: Feliciano Schmidt Admission Data Admit Date/Time: 10/05/21 20:27 Attending Provider: Feliciano Schmidt Admit Provider: Feliciano Schmidt Primary Care Provider: Corin Rader Other Providers: Evelyn Chino ; Feliciano Schmidt ; Charles Gross
== END 2021-10-10 14:36 | disposition home or self-care (01) | DRG 455 ==
LOC: ED 14:50 → 3W 20:27 → 3E 10-06 05:20

== ENCOUNTER 2022-02-19 10:56 | Inpatient (IN) ==
[2022-02-19] MEDS ORDERED: MoRPHine SULFATE 4 MG/ML 1 ML CARP\\VIAL IV STA ×2 (11:22→14:00)
[2022-02-19] MEDS ORDERED: SODIUM CHLORIDE 0.9% 1000ML 1,000 ML IV STA (11:22)
[2022-02-19] MEDS ORDERED: ONDANSETRON INJ 2 MG/ML 2 ML VIAL IV STA ×2 (11:22→13:00)
--- NOTE | 2022-02-19 11:25 | Emergency Department Note ---
Impression & Plan Pyelonephritis, Medication reaction, Acute dehydration ED Provider Note NAME: SOFÍA GOTTLIEB AGE: 61 SEX: F : 1960 ARRIVES VIA: Walk-In INFORMANT: Patient, ED PROVIDER(S): Savage Harding MD CHIEF COMPLAINT: Flank pain MEDICAL DECISION MAKING: Patient presents with flank pain. Patient did have blood work completed. I did review the patient's most recent KUB. The patient was ordered IV morphine and Zofran and IV fluids. I did discuss with the patient that if she had any kidney dysfunction or concerning lab findings that I would recommend a CAT scan. The patient does have a known history of renal colic and states that this does feel similar but not improving at home. The patient was feeling lightheaded and dizzy and was noted to have some wheezing. The patient's Rocephin was stopped. I did speak with pharmacy who stated the patient did tolerate Rocephin this past April. Patient was ordered methylprednisolone Benadryl and Pepcid as well as a breathing treatment. I did have charge nurse call respiratory for breathing treatment. Chest x-ray was also ordered. Patient is a normal white count mild anemia hemoglobin 11.2. Platelet count is unremarkable. Kidney function is unremarkable. Troponin is negative. EKG with no significant or concerning findings. Given the patient's reaction Rocephin was stopped and she may have received about half dose. Patient has improvement in her symptoms. I did speak with pharmacy who recommended either the carbapenems IV or Bactrim p.o. I did speak with the on-call hospitalist Agata Bangura PA-C the patient was admitted by Dr. Ingram Prior /Outside records reviewed: The patient's KUB on February 17 showed left- sided nephrolithiasis but no ureteral calculi identified. I did review the patient's urine culture from February 17, which showed E. coli sensitive to Rocephin. Differential diagnosis: Renal colic, UTI, appendicitis, diverticulitis, mesenteric ischemia, aortic pathology, infections, inflammatory bowel disease, PUD, biliary pathology, as well as other pathologies. Diagnostics, as interpreted by me: ECG: Normal sinus rhythm, rate of 80, normal intervals, normal axis. Cardiac monitoring: An order was placed for continuous cardiac monitoring. The monitor shows a rate of 88 with sinus rhythm. Patient was placed on pulse oximetry Medical decision rules: None Imaging studies: See below HPI: Patient presents due to concern for left-sided renal colic that began on . The patient did have an outpatient KUB completed on Sunday which did show a likely kidney stone. Patient was prescribed some medications for home and was taking extra strength Tylenol but without improvement in symptoms. Patient describes it as sharp with radiation to the left abdomen. Patient denies any falls or trauma. The patient does take apixaban for known history of A. fib. Patient has had nausea but no vomiting. Chills but no fever. Patient denies any dysuria or hematuria no issues with defecation no blood in the stools. No falls or trauma. PAST MEDICAL HISTORY: See Below PAST SURGICAL HISTORY: See Below SOCIAL HISTORY: See Below HOME MEDICATIONS: See Below ALLERGIES: See Below VITALS: See Below PHYSICAL EXAMINATION: GENERAL: Mildly uncomfortable in appearance, tearful, wearing a mask. EYE EXAM: Normal conjunctiva. PERRL, no anisocoria and EOM's grossly intact w/o pain. NECK: Supple, no nuchal rigidity, no adenopathy, non-tender. No signs of meningismus. FROM of the neck with good chin to chest and neck extension. No stridor. LUNGS: Clear to auscultation. Normal chest wall mechanics. HEART: NSR, no MRG. ABDOMEN: Abdomen soft, non-tender, normo-active bowel sounds, no masses, no rebound or guarding. BACK: Left-sided CVA TTP without any midline thoracic or lumbar TTP and no right-sided TTP. SKIN: No rashes and no bruising. UPPER EXTREMITIES: Upper extremities are grossly normal. LOWER EXTREMITIES: Grossly normal, no edema. NEURO EXAM: A&O x3, cranial nerves II-XII grossly intact, normal speech, moves all 4 extremities. Past Med/Surg History Medical History Asthma Depression Dyslipidemia History of COVID-19 02/2020 History of kidney stones HTN (hypertension) Insomnia Nephrolithiasis Obesity Paroxysmal atrial fibrillation on Eliquis, follows with [facility] [place] Prediabetes Tobacco use Surgical History H/O arthroscopy of right knee History of section x2 History of colonoscopy History of lithotripsy History of lumbar fusion x2-- History of tooth extraction full upper denture S/P appendectomy S/P cholecystectomy S/P hysterectomy candy bso S/P lumbar discectomy [place] teeth removed Family History Sister Afib Family history of diabetes mellitus Pancreatic cancer Heart disease Kidney stones Mother Afib Myocardial infarction Family history of diabetes mellitus Heart disease Father Prostate cancer Grandmother (Maternal) Family history of diabetes mellitus Brother Kidney stones Other No family history of adverse response to anesthesia Denies family history of Ovarian cancer Breast cancer Social History Smoking Status: Current every day smoker Tobacco Type: Cigarettes Age Started Using Tobacco: 16; Age Quit Using Tobacco: 58; packs per day: 0.75; Cigarettes Per Day: 10; Second Hand Exposure: No; Hx Alcohol Use: Yes Alcohol type: wine Hx Substance Use: No Preferred Language: [place] Communication Ability: Effective Visual Impairment: No Limitations Hearing Ability: Normal Playground Attendant Required: No Beliefs That Will Affect Care: None marital status: Current Living Situation: Alone current occupational status: employed 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 How many Children do You have: 3 Feels Safe at Home: Yes Childhood Exposure to Second-Hand Smoke: No caffeine: Yes during the past year weight has: increased > 10 lbs Dental Care, Regularly: Yes Physical Activity Frequency: 1-2 Times per Week Seatbelt Use: always Sunscreen Use: Yes Assistive Devices: Glasses Allergies Allergies Allergy/AdvReac Type Severity Reaction Status Date / Time lemon Allergy Intermediate Hives Verified 01/17/22 13:27 Penicillins Allergy Intermediate Hives Verified 01/17/22 13:27 bupropion [From Wellbutrin] AdvReac Intermediate Gastrointestinal Verified 08/03 13:27 Upset surgical syed Allergy Intermediate "infection Uncoded 01/17/22 13:27 at hysterectomy site d/t allergy from syed" Home Meds Home Medications Medication Instructions Recorded Confirmed aspirin 81 mg tablet,delayed 81 mg PO QAM 02/26/20 02/19/22 release multivitamin 1 tab PO QAM 10/28/20 02/19/22 famotidine 40 mg tablet 40 mg PO PM PRN Acid Reflux 02/19/22 02/19/22 Previous Rx's Medication Instructions Recorded albuterol sulfate 90 mcg/actuation 1 puff inhalation Q6H PRN 05/18/20 aerosol inhaler (Ventolin HFA) Shortness Of Breath #18 grams apixaban 5 mg tablet (Eliquis) 5 mg PO BID #180 tabs 06/30/21 dicyclomine 10 mg capsule 10 mg PO QID PRN Gi Upset #90 caps 09/26/21 atorvastatin 80 mg tablet 80 mg PO PM #90 tabs 10/05/21 tramadol 50 mg tablet 50 mg PO Q6H PRN pain, moderate 10/08/21 #30 tabs cyclobenzaprine 10 mg tablet 10 mg PO HS PRN Muscle Spasm #30 12/08/21 tabs diltiazem HCl 120 mg 120 mg PO HS #90 caps 01/09/22 capsule,extended release 24 hr phenazopyridine 100 mg tablet 100 mg PO TID PRN pain #7 tabs 02/17/22 (Pyridium) tamsulosin 0.4 mg capsule 0.4 mg PO HS #30 caps 02/17/22 Results & Data (ED) Vital Signs Vital Signs - 24 hr 02/19/22 11:05 02/19/22 12:39 02/19/22 14:28 Temperature 36.1 C L Temperature Source Skin Pulse Rate 94 H 86 Pulse Rate [Left Finger] 91 H Pulse Rhythm [Left Finger] Regular Pulse Strength [Left Finger] Normal Respiratory Rate 20 18 18 Respiratory Effort / Characteristics Non-Labored Spontaneous Non-Labored Spontaneous Respiratory Depth Normal Respiratory Pattern Regular Regular Blood Pressure 113/69 176/86 H Blood Pressure [Right Arm] 155/72 H Blood Pressure Mean 83 116 Blood Pressure Mean [Right Arm] 99 Blood Pressure Position [Right Arm] Lying Pulse Oximetry 97 96 100 Oxygen Delivery Method Room Air Room Air Room Air Sepsis Recent Fever Within 48 Hours No Sepsis New/Unexplained Change in Mental Status N/A Sepsis Action Taken by Nursing No Action Required Home Medications Current Medication List: was personally reviewed by me Laboratory Data Attestation: I reviewed the patient's lab results. 02/19/22 11:57 02/19/22 11:57 Lab Results 02/19/22 02/19/22 02/19/22 Range/Units 11:35 11:57 11:57 WBC 7.61 (4.8-10.8) K/ul RBC 4.14 (3.93-5.22) M/uL Hgb 11.2 L (12.0-16.0) g/dl Hct 34.9 (34.1-44.9) % MCV 84.3 (80.0-100.0) fL MCH 27.1 (25.0-34.0) pg MCHC 32.1 (32.0-36.0) g/dL RDW Std Deviation 54.4 H (36.4-46.3) fL RDW Coeff of Sylwia 17.6 H (11.5-14.5) % Plt Count 373 (130-400) K/uL MPV 8.8 L (9.4-12.3) fL Immature Gran % (Auto) 0.3 % Neut % (Auto) 59.1 % Lymph % (Auto) 26.3 % Gibson % (Auto) 12.7 % Eos % (Auto) 0.9 % Baso % (Auto) 0.7 % Neut # (Auto) 4.50 (1.4-6.5) K/uL Lymph # (Auto) 2.00 (1.2-3.4) K/uL Gibson # (Auto) 0.97 H (0.24-0.82) K/uL Eos # (Auto) 0.07 (0-0.50) K/uL Baso # (Auto) 0.05 (0-0.2) K/uL Immature Gran # (Auto) 0.02 (0.00-0.02) K/uL Sodium 138 (136-145) mmol/L Potassium 4.1 (3.5-5.1) mmol/L Chloride 105 (98-107) mmol/L Carbon Dioxide 24 (21-32) mmol/L Anion Gap 9 (3-11) BUN 16 (6-23) mg/dl Creatinine 0.83 (0.6-1.2) mg/dl Est Cr Clr Drug Dosing 80.3 ml/min Est GFR ( Amer) 87.0 ml/min Est GFR (Non-Af Amer) 75.0 ml/min BUN/Creatinine Ratio 19.3 (10-20) Glucose 121 H (70-99(Fasting)) mg/dl Calcium 9.2 (8.5-10.1) mg/dl Total Bilirubin 0.3 (0.2-1.0) mg/dl AST 10 L (13-39) U/L ALT 9 (7-52) U/L Alkaline Phosphatase 101 (34-104) U/L Total Protein 7.3 (6.0-8.3) gm/dl Albumin 3.8 (3.4-5.0) gm/dl Globulin 3.5 (2.5-4.0) gm/dl Albumin/Globulin Ratio 1.1 (0.9-2) Lipase 17 (11-82) U/L Urine Color Dark Yellow Urine Appearance Cloudy A (Clear) Urine pH 5.5 (4.5-7.5) Ur Specific [place] 1.021 (1.000-1.030) Urine Protein 1+ H (Negative) Urine Glucose (UA) Negative (Negative) Urine Ketones Negative (Negative) Urine Blood 1+ H (Negative) Urine Nitrite Positive A (Negative) Urine Bilirubin Negative (Negative) Urine Urobilinogen Negative (Negative) Ur Leukocyte Esterase 1+ H (Negative) Urine WBC (Auto) 10-30 H (0-5) /hpf Urine RBC (Auto) 10-30 H (0-4) /hpf U Hyaline Cast (Auto) 1-5 (0-5) /lpf U Epithel Cells (Auto) 10-20 H (0-5) /lpf Urine Bacteria (Auto) 4+ H (Negative) SARS-CoV-2, RNA, NAAT (NEGATIVE) 02/19/22 Range/Units 14:20 WBC (4.8-10.8) K/ul RBC (3.93-5.22) M/uL Hgb (12.0-16.0) g/dl Hct (34.1-44.9) % MCV (80.0-100.0) fL MCH (25.0-34.0) pg MCHC (32.0-36.0) g/dL RDW Std Deviation (36.4-46.3) fL RDW Coeff of Sylwia (11.5-14.5) % Plt Count (130-400) K/uL MPV (9.4-12.3) fL Immature Gran % (Auto) % Neut % (Auto) % Lymph % (Auto) % Gibson % (Auto) % Eos % (Auto) % Baso % (Auto) % Neut # (Auto) (1.4-6.5) K/uL Lymph # (Auto) (1.2-3.4) K/uL Gibson # (Auto) (0.24-0.82) K/uL Eos # (Auto) (0-0.50) K/uL Baso # (Auto) (0-0.2) K/uL Immature Gran # (Auto) (0.00-0.02) K/uL Sodium (136-145) mmol/L Potassium (3.5-5.1) mmol/L Chloride (98-107) mmol/L Carbon Dioxide (21-32) mmol/L Anion Gap (3-11) BUN (6-23) mg/dl Creatinine (0.6-1.2) mg/dl Est Cr Clr Drug Dosing ml/min Est GFR ( Amer) ml/min Est GFR (Non-Af Amer) ml/min BUN/Creatinine Ratio (10-20) Glucose (70-99(Fasting)) mg/dl Calcium (8.5-10.1) mg/dl Total Bilirubin (0.2-1.0) mg/dl AST (13-39) U/L ALT (7-52) U/L Alkaline Phosphatase (34-104) U/L Total Protein (6.0-8.3) gm/dl Albumin (3.4-5.0) gm/dl Globulin (2.5-4.0) gm/dl Albumin/Globulin Ratio (0.9-2) Lipase (11-82) U/L Urine Color Urine Appearance (Clear) Urine pH (4.5-7.5) Ur Specific [place] (1.000-1.030) Urine Protein (Negative) Urine Glucose (UA) (Negative) Urine Ketones (Negative) Urine Blood (Negative) Urine Nitrite (Negative) Urine Bilirubin (Negative) Urine Urobilinogen (Negative) Ur Leukocyte Esterase (Negative) Urine WBC (Auto) (0-5) /hpf Urine RBC (Auto) (0-4) /hpf U Hyaline Cast (Auto) (0-5) /lpf U Epithel Cells (Auto) (0-5) /lpf Urine Bacteria (Auto) (Negative) SARS-CoV-2, RNA, NAAT NEGATIVE (NEGATIVE) Administered Medications Ondansetron HCl (Ondansetron Inj 2 Mg/Ml 2 Ml Vial) 4 mg IV Q6H PRN PRN Reason: Nausea Stop: 03/21/22 16:53 Last Admin: 02/19/22 17:00 Dose: 4 mg Documented By: ELOINA Discontinued Medications Albuterol (Albuterol 0.083% Nebu Soln 3 Ml Vial) 2.5 mg INH NOW STA Stop: 02/19/22 14:10 Last Admin: 02/19/22 14:14 Dose: 2.5 mg Documented By: HEATH Diphenhydramine HCl (Diphenhydramine 50 Mg/Ml Vial) 50 mg IV NOW STA Stop: 02/19/22 14:10 Last Admin: 02/19/22 14:14 Dose: 50 mg Documented By: HEATH Sodium Chloride (Nss 1000ml) 1,000 mls @ 999 mls/hr IV .Q1H1M STA Stop: 02/19/22 12:22 Last Infusion: 02/19/22 12:55 Dose: 0 mls/hr Documented By: Admin: 02/19/22 11:53 Dose: 999 mls/hr Documented By: HEATH Ceftriaxone Sodium (Rocephin) 2,000 mg in 70 mls @ 140 mls/hr IV NOW STA Stop: 02/19/22 13:07 Last Infusion: 02/19/22 13:42 Dose: 0 mls/hr Documented By: Admin: 02/19/22 13:07 Dose: 140 mls/hr Documented By: HEATH Sodium Chloride (Nss 1000ml) 500 mls @ 999 mls/hr IV .Q31M ONE Stop: 02/19/22 13:30 Last Infusion: 02/19/22 13:42 Dose: 0 mls/hr Documented By: Admin: 02/19/22 13:08 Dose: 999 mls/hr Documented By: HEATH Pantoprazole Sodium 40 mg/ (Syringe) 10 mls @ 5 mls/min IV NOW ONE Stop: 02/19/22 14:01 Last Admin: 02/19/22 14:29 Dose: Not Given Documented By: HEATH Famotidine (Pepcid 20mg Iv Push) 20 mg in 5 mls @ 2.5 mls/min IV NOW STA Stop: 02/19/22 14:10 Last Admin: 02/19/22 14:14 Dose: 2.5 mls/min Documented By: HEATH Ioversol (Optiray 350 100ml) 85 ml IV ONCE ONE Stop: 02/19/22 13:23 Last Admin: 02/19/22 13:26 Dose: 85 ml Documented By: DARRYL Methylprednisolone (Methylprednisolone 125 Mg/2 Ml Vial) 125 mg IV NOW STA Stop: 02/19/22 14:10 Last Admin: 02/19/22 14:14 Dose: 125 mg Documented By: HEATH Morphine Sulfate (Morphine Sulfate 4 Mg/Ml 1 Ml Carp\\Vial) 4 mg IV NOW STA Stop: 02/19/22 11:23 Last Admin: 02/19/22 11:54 Dose: 4 mg Documented By: HEATH Morphine Sulfate (Morphine Sulfate 4 Mg/Ml 1 Ml Carp\\Vial) 4 mg IV NOW STA Stop: 02/19/22 14:01 Last Admin: 02/19/22 14:17 Dose: 4 mg Documented By: HEATH Ondansetron HCl (Ondansetron Inj 2 Mg/Ml 2 Ml Vial) 4 mg IV NOW STA Stop: 02/19/22 11:23 Last Admin: 02/19/22 11:54 Dose: 4 mg Documented By: HEATH Ondansetron HCl (Ondansetron Inj 2 Mg/Ml 2 Ml Vial) 4 mg IV NOW STA Stop: 02/19/22 13:01 Last Admin: 02/19/22 13:06 Dose: 4 mg Documented By: HEATH Trimethoprim/Sulfamethoxazole (Sulfamethoxazole/Trimethoprim Ds 800/160mg Tab) 1 tab PO NOW ONE Stop: 02/19/22 14:57 Last Admin: 02/19/22 15:59 Dose: 1 tab Documented By: HEATH Imaging Data Radiologist's Impression: Abdomen/Pelvis CT 02/19/22 13:[address] WITH IV CONTRAST CT DOSE: 1352.68 mGy.cm HISTORY: L sided flank pain; ?pyelo; h/o stones TECHNIQUE: Multiaxial CT images of the abdomen and pelvis were performed following the use of intravenous contrast. A dose lowering technique was utilized adhering to the principles of ALARA. COMPARISON STUDY: Abdomen and pelvis CT 10/13/2021. FINDINGS: The lung bases are essentially clear. No pneumoperitoneum. No pneumatosis. Patchy sclerosis within the left femoral head, unchanged. Postoperative changes again noted within the lumbar spine. Prior hysterectomy. Mild pelvic floor collapse. Bladder wall thickening is likely due to underdist ention. No pelvic free fluid or pelvic lymphadenopathy. Status post cholecystectomy with chronic bile duct dilatation, unchanged. The main portal vein is patent. The pancreas, adrenal glands, and spleen are unremarkable. Stable left-sided nephrolithiasis. No ureteral stones. No hydronephrosis. Stable left renal cysts again noted. Mild bilateral perinephric edema which is likely chronic. Normal caliber abdominal aorta. No retroperitoneal lymphadenopathy. Mildly ectatic abdominal aorta, unchanged. No evidence for an abdominal aortic aneurysm. Colonic diverticulosis. No evidence for acute diverticulitis. No bowel wall thickening or obstruction. Prior appendectomy. IMPRESSION: 1. Left-sided nephrolithiasis. No ureteral stones. No hydronephrosis. 2. No bowel wall thickening or obstruction. 3. Colonic diverticulosis. No evidence for acute diverticulitis. 4. Additional stable findings as described above. ACT 112: Negative or not required by law. Electronically signed by: Tre Barnes M.D. 02/19/2022 1:35 PM Chest X-Ray 02/19/22 14:10 XR chest 1V portable HISTORY: wheezing COMPARISON: Chest 02/14/2021. FINDINGS: No focal lung consolidations to suggest a pneumonia. No evidence for pulmonary edema. The heart is normal in size. No pleural effusions. No pneumoth orax. IMPRESSION: No acute process. ACT 112: Negative or not required by law. Electronically signed by: Tre Barnes M.D. 02/19/2022 2:59 PM Discharge Plan Visit Data Chief Complaint: Kidney Stone Stated Complaint: KIDNEY STONES ED Provider: Savage Harding Discharge Problem: Pyelonephritis, Medication reaction, Acute dehydration Patient Disposition: Admitted As Inpatient Discharge Instructions Interventions: ED Discharge Assessment Last Done: 02/19/22 17:14
[2022-02-19 11:50] LABS: Appearance Urine Cloudy (Clear); Bacteria Urine Automated 4+ (Negative); Bilirubin Urine Negative (Negative); Blood Urine 1+ (Negative); Color Urine Dark Yellow; Glucose Urine UA Negative (Negative); Ketones Urine Negative (Negative); Leukocyte Esterase Urine 1+ (Negative); Nitrite Urine Positive (Negative); Protein Urine 1+ (Negative); Specific Gravity Urine 1.021 (1.000-1.030); Urobilinogen Urine Negative (Negative); pH Urine 5.5 (4.5-7.5)
[2022-02-19 12:08] LABS: Basophils # (auto) 0.05 K/uL (0-0.2); Basophils % (auto) 0.7 %; Eosinophils # (auto) 0.07 K/uL (0-0.50); Eosinophils % (auto) 0.9 %; Hematocrit (blood only) 34.9 % (34.1-44.9); Hemoglobin 11.2 g/dl (12.0-16.0); Immature Granulocytes # (auto) 0.02 K/uL (0.00-0.02); Immature Granulocytes % (auto) 0.3 %; Lymphocytes % (auto) 26.3 %; Mean Corpuscular Hemoglobin 27.1 pg (25.0-34.0); Mean Corpuscular Hgb Conc 32.1 g/dL (32.0-36.0); Mean Corpuscular Volume 84.3 fL (80.0-100.0); Mean Platelet Volume 8.8 fL (9.4-12.3); Monocytes # (auto) 0.97 K/uL (0.24-0.82); Monocytes % (auto) 12.7 %; Neutrophils % (auto) 59.1 %; Platelet Count 373 K/uL (130-400); RDW Coefficient of Variation 17.6 % (11.5-14.5); RDW Standard Deviation 54.4 fL (36.4-46.3); Red Blood Count 4.14 M/uL (3.93-5.22); White Blood Count 7.61 K/ul (4.8-10.8)
[2022-02-19 12:33] LABS: Albumin Globulin Ratio 1.1 (0.9-2); Albumin Level 3.8 gm/dl (3.4-5.0); BUN Creatinine Ratio 19.3 (10-20); Bilirubin,Total 0.3 mg/dl (0.2-1.0); Calcium 9.2 mg/dl (8.5-10.1); Creatinine Clr Calc Pharmacy 80.3 ml/min; Globulin 3.5 gm/dl (2.5-4.0); Potassium 4.1 mmol/L (3.5-5.1); Total Protein 7.3 gm/dl (6.0-8.3)
[2022-02-19] MEDS ORDERED: cefTRIAXone SODIUM 2,000 MG/70 ML BAG IV STA (12:38)
[2022-02-19] MEDS ORDERED: SODIUM CHLORIDE 0.9% 1000ML 500 ML IV ONE (13:00)
[2022-02-19] MEDS ORDERED: OPTIRAY 350 100ml IV ONE (13:22)
--- NOTE | 2022-02-19 13:37 | CT Scan Report ---
ABDOMEN AND PELVIS CT WITH IV CONTRAST CT DOSE: 1352.68 mGy.cm HISTORY: L sided flank pain; ?pyelo; h/o stones TECHNIQUE: Multiaxial CT images of the abdomen and pelvis were performed following the use of intrave nous contrast. A dose lowering technique was utilized adhering to the principles of ALARA. COMPARISON STUDY: Abdomen and pelvis CT 10/13/2021. FINDINGS: The lung bases are essentially clear. No pneumoperitoneum. No pneumatosis. Patchy sclerosis within the left femoral head, unchanged. Postoperative changes again noted within the lumbar spine. Prior hysterectomy. Mild pelvic floor collapse. Bladder wall thickening is likely due to underdistent ion. No pelvic free fluid or pelvic lymphadenopathy. Status post cholecystectomy with chronic bile du ct dilatation, unchanged. The main portal vein is patent. The pancreas, adrenal glands, and spleen ar e unremarkable. Stable left-sided nephrolithiasis. No ureteral stones. No hydronephrosis. Stable left renal cysts again noted. Mild bilateral perinephric edema which is likely chronic. Normal caliber ab dominal aorta. No retroperitoneal lymphadenopathy. Mildly ectatic abdominal aorta, unchanged. No evid ence for an abdominal aortic aneurysm. Colonic diverticulosis. No evidence for acute diverticulitis. No bowel wall thickening or obstruction. Prior appendectomy. IMPRESSION: 1. Left-sided nephrolithiasis. No ureteral stones. No hydronephrosis. 2. No bowel wall thickening or obstruction. 3. Colonic diverticulosis. No evidence for acute diverticulitis. 4. Additional stable findings as described above. ACT 112: Negative or not required by law. Electronically signed by: Tre Barnes M.D. 02/19/2022 1:35 PM
[2022-02-19] MEDS ORDERED: PANTOprazole 40 MG in SYRINGE 0 ML IV ONE (14:00)
[2022-02-19] MEDS ORDERED: diphenhydrAMINE 50 MG/ML VIAL IV STA (14:09)
[2022-02-19] MEDS ORDERED: FAMOTIDINE 20MG IV PUSH 20 MG/5 ML SYR IV STA (14:09)
[2022-02-19] MEDS ORDERED: methylPREDNISolone 125 MG/2 ML VIAL IV STA (14:09)
[2022-02-19] MEDS ORDERED: ALBUTEROL 0.083% NEBU SOLN 3 ML VIAL INH STA (14:09)
--- NOTE | 2022-02-19 14:37 | History & Physical Report ---
Date of Service February 19, 2022 Assessment & Plan (1) UTI (urinary tract infection): Plan: - 4+ bacteria, 10-30 WBCs, 1+ leuk esterase, positive nitrates on UA, culture from 02/17 growing E. coli resistant to quinolones, otherwise sensitive to several antibiotics. - CTAP with stable left nephrolithiasis, no hydronephrosis or ureteral stone. - Patient was to be discharged with oral antibiotics after receiving dose of IV Rocephin which she had received before and tolerated, however shortly after Rocephin was started she had a reaction consisting of cold sweats, shaking, abdominal pain, and wheezing. - She will be started on Bactrim and observed overnight given her reaction to the Rocephin. - Patient's renal function is at baseline, appropriate for Bactrim use. Will monitor renal function with BMP in AM. (2) Allergic reaction due to antibacterial drug: Plan: - Shortly after Rocephin was started for UTI, patient developed chills, rigors, abdominal pain, and wheezing. At no point did she complain of throat closing or swelling or shortness of breath. - She received methylprednisolone, Pepcid, Benadryl, and a breathing treatment now feeling much better. - Not found to be febrile during the event, vital signs stable. - CXR without acute process, EKG showed NSR, Trope pending. - She will be admitted overnight for observation while on Bactrim. (3) Paroxysmal atrial fibrillation: Plan: - NSR today. Continue Eliquis, diltiazem. (4) HTN (hypertension): Plan: - Continue diltiazem. (5) Dyslipidemia: Plan: - Continue atorvastatin. Plan - Admit to medicine with telemetry. - SCDs ordered and encouraged, Eliquis continued for VTE PPx. - Full code. History of Present Illness Chief Complaint: Left flank pain x1 day Primary Care Provider: Corin Rader MD Sheela Turk is a 61-year-old female with past medical history significant for A. fib on Eliquis, hypertension, dyslipidemia, asthma, depression, obesity, and history of renal stones. She is presenting today with flank pain. She was seen by her PCP 2 days ago, 02/17 and had a KUB that showed stable left-sided nephrolithiasis without any ureteral calculi identified. She presents today with continued flank pain that has been persistent throughout the night and she is unable to sleep due to it. She is not having any dysuria, hematuria, increased urinary frequency or retention, no fever, chills, generalized body aches, weakness, or fatigue. Labs collected, urine appears infected with 4+ bacteria, leukoesterase, WBCs, nitrates and patient was ordered Rocephin based on cultures ordered 2 days ago on outpatient, growing E. coli sensitive to Rocephin, which patient has had before and tolerated well. Shortly after receiving Rocephin, she became lightheaded, dizzy and was noted to be wheezing. Rocephin was stopped, she was ordered methylprednisolone, Benadryl, Pepcid as well as a breathing treatment. EKG, troponin, and CXR pending. On presentation, she has been tachycardic to the 90s, BP 155/72, otherwise afebrile and not hypoxic. Urine with evidence of infection as above, labs otherwise unremarkable without leukocytosis, impaired renal function, electrolyte abnormality. CT A/P shows stable left-sided nephrolithiasis without ureteral stones or hydronephrosis. No other acute findings. Allergies Allergy/AdvReac Type Severity Reaction Status Date / Time lemon Allergy Intermediate Hives Verified 01/17/22 13:27 Penicillins Allergy Intermediate Hives Verified 01/17/22 13:27 bupropion [From Wellbutrin] AdvReac Intermediate Gastrointestinal Verified 01/17/22 13:27 Upset surgical syed Allergy Intermediate "infection Uncoded 01/17/22 13:27 at hysterectomy site d/t allergy from syed" Home Medications Medication Instructions Recorded Confirmed Type aspirin 81 mg tablet,delayed 81 mg PO QAM 02/26/20 02/19/22 History release albuterol sulfate 90 mcg/actuation 1 puff inhalation Q6H PRN 05/18/20 02/19/22 Rx aerosol inhaler (Ventolin HFA) Shortness Of Breath #18 grams multivitamin 1 tab PO QAM 10/28/20 02/19/22 History apixaban 5 mg tablet (Eliquis) 5 mg PO BID #180 tabs 06/30/21 02/19/22 Rx dicyclomine 10 mg capsule 10 mg PO QID PRN Gi Upset #90 caps 09/26/21 02/19/22 Rx atorvastatin 80 mg tablet 80 mg PO PM #90 tabs 10/05/21 02/19/22 Rx tramadol 50 mg tablet 50 mg PO Q6H PRN pain, moderate 10/08/21 02/19/22 Rx #30 tabs cyclobenzaprine 10 mg tablet 10 mg PO HS PRN Muscle Spasm #30 12/08/21 02/19/22 Rx tabs diltiazem HCl 120 mg 120 mg PO HS #90 caps 01/09/22 02/19/22 Rx capsule,extended release 24 hr phenazopyridine 100 mg tablet 100 mg PO TID PRN pain #7 tabs 02/17/22 02/19/22 Rx (Pyridium) tamsulosin 0.4 mg capsule 0.4 mg PO HS #30 caps 02/17/22 02/19/22 Rx famotidine 40 mg tablet 40 mg PO PM PRN Acid Reflux 02/19/22 02/19/22 History Past Med/Surg History Medical History Asthma Depression Dyslipidemia History of COVID-19 02/2020 History of kidney stones HTN (hypertension) Insomnia Nephrolithiasis Obesity Paroxysmal atrial fibrillation on Eliquis, [place] [facility] [place] Prediabetes Tobacco use Surgical History H/O arthroscopy of right knee History of section x2 History of colonoscopy History of lithotripsy History of lumbar fusion x2--2015/2016 History of tooth extraction full upper denture S/P appendectomy S/P cholecystectomy S/P hysterectomy candy bso S/P lumbar discectomy [place] teeth removed Family History Sister Afib Family history of diabetes mellitus Pancreatic cancer Heart disease Kidney stones Mother Afib Myocardial infarction Family history of diabetes mellitus Heart disease Father Prostate cancer Grandmother (Maternal) Family history of diabetes mellitus Brother Kidney stones Other No family history of adverse response to anesthesia Denies family history of Ovarian cancer Breast cancer Social History Smoking Status: Current every day smoker Tobacco Type: Cigarettes Age Started Using Tobacco: 16; Age Quit Using Tobacco: 58; packs per day: 0.75; Cigarettes Per Day: 10; Second Hand Exposure: No; Hx Alcohol Use: Yes Alcohol type: wine Hx Substance Use: No Preferred Language: Serbian Communication Ability: Effective Visual Impairment: No Limitations Hearing Ability: Normal [employer] Mk1 Operator Required: No Beliefs That Will Affect Care: None marital status: Current Living Situation: Alone current occupational status: employed 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 How many Children do You have: 3 Feels Safe at Home: Yes Childhood Exposure to Second-Hand Smoke: No caffeine: Yes during the past year weight has: increased > 10 lbs Dental Care, Regularly: Yes Physical Activity Frequency: 1-2 Times per Week Seatbelt Use: always Sunscreen Use: Yes Assistive Devices: Glasses Review of Systems Review of Systems: Constitutional: No fever/chills, weakness, fatigue, myalgias, anorexia, night sweats Eyes: No diplopia, no worsening or blurred vision ENT: normal hearing, no trouble swallowing Respiratory: No cough, sputum, dyspnea at rest or on exertion Cardiovascular: No chest pain, tightness or palpitations Abdomen: No pain, nausea, vomiting, diarrhea or constipation : Left flank pain over the past week that has been intermittent, constant in nature since last evening, aching; denies dysuria, hematuria, increased urgency/frequency, urinary retention Musculoskeletal: No joint pain, calf pain, swelling Neurologic: No weakness, numbness/tingling, or balance problems Psychiatric: No anxiety or depression Skin: No rash or itch Physical Exam Physical Exam: General: awake, alert, no apparent distress Head: Normocephalic, atraumatic ENT: PERRL, EOMI, no pharyngeal exudate, mucous membranes moist Chest: Clear to auscultation, on room air, no adventitious breath sounds Cardiac: Regular rate and rhythm, no murmur, no JVD, normal peripheral pulses, good capillary refill Abdominal: Left flank pain with palpation; NABS x 4 quadrants, soft, nontender to palpation, no rebound, guarding or tenderness Extremities: Normal inspection, no peripheral edema or erythema, calfs nontender to palpation Psych: Normal mood and affect Neuro: AAO x 3, strength intact bilaterally and rated 5/5, no motor deficits, speech is clear, no peripheral sensory deficits Skin: no rash or erythema Results & Data Results & Data ([place]) Vital Signs (Past 12 Hours) Vital Signs Temp Pulse Pulse Resp BP BP Pulse Ox 02/19/22 14:28 86 18 176/86 H 100 02/19/22 12:39 91 H 18 155/72 H 96 02/19/22 11:05 36.1 C L 94 H 20 113/69 97 O2 Del Method 02/19/22 14:28 Room Air 02/19/22 12:39 Room Air 02/19/22 11:05 Room Air Laboratory Results Abnormal lab results 02/19/22 02/19/22 02/19/22 Range/Units 11:35 11:57 11:57 Hgb 11.2 L (12.0-16.0) g/dl RDW Std Deviation 54.4 H (36.4-46.3) fL RDW Coeff of Sylwia 17.6 H (11.5-14.5) % MPV 8.8 L (9.4-12.3) fL [place] # (Auto) 0.97 H (0.24-0.82) K/uL Glucose 121 H (70-99(Fasting)) mg/dl AST 10 L (13-39) U/L Urine Appearance Cloudy A (Clear) Urine Protein 1+ H (Negative) Urine Blood 1+ H (Negative) Urine Nitrite Positive A (Negative) Ur Leukocyte Esterase 1+ H (Negative) Urine WBC (Auto) 10-30 H (0-5) /hpf Urine RBC (Auto) 10-30 H (0-4) /hpf U Epithel Cells (Auto) 10-20 H (0-5) /lpf Urine Bacteria (Auto) 4+ H (Negative) Diagnostic Findings Abdomen/Pelvis CT 02/19/22 13:[address] WITH IV CONTRAST CT DOSE: 1352.68 mGy.cm HISTORY: L sided flank pain; ?pyelo; h/o stones TECHNIQUE: Multiaxial CT images of the abdomen and pelvis were performed following the use of intravenous contrast. A dose lowering technique was utilized adhering to the principles of ALARA. COMPARISON STUDY: Abdomen and pelvis CT 10/13/2021. FINDINGS: The lung bases are essentially clear. No pneumoperitoneum. No pneumatosis. Patchy sclerosis within the left femoral head, unchanged. Postoperative changes again noted within the lumbar spine. Prior hysterectomy. Mild pelvic floor collapse. Bladder wall thickening is likely due to underdistention. No pelvic free fluid or pelvic lymphadenopathy. Status post cholecystectomy with chronic bile duct dilatation, unchanged. The main portal vein is patent. The pancreas, adrenal glands, and spleen are unremarkable. Stable left-sided nephrolithiasis. No ureteral stones. No hydronephrosis. Stable left renal cysts again noted. Mild bilateral perinephric edema which is likely chronic. Normal caliber abdominal aorta. No retroperitoneal lymphadenopathy. Mildly ectatic abdominal aorta, unchanged. No evidence for an abdominal aortic aneurysm. Colonic diverticulosis. No evidence for acute diverticulitis. No bowel wall thickening or obstruction. Prior appendectomy. IMPRESSION: 1. Left-sided nephrolithiasis. No ureteral stones. No hydronephrosis. 2. No bowel wall thickening or obstruction. 3. Colonic diverticulosis. No evidence for acute diverticulitis. 4. Additional stable findings as described above. ACT 112: Negative or not required by law. Electronically signed by: Tre Barnes M.D. 02/19/2022 1:35 PM Chest X-Ray 02/19/22 14:10 XR chest 1V portable HISTORY: wheezing COMPARISON: Chest 02/14/2021. FINDINGS: No focal lung consolidations to suggest a pneumonia. No evidence for pulmonary edema. The heart is normal in size. No pleural effusions. No pneumothorax. IMPRESSION: No acute process. ACT 112: Negative or not required by law. Electronically signed by: Tre Barnes M.D. 02/19/2022 2:59 PM ECG Additional Comments: Poor data quality, interpretation may be adversely affected Normal sinus rhythm Normal ECG When compared with ECG of 06-OCT-2021 09:44, [place] interval has decreased. Code Status & VTE Plan Code Status Full code. Supervising Physician Co-Signing Physician Notes Patient seen and examined, chart reviewed, case discussed with Agata Bangura PA-C and I agree with the assessment and plan as above except as otherwise noted Labs and images reviewed Sheela is a 61-year-old female with history of hypertension, A. fib on Eliquis, dyslipidemia, asthma, depression, obesity, and renal stones who presented with flank pain and is found to have a UTI on admission. She initially received Rocephin but developed lightheadedness, dizziness, and wheezing. Significantly improved following Methylpred/Benadryl/Pepcid. At time of bedside visit she reports that she is comfortable with no concerns, and no abdominal tenderness. Reviewed alternative antibiotics including Bactrim/carbapenems with patient. Discussed risk of kidney injury/hyperkalemia and allergic reaction/severe dermatologic reactions with Bactrim. Patient understands risk, and that this is overall low. Agree with Bactrim as patient has not previously sulfa allergic, and this is a reasonable p.o. conversion. Patient with no other questions or concerns at bedside, agree with management as noted above. Continue Benadryl as needed should wheezing or signs of allergic reaction recur. PG Care Time/CCT Total # of Minutes Spent Total Time Spent with Patient: Total time spent is greater than 50% in coordination of care (as documented) at patient's floor/unit and/or counseling patient: Coding Level of Care Code 16664 INT INP/OBS CARE 2MIN Diagnoses UTI (urinary tract infection) N39.0 Allergic reaction due to antibacterial drug T36.95XA Paroxysmal atrial fibrillation I48.0 HTN (hypertension) I10 Dyslipidemia E78.5
[2022-02-19] MEDS ORDERED: SULFAMETHOXAZOLE/TRIMETHOPRIM DS 800/160MG TAB PO ONE (14:56)
--- NOTE | 2022-02-19 15:00 | XRay Report ---
XR chest 1V portable HISTORY: wheezing COMPARISON: Chest 02/14/2021. FINDINGS: No focal lung consolidations to suggest a pneumonia. No evidence for pulmonary edema. The h eart is normal in size. No pleural effusions. No pneumothorax. IMPRESSION: No acute process. ACT 112: Negative or not required by law. Electronically signed by: Tre Barnes M.D. 02/19/2022 2:59 PM
[2022-02-19] MEDS ORDERED: ONDANSETRON INJ 2 MG/ML 2 ML VIAL IV PRN ×2 (16:54→17:14)
[2022-02-19] MEDS ORDERED: PHENAZOPYRIDINE HCL 100 MG TAB PO PRN (17:14)
[2022-02-19] MEDS ORDERED: DICYCLOMINE HCL 10 MG CAP PO PRN (17:14)
[2022-02-19] MEDS ORDERED: POLYETHYLENE (MIRALAX) 17 GM PACK PO PRN (17:14)
[2022-02-19] MEDS ORDERED: ALBUTEROL HFA 8 GM INHALER INH PRN (17:14)
[2022-02-19] MEDS ORDERED: CYCLOBENZAPRINE HCL 10 MG TAB PO PRN (17:14)
[2022-02-19] MEDS ORDERED: ALUMINUM/MAGNESIUM SUSP 30 ML UDC PO PRN (17:14)
[2022-02-19] MEDS: LACTATED RINGER'S 1,000 ML IV SCH (18:13)
[2022-02-19] MEDS: traMADol HCL 50 MG TABLET PO PRN (18:24)
[2022-02-19] MEDS: ACETAMINOPHEN 325 MG TAB PO PRN (20:21)
[2022-02-19] MEDS: SULFAMETHOXAZOLE/TRIMETHOPRIM DS 800/160MG TAB PO SCH (20:23)
[2022-02-19] MEDS: APIXABAN 5 MG TABLET PO SCH (20:23)
[2022-02-19] MEDS ORDERED: FAMOTIDINE 40 MG TABLET PO SCH (21:00)
[2022-02-19] MEDS ORDERED: TAMSULOSIN HCL 0.4 MG CAP PO SCH (21:00)
[2022-02-19] MEDS ORDERED: dilTIAZem HCL 120 MG CAPCR PO SCH (21:00)
[2022-02-19] MEDS ORDERED: ATORVASTATIN 40 MG TAB PO SCH (21:00)
[2022-02-20] MEDS: traMADol HCL 50 MG TABLET PO PRN ×3 (00:30→12:45)
[2022-02-20] MEDS: LACTATED RINGER'S 1,000 ML IV SCH ×2 (02:21→10:27)
[2022-02-20 06:09] LABS: Basophils # (auto) 0.02 K/uL (0-0.2); Basophils % (auto) 0.3 %; Hematocrit (blood only) 33.1 % (34.1-44.9); Hemoglobin 10.5 g/dl (12.0-16.0); Immature Granulocytes # (auto) 0.05 K/uL (0.00-0.02); Immature Granulocytes % (auto) 0.8 %; Lymphocytes # (auto) 1.04 K/uL (1.2-3.4); Lymphocytes % (auto) 15.7 %; Mean Corpuscular Hemoglobin 26.6 pg (25.0-34.0); Mean Corpuscular Hgb Conc 31.7 g/dL (32.0-36.0); Mean Platelet Volume 8.7 fL (9.4-12.3); Monocytes # (auto) 0.22 K/uL (0.24-0.82); Monocytes % (auto) 3.3 %; Neutrophils # (auto) 5.29 K/uL (1.4-6.5); Neutrophils % (auto) 79.9 %; Platelet Count 365 K/uL (130-400); RDW Coefficient of Variation 17.6 % (11.5-14.5); RDW Standard Deviation 54.3 fL (36.4-46.3); Red Blood Count 3.94 M/uL (3.93-5.22); White Blood Count 6.62 K/ul (4.8-10.8)
--- NOTE | 2022-02-20 06:35 | Electrocardiogram Report ---
Test Reason : Blood Pressure : / mmHG Vent. Rate : 080 BPM Atrial Rate : 080 BPM P-R Int : 172 ms QRS Dur : 084 ms QT Int : 404 ms P-R-T Axes : 036 003 060 degrees QTc Int : 465 ms Poor data quality, interpretation may be adversely affected Normal sinus rhythm Normal ECG When compared with ECG of 06-OCT-2021 09:44, [place] interval has decreased Confirmed by Sohan Gordillo ([id number]) on 02/20/2022 6:34:51 AM Referred By: REFERRED SELF Confirmed By:Sohan Gordillo
[2022-02-20 06:40] LABS: BUN Creatinine Ratio 18.5 (10-20); Calcium 8.4 mg/dl (8.5-10.1); Creatinine Clr Calc Pharmacy 73.1 ml/min; Est GFR (African American) 76.8 ml/min; Est GFR (Non-African American) 66.3 ml/min; Potassium 4.3 mmol/L (3.5-5.1)
[2022-02-20] MEDS: APIXABAN 5 MG TABLET PO SCH (08:13)
[2022-02-20] MEDS: SULFAMETHOXAZOLE/TRIMETHOPRIM DS 800/160MG TAB PO SCH (08:13)
[2022-02-20] MEDS ORDERED: ASPIRIN 81 MG ECTAB PO SCH (09:00)
[2022-02-20] MEDS: ACETAMINOPHEN 325 MG TAB PO PRN (09:16)
--- NOTE | 2022-02-20 11:38 | Discharge Summary ---
Date of Service February 20, 2022 Admission HPI Per Admitting Provider Sheela Turk is a 61-year-old female with past medical history significant for A. fib on Eliquis, hypertension, dyslipidemia, asthma, depression, obesity, and history of renal stones. She is presenting today with flank pain. She was seen by her PCP 2 days ago, 02/17 and had a KUB that showed stable left-sided nephrolithiasis without any ureteral calculi identified. She presents today with continued flank pain that has been persistent throughout the night and she is unable to sleep due to it. She is not having any dysuria, hematuria, increased urinary frequency or retention, no fever, chills, generalized body a ches, weakness, or fatigue. Labs collected, urine appears infected with 4+ bacteria, leukoesterase, WBCs, nitrates and patient was ordered Rocephin based on cultures ordered 2 days ago on outpatient, growing E. coli sensitive to Rocephin, which patient has had before and tolerated well. Shortly after receiving Rocephin, she became lightheaded, dizzy and was noted to be wheezing. Rocephin was stopped, she was ordered methylprednisolone, Benadryl, Pepcid as well as a breathing treatment. EKG, troponin, and CXR pending. On presentation, she has been tachycardic to the 90s, BP 155/72, otherwise afebrile and not hypoxic. Urine with evidence of infection as above, labs otherwise unremarkable without leukocytosis, impaired renal function, electrolyte abnormality. CT A/P shows stable left-sided nephrolithiasis without ureteral stones or hydronephrosis. No other acute findings. Principal Diagnosis UTI, suspected fluoroquinolone resistant E. coli Discharge Exam General: A&Ox3. NAD. Cooperative. HEENT: Atraumatic, normocephalic. Pulm: CTAB A&P. -wheezes, -rales, -rhonchi. Symmetrical chest rise. No increase in work of breathing. No respiratory distress. Cardiac: irir. Radial pulses intact and symmetrical. Abdominal: Nontender, nondistended, soft. BS present. Extremities: Warm, dry. Sensation soft touch intact in hands and feet bilaterally, some left-sided diminished sensation to soft touch. No tremor. Ankle dorsiflexion/plantarflexion 5/5. Discharge Data Allergies Allergy/AdvReac Type Severity Reaction Status Date / Time lemon Allergy Intermediate Hives Verified 01/17/22 13:27 Penicillins Allergy Intermediate Hives Verified 01/17/22 13:27 bupropion [From Wellbutrin] AdvReac Intermediate Gastrointestinal Verified 01/17/22 13:27 Upset surgical syed Allergy Intermediate "infection Uncoded 01/17/22 13:27 at hysterectomy site d/t allergy from syed" Consultations 02/19/22 14:23 ED Decision to Admit Stat Ordered Studies 02/19/22 13:00 CT abd pelvis IV con only Stat Hospital Course (1) UTI (urinary tract infection): Sheela is a 61-year-old female who presented with evidence of a fluoroquinolone resistant E. coli complicated UTI which failed outpatient antibiotics. CT with ?chronic L perinephric stranding, pt clinically with L flank pain consistent with pyelo. On admission she was given Rocephin, however quickly developed wheezing in response to this. Rocephin was discontinued and she received steroids, famotidine, and Benadryl with resolution and no recurrence of her symptoms. She has a hive allergy to penicillin, cephalosporins were also noted as wheezing allergy. At day of discharge she was having no symptoms and no wheezing and was breathing comfortably. She was switched to Bactrim, which she tolerated 2 doses of well without any reactions. She felt she was improved and near her normal home baseline. She was discharged home to continue 4 days of Bactrim DS twice daily to complete a total 5-day course of treatment. Culture speciation was pending, however culture 2 days prior was consistent with bianca quinolone resistant E. coli. Return precautions including observation for signs of allergy, SJS, rash, and treatment failure were discussed with the patient. Discussed that Bactrim can be hard on the kidneys, patient agreeable to outpatient follow-up and BMP within 1 week to check creatinine and potassium. To do as outpatient: 1. Complete 7-day total course of Bactrim with 6 additional days of Bactrim DS twice daily 2. Follow-up with PCP and BMP for creatinine/potassium check within 1 week 3. Follow final culture speciation to ensure sensitivity 4. CT showed stable nephrolithiasis without ureteral stones, obstruction, or hydronephrosis. Can follow electively with urology as outpatient for this. UTI failing outpatient treatment, ?L pyelo - 4+ bacteria, 10-30 WBCs, 1+ leuk esterase, positive nitrates on UA, culture from 02/17 growing E. coli resistant to quinolones, otherwise sensitive to several antibiotics. - CTAP with stable left nephrolithiasis, no hydronephrosis or ureteral stone. +L perinephric stranding likely chronic but pt with +L flank pain consistent with pyelo - Patient was to be discharged with oral antibiotics after receiving dose of IV Rocephin which she had received before and tolerated, however shortly after Rocephin was started she had a reaction consisting of cold sweats, shaking, abdominal pain, and wheezing. - Patient's renal function is at baseline, appropriate for Bactrim use. Will monitor renal function with BMP in AM. Scheduled for pcp followup and BMp within 5 days of dc (2) Allergic reaction due to antibacterial drug: - Shortly after Rocephin was started for UTI, patient developed chills, rigors, abdominal pain, and wheezing. At no point did she complain of throat closing or swelling or shortness of breath. - She received methylprednisolone, Pepcid, Benadryl, and a breathing treatment now feeling much better. - Not found to be febrile during the event, vital signs stable. - CXR without acute process, EKG showed NSR, Trope pending. - She will be admitted overnight for observation while on Bactrim. (3) Paroxysmal atrial fibrillation: - NSR today. Continue Eliquis, diltiazem. (4) HTN (hypertension): - Continue diltiazem. (5) Dyslipidemia: - Continue atorvastatin. Plan - Admit to medicine with telemetry. - SCDs ordered and encouraged, Eliquis continued for VTE PPx. - Full code. Total Time Total Time Spent Total Time Spent (In Minutes): Time spend day of discharge 40 minutes including direct patient care, documentation, review of labs and images, and coordination of care. Discharge Plan Discharge Items Patient Disposition: Home - Self-Care Reason For Visit: PYELO, ALLERGIC REACTION TO ROCEPHIN Discharge Diagnosis: E coli UTI, ?L pyelo Activity: Resume your previous activity Non-emergency contact: Primary Care Provider Call non-emergency contact if: you have any medication questions Follow-up/Referrals: Corin Rader MD [Primary Care Provider] - 02/24/22 10:20 am Diet: Heart Healthy Addtl Attending Provider Instructions: You were seen in the hospital for a urinary tract infection which was resistant to outpatient antibiotics. You received an IV antibiotic called ceftriaxone during admission, but developed wheezing and signs of a allergic reaction to this medication. This medication was stopped and you are treated with steroids, Benadryl, and Pepcid with resolution of your symptoms. You were switched to a antibiotic called Bactrim which she tolerated well which has been continued as noted below. You will require blood work and follow-up within 1 week. You have been prescribed an antibiotic, Bactrim. Please take Bactrim double strength twice daily for 6 additional days to complete a total 7-day course of treatment. Bactrim can cause kidney dysfunction and elevated electrolyte numbers in some people, you will need to have a follow-up with your primary care provider and blood work (a BMP) drawn within 1 week to check these levels. If you develop any signs of allergic reaction including rash, lip or tongue swelling/changes, wheezing or other new or concerning symptoms please contact seek immediate medical evaluation. Due to your allergic reaction you have been continued on cetirizine 10mg daily for 5 days. After rocephin was stopped you did not show any signs of ongoing allergy. If you do develop wheezing or rash please take an over the counter benadryl (diphenhydramine) 25mg and seek immediate medical attention. An appointment with Dr. Rader has been scheduled for you this 02/24/2022 at 10:20 AM. If you need to change this appointment please call her office directly at [phone]. If you develop any new or worsening symptoms including fever, chills, sweats, chest pain, chest pressure, difficulty breathing, uncontrolled nausea/vomiting, rash, wheezing, passing out or nearly passing out, bleeding, black/bloody bowel movements, or other new or concerning symptoms please call your primary care physician, or call 911 for re-evaluation in the emergency department if you are very concerned. Pending Studies at Discharge: Yes (BMP within 1 week) Stand-Alone Forms: My [employer], Smoking Cessation Medications and DC Order Prescriptions: New sulfamethoxazole-trimethoprim [Bactrim DS] 800-160 mg tablet 1 tab PO BID 6 Days Qty: 12 0RF cetirizine 10 mg tablet 10 mg PO DAILY 5 Days Qty: 5 0RF Continued albuterol sulfate [Ventolin HFA] 90 mcg/actuation HFA aerosol inhaler 1 puff INH Q6H PRN (Reason: Shortness Of Breath) Qty: 18 3RF dicyclomine 10 mg capsule 10 mg PO QID PRN (Reason: Gi Upset) Qty: 90 1RF atorvastatin 80 mg tablet 80 mg PO PM Qty: 90 3RF cyclobenzaprine 10 mg tablet 10 mg PO HS PRN (Reason: Muscle Spasm) Qty: 30 1RF diltiazem HCl 120 mg capsule,extended release 24hr 120 mg PO HS Qty: 90 3RF tamsulosin 0.4 mg capsule 0.4 mg PO HS Qty: 30 0RF phenazopyridine [Pyridium] 100 mg tablet 100 mg PO TID PRN (Reason: pain) Qty: 7 0RF multivitamin Tablet 1 tab PO QAM Eliquis 5 mg tablet 5 mg PO BID Qty: 180 3RF aspirin 81 mg Tablet,Delayed Release (Dr/Ec) 81 mg PO QAM tramadol 50 mg tablet 50 mg PO Q6H PRN (Reason: pain, moderate) Qty: 30 0RF famotidine 40 mg tablet 40 mg PO PM PRN (Reason: Acid Reflux) Discharge Orders: Discharge Order (Routine); Ordered 02/20/22 Ordered By: Nnamdi Ingram Admission Data Admit Date/Time: 02/19/22 14:39 Attending Provider: Nnamdi Ingram Admit Provider: Nnamdi Ingram Primary Care Provider: Corin Rader Other Providers: Nnamdi Ingram ; Major Jacques Coding Level of Care Code HOSP INP/OBS DISCH >30 MIN Diagnoses UTI (urinary tract infection) N39.0 Allergic reaction due to antibacterial drug T36.95XA Paroxysmal atrial fibrillation I48.0 HTN (hypertension) I10 Dyslipidemia E78.5
[2022-02-20] MEDS ORDERED: CETIRIZINE HCL 10 MG TABLET PO ONE (11:46)
== END 2022-02-20 12:49 | disposition home or self-care (01) | DRG 690 ==
LOC: ED 10:56 → EDINP 14:39 → SUATTDRO 14:39 → 2N 17:14
DX: Z68.39 Body mass index [BMI] 39.0-39.9, adult; E78.5 Hyperlipidemia, unspecified; B96.20 Unspecified Escherichia coli [E. coli] as the cause of diseases classified elsewhere; E66.9 Obesity, unspecified; I48.0 Paroxysmal atrial fibrillation; F17.210 Nicotine dependence, cigarettes, uncomplicated; F32.A Depression, unspecified; Z91.018 Allergy to other foods; Z88.8 Allergy status to other drugs, medicaments and biological substances; N39.0 Urinary tract infection, site not specified; J45.909 Unspecified asthma, uncomplicated; I10 Essential (primary) hypertension; Z79.899 Other long term (current) drug therapy; Z88.0 Allergy status to penicillin; T36.1X5A Adverse effect of cephalosporins and other beta-lactam antibiotics, initial encounter; Z79.82 Long term (current) use of aspirin

== ENCOUNTER 2023-01-20 18:52 | Inpatient (IN) ==
[2023-01-20] MEDS ORDERED: levoFLOXacin/D5W 750 MG/150 ML BAG IV STA (19:33)
[2023-01-20] MEDS ORDERED: ACETAMINOPHEN 1,000 MG/100 ML VIAL IV STA (19:33)
[2023-01-20] MEDS ORDERED: MoRPHine SULFATE 4 MG/ML 1 ML CARP\\VIAL IV STA ×2 (19:33→21:25)
[2023-01-20] MEDS ORDERED: SODIUM CHLORIDE 0.9% 1,000 ML IV ONE (19:33)
[2023-01-20] MEDS ORDERED: CEFEPIME 2,000 MG/20 ML VIAL IV STA (19:36)
--- NOTE | 2023-01-20 19:42 | Emergency Department Note ---
Impression & Plan Rigors, Acute left flank pain, Leukocytosis, Elevated lactic acid level, UTI (urinary tract infection), H/O lithotripsy ED Provider Note NAME: SOFÍA GOTTLIEB AGE: 62 SEX: F : 1960 ARRIVES VIA: Walk-In INFORMANT: [Patient][family] ED PROVIDER(S): [Phillip Akins MD] CHIEF COMPLAINT: Illness HISTORY OF PRESENT ILLNESS: The patient is a 62-year-old female who had lithotripsy yesterday for ureteral stone extraction. She has a stent in place. The patient was doing all right except for some left flank pain. The pain has been ongoing since the procedure. The patient states that several hours ago, she developed chills and rigors. She feels ice cold. She is shaking. No nausea or vomiting. No cough or congestion or shortness of breath. She is passing bloody urine and has been straining the urine, she has not passed any stone. Patient is not currently on antibiotics. She was on antibiotics for 10 days before the procedure. PMHx/PSHx/Social Hx: See Below PHYSICAL EXAM: GENERAL: Patient is in mild distress, shivering. HEENT: No acute trauma, normocephalic atraumatic, mucous membranes moist, no nasal congestion. NECK: No stridor, no adenopathy, no meningismus, trachea is midline. LUNGS: Clear to auscultation bilaterally, no wheeze, no rhonchi, breath sounds equal. HEART: Without murmurs gallops or rubs, regular rate and rhythm. ABDOMEN: Soft, nontender, no peritonitis. EXTREMITIES: No cyanosis, full range of motion of all the joints without pain or difficulty. NEUROLOGIC: Oriented x 3, no acute motor or sensory deficits, no focal weakness. SKIN: No jaundice, no diaphoresis. DIFFERENTIAL DIAGNOSIS: Sepsis or bacteremia, hydronephrosis, UTI or pyelonephritis, pneumonia, viral illness, dehydration, among others. EMERGENCY DEPARTMENT PROCEDURES: MEDICAL DECISION MAKING: There is a moderate leukocytosis, this is likely consistent with infection. A mild anemia was seen with a hemoglobin of 10.9. The patient does have a history of anemia. There is a normal platelet count. No renal failure or significant electrolyte abnormality. Initial lactic acid level was elevated consistent with potential sepsis. Urinalysis shows findings of infection. No concerning liver enzyme elevation. COVID, influenza and RSV test were negative. Chest film does not show pneumonia or CHF. Abdominal and pelvis CT shows her left ureteral stent to be in position. No acute surgical process found by CT imaging. I did speak with urology, Dr. Collins. Patient does not require any emergent urologic intervention this evening. IV antibiotics, resuscitation, hospitalization was felt warranted. Patient received IV Tylenol, IV cefepime. She was given 1 L of IV saline and then 1 L of IV lactated Ringer's. She received IV morphine for pain, IV Zofran for nausea. Patient does seem to be improving. She feels more comfortable and is no longer suffering from rigors. Her blood pressure has remained adequate. I did speak with the patient and family, I spoke with case management, the on- call hospitalist was consulted. Prior/Outside records/notes reviewed: Urology note from 01/10/2023 discussing her left flank pain, nephrolithiasis and the need for laser lithotripsy. Imaging/x-ray results per my interpretation: Chest x-ray does not show mediastinal widening, pneumonia or pneumothorax. Chronic Medical/Social conditions affecting care: Renal/ureteral stones. Care/Management discussed with: Case management and the on-call hospitalist, urology-Dr. Collins Level of care consideration(s): After review of the information above and other included data: --I believe the patient requires escalation of care to admission Critical Care Note: I have personally spent 45 minutes of critical care time in the direct management of this patient. This includes bedside care, interpretation of diagnostic studies, and testing, discussion with consultants, patient, and family members, and other required patient management activities. This 45 minutes is in excess of all separately billable procedures. DISPOSITION: Admission with urology consult Past Med/Surg History Medical History Depression Pyelonephritis Tobacco use Obesity HTN (hypertension) History of COVID-19 02/2020 Nephrolithiasis History of kidney stones Asthma Paroxysmal atrial fibrillation on Eliquis, follows with [facility] cardiology Depression Dyslipidemia Insomnia Prediabetes Surgical History S/P lumbar discectomy H/O arthroscopy of right knee History of section x2 History of lithotripsy History of colonoscopy History of tooth extraction full upper denture [place] teeth removed History of lumbar fusion x3--2015/2016/2021 S/P hysterectomy candy bso S/P appendectomy S/P cholecystectomy Family History Sister Afib Family history of diabetes mellitus Pancreatic cancer Heart disease Kidney stones Mother Afib Myocardial infarction Family history of diabetes mellitus Heart disease Father Prostate cancer Grandmother (Maternal) Family history of diabetes mellitus Brother Kidney stones Other No family history of adverse response to anesthesia Denies family history of Ovarian cancer Breast cancer Social History Smoking Status: Never smoker Tobacco Type: Cigarettes Age Started Using Tobacco: 16; Age Quit Using Tobacco: 58; packs per day: 0.75; Cigarettes Per Day: 15 per day; Second Hand Exposure: No; Do You Dip or Chew Tobacco: No; Hx Alcohol Use: Yes Alcohol type: wine Hx Substance Use: No Preferred Language: Croatian Communication Ability: Effective Visual Impairment: No Limitations Hearing Ability: Normal Computer Science Intern Required: No Beliefs That Will Affect Care: None marital status: Current Living Situation: Alone current occupational status: employed 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 How many Children do You have: 3 Feels Safe at Home: Yes Childhood Exposure to Second-Hand Smoke: No Diet: regular Diet Comment: regular caffeine: Yes during the past year weight has: increased > 10 lbs Dental Care, Regularly: Yes Physical Activity Frequency: 1-2 Times per Week Seatbelt Use: always Sunscreen Use: Yes Assistive Devices: Denture - Upper and Glasses Allergies Allergies Allergy/AdvReac Type Severity Reaction Status Date / Time ceftriaxone [From Rocephin] Allergy Intermediate lightheaded Verified 01/19/23 07:10 lemon Allergy Intermediate Hives Verified 01/19/23 07:10 Penicillins Allergy Intermediate Hives Verified 01/19/23 07:10 bupropion [From Wellbutrin] AdvReac Intermediate Gastrointestinal Verified 01/19/23 07:10 Upset surgical syed Allergy Intermediate "infection Uncoded 01/19/23 07:10 at hysterectomy site d/t allergy from syed" Home Meds Home Medications Medication Instructions Recorded Confirmed aspirin 81 mg tablet,delayed 81 mg PO QAM 02/26/20 01/20/23 release multivitamin 1 tab PO QAM 10/28/20 01/20/23 dicyclomine 10 mg capsule 10 mg PO QID PRN Gi Upset 12/30/22 01/20/23 ketorolac 10 mg tablet 10 mg PO Q6H PRN prn 01/12/23 01/20/23 calcium carbonate 600 mg calcium 600 mg PO QAM 01/20/23 01/20/23 (1,500 mg) tablet (Calcium) Previous Rx's Medication Instructions Recorded apixaban 5 mg tablet (Eliquis) 5 mg PO BID #180 tabs 09/01/22 atorvastatin 80 mg tablet 80 mg PO PM #90 tabs 09/25/22 albuterol sulfate 90 mcg/actuation 1 - 2 puff inhalation Q4H PRN 10/26/22 aerosol inhaler (Ventolin HFA) Shortness Of Breath #18 grams budesonide-formoterol HFA 80 1 inh inhalation BID #10.2 grams 10/26/22 mcg-4.5 mcg/actuation aerosol inhaler (Symbicort) diltiazem HCl 120 mg 120 mg PO HS #90 caps 01/09/23 capsule,extended release 24 hr Results & Data (ED) Vital Signs Vital Signs - 24 hr 01/20/23 18:57 01/20/23 19:28 01/20/23 20:19 Temperature 37.5 C 37.5 C Temperature Source Temporal Artery Scan Oral Pulse Rate 98 H Pulse Rate [Apical] 92 H 101 H Respiratory Rate 19 20 18 Respiratory Effort / Characteristics Non-Labored Spontaneous Respiratory Depth Normal Blood Pressure 152/70 H Blood Pressure [Right Arm] 152/84 H Blood Pressure Mean 97 Blood Pressure Mean [Right Arm] 106 Pulse Oximetry 96 96 95 Oxygen Delivery Method Room Air Room Air Sepsis Recent Fever Within 48 Hours No Sepsis New/Unexplained Change in Mental Status N/A Sepsis Action Taken by Nursing No Action Required 01/20/23 20:21 01/20/23 21:38 Temperature Temperature Source Pulse Rate 101 H Pulse Rate [Apical] 94 H Respiratory Rate 16 Respiratory Effort / Characteristics Respiratory Depth Blood Pressure Blood Pressure [Right Arm] 155/81 H Blood Pressure Mean Blood Pressure Mean [Right Arm] 105 Pulse Oximetry 94 Oxygen Delivery Method Sepsis Recent Fever Within 48 Hours Sepsis New/Unexplained Change in Mental Status Sepsis Action Taken by Long-Term Medications Current Medication List: was personally reviewed by nv Laboratory Data Attestation: I reviewed the patient's lab results. 01/20/23 20:11 01/20/23 20:11 Lab Results 01/20/23 01/20/23 01/20/23 Range/Units 19:05 19:27 20:11 WBC 14.72 H (4.8-10.8) K/ul RBC 3.94 L (4.20-5.40) M/uL Hgb 10.9 L (12.0-16.0) g/dl Hct 34.4 L (37.0-47.0) % MCV 87.3 (80.0-100.0) fL MCH 27.7 (25.0-34.0) pg MCHC 31.7 L (32.0-36.0) g/dL RDW Std Deviation 54.4 H (36.4-46.3) fL RDW Coeff of Sylwia 17.1 H (11.5-14.5) % Plt Count 328 (130-400) K/uL MPV 9.4 (9.4-12.4) fL Immature Gran % (Auto) 0.5 % Neut % (Auto) 84.7 % Lymph % (Auto) 6.1 % [place] % (Auto) 8.6 % Eos % (Auto) 0.0 % Baso % (Auto) 0.1 % Neut # (Auto) 12.46 H (1.40-6.50) K/uL Lymph # (Auto) 0.90 L (1.20-3.40) K/uL [place] # (Auto) 1.26 H (0.11-0.59) K/uL Eos # (Auto) 0.00 (0.00-0.50) K/uL Baso # (Auto) 0.02 (0.00-0.20) K/uL Immature Gran # (Auto) 0.08 (0.01-0.20) K/uL Sodium 138 (136-145) mmol/L Potassium 3.9 (3.5-5.1) mmol/L Chloride 105 (98-107) mmol/L Carbon Dioxide 24 (21-32) mmol/L Anion Gap 9 (3-11) BUN 21 (6-23) mg/dl Creatinine 0.92 (0.6-1.2) mg/dl Est Cr Clr Drug Dosing 71.3 ml/min Est GFR ( Amer) 76.3 ml/min Est GFR (Non-Af Amer) 65.8 ml/min BUN/Creatinine Ratio 22.8 H (10-20) Glucose 101 H (70-99(Fasting)) mg/dl Lactate 2.3 H* (0.4-2.0) mmol/L Calcium 9.0 (8.6-10.3) mg/dl Total Bilirubin 0.4 (0.2-1.0) mg/dl AST 10 L (13-39) U/L ALT 11 (7-52) U/L Alkaline Phosphatase 97 (34-104) U/L Total Protein 6.8 (6.0-8.3) gm/dl Albumin 3.7 (3.4-5.0) gm/dl Globulin 3.1 (2.5-4.0) gm/dl Albumin/Globulin Ratio 1.2 (0.9-2) Urine Color Yellow Urine Appearance Turbid A (Clear) Urine pH 6.0 (4.5-7.5) Ur Specific [place] 1.019 (1.000-1.030) Urine Protein 3+ H (Negative) Urine Glucose (UA) Negative (Negative) Urine Ketones Negative (Negative) Urine Blood 3+ H (Negative) Urine Nitrite Positive A (Negative) Urine Bilirubin Negative (Negative) Urine Urobilinogen Negative (Negative) Ur Leukocyte Esterase 3+ H (Negative) Urine WBC (Auto) >30 H (0-5) /hpf Urine RBC (Auto) >30 H (0-4) /hpf U Hyaline Cast (Auto) 0 (0-5) /lpf U Epithel Cells (Auto) 20-30 H (0-5) /lpf Urine Bacteria (Auto) 4+ H (Negative) SARS-CoV-2 (PCR) NEGATIVE (Negative) Influenza Type A (PCR) Negative (Neg) Influenza Type B (PCR) Negative (Neg) RSV (RT-PCR) Negative (Neg) Administered Medications Discontinued Medications Sodium Chloride (Nss) 1,000 mls @ 999 mls/hr IV .Q1H1M ONE Stop: 01/20/23 20:33 Last Infusion: 01/20/23 21:24 Dose: Infused Documented By: Admin: 01/20/23 20:08 Dose: 999 mls/hr Documented By: KAYDEN Acetaminophen (Ofirmev) 1,000 mg in 100 mls @ 400 mls/hr IV NOW STA Stop: 01/20/23 19:47 Last Infusion: 01/20/23 20:33 Dose: Infused Documented By: Admin: 01/20/23 20:09 Dose: 400 mls/hr Documented By: KAYDEN Levofloxacin/Dextrose (Levaquin/D5w) 750 mg in 150 mls @ 100 mls/hr IV NOW STA Stop: 01/20/23 21:02 Last Admin: 01/20/23 20:41 Dose: Not Given Documented By: KAYDEN Cefepime HCl (Maxipime) 2,000 mg in 20 mls @ 5 mls/min IV NOW STA; Protocol Stop: 01/20/23 19:39 Last Admin: 01/20/23 20:09 Dose: 5 mls/min Documented By: KAYDEN Lactated Ringer's (Lr) 1,000 mls @ 999 mls/hr IV .Q1H1M ONE Stop: 01/20/23 21:47 Last Infusion: 01/20/23 22:36 Dose: Infused Documented By: Admin: 01/20/23 21:33 Dose: 999 mls/hr Documented By: KAYDEN Levofloxacin/Dextrose (Levofloxacin 750mg/150ml D5w) Confirm Administered Dose 750 mg IV .STK-MED ONE Stop: 01/20/23 20:33 Last Admin: 01/20/23 20:41 Dose: Not Given Documented By: KAYDEN Morphine Sulfate (Morphine Sulfate 4 Mg/Ml 1 Ml Carp\\Vial) 4 mg IV NOW STA Stop: 01/20/23 19:34 Last Admin: 01/20/23 20:09 Dose: 4 mg Documented By: KAYDEN Morphine Sulfate (Morphine Sulfate 4 Mg/Ml 1 Ml Carp\\Vial) 4 mg IV NOW STA Stop: 01/20/23 21:26 Last Admin: 01/20/23 21:33 Dose: 4 mg Documented By: KAYDEN Ondansetron HCl (Ondansetron Inj 2 Mg/Ml 2 Ml Vial) Confirm Administered Dose 4 mg .ROUTE .STK-MED ONE Stop: 01/20/23 20:15 Last Admin: 01/20/23 20:20 Dose: 4 mg Documented By: KAYDEN Ondansetron HCl (Ondansetron Inj 2 Mg/Ml 2 Ml Vial) 4 mg IV NOW STA Stop: 01/20/23 20:21 Last Admin: 01/20/23 20:22 Dose: Not Given Documented By: KAYDEN Imaging Data Radiologist's Impression: Abdomen/Pelvis CT 01/20/23 19:33 Exam(s): CT ABDOMEN + PELVIS Without Contrast EXAM: CT Abdomen and Pelvis Without Intravenous Contrast CLINICAL HISTORY: Reason for exam: left flank pain, stent. TECHNIQUE: Axial computed tomography images of the abdomen and pelvis without intravenous contrast. CTDI is 27.3 mGy and DLP is 1263.92 mGy-cm. Automated exposure control was utilized for the study. A dose lowering technique was utilized adhering to the principles of ALARA. COMPARISON: CT abdomen pelvis December 30, 2022. FINDINGS: Lung bases: Unremarkable. No mass. No consolidation. ABDOMEN: Liver: Unremarkable. Gallbladder and bile ducts: Cholecystectomy. No ductal dilation. Pancreas: Unremarkable. No ductal dilation. Spleen: Unremarkable. No splenomegaly. Adrenals: Unremarkable. No mass. Kidneys and ureters: Nonobstructing 7 mm LEFT lower pole renal stone. Left-sided nephroureteral stent. LEFT renal cyst measures 5.2 cm. Stomach and bowel: Diverticulosis, without acute diverticulitis. No small bowel obstruction. No free air. PELVIS: Appendix: No findings to suggest acute appendicitis. Bladder: Unremarkable. No stones. Reproductive: Hysterectomy. ABDOMEN and PELVIS: Intraperitoneal space: See above. Bones/joints: Degenerative changes of the spine. Multilevel posterior fusion and laminectomies. No acute fracture. No dislocation. Soft tissues: Unremarkable. Vasculature: Atherosclerotic changes of the aorta. No abdominal aortic aneurysm. Lymph nodes: Unremarkable. No enlarged lymph nodes. IMPRESSION: 1. Nonobstructing 7 mm LEFT lower pole renal stone. Left-sided nephroureteral stent. 2. Cholecystectomy. 3. Hysterectomy. 4. Diverticulosis, without acute diverticulitis. No small bowel obstruction. No free air. Electronically signed by: Danny Joshua MD 01/20/23 21:41 PM Chest X-Ray 01/20/23 19:33 XR chest 1V portable HISTORY: left flank pain, chills COMPARISON: Chest 10/24/2022. FINDINGS: The lungs are clear. Cardiac silhouette is normal in size. No pleural effusions. No pneumothorax. IMPRESSION: No acute process. ACT 112: Negative or not required by law. Electronically signed by: Tre Barnes M.D. 01/20/2023 7:56 PM Discharge Plan Visit Data Chief Complaint: Illness Stated Complaint: COLD, SHAKING, WEAKNESS S/P LITHOTRIPSY ED Provider: Phillip Akins Discharge Problem: Rigors, Acute left flank pain, Leukocytosis, Elevated lactic acid level, UTI (urinary tract infection), H/O lithotripsy Patient Disposition: Admitted As Inpatient Condition: Fair Discharge Instructions Interventions: ED Discharge Assessment Last Done: 01/20/23 22:45 Discharge Problem: Leukocytosis Qualifiers: Leukocytosis type: unspecified Qualified Code(s): D72.829 - Elevated white blood cell count, unspecified UTI (urinary tract infection) Qualifiers: Urinary tract infection type: acute pyelonephritis Qualified Code(s): N10 - Acute pyelonephritis
[2023-01-20 19:48] LABS: Appearance Urine Turbid (Clear); Bacteria Urine Automated 4+ (Negative); Bilirubin Urine Negative (Negative); Blood Urine 3+ (Negative); Cast Urine Automated 0 /lpf (0-5); Color Urine Yellow; Epithelial Cell Urine Auto 20-30 /lpf (0-5); Glucose Urine UA Negative (Negative); Ketones Urine Negative (Negative); Leukocyte Esterase Urine 3+ (Negative); Nitrite Urine Positive (Negative); Protein Urine 3+ (Negative); RBC Urine Automated >30 /hpf (0-4); Specific Gravity Urine 1.019 (1.000-1.030); Urobilinogen Urine Negative (Negative); WBC Urine Automated >30 /hpf (0-5)
--- NOTE | 2023-01-20 19:59 | XRay Report ---
XR chest 1V portable HISTORY: left flank pain, chills COMPARISON: Chest 10/24/2022. FINDINGS: The lungs are clear. Cardiac silhouette is normal in size. No pleural effusions. No pneumot horax. IMPRESSION: No acute process. ACT 112: Negative or not required by law. Electronically signed by: Tre Barnes M.D. 01/20/2023 7:56 PM
[2023-01-20 20:11] LABS: Influenza A virus by PCR Negative (Neg); Influenza B virus by PCR Negative (Neg); RSV by PCR Negative (Neg); SARS CoV2 RNA(COVID-19) Ceph NEGATIVE (Negative)
[2023-01-20] MEDS ORDERED: ONDANSETRON INJ 2 MG/ML 2 ML VIAL ONE (20:14)
[2023-01-20] MEDS ORDERED: ONDANSETRON INJ 2 MG/ML 2 ML VIAL IV STA (20:20)
[2023-01-20 20:31] LABS: Basophils # (auto) 0.02 K/uL (0.00-0.20); Basophils % (auto) 0.1 %; Hematocrit (blood only) 34.4 % (37.0-47.0); Hemoglobin 10.9 g/dl (12.0-16.0); Immature Granulocytes # (auto) 0.08 K/uL (0.01-0.20); Immature Granulocytes % (auto) 0.5 %; Lymphocytes % (auto) 6.1 %; Mean Corpuscular Hemoglobin 27.7 pg (25.0-34.0); Mean Corpuscular Hgb Conc 31.7 g/dL (32.0-36.0); Mean Corpuscular Volume 87.3 fL (80.0-100.0); Mean Platelet Volume 9.4 fL (9.4-12.4); Monocytes # (auto) 1.26 K/uL (0.11-0.59); Monocytes % (auto) 8.6 %; Neutrophils # (auto) 12.46 K/uL (1.40-6.50); Neutrophils % (auto) 84.7 %; Platelet Count 328 K/uL (130-400); RDW Coefficient of Variation 17.1 % (11.5-14.5); RDW Standard Deviation 54.4 fL (36.4-46.3); Red Blood Count 3.94 M/uL (4.20-5.40); White Blood Count 14.72 K/ul (4.8-10.8)
[2023-01-20] MEDS ORDERED: LEVOFLOXACIN 750 MG/150 ML IV ONE (20:32)
[2023-01-20] MEDS ORDERED: D5W IV ONE (20:32)
[2023-01-20] MEDS ORDERED: LACTATED RINGER'S 1,000 ML IV ONE (20:47)
[2023-01-20 20:49] LABS: Albumin Globulin Ratio 1.2 (0.9-2); Albumin Level 3.7 gm/dl (3.4-5.0); BUN Creatinine Ratio 22.8 (10-20); Bilirubin,Total 0.4 mg/dl (0.2-1.0); Creatinine Clr Calc Pharmacy 71.3 ml/min; Est GFR (African American) 76.3 ml/min; Est GFR (Non-African American) 65.8 ml/min; Globulin 3.1 gm/dl (2.5-4.0); Potassium 3.9 mmol/L (3.5-5.1); Total Protein 6.8 gm/dl (6.0-8.3)
--- NOTE | 2023-01-20 21:42 | CT Scan Report ---
Exam(s): CT ABDOMEN + PELVIS Without Contrast EXAM: CT Abdomen and Pelvis Without Intravenous Contrast CLINICAL HISTORY: Reason for exam: left flank pain, stent. TECHNIQUE: Axial computed tomography images of the abdomen and pelvis without intravenous contrast. CTDI is 27.3 mGy and DLP is 1263.92 mGy-cm. Automated exposure control was utilized for the study. A dose lowering technique was utilized adhering to the principles of ALARA. COMPARISON: CT abdomen pelvis December 30, 2022. FINDINGS: Lung bases: Unremarkable. No mass. No consolidation. ABDOMEN: Liver: Unremarkable. Gallbladder and bile ducts: Cholecystectomy. No ductal dilation. Pancreas: Unremarkable. No ductal dilation. Spleen: Unremarkable. No splenomegaly. Adrenals: Unremarkable. No mass. Kidneys and ureters: Nonobstructing 7 mm LEFT lower pole renal stone. Left-sided nephroureteral stent. LEFT renal cyst measures 5.2 cm. Stomach and bowel: Diverticulosis, without acute diverticulitis. No small bowel obstruction. No free air. PELVIS: Appendix: No findings to suggest acute appendicitis. Bladder: Unremarkable. No stones. Reproductive: Hysterectomy. ABDOMEN and PELVIS: Intraperitoneal space: See above. Bones/joints: Degenerative changes of the spine. Multilevel posterior fusion and laminectomies. No acute fracture. No dislocation. Soft tissues: Unremarkable. Vasculature: Atherosclerotic changes of the aorta. No abdominal aortic aneurysm. Lymph nodes: Unremarkable. No enlarged lymph nodes. IMPRESSION: 1. Nonobstructing 7 mm LEFT lower pole renal stone. Left-sided nephroureteral stent. 2. Cholecystectomy. 3. Hysterectomy. 4. Diverticulosis, without acute diverticulitis. No small bowel obstruction. No free air. Electronically signed by: Danny Joshua MD 01/20/23 21:41 PM
--- NOTE | 2023-01-20 22:05 | History & Physical Report ---
Date of Service January 20, 2023 Assessment & Plan (1) H/O lithotripsy: (2) S/P cystoscopy with ureteral stent placement: (3) UTI (urinary tract infection): (4) Rigors: (5) HTN (hypertension): (6) PAD (peripheral artery disease): (7) Paroxysmal atrial fibrillation: Plan Status post lithotripsy/cystoscopy with left ureteral stent placement/UTI with rigors- Follow urine culture and sensitivity No procedure anticipated per urology Continue cefepime 2 g IV every 12 hours dosing begun in the ED History of multiple urinary tract infections with fluoroquinolone resistant E. coli Status post 1 L lactated Ringer's, and 1 L normal saline in the ED NSS + KCl 20 mill equivalents at 100 mL/h x 1 L Dilaudid 0.25 mg IV every 3 hours as needed for moderate pain Dilaudid 0.5 mg IV every 3 hours as needed for severe pain Consult urology Atrial fibrillation/hypertension- Continue Eliquis 5 mg p.o. twice daily, aspirin 81 mg daily and diltiazem extended release 120 mg daily COPD- Continue usual inhalers Monitor pulse ox while receiving narcotic pain medications, as patient did req uire oxygen in the ED post morphine administration History of Present Illness Chief Complaint: The patient reports to the emergency department with complaint of acute onset of left flank pain, fevers, shakes and chills, shortly after undergoing lithotripsy yesterday for ureteral stone extraction, and placement of a left ureteral stent Primary Care Provider: Corin Rader MD The patient is a 62-year-old female with a past medical history including recurrent urinary tract infections with fluoroquinolone resistant E. coli, ureteral stone with hydronephrosis, hypertension, PAD, vitamin D deficiency, lumbar degenerative disc disease with radiculopathy, dyslipidemia, depression, paroxysmal defibrillation on chronic anticoagulation with apixaban. She had undergone a lithotripsy for left ureteral stone with left ureteral stent placement yesterday, and initially had done well, but later on developed acute onset of fevers, chills, shakes and generally not feeling well, causing her to present to the ED for assessment. Allergies Allergy/AdvReac Type Severity Reaction Status Date / Time ceftriaxone [From Rocephin] Allergy Intermediate lightheaded Verified 01/19/23 07:10 lemon Allergy Intermediate Hives Verified 01/19/23 07:10 Penicillins Allergy Intermediate Hives Verified 01/19/23 07:10 bupropion [From Wellbutrin] AdvReac Intermediate Gastrointestinal Verified 01/19/23 07:10 Upset surgical syed Allergy Intermediate "infection Uncoded 01/19/23 07:10 at hysterectomy site d/t allergy from syed" Home Medications Medication Instructions Recorded Confirmed Type aspirin 81 mg tablet,delayed 81 mg PO QAM 02/26/20 01/20/23 History release multivitamin 1 tab PO QAM 10/28/20 01/20/23 History apixaban 5 mg tablet (Eliquis) 5 mg PO BID #180 tabs 09/01/22 01/20/23 Rx atorvastatin 80 mg tablet 80 mg PO PM #90 tabs 09/25/22 01/20/23 Rx albuterol sulfate 90 mcg/actuation 1 - 2 puff inhalation Q4H PRN 10/26/22 01/20/23 Rx aerosol inhaler (Ventolin HFA) Shortness Of Breath #18 grams budesonide-formoterol HFA 80 1 inh inhalation BID #10.2 grams 10/26/22 01/20/23 Rx mcg-4.5 mcg/actuation aerosol inhaler (Symbicort) dicyclomine 10 mg capsule 10 mg PO QID PRN Gi Upset 12/30/22 01/20/23 History diltiazem HCl 120 mg 120 mg PO HS #90 caps 01/09/23 01/20/23 Rx capsule,extended release 24 hr ketorolac 10 mg tablet 10 mg PO Q6H PRN prn 01/12/23 01/20/23 History calcium carbonate 600 mg calcium 600 mg PO QAM 01/20/23 01/20/23 History (1,500 mg) tablet (Calcium) Past Med/Surg History Medical History Depression Pyelonephritis Tobacco use Obesity HTN (hypertension) History of COVID-19 02/2020 Nephrolithiasis History of kidney stones Asthma Paroxysmal atrial fibrillation on Eliquis, follows with [facility] [place] cardiology Depression Dyslipidemia Insomnia Prediabetes Surgical History S/P lumbar discectomy H/O arthroscopy of right knee History of section x2 History of lithotripsy History of colonoscopy History of tooth extraction full upper denture [place] teeth removed History of lumbar fusion x3--2015/2016/2021 S/P hysterectomy candy bso S/P appendectomy S/P cholecystectomy Family History Sister Afib Family history of diabetes mellitus Pancreatic cancer Heart disease Kidney stones Mother Afib Myocardial infarction Family history of diabetes mellitus Heart disease Father Prostate cancer Grandmother (Maternal) Family history of diabetes mellitus Brother Kidney stones Other No family history of adverse response to anesthesia Denies family history of Ovarian cancer Breast cancer Social History Smoking Status: Current every day smoker Tobacco Type: Cigarettes Age Started Using Tobacco: 16; Age Quit Using Tobacco: 58; packs per day: 0.75; Cigarettes Per Day: half pack; Second Hand Exposure: No; Do You Dip or Chew Tobacco: No; Tobacco Cessation Education Requested by Patient: No Hx Alcohol Use: Yes Alcohol type: beer and wine Hx Substance Use: No Preferred Language: Divehi Communication Ability: Effective Visual Impairment: No Limitations Hearing Ability: Normal Facility Practice Specialist Required: No Beliefs That Will Affect Care: None marital status: Current Living Situation: Alone current occupational status: employed 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 How many Children do You have: 3 Other Information That Helps Us Care for You: No Feels Safe at Home: Yes Safety Concerns: Feels Safe At This Time Childhood Exposure to Second-Hand Smoke: No Diet: regular Diet Comment: regular caffeine: Yes during the past year weight has: increased > 10 lbs Dental Care, Regularly: Yes Physical Activity Frequency: 1-2 Times per Week Seatbelt Use: always Sunscreen Use: Yes Assistive Devices: Denture - Upper and Glasses Review of Systems Review of Systems: The patient denies chest pain, palpitations, shortness of breath, dyspnea on exertion, cough, lower extremity swelling, sore throat, vomiting, diarrhea , constipation, blood in urine or stool, memory loss, loss of consciousness, rash, abnormal bruising or bleeding, imbalance, focal weakness, numbness or tingling in arms or legs, generalized arthralgias or myalgias,neck pain, or night sweats. The review of systems is otherwise negative other than for that already noted above, and at least 10 systems have been reviewed. Physical Exam Physical Exam: The patient is awake, alert and oriented 3, well developed and well nourished, normocephalic and atraumatic, lying in bed and in no acute distress after administration of IV morphine by the ED HEENT--PERRL, EOMI, mucous membranes and oropharynx mildly dry. Neck--supple. No JVD. No bruits. Thyroid normal, trachea midline, no adenopathy. Heart--normal S1 and S2. No murmurs, rubs or gallops. Lungs--clear bilaterally, no respiratory distress, no accessory muscle use. Abdomen--normal bowel sounds and soft. Nontender. Nondistended Extremities--no cyanosis or clubbing. No edema. Dermatologic--normal skin turgor, normal color, no abnormal lymph nodes, no rash. Neurologic--cranial nerves II through XII grossly intact. Rheumatologic--normal range of motion. Psychiatric--normal affect. Results & Data Results & Data Vital Signs (Past 12 Hours) Vital Signs Temp Pulse Pulse Resp BP BP Pulse Ox 01/20/23 21:38 94 H 16 155/81 H 94 01/20/23 20:21 101 H 01/20/23 20:19 101 H 18 152/84 H 95 01/20/23 19:28 37.5 C 92 H 20 96 01/20/23 18:57 37.5 C 98 H 19 152/70 H 96 O2 Del Method 01/20/23 21:38 01/20/23 20:21 01/20/23 20:19 Room Air 01/20/23 19:28 01/20/23 18:57 Room Air Laboratory Results Laboratory Results WBC 14.72 K/ul (4.8-10.8) H 01/20/23 20:11 RBC 3.94 M/uL (4.20-5.40) L 01/20/23 20:11 Hgb 10.9 g/dl (12.0-16.0) L 01/20/23 20:11 Hct 34.4 % (37.0-47.0) L 01/20/23 20:11 MCV 87.3 fL (80.0-100.0) 01/20/23 20:11 MCH 27.7 pg (25.0-34.0) 01/20/23 20:11 MCHC 31.7 g/dL (32.0-36.0) L 01/20/23 20:11 RDW Std Deviation 54.4 fL (36.4-46.3) H 01/20/23 20:11 RDW Coeff of Sylwia 17.1 % (11.5-14.5) H 01/20/23 20:11 Plt Count 328 K/uL (130-400) 01/20/23 20:11 MPV 9.4 fL (9.4-12.4) 01/20/23 20:11 Immature Gran % (Auto) 0.5 % 01/20/23 20:11 Neut % (Auto) 84.7 % 01/20/23 20:11 Lymph % (Auto) 6.1 % 01/20/23 20:11 [place] % (Auto) 8.6 % 01/20/23 20:11 Eos % (Auto) 0.0 % 01/20/23 20:11 Baso % (Auto) 0.1 % 01/20/23 20:11 Neut # (Auto) 12.46 K/uL (1.40-6.50) H 01/20/23 20:11 Lymph # (Auto) 0.90 K/uL (1.20-3.40) L 01/20/23 20:11 [place] # (Auto) 1.26 K/uL (0.11-0.59) H 01/20/23 20:11 Eos # (Auto) 0.00 K/uL (0.00-0.50) 01/20/23 20:11 Baso # (Auto) 0.02 K/uL (0.00-0.20) 01/20/23 20:11 Immature Gran # (Auto) 0.08 K/uL (0.01-0.20) 01/20/23 20:11 Sodium 138 mmol/L (136-145) 01/20/23 20:11 Potassium 3.9 mmol/L (3.5-5.1) 01/20/23 20:11 Chloride 105 mmol/L (98-107) 01/20/23 20:11 Carbon Dioxide 24 mmol/L (21-32) 01/20/23 20:11 Anion Gap 9 (3-11) 01/20/23 20:11 BUN 21 mg/dl (6-23) 01/20/23 20:11 Creatinine 0.92 mg/dl (0.6-1.2) 01/20/23 20:11 Est Cr Clr Drug Dosing 71.3 ml/min 01/20/23 20:11 Est GFR ( Amer) 76.3 ml/min 01/20/23 20:11 Est GFR (Non-Af Amer) 65.8 ml/min 01/20/23 20:11 BUN/Creatinine Ratio 22.8 (10-20) H 01/20/23 20:11 Glucose 101 mg/dl (70-99(Fasting)) H 01/20/23 20:11 Lactate 1.2 mmol/L (0.4-2.0) 01/20/23 22:38 Calcium 9.0 mg/dl (8.6-10.3) 01/20/23 20:11 Total Bilirubin 0.4 mg/dl (0.2-1.0) 01/20/23 20:11 AST 10 U/L (13-39) L 01/20/23 20:11 ALT 11 U/L (7-52) 01/20/23 20:11 Alkaline Phosphatase 97 U/L (34-104) 01/20/23 20:11 Total Protein 6.8 gm/dl (6.0-8.3) 01/20/23 20:11 Albumin 3.7 gm/dl (3.4-5.0) 01/20/23 20:11 Globulin 3.1 gm/dl (2.5-4.0) 01/20/23 20:11 Albumin/Globulin Ratio 1.2 (0.9-2) 01/20/23 20:11 Urine Color Yellow 01/20/23 19: Urine Appearance Turbid (Clear) A 01/20/23 19: Urine pH 6.0 (4.5-7.5) 01/20/23 19: Ur Specific [place] 1.019 (1.000-1.030) 01/20/23 19: Urine Protein 3+ (Negative) H 01/20/23 19:27 Urine Glucose (UA) Negative (Negative) 01/20/23 19: Urine Ketones Negative (Negative) 01/20/23 19: Urine Blood 3+ (Negative) H 01/20/23 19:27 Urine Nitrite Positive (Negative) A 01/20/23 19:27 Urine Bilirubin Negative (Negative) 01/20/23 19:27 Urine Urobilinogen Negative (Negative) 01/20/23 19:27 Ur Leukocyte Esterase 3+ (Negative) H 01/20/23 19:27 Urine WBC (Auto) >30 /hpf (0-5) H 01/20/23 19:27 Urine RBC (Auto) >30 /hpf (0-4) H 01/20/23 19:27 U Hyaline Cast (Auto) 0 /lpf (0-5) 01/20/23 19:27 U Epithel Cells (Auto) 20-30 /lpf (0-5) H 01/20/23 19:27 Urine Bacteria (Auto) 4+ (Negative) H 01/20/23 19:27 SARS-CoV-2 (PCR) NEGATIVE (Negative) 01/20/23 19:05 Influenza Type A (PCR) Negative (Neg) 01/20/23 19:05 Influenza Type B (PCR) Negative (Neg) 01/20/23 19:05 RSV (RT-PCR) Negative (Neg) 01/20/23 19:05 Impressions Abdomen/Pelvis CT 01/20/23 19:33 Exam(s): CT ABDOMEN + PELVIS Without Contrast EXAM: CT Abdomen and Pelvis Without Intravenous Contrast CLINICAL HISTORY: Reason for exam: left flank pain, stent. TECHNIQUE: Axial computed tomography images of the abdomen and pelvis without intravenous contrast. CTDI is 27.3 mGy and DLP is 1263.92 mGy-cm. Automated exposure control was utilized for the study. A dose lowering technique was utilized adhering to the principles of ALARA. COMPARISON: CT abdomen pelvis December 30, 2022. FINDINGS: Lung bases: Unremarkable. No mass. No consolidation. ABDOMEN: Liver: Unremarkable. Gallbladder and bile ducts: Cholecystectomy. No ductal dilation. Pancreas: Unremarkable. No ductal dilation. Spleen: Unremarkable. No splenomegaly. Adrenals: Unremarkable. No mass. Kidneys and ureters: Nonobstructing 7 mm LEFT lower pole renal stone. Left-sided nephroureteral stent. LEFT renal cyst measures 5.2 cm. Stomach and bowel: Diverticulosis, without acute diverticulitis. No small bowel obstruction. No free air. PELVIS: Appendix: No findings to suggest acute appendicitis. Bladder: Unremarkable. No stones. Reproductive: Hysterectomy. ABDOMEN and PELVIS: Intraperitoneal space: See above. Bones/joints: Degenerative changes of the spine. Multilevel posterior fusion and laminectomies. No acute fracture. No dislocation. Soft tissues: Unremarkable. Vasculature: Atherosclerotic changes of the aorta. No abdominal aortic aneurysm. Lymph nodes: Unremarkable. No enlarged lymph nodes. IMPRESSION: 1. Nonobstructing 7 mm LEFT lower pole renal stone. Left-sided nephroureteral stent. 2. Cholecystectomy. 3. Hysterectomy. 4. Diverticulosis, without acute diverticulitis. No small bowel obstruction. No free air. Electronically signed by: Danny Joshua MD 01/20/23 21:41 PM Chest X-Ray 01/20/23 19:33 XR chest 1V portable HISTORY: left flank pain, chills COMPARISON: Chest 10/24/2022. FINDINGS: The lungs are clear. Cardiac silhouette is normal in size. No pleural effusions. No pneumothorax. IMPRESSION: No acute process. ACT 112: Negative or not required by law. Electronically signed by: Tre Barnes M.D. 01/20/2023 7:56 PM Code Status & VTE Plan Code Status Full code VTE Prophylaxis Plan VTE Prophylaxis will be ordered: Yes PG Care Time/CCT Total # of Minutes Spent Total Time Spent with Patient: Total time spent is greater than 50% in coordination of care (as documented) at patient's floor/unit and/or counseling patient: Coding Level of Care Code 75543 INT INP/OBS CARE 3/75MIN Diagnoses H/O lithotripsy Z98.890 S/P cystoscopy with ureteral stent placement Z96.0 UTI (urinary tract infection) N10 Urinary tract infection type: acute pyelonephritis Rigors R68.89 HTN (hypertension) I10 PAD (peripheral artery disease) I73.9 Paroxysmal atrial fibrillation I48.0 (3) UTI (urinary tract infection) Urinary tract infection type: acute pyelonephritis Qualified Code(s): N10 - Acute pyelonephritis
[2023-01-20] MEDS ORDERED: DICYCLOMINE HCL 10 MG CAP PO PRN (23:52)
[2023-01-20] MEDS ORDERED: ALBUTEROL HFA 8 GM INHALER INH PRN (23:52)
[2023-01-21] MEDS ORDERED: NSS + 20MEQ KCL 20 MEQ/1,000 ML BAG IV SCH (01:00)
[2023-01-21] MEDS: HYDROmorphone INJ 0.5 MG/0.5 ML SYR IV PRN ×5 (01:30→20:51)
[2023-01-21] MEDS ORDERED: ONDANSETRON INJ 2 MG/ML 2 ML VIAL IV PRN (01:52)
[2023-01-21] MEDS ORDERED: dilTIAZem HCL 120 MG CAPCR PO STA (03:29)
[2023-01-21] MEDS: ACETAMINOPHEN 325 MG TAB PO PRN ×2 (03:57→19:38)
[2023-01-21 07:51] LABS: Basophils # (auto) 0.03 K/uL (0.00-0.20); Basophils % (auto) 0.3 %; Eosinophils # (auto) 0.01 K/uL (0.00-0.50); Eosinophils % (auto) 0.1 %; Hematocrit (blood only) 29.9 % (37.0-47.0); Hemoglobin 9.5 g/dl (12.0-16.0); Immature Granulocytes # (auto) 0.08 K/uL (0.01-0.20); Immature Granulocytes % (auto) 0.7 %; Lymphocytes # (auto) 1.05 K/uL (1.20-3.40); Lymphocytes % (auto) 9.8 %; Mean Corpuscular Hemoglobin 27.9 pg (25.0-34.0); Mean Corpuscular Hgb Conc 31.8 g/dL (32.0-36.0); Mean Corpuscular Volume 87.9 fL (80.0-100.0); Mean Platelet Volume 9.7 fL (9.4-12.4); Monocytes # (auto) 1.38 K/uL (0.11-0.59); Monocytes % (auto) 12.9 %; Neutrophils # (auto) 8.12 K/uL (1.40-6.50); Neutrophils % (auto) 76.2 %; Platelet Count 253 K/uL (130-400); RDW Coefficient of Variation 17.2 % (11.5-14.5); RDW Standard Deviation 55.3 fL (36.4-46.3); White Blood Count 10.67 K/ul (4.8-10.8)
[2023-01-21] MEDS ORDERED: CEFEPIME 2,000 MG in SYRINGE 0 ML IV SCH (08:00)
[2023-01-21] MEDS: FLUTICASONE/VILANTEROL 100/25MCG 14 PUFFS/INHALER INH SCH (08:18)
[2023-01-21] MEDS: CALCIUM CARBONATE 1250MG TAB PO SCH (08:19)
[2023-01-21] MEDS: ASPIRIN 81 MG ECTAB PO SCH (08:19)
[2023-01-21] MEDS: APIXABAN 5 MG TABLET PO SCH ×2 (08:19→20:50)
[2023-01-21] MEDS: MULTIVITAMIN TAB PO SCH (08:20)
[2023-01-21 08:38] LABS: Albumin Globulin Ratio 1.3 (0.9-2); Albumin Level 3.1 gm/dl (3.4-5.0); BUN Creatinine Ratio 22.6 (10-20); Bilirubin,Total 0.3 mg/dl (0.2-1.0); Creatinine Clr Calc Pharmacy 69.1 ml/min; Est GFR (African American) 75.3 ml/min; Est GFR (Non-African American) 64.9 ml/min; Globulin 2.3 gm/dl (2.5-4.0); Magnesium 1.6 mg/dl (1.7-2.4); Total Protein 5.4 gm/dl (6.0-8.3)
--- NOTE | 2023-01-21 08:43 | Urology Consultation ---
Date of Consultation January 21, 2023 Assessment & Plan (1) H/O lithotripsy: (2) UTI (urinary tract infection): Plan Clinical picture consistent with urinary tract infection after ureteroscopy and laser lithotripsy. She is receiving antibiotic coverage with cefepime and overa ll seems to be improving. Urine and blood cultures are still pending. Ureteral stent appears to be in good position. At this point I recommend continuing with antibiotics and supportive care. Once culture data becomes available, antibiotic coverage can hopefully be narrowed and eventually switched to an oral dose that she can be discharged on. No plan for further urologic intervention at this time. Stent will need to be removed as an outpatient. Urology will follow along. History of Present Illness Reason for Consultation: UTI s/p ureteroscopy Attending Physician: Joel Castle MD History of Present Illness This is a 62-year-old female followed by urology for nephrolithiasis. She underwent ureteroscopy and laser lithotripsy on 01/19/2023 for a left-sided renal stone. She was discharged home afterwards and did well initially. On 01/20 she developed worsening left-sided flank pain as well as shaking chills, and returned to the hospital for further evaluation. In the emergency department, she was started on antibiotics. Lab work showed an initial leukocytosis to 14.72. Creatinine was 0.92. She was also found to have mildly elevated lactate at 2.3. A CT scan was performed. I independently reviewed these images from 01/20/2023. Both kidneys are in normal position. There is some stranding around the left kidney. There is a left ureteral stent in good position. There are some calcifications in the lower pole, consistent with recently fragmented stones. There is a small amount of gas within the left collecting system. Her bladder appears grossly normal. She was admitted for ongoing antibiotics and care. Urology was consulted for further evaluation. At the bedside, she reports ongoing left-sided flank pain, but is no longer having shaking chills. She is having some irritation from the stent but overall it is tolerable. This morning, leukocytosis has improved to 10.67 and lactate has improved to 1.2. Urine culture demonstrates preliminary positive for gram-negative rods. Blood cultures are pending. She is receiving IV cefepime. Allergies Allergy/AdvReac Type Severity Reaction Status Date / Time ceftriaxone [From Rocephin] Allergy Intermediate lightheaded Verified 01/19/23 07:10 lemon Allergy Intermediate Hives Verified 01/19/23 07:10 Penicillins Allergy Intermediate Hives Verified 01/19/23 07:10 bupropion [From Wellbutrin] AdvReac Intermediate Gastrointestinal Verified 01/19/23 07:10 Upset surgical syed Allergy Intermediate "infection Uncoded 01/19/23 07:10 at hysterectomy site d/t allergy from syed" Home Medications Medication Instructions Recorded Confirmed Type aspirin 81 mg tablet,delayed 81 mg PO QAM 02/26/20 01/20/23 History release multivitamin 1 tab PO QAM 10/28/20 01/20/23 History apixaban 5 mg tablet (Eliquis) 5 mg PO BID #180 tabs 09/01/22 01/20/23 Rx atorvastatin 80 mg tablet 80 mg PO PM #90 tabs 09/25/22 01/20/23 Rx albuterol sulfate 90 mcg/actuation 1 - 2 puff inhalation Q4H PRN 10/26/22 01/20/23 Rx aerosol inhaler (Ventolin HFA) Shortness Of Breath #18 grams budesonide-formoterol HFA 80 1 inh inhalation BID #10.2 grams 10/26/22 01/20/23 Rx mcg-4.5 mcg/actuation aerosol inhaler (Symbicort) dicyclomine 10 mg capsule 10 mg PO QID PRN Gi Upset 12/30/22 01/20/23 History diltiazem HCl 120 mg 120 mg PO HS #90 caps 01/09/23 01/20/23 Rx capsule,extended release 24 hr ketorolac 10 mg tablet 10 mg PO Q6H PRN prn 01/12/23 01/20/23 History calcium carbonate 600 mg calcium 600 mg PO QAM 01/20/23 01/20/23 History (1,500 mg) tablet (Calcium) Patient History Medical History Depression Pyelonephritis Tobacco use Obesity HTN (hypertension) History of COVID-19 02/2020 Nephrolithiasis History of kidney stones Asthma Paroxysmal atrial fibrillation on Eliquis, [facility] Depression Dyslipidemia Insomnia Prediabetes Surgical History S/P lumbar discectomy H/O arthroscopy of right knee History of section x2 History of lithotripsy History of colonoscopy History of tooth extraction full upper denture [place] teeth removed History of lumbar fusion x3--2015/2016/2021 S/P hysterectomy candy bso S/P appendectomy S/P cholecystectomy Family History Sister Afib Family history of diabetes mellitus Pancreatic cancer Heart disease Kidney stones Mother Afib Myocardial infarction Family history of diabetes mellitus Heart disease Father Prostate cancer Grandmother (Maternal) Family history of diabetes mellitus Brother Kidney stones Other No family history of adverse response to anesthesia Denies family history of Ovarian cancer Breast cancer Social History Smoking Status: Current every day smoker Tobacco Type: Cigarettes Age Started Using Tobacco: 16; Age Quit Using Tobacco: 58; packs per day: 0.75; Cigarettes Per Day: half pack; Second Hand Exposure: No; Do You Dip or Chew Tobacco: No; Tobacco Cessation Education Requested by Patient: No Hx Alcohol Use: Yes Alcohol type: beer and wine Hx Substance Use: No Preferred Language: Syriac Communication Ability: Effective Visual Impairment: No Limitations Hearing Ability: Normal Car Dumper Required: No Beliefs That Will Affect Care: None marital status: Current Living Situation: Alone current occupational status: employed 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 Physical Exam Constitutional: well developed and well nourished; no acute distress Eyes: + anicteric sclerae; pupils not irregula r Respiratory: normal respiratory effort; no respiratory distress, does not use accessory muscles and no cough Cardiovascular: well perfused Gastrointestinal (Abdomen): Inspection/Auscultation: abdomen normal to inspection; abdomen not distended Musculoskeletal: Extremities: extremities normal to inspection Skin: normal turgor; no rashes and no lesions Neurologic: moves all extremities and awake Psychiatric: Orientation: alert and oriented x 3 Results & Data Vital Signs (Past 12 Hours) Vital Signs Temp Pulse Pulse Pulse Resp BP Pulse Ox 01/21/23 07:49 88 18 88 L 01/21/23 07:29 37.1 C 88 18 113/64 92 01/21/23 07:24 01/21/23 06:02 89 01/21/23 05:55 37.5 C 01/21/23 03:54 38.9 C H 108 H 18 119/65 90 01/21/23 01:26 36.9 C 105 H 20 164/71 H 92 01/21/23 01:09 01/21/23 01:09 36.8 C 86 20 102/60 94 01/21/23 00:05 89 01/20/23 23:38 36.8 C 86 20 102/60 94 01/20/23 21:38 94 H 16 155/81 H 94 O2 Del Method O2 Flow Rate 01/21/23 07:49 Nasal Cannula 1 01/21/23 07:29 Room Air 01/21/23 07:24 Nasal Cannula 1 01/21/23 06:02 01/21/23 05:55 01/21/23 03:54 Nasal Cannula 1 01/21/23 01:26 Room Air 01/21/23 01:09 Room Air 01/21/23 01:09 Room Air 01/21/23 00:05 01/20/23 23:38 Room Air 01/20/23 21:38 PG Care Time/CCT Total # of Minutes Spent Total Time Spent with Patient: Total time spent is greater than 50% in coordination of care (as documented) at patient's floor/unit and/or counseling patient: Coding Level of Care Code 73263 IN/OBS CONSULT LVL 3,45M Diagnoses H/O lithotripsy Z98.890 UTI (urinary tract infection) N10 Urinary tract infection type: acute pyelonephritis (2) UTI (urinary tract infection) Urinary tract infection type: acute pyelonephritis Qualified Code(s): N10 - Acute pyelonephritis
[2023-01-21 10:00] LABS: A calco-baum cmplx NotReported Not Detected (NotDetected); Bact fragilis Not Reported Not Detected (NotDetected); Blood Culture Id Panel See PCR Comment (NotDetected); CTX-M Resistant Gene Not Detected (NotDetected); E cloacae compx Not Reported Not Detected (NotDetected); Efaecalis Not Reported Not Detected (NotDetected); Efaecium Not Reported Not Detected (NotDetected); Enterobacterales DETECTED (NotDetected); Enterobacterales Not Reported DETECTED (NotDetected); Escherichia coli Not Reported DETECTED (NotDetected); IMP Resistant Gene Not Detected (NotDetected); KPC Resistant Gene Not Detected (NotDetected); Lmonocyt Not Reported Not Detected (NotDetected); NDM Resistant Gene Not Detected (NotDetected); OXA 48 Like Resistant Gene Not Detected (NotDetected); Staph lugdunensis Not Reported Not Detected (NotDetected); Staph spp. Not Reported Not Detected (NotDetected); Staphaureus Not Reported Not Detected (NotDetected); Staphepi Not Reported Not Detected (NotDetected); Strep agal(GrpB) Not Reported Not Detected (NotDetected); Strep pneum Not Reported Not Detected (NotDetected); Strep pyog (GrpA) Not Reported Not Detected (NotDetected); Strep spp Not Reported Not Detected (NotDetected); VIM Resistant Gene Not Detected (NotDetected); mcr-1 Colistin Resistant Gene Not Detected (NotDetected)
[2023-01-21 10:01] LABS: C auris Not Reported Not Detected (NotDetected); Calbicans Not Reported Not Detected (NotDetected); Candida glabrata Not Reported Not Detected (NotDetected); Candida krusei Not Reported Not Detected (NotDetected); Cneoformans/gatti Not Reported Not Detected (NotDetected); Cparapsilosis Not Reported Not Detected (NotDetected); H influenzae Not Reported Not Detected (NotDetected); K aerogenes Not Reported Not Detected (NotDetected); Koxytoca Not Reported Not Detected (NotDetected); Kpneumoniae grp Not Reported Not Detected (NotDetected); N meningitidis Not Reported Not Detected (NotDetected); P aeruginosa Not Reported Not Detected (NotDetected); Proteus spp Not Reported Not Detected (NotDetected); Salmonella spp Not Reported Not Detected (NotDetected); Smarcescens Not Reported Not Detected (NotDetected); Stenmaltophilia Not Reported Not Detected (NotDetected)
[2023-01-21] MEDS: SODIUM CHLORIDE 0.9% 1,000 ML IV SCH ×2 (12:12→20:49)
[2023-01-21] MEDS: cefTRIAXone SODIUM 2,000 MG in DEXTROSE 5 % MINI-B 50 ML IV SCH (16:02)
--- NOTE | 2023-01-21 17:39 | Hospitalist Progress Note ---
Date of Service January 21, 2023 Assessment & Plan (1) H/O lithotripsy: (2) S/P cystoscopy with ureteral stent placement: (3) UTI (urinary tract infection): (4) Rigors: (5) HTN (hypertension): (6) PAD (peripheral artery disease): (7) Paroxysmal atrial fibrillation: Plan Sepsis secondary to recent biopsy, as per my discussion with pharmacy, E. 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 twice daily, aspirin 81 mg daily and diltiazem extended release 120 mg daily COPD- Continue usual inhalers Monitor pulse ox while receiving narcotic pain medications, as patient did require oxygen in the ED post morphine administration Admission and Anticipated Discharge Date Admission Date: January 20, 2023 Review of Systems Review of Systems: The patient denies chest pain, palpitations, shortness of breath, dyspnea on exertion, cough, lower extremity swelling, sore throat, vomiting, diarrhea , constipation, blood in urine or stool, memory loss, loss of consciousness, rash, abnormal bru ising or bleeding, imbalance, focal weakness, numbness or tingling in arms or legs, generalized arthralgias or myalgias,neck pain, or night sweats. The review of systems is otherwise negative other than for that already noted above, and at least 10 systems have been reviewed. Physical Exam Physical Exam: The patient is awake, alert and oriented 3, well developed and well nourished, normocephalic and atraumatic, lying in bed and in no acute distress after administration of IV morphine by the ED HEENT--PERRL, EOMI, mucous membranes and oropharynx mildly dry. Neck--supple. No JVD. No bruits. Thyroid normal, trachea midline, no adenopathy. Heart--normal S1 and S2. No murmurs, rubs or gallops. Lungs--clear bilaterally, no respiratory distress, no accessory muscle use. Abdomen--normal bowel sounds and soft. Nontender. Nondistended Extremities--no cyanosis or clubbing. No edema. Dermatologic--normal skin turgor, normal color, no abnormal lymph nodes, no rash. Neurologic--cranial nerves II through XII grossly intact. Rheumatologic--normal range of motion. Psychiatric--normal affect. Constitutional: well developed and well nourished; no acute distress Eyes: + anicteric sclerae; pupils not irregula r Respiratory: normal respiratory effort; no respiratory distress, does not use accessory muscles and no cough Gastrointestinal (Abdomen): Inspection/Auscultation: abdomen normal to inspection; abdomen not distended Musculoskeletal: Extremities: extremities normal to inspection Skin: normal turgor; no rashes and no lesions Neurologic: moves all extremities and awake Psychiatric: Orientation: alert and oriented x 3 Results & Data Results & Data Vital Signs (Past 12 Hours) Vital Signs Temp Pulse Pulse Resp BP Pulse Ox O2 Del Method 01/21/23 15:48 37.7 C H 98 H 18 154/72 H 91 Room Air 01/21/23 14:03 86 01/21/23 11:33 37.4 C 78 18 113/57 L 92 Nasal Cannula 01/21/23 07:49 88 18 88 L Nasal Cannula 01/21/23 07:29 37.1 C 88 18 113/64 92 Room Air 01/21/23 07:24 Nasal Cannula 01/21/23 06:02 89 01/21/23 05:55 37.5 C O2 Flow Rate 01/21/23 15:48 01/21/23 14:03 01/21/23 11:33 2 01/21/23 07:49 1 01/21/23 07:29 01/21/23 07:24 1 01/21/23 06:02 01/21/23 05:55 PG Care Time/CCT Total # of Minutes Spent Total Time Spent with Patient: Total time spent is greater than 50% in coordination of care (as documented) at patient's floor/unit and/or counseling patient: Coding Level of Care Code 26933 SUB INP/OBS CARE 3/50MIN Diagnoses H/O lithotripsy Z98.890 S/P cystoscopy with ureteral stent placement Z96.0 UTI (urinary tract infection) N10 Urinary tract infection type: acute pyelonephritis Rigors R68.89 HTN (hypertension) I10 PAD (peripheral artery disease) I73.9 Paroxysmal atrial fibrillation I48.0 (3) UTI (urinary tract infection) Urinary tract infection type: acute pyelonephritis Qualified Code(s): N10 - Acute pyelonephritis
[2023-01-21] MEDS: ATORVASTATIN 40 MG TAB PO SCH (20:50)
[2023-01-21] MEDS: dilTIAZem HCL 120 MG CAPCR PO SCH (20:50)
[2023-01-22] MEDS: HYDROmorphone INJ 0.5 MG/0.5 ML SYR IV PRN ×5 (00:04→13:35)
[2023-01-22] MEDS: ACETAMINOPHEN 325 MG TAB PO PRN (03:43)
[2023-01-22] MEDS: SODIUM CHLORIDE 0.9% 1,000 ML IV SCH ×3 (04:50→20:30)
[2023-01-22 06:41] LABS: Hematocrit (blood only) 28.7 % (37.0-47.0); Hemoglobin 9.2 g/dl (12.0-16.0); Mean Corpuscular Hemoglobin 27.8 pg (25.0-34.0); Mean Corpuscular Hgb Conc 32.1 g/dL (32.0-36.0); Mean Corpuscular Volume 86.7 fL (80.0-100.0); Mean Platelet Volume 9.5 fL (9.4-12.4); Platelet Count 214 K/uL (130-400); RDW Coefficient of Variation 17.7 % (11.5-14.5); Red Blood Count 3.31 M/uL (4.20-5.40); White Blood Count 8.42 K/ul (4.8-10.8)
[2023-01-22 07:28] LABS: Albumin Globulin Ratio 1.2 (0.9-2); BUN Creatinine Ratio 17.1 (10-20); Bilirubin,Total 0.3 mg/dl (0.2-1.0); Calcium 8.2 mg/dl (8.6-10.3); Creatinine Clr Calc Pharmacy 86.2 ml/min; Est GFR (African American) 96.1 ml/min; Est GFR (Non-African American) 82.9 ml/min; Globulin 2.6 gm/dl (2.5-4.0); Magnesium 1.8 mg/dl (1.7-2.4); Potassium 3.9 mmol/L (3.5-5.1); Total Protein 5.6 gm/dl (6.0-8.3)
[2023-01-22 07:43] LABS: Basophils # (auto) 0.02 K/uL (0.00-0.20); Basophils % (auto) 0.2 %; Eosinophils # (auto) 0.02 K/uL (0.00-0.50); Eosinophils % (auto) 0.2 %; Immature Granulocytes # (auto) 0.06 K/uL (0.01-0.20); Immature Granulocytes % (auto) 0.7 %; Lymphocytes # (auto) 1.01 K/uL (1.20-3.40); Monocytes # (auto) 0.95 K/uL (0.11-0.59); Monocytes % (auto) 11.3 %; Neutrophils # (auto) 6.36 K/uL (1.40-6.50); Neutrophils % (auto) 75.6 %
--- NOTE | 2023-01-22 07:53 | Urology Progress Note ---
Date of Service January 22, 2023 Assessment & Plan (1) UTI (urinary tract infection): (2) H/O lithotripsy: (3) Acute left flank pain: Plan 62yo/F who is s/p urological procedure 01/19/23 admitted with acute UTI. CT on arrival shows the left ureteral stent in good position, calcifications in the lower pole consistent with recently fragmented stones and a small amount of gas within the left collecting system. Clinical picture consistent with urinary tract infection after ureteroscopy and laser lithotripsy. - Afebrile at present. Hemodynamically stable. - Labs reviewed -WBC 8.42, creatinine 0.76 - Urine culture preliminary E.coli. Blood cultures prelim gram negative bacilli. - Voiding spontaneously, continue to monitor. - No plan for further urologic intervention at this time. - Continue antibiotics and tailor as culture data becomes available. - Continue supportive care and pain management as needed. - Can consider Pyridium and Oxybutynin as needed for stent discomfort. - Plan to follow-up outpatient as scheduled for stent removal. - Urology will follow along. Admission and Anticipated Discharge Date Admission Date: January 20, 2023 Subjective Patient examined at bedside this AM. Awake, sitting up in bed on arrival. No acute distress. Still with left flank pain, unsure of last dose of pain medication. Denies fevers, nausea, vomiting. Does report intermittent chills. Voiding without issue. Review of Systems Constitutional: as per Subjective / HPI Gastrointestinal: as per Subjective / HPI Genitourinary: as per Subjective / HPI Physical Exam Constitutional: no acute distress and + uncomfortable Respiratory: no respiratory distress and no labored breathing Neurologic: moves all extremities and awake Psychiatric: A+Ox3, euthymic affect Results & Data Vital Signs (Past 12 Hours) Vital Signs Pulse 01/21/23 23:36 72 PG Care Time/CCT Total # of Minutes Spent Total Time Spent with Patient: Total time spent is greater than 50% in coordination of care (as documented) at patient's floor/unit and/or counseling patient: Coding Level of Care Code 81140 SUB INP/OBS CARE 2/35MIN Diagnoses UTI (urinary tract infection) N10 Urinary tract infection type: acute pyelonephritis H/O lithotripsy Z98.890 Acute left flank pain R10.9 (1) UTI (urinary tract infection) Urinary tract infection type: acute pyelonephritis Qualified Code(s): N10 - Acute pyelonephritis
[2023-01-22] MEDS: MULTIVITAMIN TAB PO SCH (08:26)
[2023-01-22] MEDS: ASPIRIN 81 MG ECTAB PO SCH (08:26)
[2023-01-22] MEDS: FLUTICASONE/VILANTEROL 100/25MCG 14 PUFFS/INHALER INH SCH (08:26)
[2023-01-22] MEDS: cefTRIAXone SODIUM 2,000 MG in DEXTROSE 5 % MINI-B 50 ML IV SCH (08:26)
[2023-01-22] MEDS: CALCIUM CARBONATE 1250MG TAB PO SCH (08:26)
[2023-01-22] MEDS: APIXABAN 5 MG TABLET PO SCH ×2 (08:26→20:33)
[2023-01-22] MEDS: CYCLOBENZAPRINE HCL 10 MG TAB PO SCH ×3 (10:39→20:33)
--- NOTE | 2023-01-22 18:29 | Hospitalist Progress Note ---
Date of Service January 22, 2023 Assessment & Plan (1) H/O lithotripsy: (2) S/P cystoscopy with ureteral stent placement: (3) UTI (urinary tract infection): (4) Rigors: (5) HTN (hypertension): (6) PAD (peripheral artery disease): (7) Paroxysmal atrial fibrillation: Plan 62yo/F who is s/p urological procedure 01/19/23 admitted with acute UTI. CT on arrival shows the left ureteral stent in good position, calcifications in the lower pole consistent with recently fragmented stones and a small amount of gas within the left collecting system. Clinical picture consistent with urinary tract infection after ureteroscopy and laser lithotripsy. The patient feels better continue IV fluid Status post lithotripsy/cystoscopy with left ureteral stent placement/UTI with rigors- urine and blood culture showed E. coli pansensitive, continue Rocephin, patient can be discharged cephalosporins - no indication to repeat the blood culture - PT OT evaluation pending Atrial fibrillation/hypertension- Continue Eliquis 5 mg p.o. twice daily, aspirin 81 mg daily and diltiazem extend ed release 120 mg daily COPD- Continue usual inhalers Monitor pulse ox while receiving narcotic pain medications, as patient did require oxygen in the ED post morphine administration Admission and Anticipated Discharge Date Admission Date: January 20, 2023 Subjective Patient examined at bedside this AM. Awake, sitting up in bed on arrival. No acute distress. Still with left flank pain, unsure of last dose of pain medication. Denies fevers, nausea, vomiting. Does report intermittent chills. Voiding without issue. Review of Systems Review of Systems: The patient denies chest pain, palpitations, shortness of breath, dyspnea on exertion, cough, lower extremity swelling, sore throat, vomiting, diarrhea , constipation, blood in urine or stool, memory loss, loss of consciousness, rash, abnormal bruising or bleeding, imbalance, focal weakness, numbness or tingling in arms or legs, generalized arthralgias or myalgias,neck pain, or night sweats. The review of systems is otherwise negative other than for that already noted above, and at least 10 systems have been reviewed. Physical Exam Physical Exam: The patient is awake, alert and oriented 3, well developed and well nourished, normocephalic and atraumatic, lying in bed and in no acute distress after administration of IV morphine by the ED HEENT--PERRL, EOMI, mucous membranes and oropharynx mildly dry. Neck--supple. No JVD. No bruits. Thyroid normal, trachea midline, no adenopathy. Heart--normal S1 and S2. No murmurs, rubs or gallops. Lungs--clear bilaterally, no respiratory distress, no accessory muscle use. Abdomen--normal bowel sounds and soft. Nontender. Nondistended Extremities--no cyanosis or clubbing. No edema. Dermatologic--normal skin turgor, normal color, no abnormal lymph nodes, no rash. Neurologic--cranial nerves II through XII grossly intact. Rheumatologic--normal range of motion. Psychiatric--normal affect. Constitutional: well developed and well nourished; no acute distress Eyes: + anicteric sclerae; pupils not irregula r Respiratory: normal respiratory effort; no respiratory distress, does not use accessory muscles and no cough Gastrointestinal (Abdomen): Inspection/Auscultation: abdomen normal to inspection; abdomen not distended Musculoskeletal: Extremities: extremities normal to inspection Skin: normal turgor; no rashes and no lesions Neurologic: moves all extremities and awake Psychiatric: Orientation: alert and oriented x 3 Results & Data Results & Data Vital Signs (Past 12 Hours) Vital Signs Temp Pulse Pulse Resp BP Pulse Ox O2 Del Method 01/22/23 15:56 113 H 01/22/23 11:10 36.6 C 82 17 118/72 95 Nasal Cannula 01/22/23 09:25 86 01/22/23 07:30 36.8 C 75 16 120/70 96 Nasal Cannula O2 Flow Rate 01/22/23 15:56 01/22/23 11:10 2.5 01/22/23 09:25 01/22/23 07:30 2.5 PG Care Time/CCT Total # of Minutes Spent Total Time Spent with Patient: Total time spent is greater than 50% in coordination of care (as documented) at patient's floor/unit and/or counseling patient: Coding Level of Care Code 19392 SUB INP/OBS CARE 3/50MIN Diagnoses H/O lithotripsy Z98.890 S/P cystoscopy with ureteral stent placement Z96.0 UTI (urinary tract infection) N10 Urinary tract infection type: acute pyelonephritis Rigors R68.89 HTN (hypertension) I10 PAD (peripheral artery disease) I73.9 Paroxysmal atrial fibrillation I48.0 (3) UTI (urinary tract infection) Urinary tract infection type: acute pyelonephritis Qualified Code(s): N10 - Acute pyelonephritis
[2023-01-22] MEDS: ATORVASTATIN 40 MG TAB PO SCH (20:33)
[2023-01-22] MEDS: dilTIAZem HCL 120 MG CAPCR PO SCH (20:33)
[2023-01-23] MEDS: HYDROmorphone INJ 0.5 MG/0.5 ML SYR IV PRN ×3 (01:22→14:22)
[2023-01-23] MEDS: SODIUM CHLORIDE 0.9% 1,000 ML IV SCH (04:26)
[2023-01-23 06:34] LABS: Basophils # (auto) 0.02 K/uL (0.00-0.20); Basophils % (auto) 0.2 %; Eosinophils # (auto) 0.01 K/uL (0.00-0.50); Eosinophils % (auto) 0.1 %; Hematocrit (blood only) 26.7 % (37.0-47.0); Immature Granulocytes # (auto) 0.07 K/uL (0.01-0.20); Immature Granulocytes % (auto) 0.6 %; Lymphocytes # (auto) 0.89 K/uL (1.20-3.40); Mean Corpuscular Hemoglobin 28.4 pg (25.0-34.0); Mean Corpuscular Hgb Conc 33.7 g/dL (32.0-36.0); Mean Corpuscular Volume 84.2 fL (80.0-100.0); Mean Platelet Volume 9.9 fL (9.4-12.4); Monocytes # (auto) 1.45 K/uL (0.11-0.59); Monocytes % (auto) 13.1 %; Neutrophils # (auto) 8.63 K/uL (1.40-6.50); Platelet Count 216 K/uL (130-400); RDW Coefficient of Variation 17.2 % (11.5-14.5); Red Blood Count 3.17 M/uL (4.20-5.40); White Blood Count 11.07 K/ul (4.8-10.8)
[2023-01-23 07:15] LABS: Albumin Globulin Ratio 1.1 (0.9-2); Albumin Level 3.1 gm/dl (3.4-5.0); BUN Creatinine Ratio 16.9 (10-20); Bilirubin,Total 0.5 mg/dl (0.2-1.0); Calcium 8.2 mg/dl (8.6-10.3); Creatinine Clr Calc Pharmacy 90.9 ml/min; Est GFR (African American) 104.3 ml/min; Globulin 2.8 gm/dl (2.5-4.0); Magnesium 1.7 mg/dl (1.7-2.4); Potassium 3.6 mmol/L (3.5-5.1); Total Protein 5.9 gm/dl (6.0-8.3)
--- NOTE | 2023-01-23 07:22 | Urology Progress Note ---
Date of Service January 23, 2023 Assessment & Plan (1) UTI (urinary tract infection): (2) H/O lithotripsy: (3) Acute left flank pain: Plan 62yo/F who is s/p urological procedure 01/19/23 admitted with acute UTI. CT on arrival shows the left ureteral stent in good position, calcifications in the lower pole consistent with recently fragmented stones and a small amount of gas within the left collecting system. Clinical picture consistent with urinary tract infection after ureteroscopy and laser lithotripsy. - Still with left flank discomfort, but reports some improvement this morning. - Afebrile, hemodynamically stable. - Labs reviewed -WBC 11.07, creatinine 0.71. Continue to trend. - Urine culture final with E.coli. Blood cultures prelim gram negative bacilli. - Voiding spontaneously, continue to monitor. - No plan for further urologic intervention at this time. - Continue antibiotics and tailor as culture data becomes available. - Continue supportive care and pain management as needed. - Can consider Pyridium and Oxybutynin as needed for stent discomfort. - Plan to follow-up outpatient as scheduled with our service for stent removal. - Urology will follow along. Admission and Anticipated Discharge Date Admission Date: January 20, 2023 Subjective Patient examined at bedside this AM. Awake, sitting up in bed on arrival. No acute distress. Still with left flank pain, but reports an improvement from yesterday. Denies fevers, nausea, vomiting. Does report intermittent chills. Voiding without issue. Some hematuria, no dysuria. Reports she slept well. No recent BM, requesting Miralax. Review of Systems Constitutional: as per Subjective / HPI Gastrointestinal: as per Subjective / HPI Genitourinary: as per Subjective / HPI Physical Exam Constitutional: no acute distress Respiratory: no respiratory distress and no labored breathing O2 via NC Neurologic: moves all extremities and awake Psychiatric: A+Ox3, euthymic affect Results & Data Vital Signs (Past 12 Hours) Vital Signs Temp Pulse Pulse Resp BP Pulse Ox O2 Del Method 01/22/23 22:27 37.1 C 90 18 122/70 92 Nasal Cannula 01/22/23 22:10 86 01/22/23 22:10 Nasal Cannula 01/22/23 19:57 36.7 C 129 H 20 130/61 94 Nasal Cannula O2 Flow Rate 01/22/23 22:27 3 01/22/23 22:10 01/22/23 22:10 2.5 01/22/23 19:57 3 PG Care Time/CCT Total # of Minutes Spent Total Time Spent with Patient: Total time spent is greater than 50% in coordination of care (as documented) at patient's floor/unit and/or counseling patient: Coding Level of Care Code 96540 SUB INP/OBS CARE 2/35MIN Diagnoses UTI (urinary tract infection) N10 Urinary tract infection type: acute pyelonephritis H/O lithotripsy Z98.890 Acute left flank pain R10.9 (1) UTI (urinary tract infection) Urinary tract infection type: acute pyelonephritis Qualified Code(s): N10 - Acute pyelonephritis
[2023-01-23] MEDS: CALCIUM CARBONATE 1250MG TAB PO SCH (08:31)
[2023-01-23] MEDS: MULTIVITAMIN TAB PO SCH (08:31)
[2023-01-23] MEDS: APIXABAN 5 MG TABLET PO SCH ×2 (08:31→20:46)
[2023-01-23] MEDS: CYCLOBENZAPRINE HCL 10 MG TAB PO SCH ×3 (08:31→20:46)
[2023-01-23] MEDS: cefTRIAXone SODIUM 2,000 MG in DEXTROSE 5 % MINI-B 50 ML IV SCH (08:31)
[2023-01-23] MEDS: ASPIRIN 81 MG ECTAB PO SCH (08:31)
[2023-01-23] MEDS: FLUTICASONE/VILANTEROL 100/25MCG 14 PUFFS/INHALER INH SCH (08:32)
[2023-01-23] MEDS: DOCUSATE SODIUM 100 MG CAP PO SCH ×2 (11:45→20:46)
[2023-01-23] MEDS: POLYETHYLENE (MIRALAX) 17 GM PACK PO SCH (11:45)
--- NOTE | 2023-01-23 18:24 | Hospitalist Progress Note ---
Date of Service January 23, 2023 Assessment & Plan (1) H/O lithotripsy: (2) S/P cystoscopy with ureteral stent placement: (3) UTI (urinary tract infection): (4) Rigors: (5) HTN (hypertension): (6) PAD (peripheral artery disease): (7) Paroxysmal atrial fibrillation: Plan 62yo/F who is s/p urological procedure 01/19/23 admitted with acute UTI. CT on arrival shows the left ureteral stent in good position, calcifications in the lower pole consistent with recently fragmented stones and a small amount of gas within the left collecting system. Clinical picture consistent with urinary tract infection after ureteroscopy and laser lithotripsy. Sepsis due to UTI Improving Urine and blood culture growing pansensitive E. coli. Continue Rocephin. Can be discharged on Keflex Discontinue IV fluids Patient noted to be slightly short of breath which could be related to the flui ds. May consider giving her a dose of Lasix. Status post lithotripsy/cystoscopy with left ureteral stent placement Urology on board May consider giving the patient some oxybutynin or Pyridium for stent discomfort. Atrial fibrillation/hypertension- Continue Eliquis 5 mg p.o. twice daily, aspirin 81 mg daily and diltiazem extended release 120 mg daily COPD- Continue usual inhalers Monitor pulse ox while receiving narcotic pain medications, as patient did require oxygen in the ED post morphine administration Disposition: Plan to discharge tomorrow to home. PT/OT recommended return to home. Admission and Anticipated Discharge Date Admission Date: January 20, 2023 Subjective Patient still complains of back pain. Says that she has always felt short of breath lately over the past 1 or 2 weeks. No chest pain. Review of Systems Review of Systems: All systems reviewed & are unremarkable except as noted in Subjective Physical Exam Physical Exam: General: Awake, conversant. Appears to be in mild distress due to pain. Heart: S1, S2/regular rate and rhythm, no murmur rubs or gallops Lungs: Clear to auscultation bilaterally. Normal effort Abdomen: Soft/nontender/nondistended. No hepatosplenomegaly Extremities: No clubbing/cyanosis. No edema Behavior: Appropriate, cooperative Results & Data Results & Data Vital Signs (Past 12 Hours) Vital Signs Temp Pulse Pulse Resp BP Pulse Ox O2 Del Method 01/23/23 16:26 89 01/23/23 15:49 36.8 C 88 19 144/76 H 92 Nasal Cannula 01/23/23 11:32 38.2 C H 95 H 19 157/78 H 90 Nasal Cannula 01/23/23 09:11 86 01/23/23 07:37 Nasal Cannula 01/23/23 07:34 36.8 C 95 H 19 147/76 H 90 Nasal Cannula O2 Flow Rate 01/23/23 16:26 01/23/23 15:49 2.5 01/23/23 11:32 2.5 01/23/23 09:11 01/23/23 07:37 2.5 01/23/23 07:34 2.5 Laboratory Results Abnormal lab results 01/23/23 Range/Units 05:58 WBC 11.07 H (4.8-10.8) K/ul RBC 3.17 L (4.20-5.40) M/uL Hgb 9.0 L (12.0-16.0) g/dl Hct 26.7 L (37.0-47.0) % RDW Std Deviation 53.0 H (36.4-46.3) fL RDW Coeff of Sylwia 17.2 H (11.5-14.5) % Neut # (Auto) 8.63 H (1.40-6.50) K/uL Lymph # (Auto) 0.89 L (1.20-3.40) K/uL [place] # (Auto) 1.45 H (0.11-0.59) K/uL Glucose 135 H (70-99(Fasting)) mg/dl Calcium 8.2 L (8.6-10.3) mg/dl Total Protein 5.9 L (6.0-8.3) gm/dl Albumin 3.1 L (3.4-5.0) gm/dl PG Care Time/CCT Total # of Minutes Spent Total Time Spent with Patient: Total time spent is greater than 50% in coordination of care (as documented) at patient's floor/unit and/or counseling patient: Coding Level of Care Code 15544 SUB INP/OBS CARE 2/35MIN Diagnoses H/O lithotripsy Z98.890 S/P cystoscopy with ureteral stent placement Z96.0 UTI (urinary tract infection) N10 Urinary tract infection type: acute pyelonephritis Rigors R68.89 HTN (hypertension) I10 PAD (peripheral artery disease) I73.9 Paroxysmal atrial fibrillation I48.0 (3) UTI (urinary tract infection) Urinary tract infection type: acute pyelonephritis Qualified Code(s): N10 - Acute pyelonephritis
[2023-01-23] MEDS ORDERED: PHENAZOPYRIDINE HCL 100 MG TAB PO PRN (18:28)
[2023-01-23] MEDS ORDERED: KETOROLAC TROMETHAMINE 15 MG/ML VIAL IV ONE (19:54)
[2023-01-23] MEDS: ATORVASTATIN 40 MG TAB PO SCH (20:46)
[2023-01-23] MEDS: dilTIAZem HCL 120 MG CAPCR PO SCH (20:46)
[2023-01-24] MEDS: ACETAMINOPHEN 325 MG TAB PO PRN ×3 (02:36→17:43)
[2023-01-24] MEDS ORDERED: HYDROmorphone INJ 0.5 MG/0.5 ML SYR IV STA (03:10)
[2023-01-24] MEDS ORDERED: MAGNESIUM SULFATE / D5W 1 GM/100 ML BAG IV ONE (04:04)
[2023-01-24] MEDS ORDERED: FUROSEMIDE INJ 20 MG/2 ML VIAL IV ONE ×3 (08:25→16:15)
[2023-01-24] MEDS: FLUTICASONE/VILANTEROL 100/25MCG 14 PUFFS/INHALER INH SCH (09:25)
[2023-01-24] MEDS: POLYETHYLENE (MIRALAX) 17 GM PACK PO SCH (09:25)
[2023-01-24] MEDS: ASPIRIN 81 MG ECTAB PO SCH (09:26)
[2023-01-24] MEDS: MULTIVITAMIN TAB PO SCH (09:26)
[2023-01-24] MEDS: APIXABAN 5 MG TABLET PO SCH ×2 (09:27→20:43)
[2023-01-24] MEDS: CALCIUM CARBONATE 1250MG TAB PO SCH (09:27)
[2023-01-24] MEDS: DOCUSATE SODIUM 100 MG CAP PO SCH ×2 (09:27→20:39)
[2023-01-24] MEDS: CYCLOBENZAPRINE HCL 10 MG TAB PO SCH ×3 (09:29→20:43)
[2023-01-24] MEDS: cefTRIAXone SODIUM 2,000 MG in DEXTROSE 5 % MINI-B 50 ML IV SCH (09:32)
[2023-01-24] MEDS ORDERED: dilTIAZem HCl 5 MG/ML 5 ML VIAL IV STA (10:21)
[2023-01-24] MEDS ORDERED: dilTIAZem HCl 60 MG TAB PO ONE (10:43)
[2023-01-24] MEDS ORDERED: bisacodyL 10 MG SUPP PR STA (13:22)
--- NOTE | 2023-01-24 14:49 | Urology Progress Note ---
Date of Service January 24, 2023 Assessment & Plan (1) UTI (urinary tract infection): (2) H/O lithotripsy: (3) Acute left flank pain: Plan 62yo/F who is s/p urological procedure 01/19/23 admitted with acute UTI. CT on arrival shows the left ureteral stent in good position, calcifications in the lower pole consistent with recently fragmented stones and a small amount of gas within the left collecting system. Clinical picture consistent with urinary tract infection after ureteroscopy and laser lithotripsy. - Left flank pain has improved. - Afebrile, hemodynamically stable. - Labs 01/23/23 reviewed -WBC 11.07, creatinine 0.71. Continue to trend. - Urine and blood cultures final with E.coli. Continues on Ceftriaxone. - Voiding spontaneously, continue to monitor. - No plan for further urologic intervention at this time. - Continue supportive care, pain management as needed, and antibiotic therapy. - Plan to follow-up outpatient as scheduled with our service for stent removal. - Urology will sign-off. Please contact us with any further questions, concerns, or changes in patient status. Admission and Anticipated Discharge Date Admission Date: January 20, 2023 Subjective Patient examined at bedside this AM. Awake, resting in bed on arrival. No acute distress. Reports a significant improvement in left flank pain. Denies fevers, nausea, vomiting at present. (Tmax 38.2 yesterday). Does report intermittent chills. Voiding without issue. Denies hematuria or dysuria. Review of Systems Constitutional: as per Subjective / HPI Gastrointestinal: as per Subjective / HPI Genitourinary: as per Subjective / HPI Physical Exam Constitutional: no acute distress Respiratory: no respiratory distress and no labored breathing O2 via NC Neurologic: moves all extremities and awake Psychiatric: A+Ox3, euthymic affect Results & Data Vital Signs (Past 12 Hours) Vital Signs Temp Pulse Resp BP Pulse Ox O2 Del Method O2 Flow Rate 01/24/23 11:52 36.4 C L 115 H 16 114/81 94 Nasal Cannula 4 01/24/23 07:22 36.6 C 66 16 116/62 93 Nasal Cannula 4 01/24/23 03:49 36.6 C 81 20 137/70 91 Nasal Cannula 4 01/24/23 03:20 36.8 C 80 18 122/56 L 90 Nasal Cannula 3 PG Care Time/CCT Total # of Minutes Spent Total Time Spent with Patient: Total time spent is greater than 50% in coordination of care (as documented) at patient's floor/unit and/or counseling patient: Coding Level of Care Code 59988 SUB INP/OBS CARE 2/35MIN Diagnoses UTI (urinary tract infection) N10 Urinary tract infection type: acute pyelonephritis H/O lithotripsy Z98.890 Acute left flank pain R10.9 (1) UTI (urinary tract infection) Urinary tract infection type: acute pyelonephritis Qualified Code(s): N10 - Acute pyelonephritis
[2023-01-24] MEDS ORDERED: POTASSIUM CHLORIDE CRTAB 20 MEQ TABCR PO STA (15:09)
--- NOTE | 2023-01-24 15:13 | Hospitalist Progress Note ---
Date of Service January 24, 2023 Assessment & Plan (1) H/O lithotripsy: (2) S/P cystoscopy with ureteral stent placement: (3) UTI (urinary tract infection): (4) Rigors: (5) HTN (hypertension): (6) PAD (peripheral artery disease): (7) Paroxysmal atrial fibrillation: Plan 62yo/F who is s/p urological procedure 01/19/23 admitted with acute UTI. CT on arrival shows the left ureteral stent in good position, calcifications in the lower pole consistent with recently fragmented stones and a small amount of gas within the left collecting system. Clinical picture consistent with urinary tract infection after ureteroscopy and laser lithotripsy. Sepsis due to UTI Improving Urine and blood culture growing pansensitive E. coli. Continue Rocephin. Can be discharged on Keflex Discontinued IV fluids 01/23 Patient noted to be slightly short of breath which could be related to the fluids. she was thus given a dose of 20 mg of IV Lasix today with very good diuretic response. I asked the nurse to titrate O2 down and since she still remains short of breath upon exertion, I ordered another 20 mg of IV Lasix. Potassium supplements ordered. She could have been fluid overloaded because of getting IV fluids the past few days. Status post lithotripsy/cystoscopy with left ureteral stent placement Urology on board May consider giving the patient some oxybutynin or Pyridium for stent discomfort. Atrial fibrillation/hypertension- Continue Eliquis 5 mg p.o. twice daily, aspirin 81 mg daily and diltiazem extended release 120 mg daily in response to the Lasix, she diuresed and had to go to the bathroom. That degree of exertion caused her to be short of breath and tachycardic. She is now in rapid A-fib. She was given an extra dose of p.o. Cardizem today. COPD- Continue usual inhalers Monitor pulse ox while receiving narcotic pain medications, as patient did requ bertha oxygen in the ED post morphine administration Titrate O2 down Disposition: Plan to discharge tomorrow to home. PT/OT recommended return to home. Admission and Anticipated Discharge Date Admission Date: January 20, 2023 Subjective patient appears to be less short of breath today. She was given a dose of 20 mg of IV Lasix to which she responded very well with "lots of urine" output. Per nurse, she went into a rapid A-fib for which she was given a dose of p.o. C ardizem 120 mg x 1. Patient does not use oxygen at home and here she is on 4 L of oxygen. Review of Systems Review of Systems: All systems reviewed & are unremarkable except as noted in Subjective Physical Exam Physical Exam: General: Awake, conversant. Heart: S1, S2/regular rate and rhythm, no murmur rubs or gallops Lungs: Mild bibasilar crackles. Normal effort Abdomen: Soft/nontender/nondistended. No hepatosplenomegaly Extremities: No clubbing/cyanosis. No edema Behavior: Appropriate, cooperative Results & Data Results & Data Vital Signs (Past 12 Hours) Vital Signs Temp Pulse Pulse Resp BP Pulse Ox O2 Del Method 01/24/23 11:52 36.4 C L 115 H 16 114/81 94 Nasal Cannula 01/24/23 08:00 71 01/24/23 07:22 36.6 C 66 16 116/62 93 Nasal Cannula 01/24/23 03:49 36.6 C 81 20 137/70 91 Nasal Cannula 01/24/23 03:20 36.8 C 80 18 122/56 L 90 Nasal Cannula O2 Flow Rate 01/24/23 11:52 4 01/24/23 08:00 01/24/23 07:22 4 01/24/23 03:49 4 01/24/23 03:20 3 PG Care Time/CCT Total # of Minutes Spent Total Time Spent with Patient: Total time spent is greater than 50% in coordination of care (as documented) at patient's floor/unit and/or counseling patient: Coding Level of Care Code 83296 SUB INP/OBS CARE 2/35MIN Diagnoses H/O lithotripsy Z98.890 S/P cystoscopy with ureteral stent placement Z96.0 UTI (urinary tract infection) N10 Urinary tract infection type: acute pyelonephritis Rigors R68.89 HTN (hypertension) I10 PAD (peripheral artery disease) I73.9 Paroxysmal atrial fibrillation I48.0 (3) UTI (urinary tract infection) Urinary tract infection type: acute pyelonephritis Qualified Code(s): N10 - Acute pyelonephritis
[2023-01-24] MEDS ORDERED: traMADol HCL 50 MG TABLET PO PRN (19:00)
[2023-01-24] MEDS: dilTIAZem HCL 120 MG CAPCR PO SCH (20:43)
[2023-01-24] MEDS: ATORVASTATIN 40 MG TAB PO SCH (20:44)
[2023-01-25 06:46] LABS: BUN Creatinine Ratio 27.4 (10-20); Calcium 8.7 mg/dl (8.6-10.3); Creatinine Clr Calc Pharmacy 87.4 ml/min; Est GFR (African American) 100.9 ml/min; Potassium 3.6 mmol/L (3.5-5.1)
[2023-01-25] MEDS: ACETAMINOPHEN 325 MG TAB PO PRN ×2 (07:25→21:18)
[2023-01-25] MEDS: CYCLOBENZAPRINE HCL 10 MG TAB PO SCH ×3 (08:47→21:20)
[2023-01-25] MEDS ORDERED: METOPROLOL TARTRATE 1 MG/ML VIAL IV STA ×2 (08:50→20:14)
[2023-01-25] MEDS: DOCUSATE SODIUM 100 MG CAP PO SCH ×2 (08:51→21:20)
[2023-01-25] MEDS: CALCIUM CARBONATE 1250MG TAB PO SCH (08:51)
[2023-01-25] MEDS: POLYETHYLENE (MIRALAX) 17 GM PACK PO SCH (08:51)
[2023-01-25] MEDS: MULTIVITAMIN TAB PO SCH (08:51)
[2023-01-25] MEDS: FLUTICASONE/VILANTEROL 100/25MCG 14 PUFFS/INHALER INH SCH (08:51)
[2023-01-25] MEDS ORDERED: POTASSIUM CHLORIDE CRTAB 20 MEQ TABCR PO STA (08:51)
[2023-01-25] MEDS: ASPIRIN 81 MG ECTAB PO SCH (08:51)
[2023-01-25] MEDS ORDERED: dilTIAZem HCL 120 MG CAPCR PO ONE (08:52)
[2023-01-25] MEDS: APIXABAN 5 MG TABLET PO SCH ×2 (09:04→21:19)
[2023-01-25] MEDS: cefTRIAXone SODIUM 2,000 MG in DEXTROSE 5 % MINI-B 50 ML IV SCH (10:23)
--- NOTE | 2023-01-25 10:26 | XCELERA ---
[id number] \\[id number]
[2023-01-25] MEDS ORDERED: MAGNESIUM SULFATE / D5W 1 GM/100 ML BAG IV ONE ×2 (13:50→20:30)
--- NOTE | 2023-01-25 15:01 | Hospitalist Progress Note ---
Date of Service January 25, 2023 Assessment & Plan (1) H/O lithotripsy: (2) S/P cystoscopy with ureteral stent placement: (3) UTI (urinary tract infection): (4) Rigors: (5) HTN (hypertension): (6) PAD (peripheral artery disease): (7) Paroxysmal atrial fibrillation: Plan 62yo/F who is s/p urological procedure 01/19/23 admitted with acute UTI. CT on arrival shows the left ureteral stent in good position, calcifications in the lower pole consistent with recently fragmented stones and a small amount of gas within the left collecting system. Clinical picture consistent with urinary tract infection after ureteroscopy and laser lithotripsy. Sepsis due to UTI Improving Urine and blood culture growing pansensitive E. coli. Continue Rocephin. Can be discharged on Keflex Discontinued IV fluids 01/23 Patient noted to be slightly short of breath which could be related to the fluids. she was thus given 2 doses of 20 mg of IV Lasix 01/24 with very good diuretic response. She is now off of oxygen. Status post lithotripsy/cystoscopy with left ureteral stent placement Urology on board May consider giving the patient some oxybutynin or Pyridium for stent discomfort. Atrial fibrillation/hypertension- Continue Eliquis 5 mg p.o. twice daily, aspirin 81 mg daily and diltiazem extended release 120 mg daily in response to the Lasix, she diuresed and had to go to the bathroom. That degree of exertion caused her to be short of breath and tachycardic. She has been having issues with rapid A-fib. She was given IV metoprolol this morning. Heart rate well-controlled at this time. Sinus pauses noted by nurse, asymptomatic. Replete potassium and magnesium COPD- Continue usual inhalers Disposition: Plan to discharge tomorrow to home. PT/OT recommended return to home. Admission and Anticipated Discharge Date Admission Date: January 20, 2023 Subjective I was informed by the nurse earlier this morning that patient went into rapid A- fib with heart rate in the 140s to 150s range and was symptomatic with palpitations. She was given a dose of IV metoprolol. Good response. Heart rate came down. Today she is not short of breath. She had very good response to the 2 doses of IV Lasix she received yesterday. She says that she finally had a good bowel movement Review of Systems Review of Systems: All systems reviewed & are unremarkable except as noted in Subjective Physical Exam Physical Exam: General: Awake, conversant. Heart: S1, S2/irregular rhythm, normal rate, no murmur rubs or gallops Lungs: Clear to auscultation bilaterally. Normal effort Abdomen: Soft/nontender/nondistended. No hepatosplenomegaly Extremities: No clubbing/cyanosis. No edema Behavior: Appropriate, cooperative Results & Data Results & Data Vital Signs (Past 12 Hours) Vital Signs Temp Pulse Pulse Resp BP BP Pulse Ox 01/25/23 11:20 36.6 C 77 18 119/68 90 01/25/23 09:17 88 120/69 01/25/23 09:00 134 H 121/79 01/25/23 08:00 88 01/25/23 07:56 36.6 C 111 H 18 116/64 93 01/25/23 07:30 01/25/23 03:37 36.5 C 100 H 18 108/75 93 O2 Del Method O2 Flow Rate 01/25/23 11:20 Room Air 01/25/23 09:17 01/25/23 09:00 01/25/23 08:00 01/25/23 07:56 Room Air 01/25/23 07:30 Room Air 01/25/23 03:37 Nasal Cannula 3 Laboratory Results Abnormal lab results 01/25/23 Range/Units 05:27 Chloride 108 H (98-107) mmol/L BUN/Creatinine Ratio 27.4 H (10-20) Glucose 113 H (70-99(Fasting)) mg/dl PG Care Time/CCT Total # of Minutes Spent Total Time Spent with Patient: Total time spent is greater than 50% in coordination of care (as documented) at patient's floor/unit and/or counseling patient: Coding Level of Care Code 73847 SUB INP/OBS CARE 2/35MIN Diagnoses H/O lithotripsy Z98.890 S/P cystoscopy with ureteral stent placement Z96.0 UTI (urinary tract infection) N10 Urinary tract infection type: acute pyelonephritis Rigors R68.89 HTN (hypertension) I10 PAD (peripheral artery disease) I73.9 Paroxysmal atrial fibrillation I48.0 (3) UTI (urinary tract infection) Urinary tract infection type: acute pyelonephritis Qualified Code(s): N10 - Acute pyelonephritis
[2023-01-25] MEDS ORDERED: KETOROLAC 30 MG/ML VIAL IV ONE (18:09)
[2023-01-25] MEDS ORDERED: traMADol HCL 50 MG TABLET PO PRN (19:00)
[2023-01-25] MEDS: ATORVASTATIN 40 MG TAB PO SCH (21:19)
[2023-01-25] MEDS: dilTIAZem HCL 120 MG CAPCR PO SCH (21:20)
[2023-01-26 06:47] LABS: BUN Creatinine Ratio 29.5 (10-20); Calcium 8.7 mg/dl (8.6-10.3); Creatinine Clr Calc Pharmacy 72.5 ml/min; Est GFR (African American) 80.5 ml/min; Est GFR (Non-African American) 69.4 ml/min; Potassium 4.1 mmol/L (3.5-5.1)
[2023-01-26] MEDS: CALCIUM CARBONATE 1250MG TAB PO SCH (09:06)
[2023-01-26] MEDS: CYCLOBENZAPRINE HCL 10 MG TAB PO SCH (09:06)
[2023-01-26] MEDS: APIXABAN 5 MG TABLET PO SCH (09:06)
[2023-01-26] MEDS: ASPIRIN 81 MG ECTAB PO SCH (09:06)
[2023-01-26] MEDS: MULTIVITAMIN TAB PO SCH (09:07)
[2023-01-26] MEDS: DOCUSATE SODIUM 100 MG CAP PO SCH (09:07)
[2023-01-26] MEDS: FLUTICASONE/VILANTEROL 100/25MCG 14 PUFFS/INHALER INH SCH (09:08)
[2023-01-26] MEDS: cefTRIAXone SODIUM 2,000 MG in DEXTROSE 5 % MINI-B 50 ML IV SCH (09:08)
[2023-01-26] MEDS: ACETAMINOPHEN 325 MG TAB PO PRN (09:08)
--- NOTE | 2023-01-26 10:09 | Discharge Summary ---
Date of Service January 26, 2023 Admission HPI Per Admitting Provider The patient is a 62-year-old female with a past medical history including recurrent urinary tract infections with fluoroquinolone resistant E. coli, ureteral stone with hydronephrosis, hypertension, PAD, vitamin D deficiency, lumbar degenerative disc disease with radiculopathy, dyslipidemia, depression, paroxysmal defibrillation on chronic anticoagulation with apixaban. She had undergone a lithotripsy for left ureteral stone with left ureteral stent placement yesterday, and initially had done well, but later on developed acute onset of fevers, chills, shakes and generally not feeling well, causing her to present to the ED for assessment. Admission Exam Per Admitting Provider The patient is awake, alert and oriented 3, well developed and well nourished, normocephalic and atraumatic, lying in bed and in no acute distress after administration of IV morphine by the ED HEENT--PERRL, EOMI, mucous membranes and oropharynx mildly dry. Neck--supple. No JVD. No bruits. Thyroid normal, trachea midline, no adenopathy. Heart--normal S1 and S2. No murmurs, rubs or gallops. Lungs--clear bilaterally, no respiratory distress, no accessory muscle use. Abdomen--normal bowel sounds and soft. Nontender. Nondistended Extremities--no cyanosis or clubbing. No edema. Dermatologic--normal skin turgor, normal color, no abnormal lymph nodes, no rash. Neurologic--cranial nerves II through XII grossly intact. Rheumatologic--normal range of motion. Psychiatric--normal affect. Principal Diagnosis Sepsis due to urinary tract infection Acute complicated UTI after instrumentation: Recent ureteroscopy and laser lithotripsy on 01/19 for a left renal stone Rapid Afib Fluid overload Sinus pauses. Follow-up with cardiology recommended Discharge Exam General: Awake, conversant. Heart: S1, S2/irregular rhythm, normal rate, no murmur rubs or gallops Lungs: Clear to auscultation bilaterally. Normal effort Abdomen: Soft/nontender/nondistended. No hepatosplenomegaly Extremities: No clubbing/cyanosis. No edema Behavior: Appropriate, cooperative Discharge Data Allergies Allergy/AdvReac Type Severity Reaction Status Date / Time ceftriaxone [From Rocephin] Allergy Intermediate lightheaded Verified 01/19/23 07:10 lemon Allergy Intermediate Hives Verified 01/19/23 07:10 Penicillins Allergy Intermediate Hives Verified 01/19/23 07:10 bupropion [From Wellbutrin] AdvReac Intermediate Gastrointestinal Verified 01/19/23 07:10 Upset surgical syed Allergy Intermediate "infection Uncoded 01/19/23 07:10 at hysterectomy site d/t allergy from syed" Consultations 01/20/23 21:25 ED Decision to Admit Stat 01/21/23 03:22 Consult Urology Routine Ordered Studies 01/20/23 19:33 CT abd pelvis wo con Stat Hospital Course (1) H/O lithotripsy: (2) S/P cystoscopy with ureteral stent placement: (3) UTI (urinary tract infection): (4) Rigors: (5) HTN (hypertension): (6) PAD (peripheral artery disease): (7) Paroxysmal atrial fibrillation: Plan 62yo/F who is s/p urological procedure 01/19/23 admitted with acute UTI. CT on arrival shows the left ureteral stent in good position, calcifications in the lower pole consistent with recently fragmented stones and a small amount of gas within the left collecting system. Clinical picture consistent with urinary tract infection after ureteroscopy and laser lithotripsy. Sepsis due to UTI Improving Urine and blood culture growing pansensitive E. coli. Continue Rocephin. Can be discharged on Keflex Discontinued IV fluids 01/23 Status post lithotripsy/cystoscopy with left ureteral stent placement Urology on board Ordered Pyridium per urology recommendation for stent discomfort Acute diastolic CHF Patient got IV fluids in response to the Lasix and got fluid overloaded On 01/24 she was noted to be short of breath. She was given 2 doses of 20 mg of IV Lasix with very good diuretic response She is not requiring oxygen anymore Rapid atrial fibrillation Patient has a history of atrial fibrillation and has been on Eliquis as well as diltiazem extended release 120 mg daily. When the patient got Lasix for her fluid overload, she was in and out of the bathroom and due to the physical exertion, she went into a rapid A-fib She was treated with a dose of IV metoprolol on 01/25. After the dose of IV metoprolol, she had a few episodes of sinus pauses lasting 6 to 9 seconds but she was completely asymptomatic during the episodes. I personally spoke to the patient's net programmer analyst Sarmad Cordero who agreed with the discharge plan today but advised her to follow-up with him in 1 to 2 weeks. His office will call her with an appointment Currently her rate is controlled, she is asymptomatic. I think that the sinus pauses were happening due to the IV metoprolol but this can be pursued outpatient Potassium and magnesium have been repleted COPD- Continue usual inhalers Disposition: Discharged today to home Total Time Total Time Spent Total Time Spent (In Minutes): 35 Discharge Plan Discharge Items Patient Disposition: Home - Self-Care Reason For Visit: SEPSIS DUE TO UTI, URETERAL STENT Discharge Diagnosis: Sepsis due to urinary tract infection Acute complicated UTI after instrumentation: Recent ureteroscopy and laser lithotripsy on 01/19 for a left renal stone Rapid Afib Fluid overload Condition on Discharge: Fair Activity: Resume your previous activity Non-emergency contact: Primary Care Provider Call non-emergency contact if: you have any medication questions and your symptoms worsen Follow-up/Referrals: Sarmad Cordero PA-C [Physician Wet Room Worker] - 02/01/23 9:30 am Corin Rader MD [Primary Care Provider] - 01/31/23 10:00 am Diet: Heart Healthy Addtl Attending Provider Instructions: Advised to follow-up with PCP in 1 week Advised to follow-up with urology as scheduled for stent removal -- Advised to note that you will be called by your net programmer analyst office with an appointment Pending Studies at Discharge: No Stand-Alone Forms: My [facility] Authernative Medications and DC Order Prescriptions: New cephalexin 500 mg capsule 500 mg PO BID 7 Days Qty: 14 0RF phenazopyridine [Pyridium] 100 mg Tablet 100 mg PO TID PRN (Reason: pain) Qty: 14 0RF Continued Eliquis 5 mg tablet 5 mg PO BID Qty: 180 3RF atorvastatin 80 mg tablet 80 mg PO PM Qty: 90 3RF diltiazem HCl 120 mg capsule,extended release 24hr 120 mg PO HS Qty: 90 3RF multivitamin Tablet 1 tab PO QAM budesonide-formoterol [Symbicort] 80-4.5 mcg/actuation HFA aerosol inhaler 1 inh inhalation BID Qty: 10.2 2RF albuterol sulfate [Ventolin HFA] 90 mcg/actuation HFA aerosol inhaler 1 - 2 puff INH Q4H PRN (Reason: Shortness Of Breath) Qty: 18 3RF aspirin 81 mg Tablet,Delayed Release (Dr/Ec) 81 mg PO QAM dicyclomine 10 mg capsule 10 mg PO QID PRN (Reason: Gi Upset) Rx Instructions: TAKE 1 CAPSULE BY MOUTH FOUR TIMES A DAY NEEDED FOR GI UPSET calcium carbonate [Calcium 600] 600 mg calcium (1,500 mg) Tablet 600 mg PO QAM ketorolac 10 mg Tablet 10 mg PO Q6H PRN (Reason: prn) Discharge Orders: Discharge Order (Routine); Ordered 01/26/23 Ordered By: Shar Titus Admission Data Admit Date/Time: 01/20/23 22:04 Attending Provider: Shar Titus Admit Provider: Wali Hill Primary Care Provider: Corin Rader Other Providers: Wali Hill; Santiago Collins Other Interventions: Discharge Summary Assessment (RN) Last Done: 01/26/23 12:40 Coding Level of Care Code 46977 INP/OBS DISCH >30 MIN Diagnoses H/O lithotripsy Z98.890 S/P cystoscopy with ureteral stent placement Z96.0 UTI (urinary tract infection) N10 Urinary tract infection type: acute pyelonephritis Rigors R68.89 HTN (hypertension) I10 PAD (peripheral artery disease) I73.9 Paroxysmal atrial fibrillation I48.0
[2023-01-26] MEDS: POLYETHYLENE (MIRALAX) 17 GM PACK PO SCH (11:45)
== END 2023-01-26 13:31 | disposition home or self-care (01) | DRG 863 ==
LOC: ED 18:52 → 2W 22:04 → SUATTDRO 22:04 → 2W 22:45

== ENCOUNTER 2024-03-03 10:08 | Inpatient (IN) ==
--- NOTE | 2024-03-03 10:38 | Emergency Department Note ---
Impression & Plan Syncope and collapse, Leukocytosis, Chest pain, Acute left flank pain, Acute UTI (urinary tract infection) ED Provider Note HISTORY OF PRESENT ILLNESS: Patient is a 63-year-old female presenting with chest pain and shortness of breath. Patient reports she started getting chest pain 72 hours ago and it was on and off throughout the weekend. Reports that the pain is in the substernal region and radiates into her left shoulder and down her left arm. She also reports pain radiating into her left lateral chest. Denies ever having pain like this before. Reports some associated shortness of breath. Denies any nausea or vomiting. Denies any DVT or PE history. She is on Eliquis. Denies any history of cardiac stents. She denies any recent fevers or sick contact exposures. She presented to the emergency department for her chest pain, and while in triage she syncopized. She was unresponsive for about a minute and brought back to a resuscitation bay by nursing staff. When she got back to the resuscitation bay, and transferring from the wheelchair into the bed, she again passed out. Patient reports that she has 9.5 out of 10 chest pain and left side pain. Denies any lightheadedness or dizziness. Denies any abdominal pain. ROS: as above PHYSICAL EXAM: Constitutional: Patient appears in no acute distress. HENT: Head: Normocephalic and atraumatic. Eyes: EOMI, PERRL Mouth/Throat: Mucous membranes moist. Neck: Trachea midline. Neck supple. Cardiovascular: RRR, No murmurs, rubs or gallops. Intact distal pulses. Pulmonary/Chest: No respiratory distress. Breath sounds clear and equal bilaterally. No wheezes or rales. Left lateral chest wall is tender to palpation. Abdominal: Abdomen soft, no tenderness, rebound or guarding. Musculoskeletal: No edema, tenderness or deformity noted. Skin: Warm and dry. No rash, erythema, pallor or cyanosis Psychiatric: Appropriate mood and affect for situation. Neurological: Alert and keenly responsive. CN II-XII grossly intact, moving all extremities equally and fully. MDM: - Vitals signs showed hypertension - History obtained via patient. History as above. - Chronic conditions affecting care: paroxysmal Afib; HLD; HTN - Differential diagnoses include, but are not limited to: ACS; PE; aortic dissection; pneumonia; UTI; ureteral stone; pyelonephritis - Order placed for continuous cardiac monitoring. At this time, monitor showed rate of 75 bpm with normal sinus rhythm, per my interpretation. - External medical records reviewed. Discharge summary dated 01/26/2023 was reviewed. Patient was admitted at that time due to sepsis secondary to UTI. - EKG interpreted by myself showed normal sinus rhythm. Rate 83 bpm. QT 398. No acute ischemic changes. - CTA chest negative for dissection. - UA showed evidence of infection. - Lactate, procalcitonin and blood cultures ordered - Patient given 50 mcg IV fentanyl in ER for pain. However, on reassessment, she is reporting that the fentanyl did not touch her pain. She is given 0.5 mg of IV Dilaudid. On reassessment, the patient is complaining of pain more in her left flank. Patient had to urinate again and a repeat urinalysis is now blood- tinged. Concern for potential ureteral stone. CT abdomen/pelvis was ordered. - Laboratory workup interpreted by myself showed leukocytosis (WBC 15.91) with neutrophil predominance; normal PT/INR; stable electrolyte; normal troponin; normal BNP; normal lipase; normal creatinine - CXR negative for pneumonia, per my interpretation - CTA chest negative for dissection or PE. - Viral respiratory panel negative - Lactic acid elevated at 2.2. Patient given 1500 cc NS. Patient sepsis fluid volume calculation based on ideal body weight is 1500 mL. Procalcitonin normal - CT abdomen/pelvis with IV contrast showed increased stranding of the left kidney but no evidence of hydroureter or hydronephrosis. Noted to have bilateral renal cysts. - Discussion was had with case assembler about patient's case and need for admission - Hospitalist, Dr. Jacques, consulted for admission - [facility] for further evaluation and management. ASSESSMENT AND PLAN: Diagnosis: syncope; left flank pain; acute UTI; chest pain Plan: Admit Past Med/Surg History Problem List Acute UTI (urinary tract infection) (Acute) Acute left flank pain (Acute) Chest pain (Acute) Leukocytosis (Acute) Syncope and collapse (Acute) S/P cystoscopy with ureteral stent placement (01/2023) H/O lithotripsy (Acute) Elevated lactic acid level (Acute) Leukocytosis (Acute) Nocturia Central stenosis of spinal canal (Acute) HTN (hypertension) PAD (peripheral artery disease) Decreased pedal pulses Vitamin D deficiency Diarrhea Hypokalemia Anxiety Prediabetes (Chronic) Dyslipidemia (Chronic) History of lumbar fusion x3--2015/2016/2021 Paroxysmal atrial fibrillation on Eliquis, follows with [facility] cardiology Nephrolithiasis Tobacco use Medical History Depression Pyelonephritis Obesity HTN (hypertension) History of COVID-19 02/2020 History of kidney stones Asthma Insomnia Surgical History S/P lumbar discectomy H/O arthroscopy of right knee History of section x2 History of lithotripsy History of colonoscopy History of tooth extraction full upper denture [place] teeth removed S/P hysterectomy candy bso S/P appendectomy S/P cholecystectomy Family History Sister Afib Family history of diabetes mellitus Pancreatic cancer Heart disease Kidney stones Mother Afib Myocardial infarction Family history of diabetes mellitus Heart disease Father Prostate cancer Grandmother (Maternal) Family history of diabetes mellitus Brother Kidney stones Other No family history of adverse response to anesthesia Denies family history of Ovarian cancer Breast cancer Social History Smoking Status: Current every day smoker Tobacco Type: Cigarettes Age Started Using Tobacco: 16; Age Quit Using Tobacco: 58; packs per day: 0.75; Cigarettes Per Day: half pack; Second Hand Exposure: No; Do You Dip or Chew Tobacco: No; Hx Alcohol Use: Yes (very rarely) Alcohol type: wine Hx Substance Use: No Preferred Language: Lao Communication Ability: Effective Visual Impairment: No Limitations Hearing Ability: Normal Bill Sorter Required: No Beliefs That Will Affect Care: None marital status: Current Living Situation: Alone current occupational status: 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 How many Children do You have: 2 How many Children do You have Comment: 2 living children 1 miscarry Feels Safe at Home: Yes Childhood Exposure to Second-Hand Smoke: No Diet: regular Diet Comment: regular caffeine: Yes during the past year weight has: increased > 10 lbs Dental Care, Regularly: No Physical Activity Frequency: Daily Seatbelt Use: always Sunscreen Use: Yes Assistive Devices: None Allergies Allergies Allergy/AdvReac Type Severity Reaction Status Date / Time ceftriaxone [From Rocephin] Allergy Intermediate lightheaded Verified 12/19/23 15:17 lemon Allergy Intermediate Hives Verified 12/19/23 15:17 Penicillins Allergy Intermediate Hives Verified 12/19/23 15:17 bupropion [From Wellbutrin] AdvReac Intermediate Gastrointestinal Verified 12/19/23 15:17 Upset surgical syed Allergy Intermediate "infection Uncoded 12/19/23 15:17 at hysterectomy site d/t allergy from syed" Home Meds Home Medications Medication Instructions Recorded Confirmed multivitamin 1 tab PO QAM 10/28/20 03/03/24 aspirin 81 mg tablet,delayed 81 mg PO UD 01/30/23 03/03/24 release atorvastatin 80 mg tablet 80 mg PO UD 03/03/24 03/03/24 budesonide-formoterol HFA 80 1 inh inhalation UD 03/03/24 03/03/24 mcg-4.5 mcg/actuation aerosol inhaler (Symbicort) methocarbamol 750 mg tablet 750 mg PO UD PRN Muscle cramping 03/03/24 03/03/24 Previous Rx's Medication Instructions Recorded diltiazem HCl 120 mg 120 mg PO HS #90 caps 01/09/23 capsule,extended release 24 hr apixaban 5 mg tablet (Eliquis) 5 mg PO BID #180 tabs 11/29/23 albuterol sulfate 90 mcg/actuation 1 - 2 puff inhalation Q4H PRN 12/19/23 aerosol inhaler (Ventolin HFA) Shortness Of Breath #18 grams colestipol 1 gram tablet 2 g (2 x 1 gram) PO DAILY #60 tabs 12/19/23 guaifenesin 600 mg tablet, 600 mg PO Q12H PRN cough #14 tabs 12/19/23 extended release 12 hr (Mucinex) hydrocodone 5 mg-acetaminophen 325 1 tab PO DAILY PRN pain #7 tabs 02/05/24 mg tablet Results & Data (ED) Vital Signs Vital Signs - 24 hr 03/03/24 10:30 03/03/24 10:30 03/03/24 10:34 Temperature 36.7 C Temperature Source Oral Pulse Rate 83 79 79 Pulse Rate [Apical] Pulse Rate from SpO2 Sensor 78 Respiratory Rate 20 20 Respiratory Effort / Characteristics Non-Labored Spontaneous Respiratory Depth Normal Respiratory Pattern Regular Blood Pressure 158/78 H 158/78 H Blood Pressure [Right Arm] Blood Pressure Mean 126 104 Blood Pressure Mean [Right Arm] Pulse Oximetry 99 100 Oxygen Delivery Method Room Air Sepsis Recent Fever Within 48 Hours No Sepsis New/Unexplained Change in Mental Status N/A Sepsis Action Taken by Nursing No Action Required 03/03/24 10:40 03/03/24 11:00 03/03/24 11:15 Temperature Temperature Source Pulse Rate 87 Pulse Rate [Apical] 85 Pulse Rate from SpO2 Sensor 86 Respiratory Rate 19 24 Respiratory Effort / Characteristics Non-Labored Spontaneous Respiratory Depth Normal Respiratory Pattern Regular Blood Pressure 190/115 H Blood Pressure [Right Arm] 168/82 H Blood Pressure Mean 128 Blood Pressure Mean [Right Arm] 110 Pulse Oximetry 98 99 Oxygen Delivery Method Room Air Room Air Sepsis Recent Fever Within 48 Hours Sepsis New/Unexplained Change in Mental Status Sepsis Action Taken by Nursing 03/03/24 11:45 03/03/24 12:30 Temperature Temperature Source Pulse Rate 72 Pulse Rate [Apical] 75 Pulse Rate from SpO2 Sensor Respiratory Rate 17 19 Respiratory Effort / Characteristics Respiratory Depth Respiratory Pattern Blood Pressure 141/81 H Blood Pressure [Right Arm] 164/77 H Blood Pressure Mean 101 Blood Pressure Mean [Right Arm] 106 Pulse Oximetry 96 94 Oxygen Delivery Method Room Air Room Air Sepsis Recent Fever Within 48 Hours Sepsis New/Unexplained Change in Mental Status Sepsis Action Taken by Nursing Laboratory Data 03/03/24 10:38 03/03/24 10:38 Lab Results 03/03/24 03/03/24 03/03/24 Range/Units 10:38 10:40 11:08 WBC 15.91 H (4.8-10.8) K/ul RBC 4.62 (4.20-5.40) M/uL Hgb 12.7 (12.0-16.0) g/dl POC Hgb 13.3 (12.0-16.0) g/dl Hct 39.0 (37.0-47.0) % POC Hct 39 (37-47) % MCV 84.4 (80.0-100.0) fL MCH 27.5 (25.0-34.0) pg MCHC 32.6 (32.0-36.0) g/dL RDW Std Deviation 53.4 H (36.4-46.3) fL RDW Coeff of Sylwia 17.3 H (11.5-14.5) % Plt Count 368 (130-400) K/uL MPV 8.6 L (9.4-12.4) fL Immature Gran % (Auto) 0.5 % Neut % (Auto) 77.8 % Lymph % (Auto) 11.6 % [place] % (Auto) 9.4 % Eos % (Auto) 0.4 % Baso % (Auto) 0.3 % Neut # (Auto) 12.37 H (1.40-6.50) K/uL Lymph # (Auto) 1.85 (1.20-3.40) K/uL [place] # (Auto) 1.50 H (0.11-0.59) K/uL Eos # (Auto) 0.06 (0.00-0.50) K/uL Baso # (Auto) 0.05 (0.00-0.20) K/uL Immature Gran # (Auto) 0.08 (0.01-0.20) K/uL PT 10.3 (9.0-12.0) Seconds INR 0.9 (0.9-1.1) POC Sodium 138 (135-144) mmol/L Sodium 137 (136-145) mmol/L POC Potassium 3.9 (3.3-5.0) mmol/L Potassium 3.9 (3.5-5.1) mmol/L POC Chloride 107 (101-112) mmol/L Chloride 104 (98-107) mmol/L Carbon Dioxide 23 (21-32) mmol/L POC Total CO2 23 L (24-31) mmol/L Anion Gap 10 (3-11) POC Anion Gap 13.0 L (16-25) mmol/L POC BUN 15 (7-18) mg/dl BUN 16 (6-23) mg/dl Creatinine 0.87 (0.6-1.2) mg/dl POC Creatinine 1.0 (0.6-1.3) mg/dl Est Cr Clr Drug Dosing 70.7 ml/min eGFR 73.89 BUN/Creatinine Ratio 18.4 (10-20) Glucose 110 H (70-99(Fasting)) mg/dl POC Glucose (other) 113 H (70-99) mg/dl Lactate (0.4-2.0) mmol/L Calcium 10.1 (8.6-10.3) mg/dl POC Ioniz Calcium Rocael 1.25 (1.12-1.32) mmol/l Magnesium 1.7 (1.7-2.4) mg/dl Total Bilirubin 0.4 (0.2-1.0) mg/dl AST 13 (13-39) U/L ALT 12 (7-52) U/L Alkaline Phosphatase 104 (34-104) U/L Troponin I High Sens 6.2 (0-14) pg/ml B-Natriuretic Peptide 59 (0-100) pg/ml Total Protein 7.1 (6.0-8.3) gm/dl Albumin 4.1 (3.4-5.0) gm/dl Globulin 3.0 (2.5-4.0) gm/dl Albumin/Globulin Ratio 1.4 (0.9-2) Lipase 15 (11-82) U/L Procalcitonin (0-0.5) ng/ml Urine Color Yellow Urine Appearance Turbid A (Clear) Urine pH 5.5 (4.5-7.5) Ur Specific [place] 1.042 H (1.000-1.030) Urine Protein 1+ H (Negative) Urine Glucose (UA) Negative (Negative) Urine Ketones Trace H (Negative) Urine Blood 3+ H (Negative) Urine Nitrite Positive A (Negative) Urine Bilirubin Negative (Negative) Urine Urobilinogen Negative (Negative) Ur Leukocyte Esterase 1+ H (Negative) Urine WBC (Auto) >50 H (0-5) /hpf Urine RBC (Auto) >20 H (0-2) /hpf U Hyaline Cast (Auto) 0-2 (0-2) /lpf U Epithel Cells (Auto) >20 H (0-2) /hpf Urine Bacteria (Auto) 4+ H (None Seen) Calcium Oxalate Crystal Present A (None Prsent) Adenovirus (PCR) Not Detected (NotDetected) B. pertussis DNA (PCR) Not Detected (NotDetected) B.parapertussis DNA PCR Not Detected (NotDetected) C. pneumoniae DNA (PCR) Not Detected (NotDetected) Coronavirus OC43 (PCR) Not Detected (NotDetected) Coronavirus HKU1 (PCR) Not Detected (NotDetected) Coronavirus 229E (PCR) Not Detected (NotDetected) SARS-CoV-2 (PCR) Not Detected (NotDetected) Coronavirus NL63 (PCR) Not Detected (NotDetected) Human Metapneumovir PCR Not Detected (NotDetected) Influenza Type A (PCR) Not Detected (NotDetected) Influenza Type B (PCR) Not Detected (NotDetected) M. pneumoniae (PCR) Not Detected (NotDetected) Parainfluenza 1 (PCR) Not Detected (NotDetected) Parainfluenza 2 (PCR) Not Detected (NotDetected) Parainfluenza 3 (PCR) Not Detected (NotDetected) Parainfluenza 4 (PCR) Not Detected (NotDetected) RSV (PCR) Not Detected (NotDetected) Entero/Rhino (PCR) Not Detected (NotDetected) 03/03/24 Range/Units 11:52 WBC (4.8-10.8) K/ul RBC (4.20-5.40) M/uL Hgb (12.0-16.0) g/dl POC Hgb (12.0-16.0) g/dl Hct (37.0-47.0) % POC Hct (37-47) % MCV (80.0-100.0) fL MCH (25.0-34.0) pg MCHC (32.0-36.0) g/dL RDW Std Deviation (36.4-46.3) fL RDW Coeff of Sylwia (11.5-14.5) % Plt Count (130-400) K/uL MPV (9.4-12.4) fL Immature Gran % (Auto) % Neut % (Auto) % Lymph % (Auto) % [place] % (Auto) % Eos % (Auto) % Baso % (Auto) % Neut # (Auto) (1.40-6.50) K/uL Lymph # (Auto) (1.20-3.40) K/uL [place] # (Auto) (0.11-0.59) K/uL Eos # (Auto) (0.00-0.50) K/uL Baso # (Auto) (0.00-0.20) K/uL Immature Gran # (Auto) (0.01-0.20) K/uL PT (9.0-12.0) Seconds INR (0.9-1.1) POC Sodium (135-144) mmol/L Sodium (136-145) mmol/L POC Potassium (3.3-5.0) mmol/L Potassium (3.5-5.1) mmol/L POC Chloride (101-112) mmol/L Chloride (98-107) mmol/L Carbon Dioxide (21-32) mmol/L POC Total CO2 (24-31) mmol/L Anion Gap (3-11) POC Anion Gap (16-25) mmol/L POC BUN (7-18) mg/dl BUN (6-23) mg/dl Creatinine (0.6-1.2) mg/dl POC Creatinine (0.6-1.3) mg/dl Est Cr Clr Drug Dosing ml/min eGFR BUN/Creatinine Ratio (10-20) Glucose (70-99(Fasting)) mg/dl POC Glucose (other) (70-99) mg/dl Lactate 2.2 H* (0.4-2.0) mmol/L Calcium (8.6-10.3) mg/dl POC Ioniz Calcium [place] (1.12-1.32) mmol/l Magnesium (1.7-2.4) mg/dl Total Bilirubin (0.2-1.0) mg/dl AST (13-39) U/L ALT (7-52) U/L Alkaline Phosphatase (34-104) U/L Troponin I High Sens (0-14) pg/ml B-Natriuretic Peptide (0-100) pg/ml Total Protein (6.0-8.3) gm/dl Albumin (3.4-5.0) gm/dl Globulin (2.5-4.0) gm/dl Albumin/Globulin Ratio (0.9-2) Lipase (11-82) U/L Procalcitonin 0.09 (0-0.5) ng/ml Urine Color Urine Appearance (Clear) Urine pH (4.5-7.5) Ur Specific [place] (1.000-1.030) Urine Protein (Negative) Urine Glucose (UA) (Negative) Urine Ketones (Negative) Urine Blood (Negative) Urine Nitrite (Negative) Urine Bilirubin (Negative) Urine Urobilinogen (Negative) Ur Leukocyte Esterase (Negative) Urine WBC (Auto) (0-5) /hpf Urine RBC (Auto) (0-2) /hpf U Hyaline Cast (Auto) (0-2) /lpf U Epithel Cells (Auto) (0-2) /hpf Urine Bacteria (Auto) (None Seen) Calcium Oxalate Crystal (None Prsent) Adenovirus (PCR) (NotDetected) B. pertussis DNA (PCR) (NotDetected) B.parapertussis DNA PCR (NotDetected) C. pneumoniae DNA (PCR) (NotDetected) Coronavirus OC43 (PCR) (NotDetected) Coronavirus HKU1 (PCR) (NotDetected) Coronavirus 229E (PCR) (NotDetected) SARS-CoV-2 (PCR) (NotDetected) Coronavirus NL63 (PCR) (NotDetected) Human Metapneumovir PCR (NotDetected) Influenza Type A (PCR) (NotDetected) Influenza Type B (PCR) (NotDetected) M. pneumoniae (PCR) (NotDetected) Parainfluenza 1 (PCR) (NotDetected) Parainfluenza 2 (PCR) (NotDetected) Parainfluenza 3 (PCR) (NotDetected) Parainfluenza 4 (PCR) (NotDetected) RSV (PCR) (NotDetected) Entero/Rhino (PCR) (NotDetected) Administered Medications Discontinued Medications Fentanyl Citrate (Fentanyl Citrate Pf 100 Mcg/2 Ml Vial) 50 mcg IV NOW STA Stop: 03/03/24 10:58 Last Admin: 03/03/24 11:05 Dose: 50 mcg Documented By: SHERYL Hydromorphone HCl (Hydromorphone Inj 0.5 Mg/0.5 Ml Syr) 0.5 mg IV NOW STA Stop: 03/03/24 11:37 Last Admin: 03/03/24 11:41 Dose: 0.5 mg Documented By: AUREA Sodium Chloride (Nss) 1,000 mls @ 999 mls/hr IV .Q1H1M ONE Stop: 03/03/24 12:46 Last Infusion: 03/03/24 13:08 Dose: Infused Documented By: Admin: 03/03/24 11:53 Dose: 999 mls/hr Documented By: AUREA Ceftriaxone Sodium (Rocephin) 2,000 mg in 50 mls @ 100 mls/hr IV NOW STA Stop: 03/03/24 12:34 Last Infusion: 03/03/24 13:11 Dose: Infused Documented By: Admin: 03/03/24 12:40 Dose: 100 mls/hr Documented By: AUREA Sodium Chloride (Nss) 500 mls @ 999 mls/hr IV .Q31M ONE Stop: 03/03/24 12:49 Last Admin: 03/03/24 13:18 Dose: 999 mls/hr Documented By: CHRIS Ioversol (Optiray 320 125ml) 118 ml IV ONCE ONE Stop: 03/03/24 10:51 Last Admin: 03/03/24 10:50 Dose: 118 ml Documented By: DARRYL Ioversol (Optiray 320 100ml) 94 ml IV ONCE ONE Stop: 03/03/24 12:53 Last Admin: 03/03/24 12:52 Dose: 94 ml Documented By: SHELBY Ketorolac Tromethamine (Ketorolac Tromethamine 15 Mg/Ml Vial) 15 mg IV NOW STA Stop: 03/03/24 12:35 Last Admin: 03/03/24 12:39 Dose: 15 mg Documented By: AUREA Imaging Data Radiologist's Impression: Chest CTA 03/03/24 10:35 CT angio chest PE protocol CLINICAL HISTORY: Chest Pain, eval for PE TECHNIQUE: Multidetector row helical CT of the chest was performed with angiographic protocol. Coronal and sagittal reformations were obtained. Coronal and sagittal MIPS were obtained from the axial data set and were submitted for review. Automated dose lowering techniques and/or adjustment according to patient size were utilized for this exam. CT DOSE: 817.76 mGy.cm Comparison: Comparison is made to CT chest 07/20/2023 FINDINGS: Lungs and pleura: There is a 9 mm nodule in the right upper lobe (series or image 170). Heart and pericardium: Heart size is normal. No pericardial effusion. Vessels: No evidence of pulmonary embolism. Mediastinum and kathleen: Subcentimeter lymph nodes are seen. Chest wall and lower neck: Unremarkable. Abdomen: Unremarkable. Bones: Mild degenerative change is seen. IMPRESSION: 1. No acute abnormality and in particular no evidence of pulmonary embolus. 2. Stable 10 mm nodule in the right upper lobe. Right hilar nodes are also seen. ACT 112: Negative or not required by law. Electronically signed by: Go Mayorga M.D. 03/03/2024 11:18 AM Chest X-Ray 03/03/24 10:35 XR chest 1V portable CLINICAL HISTORY: Chest pain, nonspecific COMPARISON STUDY: Chest CT July 20, 2023. Chest CT performed earlier today FINDINGS: Lung volumes are normal. Lungs are clear. There is no pneumothorax or pleural effusion. Cardiac size is normal. Mediastinal contours are normal. There is no evidence for pulmonary edema. IMPRESSION: No acute cardiopulmonary findings. ACT 112: Negative or not required by law. Electronically signed by: Doc Parry M.D. 03/03/2024 11:33 AM Abdomen/Pelvis CT 03/03/24 11:44 CT abd pelvis IV con only CLINICAL HISTORY: L flank pain TECHNIQUE: Helical axial images of the abdomen and pelvis were obtained and displayed. Automated dose lowering techniques and/or adjustment according to patient size were utilized for this exam. This exam was performed with intravenous contrast. CT DOSE: 1337.63 mGy.cm COMPARISON: Comparison is made to CT abdomen pelvis 07/20/2023 FINDINGS: Lower chest: No acute abnormality. Liver: Unremarkable. No focal lesions are seen. Gallbladder and biliary tree: Patient is status post cholecystectomy. Physiologic prominence of the biliary ducts is noted. Pancreas: Unremarkable, no focal lesions. Spleen: Unremarkable. Adrenals: Unremarkable. Kidneys and ureters: Renal cysts are seen. Prominent fat stranding is seen with increase in stranding about the left greater than right kidney. Bladder: Unremarkable. Reproductive organs: Patient is status post hysterectomy. Bowel: Diverticulosis is seen without evidence of diverticulitis. Lymph nodes Retroperitoneal: Unremarkable. Pelvic: Unremarkable. Mesenteric: Unremarkable. Peritoneum: Normal. Vessels: Atherosclerotic calcifications are seen. Abdominal wall: A fat-containing umbilical hernia is seen. Bones: Degenerative changes in the visualized spine. L3-S1 posterior fixation hardware is seen. IMPRESSION: Increased stranding is seen about the left kidney. However, no hydronephrosis or hydroureter is seen. Bilateral renal cysts are noted. ACT 112: Negative or not required by law. Electronically signed by: Go Mayorga M.D. 03/03/2024 1:19 PM Discharge Plan Visit Data Chief Complaint: Cardiac Assessment Stated Complaint: SOB, HEART PALP, L ARM PAIN, HEAVINESS ON SHLDR ED Provider: Xochitl Simpson Discharge Problem: Syncope and collapse, Leukocytosis, Chest pain, Acute left flank pain, Acute UTI (urinary tract infection) Forms Stand Alone Forms: [facility] Prescriptions Prescriptions: No Action diltiazem HCl 120 mg capsule,extended release 24hr 120 mg PO HS Qty: 90 3RF Eliquis 5 mg tablet 5 mg PO BID Qty: 180 3RF multivitamin Tablet 1 tab PO QAM Rx Instructions: OTC unable to verify aspirin 81 mg tablet,delayed release (DR/EC) 81 mg PO UD Rx Instructions: 81 mg po q2d. OTC unable to verify colestipol 1 gram tablet 2 g PO DAILY Qty: 60 5RF albuterol sulfate [Ventolin HFA] 90 mcg/actuation HFA aerosol inhaler 1 - 2 puff INH Q4H PRN (Reason: Shortness Of Breath) Qty: 18 5RF guaifenesin [Mucinex] 600 mg tablet extended release 12hr 600 mg PO Q12H PRN (Reason: cough) Qty: 14 1RF Rx Instructions: OTC unable to verify hydrocodone-acetaminophen 5-325 mg tablet 1 tab PO DAILY PRN (Reason: pain) Qty: 7 0RF atorvastatin 80 mg tablet 80 mg PO UD Rx Instructions: 80 mg po pm. last filled in Jun 30 2023 90 days methocarbamol 750 mg tablet 750 mg PO UD PRN (Reason: Muscle cramping) Rx Instructions: 750 mg po hs prn. last filled in august 2023 budesonide-formoterol [Symbicort] 80-4.5 mcg/actuation HFA aerosol inhaler 1 inh inhalation UD Rx Instructions: 1 inh inhalation bid. last filled november 2022 Referrals Referrals: Corin Rader MD [Primary Care Provider] -
[2024-03-03] MEDS: OPTIRAY 320 125ml IV ONE (10:50)
[2024-03-03 10:52] LABS: iSTAT Hemoglobin 13.3 g/dl (12.0-16.0); iSTAT Ionized Calcium 1.25 mmol/l (1.12-1.32); iSTAT Potassium 3.9 mmol/L (3.3-5.0)
[2024-03-03 10:54] LABS: Basophils # (auto) 0.05 K/uL (0.00-0.20); Basophils % (auto) 0.3 %; Eosinophils # (auto) 0.06 K/uL (0.00-0.50); Eosinophils % (auto) 0.4 %; Hemoglobin 12.7 g/dl (12.0-16.0); Immature Granulocytes # (auto) 0.08 K/uL (0.01-0.20); Immature Granulocytes % (auto) 0.5 %; Lymphocytes # (auto) 1.85 K/uL (1.20-3.40); Lymphocytes % (auto) 11.6 %; Mean Corpuscular Hemoglobin 27.5 pg (25.0-34.0); Mean Corpuscular Hgb Conc 32.6 g/dL (32.0-36.0); Mean Corpuscular Volume 84.4 fL (80.0-100.0); Mean Platelet Volume 8.6 fL (9.4-12.4); Monocytes % (auto) 9.4 %; Neutrophils # (auto) 12.37 K/uL (1.40-6.50); Neutrophils % (auto) 77.8 %; Platelet Count 368 K/uL (130-400); RDW Coefficient of Variation 17.3 % (11.5-14.5); RDW Standard Deviation 53.4 fL (36.4-46.3); Red Blood Count 4.62 M/uL (4.20-5.40); White Blood Count 15.91 K/ul (4.8-10.8)
[2024-03-03] MEDS: fentaNYL citrate PF 100 MCG/2 ML VIAL IV STA (11:05)
[2024-03-03 11:18] LABS: Albumin Globulin Ratio 1.4 (0.9-2); Albumin Level 4.1 gm/dl (3.4-5.0); BUN Creatinine Ratio 18.4 (10-20); Bilirubin,Total 0.4 mg/dl (0.2-1.0); Calcium 10.1 mg/dl (8.6-10.3); Creatinine Clr Calc Pharmacy 70.7 ml/min; Magnesium 1.7 mg/dl (1.7-2.4); Potassium 3.9 mmol/L (3.5-5.1); Total Protein 7.1 gm/dl (6.0-8.3)
--- NOTE | 2024-03-03 11:20 | CT Scan Report ---
CT angio chest PE protocol CLINICAL HISTORY: Chest Pain, eval for PE TECHNIQUE: Multidetector row helical CT of the chest was performed with angiographic protocol. Chapin l and sagittal reformations were obtained. Coronal and sagittal MIPS were obtained from the axial alva a set and were submitted for review. Automated dose lowering techniques and/or adjustment according to patient size were utilized for this exam. CT DOSE: 817.76 mGy.cm Comparison: Comparison is made to CT chest 07/20/2023 FINDINGS: Lungs and pleura: There is a 9 mm nodule in the right upper lobe (series or image 170). Heart and pericardium: Heart size is normal. No pericardial effusion. Vessels: No evidence of pulmonary embolism. Mediastinum and kathleen: Subcentimeter lymph nodes are seen. Chest wall and lower neck: Unremarkable. Abdomen: Unremarkable. Bones: Mild degenerative change is seen. IMPRESSION: 1. No acute abnormality and in particular no evidence of pulmonary embolus. 2. Stable 10 mm nodule in the right upper lobe. Right hilar nodes are also seen. ACT 112: Negative or not required by law. Electronically signed by: Go Mayorga M.D. 03/03/2024 11:18 AM
[2024-03-03 11:21] LABS: INR 0.9 (0.9-1.1); Prothrombin Time 10.3 Seconds (9.0-12.0); Troponin I High Sensitivity 6.2 pg/ml (0-14)
--- NOTE | 2024-03-03 11:34 | XRay Report ---
XR chest 1V portable CLINICAL HISTORY: Chest pain, nonspecific COMPARISON STUDY: Chest CT July 20, 2023. Chest CT performed earlier today FINDINGS: Lung volumes are normal. Lungs are clear. There is no pneumothorax or pleural effusion. Car diac size is normal. Mediastinal contours are normal. There is no evidence for pulmonary edema. IMPRESSION: No acute cardiopulmonary findings. ACT 112: Negative or not required by law. Electronically signed by: Doc Parry M.D. 03/03/2024 11:33 AM
[2024-03-03 11:38] LABS: Appearance Urine Turbid (Clear); Bacteria Urine Automated 4+ (None Seen); Bilirubin Urine Negative (Negative); Blood Urine 3+ (Negative); Calcium Oxalate Crystals Urine Present (None Prsent); Cast Urine Automated 0-2 /lpf (0-2); Color Urine Yellow; Epithelial Cell Urine Auto >20 /hpf (0-2); Glucose Urine UA Negative (Negative); Ketones Urine Trace (Negative); Leukocyte Esterase Urine 1+ (Negative); Nitrite Urine Positive (Negative); Protein Urine 1+ (Negative); RBC Urine Automated >20 /hpf (0-2); Specific Gravity Urine 1.042 (1.000-1.030); Urobilinogen Urine Negative (Negative); WBC Urine Automated >50 /hpf (0-5); pH Urine 5.5 (4.5-7.5)
[2024-03-03] MEDS: HYDROmorphone INJ 0.5 MG/0.5 ML SYR IV STA (11:41)
[2024-03-03] MEDS: SODIUM CHLORIDE 0.9% 1,000 ML IV ONE (11:53)
[2024-03-03 12:08] LABS: Adenovirus PCR Not Detected (NotDetected); Bordetella parapertussis PCR Not Detected (NotDetected); Bordetella pertussis PCR Not Detected (NotDetected); Chlamydia pneumoniae PCR Not Detected (NotDetected); Coronavirus 229E PCR Not Detected (NotDetected); Coronavirus CoV-2 (COVID19)PCR Not Detected (NotDetected); Coronavirus HKU1 PCR Not Detected (NotDetected); Coronavirus NL63 PCR Not Detected (NotDetected); Coronavirus OC43PCR Not Detected (NotDetected); Human Metapneumovirus PCR Not Detected (NotDetected); Influenza A PCR Not Detected (NotDetected); Influenza B PCR Not Detected (NotDetected); Mycoplasma pneumoniae PCR Not Detected (NotDetected); Parainfluenza Virus 1 PCR Not Detected (NotDetected); Parainfluenza Virus 2 PCR Not Detected (NotDetected); Parainfluenza Virus 3 PCR Not Detected (NotDetected); Parainfluenza Virus 4 PCR Not Detected (NotDetected); Respiratory Syncytial VirusPCR Not Detected (NotDetected); Rhinovirus/Enterovirus PCR Not Detected (NotDetected)
[2024-03-03] MEDS: KETOROLAC TROMETHAMINE 15 MG/ML VIAL IV STA (12:39)
[2024-03-03] MEDS: cefTRIAXone SODIUM 2,000 MG/50 ML BAG IV STA (12:40)
[2024-03-03] MEDS: OPTIRAY 320 100ml IV ONE (12:52)
[2024-03-03] MEDS: SODIUM CHLORIDE 0.9% 500 ML IV ONE (13:18)
--- NOTE | 2024-03-03 13:21 | CT Scan Report ---
CT abd pelvis IV con only CLINICAL HISTORY: L flank pain TECHNIQUE: Helical axial images of the abdomen and pelvis were obtained and displayed. Automated dose lowering techniques and/or adjustment according to patient size were utilized for this exam. This e xam was performed with intravenous contrast. CT DOSE: 1337.63 mGy.cm COMPARISON: Comparison is made to CT abdomen pelvis 07/20/2023 FINDINGS: Lower chest: No acute abnormality. Liver: Unremarkable. No focal lesions are seen. Gallbladder and biliary tree: Patient is status post cholecystectomy. Physiologic prominence of the b iliary ducts is noted. Pancreas: Unremarkable, no focal lesions. Spleen: Unremarkable. Adrenals: Unremarkable. Kidneys and ureters: Renal cysts are seen. Prominent fat stranding is seen with increase in stranding about the left greater than right kidney. Bladder: Unremarkable. Reproductive organs: Patient is status post hysterectomy. Bowel: Diverticulosis is seen without evidence of diverticulitis. Lymph nodes Retroperitoneal: Unremarkable. Pelvic: Unremarkable. Mesenteric: Unremarkable. Peritoneum: Normal. Vessels: Atherosclerotic calcifications are seen. Abdominal wall: A fat-containing umbilical hernia is seen. Bones: Degenerative changes in the visualized spine. L3-S1 posterior fixation hardware is seen. IMPRESSION: Increased stranding is seen about the left kidney. However, no hydronephrosis or hydroureter is seen. Bilateral renal cysts are noted. ACT 112: Negative or not required by law. Electronically signed by: Go Mayorga M.D. 03/03/2024 1:19 PM
--- NOTE | 2024-03-03 13:35 | History & Physical Report ---
Date of Service March 03, 2024 Assessment & Plan (1) Acute left flank pain: (2) Acute UTI (urinary tract infection): (3) Sepsis: (4) Paroxysmal atrial fibrillation: Raisa Coker is a 63-year-old female with PMH of paroxysmal atrial fibrillation (on Eliquis), tobacco use, dyslipidemia, anxiety, depression, and HTN. She presented on 03/03 for intermittent chest palpitations, SOB, left flank pain, and shoulder pressure with numbness and tingling in her left arm. She initially ca me in for a cardiac assessment. Patient developed left lower back pain and left flank pain that started on Sunday, but has progressively worsened. At first it was a dull achy pain, and she believes she pulled a muscle, but then got much worse Sunday night, and kept her up all night. She rated the pain 12/10 at worst, and 7/10 after receiving pain medicine in the ED. No radiation; remains on the left flank. #Urosepsis/left-sided pyelonephritis/?Infected Kidney stone UA positive on arrival Leukocytosis at 15.91 with neutral predominance; afebrile on arrival, but reported fever last night and took Tylenol prior to coming in Lactate elevated at 2.2 on arrival, repeat pending Patient has been normotensive in the ED NSS 1500 mL IV x 1 in the ED; made 30 cc/kg sepsis bolus for IDW Will continue IVF resuscitation A/P CT w/ contrast with increased stranding around the left kidney; no hydronephrosis or hydroureter NOTE: Test was performed with IV contrast; infected nephrolithiasis remains within the differential H/o [facility] admissions for UTI and kidney stones (most recently January 2023) Urology consult appreciated Will plan to make patient n.p.o. at midnight Prior UCxs revealed E. coli with resistance to fluoroquinolones and ampicillin; sensitive to ceftriaxone Ceftriaxone 2000 mg IV q24h for now IV pain medicine as needed IV antiemetics as needed #Cardiac assessment Patient initially presented due to concern for intermittent chest pain, chest palpitations, SOB, and shoulder pain bilaterally Troponin WNL on arrival, repeat pending EKG okay Patient is chest pain-free at time of admission, but does endorse intermittent chest tightness and "pressure" in her shoulders bilaterally Chest CTA was without pulmonary embolism; no mention of aortic abnormalities Continuous telemetry monitoring #Paroxysmal atrial fibrillation Rate controlled Continue diltiazem Continue Eliquis Disposition: Admit to PCU telemetry Full code Clear liquid diet for now, and n.p.o. at midnight VTE PPx: Eliquis History of Present Illness Chief Complaint: Cardiac Assessment, left flank pain Primary Care Provider: Corin Rader MD Sheela is a 63-year-old female with PMH of paroxysmal atrial fibrillation (on Eliquis), tobacco use, dyslipidemia, anxiety, depression, and HTN. She presented on 03/03 for intermittent chest palpitations, SOB, left flank pain, and shoulder pressure with numbness and tingling in her left arm. She initially came in for a cardiac assessment. Patient developed left lower back pain and left flank pain that started on Sunday, but has progressively worsened. At first it was a dull achy pain, and she believes she pulled a muscle, but then got much worse Sunday night, and kept her up all night. She rated the pain 12/10 at worst, and 7/10 after receiving pain medicine in the ED. No radiation; remains on the left flank. Patient believes the palpitations are secondary to her nerves. She feels like there is a 20 pound weight sitting on her shoulders bilaterally. She is also having numbness and tingling in her left shoulder down to her elbow. Only pain medicine taken prior to coming in was Tylenol; she was told she could not take other pain medicine due to her A-fib. She took her regularly scheduled morning medications today; no recent change in medications. She did have a fever last night, but did not check how high. She denies any recent injuries to the abdomen/pelvis/back. No sick contacts. No recent alcohol use. Important history includes 3 prior back surgeries, as well as history of kidney stones; [facility]. Patient reports this feels similar to past episodes of kidney stones, but it has "never been this bad" in the past. Patient is a current everyday tobacco cigarette smoker; 3/4 PPD. She denies any recent alcohol use. Patient is hypertensive at 141/81 at time admission; vitals otherwise stable. ED Course: Fentanyl 50 mcg IV Toradol 15 mg IV Hydromorphone 0.5 mg IV NSS 1500 mL IV Ceftriaxone 2000 mg IV ROS: Patient endorses fever, chills, night-sweats, body aches, intermittent chest pain, intermittent palpitations (which she attributes to nerves), SOB at rest or with exertion, dry cough (attributes to smoking), shoulder pressure, diarrhea (which she attributes to IBS), numbness/tingling in the left arm, lower back pain on left side, and left flank pain. Patient denies chest pain, hemoptysis, pleuritic CP, abdominal pain, N/V, burning with urination, and urinary incontinence. Allergies Allergy/AdvReac Type Severity Reaction Status Date / Time ceftriaxone [From Rocephin] Allergy Intermediate lightheaded Verified 12/19/23 15:17 lemon Allergy Intermediate Hives Verified 12/19/23 15:17 Penicillins Allergy Intermediate Hives Verified 12/19/23 15:17 bupropion [From Wellbutrin] AdvReac Intermediate Gastrointestinal Verified 12/19/23 15:17 Upset surgical syed Allergy Intermediate "infection Uncoded 12/19/23 15:17 at hysterectomy site d/t allergy from syed" Home Medications Medication Instructions Recorded Confirmed Type multivitamin 1 tab PO QAM 10/28/20 03/03/24 History diltiazem HCl 120 mg 120 mg PO HS #90 caps 01/09/23 03/03/24 Rx capsule,extended release 24 hr aspirin 81 mg tablet,delayed 81 mg PO UD 01/30/23 03/03/24 History release apixaban 5 mg tablet (Eliquis) 5 mg PO BID #180 tabs 11/29/23 03/03/24 Rx albuterol sulfate 90 mcg/actuation 1 - 2 puff inhalation Q4H PRN 12/19/23 03/03/24 Rx aerosol inhaler (Ventolin HFA) Shortness Of Breath #18 grams colestipol 1 gram tablet 2 g (2 x 1 gram) PO DAILY #60 tabs 12/19/23 03/03/24 Rx guaifenesin 600 mg tablet, 600 mg PO Q12H PRN cough #14 tabs 12/19/23 03/03/24 Rx extended release 12 hr (Mucinex) hydrocodone 5 mg-acetaminophen 325 1 tab PO DAILY PRN pain #7 tabs 02/05/24 03/03/24 Rx mg tablet atorvastatin 80 mg tablet 80 mg PO UD 03/03/24 03/03/24 History budesonide-formoterol HFA 80 1 inh inhalation UD 03/03/24 03/03/24 History mcg-4.5 mcg/actuation aerosol inhaler (Symbicort) methocarbamol 750 mg tablet 750 mg PO UD PRN Muscle cramping 03/03/24 03/03/24 History Past Med/Surg History Problem List Sepsis Acute UTI (urinary tract infection) (Acute) Acute left flank pain (Acute) Chest pain (Acute) Leukocytosis (Acute) Syncope and collapse (Acute) S/P cystoscopy with ureteral stent placement (01/2023) H/O lithotripsy (Acute) Elevated lactic acid level (Acute) Leukocytosis (Acute) Nocturia Central stenosis of spinal canal (Acute) HTN (hypertension) PAD (peripheral artery disease) Decreased pedal pulses Vitamin D deficiency Diarrhea Hypokalemia Anxiety Prediabetes (Chronic) Dyslipidemia (Chronic) History of lumbar fusion x3--2015/ Paroxysmal atrial fibrillation on Eliquis, [facility] Nephrolithiasis Tobacco use Medical History Depression Pyelonephritis Obesity HTN (hypertension) History of COVID-19 02/2020 History of kidney stones Asthma Insomnia Surgical History S/P lumbar discectomy H/O arthroscopy of right knee History of section x2 History of lithotripsy History of colonoscopy History of tooth extraction full upper denture [place] teeth removed S/P hysterectomy candy bso S/P appendectomy S/P cholecystectomy Family History Sister Afib Family history of diabetes mellitus Pancreatic cancer Heart disease Kidney stones Mother Afib Myocardial infarction Family history of diabetes mellitus Heart disease Father Prostate cancer Grandmother (Maternal) Family history of diabetes mellitus Brother Kidney stones Other No family history of adverse response to anesthesia Denies family history of Ovarian cancer Breast cancer Social History Smoking Status: Current every day smoker Tobacco Type: Cigarettes Age Started Using Tobacco: 16; Age Quit Using Tobacco: 58; packs per day: 0.75; Cigarettes Per Day: half pack; Second Hand Exposure: No; Do You Dip or Chew Tobacco: No; Hx Alcohol Use: Yes (very rarely) Alcohol type: wine Hx Substance Use: No Preferred Language: Citizen Of [place] Communication Ability: Effective Visual Impairment: No Limitations Hearing Ability: Normal Aircraft Tool Maker Required: No Beliefs That Will Affect Care: None marital status: Current Living Situation: Alone current occupational status: retired 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 How many Children do You have: 2 How many Children do You have Comment: 2 living children 1 miscarry Feels Safe at Home: Yes Childhood Exposure to Second-Hand Smoke: No Diet: regular Diet Comment: regular caffeine: Yes during the past year weight has: increased > 10 lbs Dental Care, Regularly: No Physical Activity Frequency: Daily Seatbelt Use: always Sunscreen Use: Yes Assistive Devices: None Review of Systems Review of Systems: See HPI above Physical Exam Physical Exam: General: Acute physical distress secondary to left flank pain; rigors in bed; toxic-appearing; cooperative; SpO2 94% on RA HEENT: normocephalic, atraumatic; no scleral icterus; PERRLA w/ EOMs intact; vision and hearing grossly intact Neck: supple; no lymphadenopathy; trachea midline Skin: warm, dry without signs of tenting; no cyanosis; no rashes, bruising, lesions, or erythema noted CV: chest wall NTP; RRR; S1/S2 normal; no murmurs/rubs/gallops; pulses intact and symmetric at radial, DP, and PT Lungs: no acute respiratory distress; symmetrical chest wall expansion; bibasilar crackles and expiratory wheeze noted in the lower lung knott bilaterally ABD: Soft, NTP; left flank TTP, out of proportion to exam; BS present; no rebound/guarding; no distention MSK: no tics or fasciculations; no edema noted in the LEs b/l, nonerythematous Neuro: A&Ox3; normal mood and affect; fluent speech; no focal deficits; sensation grossly intact in the LEs b/l Results & Data Results & Data Vital Signs (Past 12 Hours) Vital Signs Temp Pulse Pulse Resp BP BP Pulse Ox 03/03/24 12:30 72 19 141/81 H 94 03/03/24 11:45 75 17 164/77 H 96 03/03/24 11:15 85 24 168/82 H 99 03/03/24 11:00 87 19 190/115 H 98 01/20/25 10:40 03/03/24 10:34 36.7 C 79 20 158/78 H 100 03/03/24 10:30 79 20 158/78 H 99 03/03/24 10:30 83 O2 Del Method 03/03/24 12:30 Room Air 03/03/24 11:45 Room Air 03/03/24 11:15 Room Air 03/03/24 11:00 03/03/24 10:40 Room Air 03/03/24 10:34 Room Air 03/03/24 10:30 03/03/24 10:30 Laboratory Results Abnormal lab results 03/03/24 03/03/24 03/03/24 Range/Units 10:38 10:40 11:08 WBC 15.91 H (4.8-10.8) K/ul RDW Std Deviation 53.4 H (36.4-46.3) fL RDW Coeff of Sylwia 17.3 H (11.5-14.5) % MPV 8.6 L (9.4-12.4) fL Neut # (Auto) 12.37 H (1.40-6.50) K/uL [place] # (Auto) 1.50 H (0.11-0.59) K/uL POC Total CO2 23 L (24-31) mmol/L POC Anion Gap 13.0 L (16-25) mmol/L Glucose 110 H (70-99(Fasting)) mg/dl POC Glucose (other) 113 H (70-99) mg/dl Lactate (0.4-2.0) mmol/L Urine Appearance Turbid A (Clear) Ur Specific [place] 1.042 H (1.000-1.030) Urine Protein 1+ H (Negative) Urine Ketones Trace H (Negative) Urine Blood 3+ H (Negative) Urine Nitrite Positive A (Negative) Ur Leukocyte Esterase 1+ H (Negative) Urine WBC (Auto) >50 H (0-5) /hpf Urine RBC (Auto) >20 H (0-2) /hpf U Epithel Cells (Auto) >20 H (0-2) /hpf Urine Bacteria (Auto) 4+ H (None Seen) Calcium Oxalate Crystal Present A (None Prsent) 03/03/24 Range/Units 11:52 WBC (4.8-10.8) K/ul RDW Std Deviation (36.4-46.3) fL RDW Coeff of Sylwia (11.5-14.5) % MPV (9.4-12.4) fL Neut # (Auto) (1.40-6.50) K/uL [place] # (Auto) (0.11-0.59) K/uL POC Total CO2 (24-31) mmol/L POC Anion Gap (16-25) mmol/L Glucose (70-99(Fasting)) mg/dl POC Glucose (other) (70-99) mg/dl Lactate 2.2 H* (0.4-2.0) mmol/L Urine Appearance (Clear) Ur Specific [place] (1.000-1.030) Urine Protein (Negative) Urine Ketones (Negative) Urine Blood (Negative) Urine Nitrite (Negative) Ur Leukocyte Esterase (Negative) Urine WBC (Auto) (0-5) /hpf Urine RBC (Auto) (0-2) /hpf U Epithel Cells (Auto) (0-2) /hpf Urine Bacteria (Auto) (None Seen) Calcium Oxalate Crystal (None Prsent) Diagnostic Findings Chest CTA 03/03/24 10:35 CT angio chest PE protocol CLINICAL HISTORY: Chest Pain, eval for PE TECHNIQUE: Multidetector row helical CT of the chest was performed with angiographic protocol. Coronal and sagittal reformations were obtained. Coronal and sagittal MIPS were obtained from the axial data set and were submitted for review. Automated dose lowering techniques and/or adjustment according to patient size were utilized for this exam. CT DOSE: 817.76 mGy.cm Comparison: Comparison is made to CT chest 07/20/2023 FINDINGS: Lungs and pleura: There is a 9 mm nodule in the right upper lobe (series or image 170). Heart and pericardium: Heart size is normal. No pericardial effusion. Vessels: No evidence of pulmonary embolism. Mediastinum and kathleen: Subcentimeter lymph nodes are seen. Chest wall and lower neck: Unremarkable. Abdomen: Unremarkable. Bones: Mild degenerative change is seen. IMPRESSION: 1. No acute abnormality and in particular no evidence of pulmonary embolus. 2. Stable 10 mm nodule in the right upper lobe. Right hilar nodes are also seen. ACT 112: Negative or not required by law. Electronically signed by: Go Mayorga M.D. 03/03/2024 11:18 AM Chest X-Ray 03/03/24 10:35 XR chest 1V portable CLINICAL HISTORY: Chest pain, nonspecific COMPARISON STUDY: Chest CT July 20, 2023. Chest CT performed earlier today FINDINGS: Lung volumes are normal. Lungs are clear. There is no pneumothorax or pleural effusion. Cardiac size is normal. Mediastinal contours are normal. There is no evidence for pulmonary edema. IMPRESSION: No acute cardiopulmonary findings. ACT 112: Negative or not required by law. Electronically signed by: Doc Parry M.D. 03/03/2024 11:33 AM Abdomen/Pelvis CT 03/03/24 11:44 CT abd pelvis IV con only CLINICAL HISTORY: L flank pain TECHNIQUE: Helical axial images of the abdomen and pelvis were obtained and displayed. Automated dose lowering techniques and/or adjustment according to patient size were utilized for this exam. This exam was performed with intravenous contrast. CT DOSE: 1337.63 mGy.cm COMPARISON: Comparison is made to CT abdomen pelvis 07/20/2023 FINDINGS: Lower chest: No acute abnormality. Liver: Unremarkable. No focal lesions are seen. Gallbladder and biliary tree: Patient is status post cholecystectomy. Physiologic prominence of the biliary ducts is noted. Pancreas: Unremarkable, no focal lesions. Spleen: Unremarkable. Adrenals: Unremarkable. Kidneys and ureters: Renal cysts are seen. Prominent fat stranding is seen with increase in stranding about the left greater than right kidney. Bladder: Unremarkable. Reproductive organs: Patient is status post hysterectomy. Bowel: Diverticulosis is seen without evidence of diverticulitis. Lymph nodes Retroperitoneal: Unremarkable. Pelvic: Unremarkable. Mesenteric: Unremarkable. Peritoneum: Normal. Vessels: Atherosclerotic calcifications are seen. Abdominal wall: A fat-containing umbilical hernia is seen. Bones: Degenerative changes in the visualized spine. L3-S1 posterior fixation hardware is seen. IMPRESSION: Increased stranding is seen about the left kidney. However, no hydronephrosis or hydroureter is seen. Bilateral renal cysts are noted. ACT 112: Negative or not required by law. Electronically signed by: Go Mayorga M.D. 03/03/2024 1:19 PM ECG Additional Comments: ECG revealed NSR at 83 bpm; QTc 467 Code Status & VTE Plan Code Status Full code VTE Prophylaxis Plan VTE Prophylaxis will be ordered: Yes Supervising Physician Co-Signing Physician Notes The patient was seen by me. The chart was reviewed. Case discussed with MARYELLEN Robles. Agree with assessment and plan PG Care Time/CCT Total # of Minutes Spent Total Time Spent with Patient: Total time spent is greater than 50% in coordination of care (as documented) at patient's floor/unit and/or counseling patient: Coding [place] [address] INT INP/OBS CARE 3/75MIN Patient Type Established Medical Decision Making High Complexity Diagnoses Acute left flank pain R10.9 Acute UTI (urinary tract infection) N39.0 Sepsis A41.9 Paroxysmal atrial fibrillation I48.0
--- NOTE | 2024-03-03 15:07 | Electrocardiogram Report ---
Test Reason : Blood Pressure : */* mmHG Vent. Rate : 83 BPM Atrial Rate : 83 BPM P-R Int : 152 ms QRS Dur : 84 ms QT Int : 398 ms P-R-T Axes : 62 48 81 degrees QTcB Int : 467 ms Poor data quality, interpretation may be adversely affected Normal sinus rhythm Normal ECG When compared with ECG of 20-Jul-2023 00:10, T wave inversion no longer evident in Anterior leads Confirmed by Eliseo Reeder ([id number]) on 03/03/2024 3:07:15 PM Referred By: Confirmed By: Eliseo Reeder
[2024-03-03] MEDS: SODIUM CHLORIDE 0.9% 1,000 ML IV SCH (15:12)
[2024-03-03] MEDS: MoRPHine SULFATE 2 MG/ML CARP IV STA (15:13)
--- NOTE | 2024-03-03 15:38 | Urology Consultation ---
Date of Consultation March 03, 2024 Assessment & Plan (1) Acute UTI (urinary tract infection): (2) Acute left flank pain: (3) Sepsis: Plan 63 year old female who presented with acute/severe left flank pain and is admitted with sepsis secondary to UTI/pyelo -Patient afebrile, hypertensive but otherwise stable vitals -Labs- WBC 15.91, hemoglobin 12.7, creatinine 0.87 -Urinalysis suggestive of infection - Urine and blood cultures pending -CTAP independently reviewed with Dr. Pompa and suggestive of pyelonephritis. There is no obvious focal obstruction or hydronephrosis. -No plan for intervention at this time -Continue supportive care and pain management as needed -Continue antibiotic therapy and tailor as culture data becomes available -External urinary cath draining yellow urine. Recommend monitoring with bladder scans/PVRs to ensure she is emptying -Urology will follow along, please call with any questions/concerns or changes in patient status Plan reviewed with Dr. Pompa, on-call urologist History of Present Illness Attending Physician: Major Jacques MD History of Present Illness 63-year-old female with PMHx of paroxysmal atrial fibrillation (on Eliquis), tobacco use, dyslipidemia, anxiety, depression, and HTN who presented to the ED on 03/03 for intermittent chest palpitations, SOB, left flank pain, and shoulder pressure with numbness and tingling in her left arm. She initially came in for a cardiac assessment. Per chart review, patient developed left lower back pain and left flank pain that started on Sunday, but has progressively worsened. On arrival she was afebrile and hypertensive but otherwise stable vitals. Labs showing a leukocytosis of 15.91, hemoglobin 12.7, and creatinine 0.87. Lactate 2.3. Urinalysis with 3+ blood, positive nitrite, 1+ LE,> 50 WBC, >20 RBC, 4+ bacteria. Urine and blood cultures collected and pending. CT abdomen pelvis demonstrated increased stranding of the left kidney without hydronephrosis or hydroureter and unremarkable bladder. ED course: Fentanyl, Toradol, hydromorphone, ceftriaxone, NSS. Patient was seen at the bedside in the ED. She is awake and resting in bed on arrival. Still with severe left flank pain. No documented fever. She reports feeling feverish at home. +Chills/shakes. Voiding spontaneously, has external catheter in place. Denies hematuria or dysuria. Denies nausea or vomiting. Reports she has not had anything to eat/drink since yesterday evening. Patient is known to the urology service for history of stones, follows with Dr. Collins Allergies Allergy/AdvReac Type Severity Reaction Status Date / Time ceftriaxone [From Rocephin] Allergy Intermediate lightheaded Verified 12/19/23 15:17 lemon Allergy Intermediate Hives Verified 12/19/23 15:17 Penicillins Allergy Intermediate Hives Verified 12/19/23 15:17 bupropion [From Wellbutrin] AdvReac Intermediate Gastrointestinal Verified 12/19/23 15:17 Upset surgical syed Allergy Intermediate "infection Uncoded 12/19/23 15:17 at hysterectomy site d/t allergy from syed" Home Medications Medication Instructions Recorded Confirmed Type multivitamin 1 tab PO QAM 10/28/20 03/03/24 History diltiazem HCl 120 mg 120 mg PO HS #90 caps 01/09/23 03/03/24 Rx capsule,extended release 24 hr aspirin 81 mg tablet,delayed 81 mg PO UD 01/30/23 03/03/24 History release apixaban 5 mg tablet (Eliquis) 5 mg PO BID #180 tabs 11/29/23 03/03/24 Rx albuterol sulfate 90 mcg/actuation 1 - 2 puff inhalation Q4H PRN 12/19/23 03/03/24 Rx aerosol inhaler (Ventolin HFA) Shortness Of Breath #18 grams colestipol 1 gram tablet 2 g (2 x 1 gram) PO DAILY #60 tabs 12/19/23 03/03/24 Rx guaifenesin 600 mg tablet, 600 mg PO Q12H PRN cough #14 tabs 12/19/23 03/03/24 Rx extended release 12 hr (Mucinex) hydrocodone 5 mg-acetaminophen 325 1 tab PO DAILY PRN pain #7 tabs 02/05/24 03/03/24 Rx mg tablet atorvastatin 80 mg tablet 80 mg PO UD 03/03/24 03/03/24 History budesonide-formoterol HFA 80 1 inh inhalation UD 03/03/24 03/03/24 History mcg-4.5 mcg/actuation aerosol inhaler (Symbicort) methocarbamol 750 mg tablet 750 mg PO UD PRN Muscle cramping 03/03/24 03/03/24 History Patient History Medical History Depression Pyelonephritis Obesity HTN (hypertension) History of COVID-19 02/2020 History of kidney stones Asthma Insomnia Surgical History S/P lumbar discectomy H/O arthroscopy of right knee History of section x2 History of lithotripsy History of colonoscopy History of tooth extraction full upper denture [place] teeth removed S/P hysterectomy candy bso S/P appendectomy S/P cholecystectomy Family History Sister Afib Family history of diabetes mellitus Pancreatic cancer Heart disease Kidney stones Mother Afib Myocardial infarction Family history of diabetes mellitus Heart disease Father Prostate cancer Grandmother (Maternal) Family history of diabetes mellitus Brother Kidney stones Other No family history of adverse response to anesthesia Denies family history of Ovarian cancer Breast cancer Social History Smoking Status: Current every day smoker Tobacco Type: Cigarettes Age Started Using Tobacco: 16; Age Quit Using Tobacco: 58; packs per day: 0.75; Cigarettes Per Day: half pack; Second Hand Exposure: No; Do You Dip or Chew Tobacco: No; Hx Alcohol Use: Yes (very rarely) Alcohol type: wine Hx Substance Use: No Preferred Language: Bulgarian Communication Ability: Effective Visual Impairment: No Limitations Hearing Ability: Normal Metal Flow Coordinator Required: No Beliefs That Will Affect Care: None marital status: Current Living Situation: Alone current occupational status: 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 How many Children do You have: 2 How many Children do You have Comment: 2 living children 1 miscarry Feels Safe at Home: Yes Childhood Exposure to Second-Hand Smoke: No Diet: regular Diet Comment: regular caffeine: Yes during the past year weight has: increased > 10 lbs Dental Care, Regularly: No Physical Activity Frequency: Daily Seatbelt Use: always Sunscreen Use: Yes Assistive Devices: None Review of Systems Review of Systems: All systems reviewed & are unremarkable except as noted in HPI & below Physical Exam Constitutional: no acute distress and + uncomfortable Respiratory: no respiratory distress and no labored breathing Musculoskeletal: Head/Neck/Chest: normocephalic Skin: No visible rashes or lesions to exposed skin areas Neurologic: moves all extremities and awake Psychiatric: Orientation: alert, oriented x 3 and cooperative Genitourinary: External cath w/yellow urine draining Left flank pain w/palpation Results & Data Vital Signs (Past 12 Hours) Vital Signs Temp Pulse Pulse Resp BP BP Pulse Ox 03/03/24 14:34 84 03/03/24 14:14 85 18 156/74 H 97 03/03/24 12:30 72 19 141/81 H 94 03/03/24 11:45 75 17 164/77 H 96 03/03/24 11:15 85 24 168/82 H 99 03/03/24 11:00 87 19 190/115 H 98 03/03/24 10:40 03/03/24 10:34 36.7 C 79 20 158/78 H 100 03/03/24 10:30 79 20 158/78 H 99 03/03/24 10:30 83 O2 Del Method 03/03/24 14:34 03/03/24 14:14 Room Air 03/03/24 12:30 Room Air 03/03/24 11:45 Room Air 03/03/24 11:15 Room Air 03/03/24 11:00 03/03/24 10:40 Room Air 03/03/24 10:34 Room Air 03/03/24 10:30 03/03/24 10:30 PG Care Time/CCT Total # of Minutes Spent Total Time Spent with Patient: Total time spent is greater than 50% in coordination of care (as documented) at patient's floor/unit and/or counseling patient: Coding Level of Care Code 31335 INT INP/OBS CARE 2/55MIN Diagnoses Acute UTI (urinary tract infection) N39.0 Acute left flank pain R10.9 Sepsis A41.9
[2024-03-03] MEDS: MoRPHine SULFATE 2 MG/ML CARP IV PRN (16:55)
[2024-03-03] MEDS: APIXABAN 5 MG TABLET PO SCH (20:00)
[2024-03-03] MEDS: dilTIAZem HCL 120 MG CAPCR PO SCH (20:00)
[2024-03-03] MEDS: ATORVASTATIN 40 MG TAB PO SCH (20:00)
[2024-03-03] MEDS: DOCUSATE SODIUM 100 MG CAP PO SCH (20:58)
[2024-03-03] MEDS: NYSTATIN POWDER 15GM BTL EXT SCH (20:59)
[2024-03-04] MEDS: ONDANSETRON INJ 2 MG/ML 2 ML VIAL IV PRN (02:00)
[2024-03-04 02:15] LABS: A calco-baum cmplx NotReported Not Detected (NotDetected); Bact fragilis Not Reported Not Detected (NotDetected); Blood Culture Id Panel See PCR Comment (NotDetected); C auris Not Reported Not Detected (NotDetected); CTX-M Resistant Gene Not Detected (NotDetected); Calbicans Not Reported Not Detected (NotDetected); Candida glabrata Not Reported Not Detected (NotDetected); Candida krusei Not Reported Not Detected (NotDetected); Cneoformans/gatti Not Reported Not Detected (NotDetected); Cparapsilosis Not Reported Not Detected (NotDetected); E cloacae compx Not Reported Not Detected (NotDetected); Efaecalis Not Reported Not Detected (NotDetected); Efaecium Not Reported Not Detected (NotDetected); Enterobacterales DETECTED (NotDetected); Enterobacterales Not Reported DETECTED (NotDetected); Escherichia coli Not Reported DETECTED (NotDetected); H influenzae Not Reported Not Detected (NotDetected); IMP Resistant Gene Not Detected (NotDetected); K aerogenes Not Reported Not Detected (NotDetected); KPC Resistant Gene Not Detected (NotDetected); Koxytoca Not Reported Not Detected (NotDetected); Kpneumoniae grp Not Reported Not Detected (NotDetected); Lmonocyt Not Reported Not Detected (NotDetected); N meningitidis Not Reported Not Detected (NotDetected); NDM Resistant Gene Not Detected (NotDetected); OXA 48 Like Resistant Gene Not Detected (NotDetected); P aeruginosa Not Reported Not Detected (NotDetected); Proteus spp Not Reported Not Detected (NotDetected); Salmonella spp Not Reported Not Detected (NotDetected); Staph lugdunensis Not Reported Not Detected (NotDetected); Staph spp. Not Reported Not Detected (NotDetected); Staphaureus Not Reported Not Detected (NotDetected); Staphepi Not Reported Not Detected (NotDetected); Stenmaltophilia Not Reported Not Detected (NotDetected); Strep agal(GrpB) Not Reported Not Detected (NotDetected); Strep pneum Not Reported Not Detected (NotDetected); Strep pyog (GrpA) Not Reported Not Detected (NotDetected); Strep spp Not Reported Not Detected (NotDetected); VIM Resistant Gene Not Detected (NotDetected); mcr-1 Colistin Resistant Gene Not Detected (NotDetected)
--- NOTE | 2024-03-04 02:45 | Communication Note ---
Date of Service: March 04, 2024 Overnight blood culture positive for Gram negative bacilli in all bottles. PCR positive for E.coli and Enterobacterales. Will change Ceftriaxone to Cefepime for better coverage. Resident Activity Tracking Resident Involvement: Resident Care Provided Care Provided: Adult [facility] Medicine
[2024-03-04] MEDS: CEFEPIME 2000MG 2,000 MG/20 ML SYR IV SCH ×2 (03:24→10:22)
[2024-03-04 07:14] LABS: Basophils # (auto) 0.03 K/uL (0.00-0.20); Basophils % (auto) 0.2 %; Eosinophils # (auto) 0.06 K/uL (0.00-0.50); Eosinophils % (auto) 0.5 %; Hematocrit (blood only) 32.7 % (37.0-47.0); Hemoglobin 10.6 g/dl (12.0-16.0); Immature Granulocytes # (auto) 0.06 K/uL (0.01-0.20); Immature Granulocytes % (auto) 0.5 %; Lymphocytes # (auto) 0.91 K/uL (1.20-3.40); Lymphocytes % (auto) 7.2 %; Mean Corpuscular Hemoglobin 28.3 pg (25.0-34.0); Mean Corpuscular Hgb Conc 32.4 g/dL (32.0-36.0); Mean Corpuscular Volume 87.2 fL (80.0-100.0); Mean Platelet Volume 9.1 fL (9.4-12.4); Monocytes # (auto) 1.38 K/uL (0.11-0.59); Monocytes % (auto) 10.8 %; Neutrophils # (auto) 10.28 K/uL (1.40-6.50); Neutrophils % (auto) 80.8 %; Platelet Count 327 K/uL (130-400); RDW Coefficient of Variation 17.8 % (11.5-14.5); Red Blood Count 3.75 M/uL (4.20-5.40); White Blood Count 12.72 K/ul (4.8-10.8)
[2024-03-04 07:42] LABS: Calcium 8.7 mg/dl (8.6-10.3); Creatinine Clr Calc Pharmacy 65.7 ml/min; Potassium 3.9 mmol/L (3.5-5.1)
[2024-03-04] MEDS: FLUTICASONE/VILANTEROL 100/25MCG 14 PUFFS/INHALER INH SCH (08:16)
[2024-03-04] MEDS: ASPIRIN 81 MG ECTAB PO SCH (08:16)
--- NOTE | 2024-03-04 09:27 | Urology Progress Note ---
Date of Service March 04, 2024 Assessment & Plan (1) Acute left flank pain: Plan 63-year-old female with a long history of kidney stones but presented now with severe left flank pain and elevated lactate level Currently afebrile normotensive Left flank pain has improved substantially in the past 24 hours Urine is clear Preliminary blood culture showing gram-negative bacteria not speciated White blood cell count has decreased to 12 CT reviewed, compared to old CTs Although we know she has substantial stone in the lower pole left kidney I do not appreciate any obstructing calculi along the course of the ureter and she has contrast that progresses down the entire ureter without significant hydronephrosis Underlying suspicion that this is either pyelonephritis or other inflammatory process of the kidney but does not require surgical intervention right now No plan for any intervention unless substantial change in her clinical condition Admission and Anticipated Discharge Date Admission Date: March 03, 2024 Subjective Subjectively is improving She reports that her pain yesterday was 10 out of 10 and today it is 4 out of 10 but she is still having persistent pain and mild nausea No vomiting Afebrile had some chills overnight Other vitals are all stable Discussed her current situation at the bedside todayshe is not anxious to pur brandon any surgery nor do I think it would be appropriate Results & Data Vital Signs (Past 12 Hours) Vital Signs Temp Pulse Pulse Resp BP Pulse Ox O2 Del Method 03/04/24 07:50 96 H 03/04/24 07:00 36.7 C 98 H 16 121/69 90 Room Air 03/04/24 02:51 36.7 C 89 18 117/62 90 Room Air 03/04/24 00:37 37.1 C 86 18 150/71 H 93 Room Air 03/03/24 23:00 98 H PG Care Time/CCT Total # of Minutes Spent Total Time Spent with Patient: Total time spent is greater than 50% in coordination of care (as documented) at patient's floor/unit and/or counseling patient: Coding Level of Care Code 79046 SUB INP/OBS CARE 2/35MIN Diagnoses Acute left flank pain R10.9
[2024-03-04] MEDS: COLESTIPOL HCL 1 GM TAB PO SCH (10:22)
[2024-03-04] MEDS: ACETAMINOPHEN 1,000 MG/100 ML VIAL IV PRN (10:24)
[2024-03-04] MEDS ORDERED: cefTRIAXone SODIUM 2,000 MG/50 ML BAG IV SCH (12:40)
[2024-03-04] MEDS: MoRPHine SULFATE 2 MG/ML CARP IV PRN (13:19)
--- NOTE | 2024-03-04 14:59 | Hospitalist Progress Note ---
Date of Service March 04, 2024 Assessment & Plan (1) Acute left flank pain: Plan: No definite ureteral stone seen on CT scanning. Appreciate urology consultation and recommendations. Continue antibiotic therapy for the E. coli UTI and possible pyelonephritis. Pain control measures (2) Bacteremia: Plan: E. coli isolated. Now on cefepime, antibiotic day 2 (3) Acute UTI (urinary tract infection): Plan: E. coli isolated. Now on cefepime, antibiotic day 2 (4) Sepsis: Plan: Present on admission. She did not require pressor support (5) Paroxysmal atrial fibrillation: Plan: She is in normal sinus rhythm currently. Stable. Continue current medical management Plan Hopeful discharge to home on oral antibiotic within the next 2 to 3 days Admission and Anticipated Discharge Date Admission Date: March 03, 2024 Subjective Alert and oriented. E. coli bacteremia documented. She is now on cefepime, day 2 of antibiotic therapy. Urine culture is also positive for E. coli. Urology consultation and recommendations appreciated. No ureteral stone appreciated on CT scan. Morphine is not spanning 3 hours and has been increased in frequency to every 2 hours as needed. Review of Systems 2 Review of Systems: Constitutionalno fever or chills ENTno blurred vision, no double vision, no epistaxis, no sore throat Respiratoryno cough, no wheezing, no shortness of breath Cardiacno palpitations, no chest pain, no syncope [place] nausea, vomiting, diarrhea, melena, hematochezia GUno urinary retention, no urinary incontinence, no dysuria, no hematuria Musculoskeletalno joint pain, no muscle tenderness Skinno bruising, no rashes, no pruritus Neurono isolated weakness, no paresthesia, no weakness Psychno depression, no anxiety Physical Exam 2 Physical Exam: General-alert and oriented x3, no fever, no chills HEENT-head atraumatic and normocephalic, pupils equal and reactive to light, extraocular muscles intact Neck-no lymphadenopathy or thyromegaly, trachea midline Chest-clear to auscultation. No rales, wheezing or rhonchi Cardiac-regular rate and rhythm, normal S1 and S2 Abdomen-normal bowel sounds, no hepatosplenomegaly. Tenderness to palpation in the left flank area Extremities-no cyanosis, clubbing, or edema Neuro-cranial nerves II through XII intact, motor and sensory function within normal limits, strength symmetrical, no focal deficits Psych-normal affect, normal mood Results & Data Results & Data Vital Signs (Past 12 Hours) Vital Signs Temp Pulse Pulse Resp BP Pulse Ox O2 Del Method 03/04/24 11:01 Room Air 03/04/24 10:39 36.8 C 88 20 135/73 90 Room Air 03/04/24 07:50 96 H 03/04/24 07:00 36.7 C 98 H 16 121/69 90 Room Air Laboratory Results 03/04/24 05:35 03/04/24 05:35 PG Care Time/CCT Total # of Minutes Spent Total Time Spent with Patient: Total time spent is greater than 50% in coordination of care (as documented) at patient's floor/unit and/or counseling patient: Coding Level of Care Code 74426 SUB INP/OBS CARE 3/50MIN Diagnoses Acute left flank pain R10.9 Bacteremia R78.81 Acute UTI (urinary tract infection) N39.0 Sepsis A41.9 Paroxysmal atrial fibrillation I48.0
[2024-03-05 06:47] LABS: Basophils # (auto) 0.03 K/uL (0.00-0.20); Basophils % (auto) 0.4 %; Eosinophils # (auto) 0.08 K/uL (0.00-0.50); Hemoglobin 10.3 g/dl (12.0-16.0); Immature Granulocytes # (auto) 0.08 K/uL (0.01-0.20); Lymphocytes % (auto) 15.8 %; Mean Corpuscular Hgb Conc 32.2 g/dL (32.0-36.0); Mean Platelet Volume 9.4 fL (9.4-12.4); Monocytes # (auto) 1.04 K/uL (0.11-0.59); Monocytes % (auto) 12.6 %; Neutrophils # (auto) 5.72 K/uL (1.40-6.50); Neutrophils % (auto) 69.2 %; Platelet Count 304 K/uL (130-400); RDW Coefficient of Variation 17.6 % (11.5-14.5); RDW Standard Deviation 56.1 fL (36.4-46.3); Red Blood Count 3.68 M/uL (4.20-5.40); White Blood Count 8.25 K/ul (4.8-10.8)
[2024-03-05 06:58] LABS: BUN Creatinine Ratio 17.3 (10-20); Calcium 8.9 mg/dl (8.6-10.3); Creatinine Clr Calc Pharmacy 81.8 ml/min
--- NOTE | 2024-03-05 09:46 | Urology Progress Note ---
Date of Service March 05, 2024 Assessment & Plan (1) Acute left flank pain: (2) Bacteremia: Plan 63-year-old female with a long history of kidney stones who presented with severe left flank pain and elevated lactate level -Currently afebrile, normotensive -Leukocytosis resolved, renal function normal -Preliminary blood and urine culture showing E.coli -CTAP reviewed -no obvious focal obstruction or hydronephrosis -Suspect that this is either pyelonephritis or other inflammatory process of the kidney -No plan for intervention -Continue supportive care and pain management as needed -Continue antibiotic therapy and tailor as culture data becomes available -Recommend monitoring with bladder scans/PVRs to ensure she is emptying -Urology will follow along, please call with any questions/concerns or changes in patient status Admission and Anticipated Discharge Date Admission Date: March 03, 2024 Subjective Patient seen at bedside today Asleep on arrival, awakened to name No acute distress Still with left flank pain, managing with IV pain medication Denies fever but reports some chills Denies nausea or vomiting Voiding without issue, denied hematuria or dysuria Review of Systems Constitutional: as per Subjective / HPI Genitourinary: as per Subjective / HPI Physical Exam Constitutional: no acute distress Respiratory: no respiratory distress and no labored breathing Neurologic: awake Psychiatric: Orientation: alert and cooperative Results & Data Vital Signs (Past 12 Hours) Vital Signs Temp Pulse Pulse Resp BP Pulse Ox O2 Del Method 03/05/24 07:25 37.1 C 75 136/76 92 Room Air 03/05/24 07:20 87 03/05/24 03:50 37.0 C 80 18 129/71 92 Room Air 03/04/24 23:47 37.2 C 94 H 18 151/76 H 91 Room Air 03/04/24 23:43 Room Air PG Care Time/CCT Total # of Minutes Spent Total Time Spent with Patient: Total time spent is greater than 50% in coordination of care (as documented) at patient's floor/unit and/or counseling patient: Coding Level of Care Code 82507 SUB INP/OBS CARE 2/35MIN Diagnoses Acute left flank pain R10.9 Bacteremia R78.81
[2024-03-05] MEDS: fentaNYL 25 MCG/HR TDSY TD SCH (11:38)
--- NOTE | 2024-03-05 12:48 | Hospitalist Progress Note ---
Date of Service March 05, 2024 Assessment & Plan (1) Acute left flank pain: Plan: No definite ureteral stone seen on CT scanning. Appreciate urology consultation and recommendations. Continue antibiotic therapy for the E. coli UTI and possible pyelonephritis. Pain control measures. Topical fentanyl patch started today, March 05 (2) Bacteremia: Plan: E. coli isolated. Now on cefepime, antibiotic day 3. Anticipate eventual discharge to home on oral Bactrim therapy (3) Acute UTI (urinary tract infection): Plan: E. coli isolated. Now on cefepime, antibiotic day 3 (4) Sepsis: Plan: Present on admission. She did not require pressor support. Resolved (5) Paroxysmal atrial fibrillation: Plan: She is in normal sinus rhythm currently. Stable. Continue current medical management Plan Hopeful discharge to home on oral antibiotic within the next day or 2. Possibly tomorrowMarch 06 Admission and Anticipated Discharge Date Admission Date: March 03, 2024 Subjective Complaints of left flank pain outweigh physical findings. Low-dose fentanyl patch has been started. Cefepime day 3 for E. coli UTI and bacteremia. Hopeful discharge to home on oral Bactrim. Possibly tomorrowMarch 06. Review of Systems 2 Review of Systems: Constitutionalno fever or chills ENTno blurred vision, no double vision, no epistaxis, no sore throat Respiratoryno cough, no wheezing, no shortness of breath Cardiacno palpitations, no chest pain, no syncope [place] nausea, vomiting, diarrhea, melena, hematochezia GUno urinary retention, no urinary incontinence, no dysuria, no hematuria Musculoskeletalcontinued left flank pain Skinno bruising, no rashes, no pruritus Neurono isolated weakness, no paresthesia, no weakness Psychno depression, no anxiety Physical Exam 2 Physical Exam: General-alert and oriented x3, no fever, no chills HEENT-head atraumatic and normocephalic, pupils equal and reactive to light, extraocular muscles intact Neck-no lymphadenopathy or thyromegaly, trachea midline Chest-clear to auscultation. No rales, wheezing or rhonchi Cardiac-regular rate and rhythm, normal S1 and S2 Abdomen-normal bowel sounds, no hepatosplenomegaly. Tenderness to palpation in the left flank area Extremities-no cyanosis, clubbing, or edema Neuro-cranial nerves II through XII intact, motor and sensory function within normal limits, strength symmetrical, no focal deficits Psych-normal affect, normal mood Results & Data Results & Data Vital Signs (Past 12 Hours) Vital Signs Temp Pulse Pulse Resp BP Pulse Ox O2 Del Method 03/05/24 10:43 36.7 C 82 18 149/76 H 95 Room Air 03/05/24 09:47 Room Air 03/05/24 07:25 37.1 C 75 136/76 92 Room Air 03/05/24 07:20 87 03/05/24 03:50 37.0 C 80 18 129/71 92 Room Air Laboratory Results 03/05/24 05:36 03/05/24 05:36 PG Care Time/CCT Total # of Minutes Spent Total Time Spent with Patient: Total time spent is greater than 50% in coordination of care (as documented) at patient's floor/unit and/or counseling patient: Coding Level of Care Code 62434 SUB INP/OBS CARE 3/50MIN Diagnoses Acute left flank pain R10.9 Bacteremia R78.81 Acute UTI (urinary tract infection) N39.0 Sepsis A41.9 Paroxysmal atrial fibrillation I48.0
[2024-03-05] MEDS: CHECK fentaNYL PATCH PLACEMENT SCH (15:58)
[2024-03-05] MEDS: CALCIUM CARBONATE 500 MG CHEWABLE TAB PO PRN (22:00)
[2024-03-06 06:49] LABS: Basophils # (auto) 0.03 K/uL (0.00-0.20); Basophils % (auto) 0.5 %; Eosinophils # (auto) 0.08 K/uL (0.00-0.50); Eosinophils % (auto) 1.4 %; Hematocrit (blood only) 33.3 % (37.0-47.0); Hemoglobin 10.8 g/dl (12.0-16.0); Immature Granulocytes # (auto) 0.08 K/uL (0.01-0.20); Immature Granulocytes % (auto) 1.4 %; Lymphocytes # (auto) 0.94 K/uL (1.20-3.40); Lymphocytes % (auto) 15.9 %; Mean Corpuscular Hemoglobin 27.7 pg (25.0-34.0); Mean Corpuscular Hgb Conc 32.4 g/dL (32.0-36.0); Mean Corpuscular Volume 85.4 fL (80.0-100.0); Mean Platelet Volume 9.2 fL (9.4-12.4); Monocytes # (auto) 1.14 K/uL (0.11-0.59); Monocytes % (auto) 19.3 %; Neutrophils # (auto) 3.63 K/uL (1.40-6.50); Neutrophils % (auto) 61.5 %; Platelet Count 315 K/uL (130-400); RDW Coefficient of Variation 17.2 % (11.5-14.5); RDW Standard Deviation 53.4 fL (36.4-46.3)
[2024-03-06 07:02] LABS: BUN Creatinine Ratio 13.9 (10-20); Calcium 9.3 mg/dl (8.6-10.3); Creatinine Clr Calc Pharmacy 85.2 ml/min
--- NOTE | 2024-03-06 08:13 | Urology Progress Note ---
Date of Service March 06, 2024 Assessment & Plan (1) Acute left flank pain: (2) Bacteremia: Plan 63-year-old female with a long history of kidney stones who presented with severe left flank pain and elevated lactate level -Currently afebrile, normotensive -No leukocytosis, renal function normal -Urine and blood cultures grew E.coli - On Cefepime -CTAP reviewed -no obvious focal obstruction or hydronephrosis -Suspect that this is either pyelonephritis or other inflammatory process of the kidney -No intervention warranted -Continue supportive care and pain management PRN -Continue antibiotic therapy, will likely need a total of 10-14 days -Will arrange outpatient follow-up with our service -Urology will sign-off. Please contact us with any questions/concerns. Admission and Anticipated Discharge Date Admission Date: March 03, 2024 Subjective Patient seen at bedside this AM Asleep on arrival, awakened to name No acute distress Still with left flank pain today- pt stated that she "blames the weather for making pain worse" Denies fever but reports chills Denies nausea or vomiting Voiding without issue, denied hematuria or dysuria Review of Systems Constitutional: as per Subjective / HPI Genitourinary: as per Subjective / HPI Physical Exam Constitutional: no acute distress Respiratory: no respiratory distress and no labored breathing Neurologic: awake Psychiatric: Orientation: alert and cooperative Results & Data Vital Signs (Past 12 Hours) Vital Signs Temp Pulse Resp BP Pulse Ox O2 Del Method 03/06/24 07:26 36.9 C 70 131/74 92 Room Air 03/06/24 03:36 37.0 C 76 18 146/67 H 94 Room Air 03/05/24 22:06 Room Air PG Care Time/CCT Total # of Minutes Spent Total Time Spent with Patient: Total time spent is greater than 50% in coordination of care (as documented) at patient's floor/unit and/or counseling patient: Coding Level of Care Code 46332 SUB INP/OBS CARE 2/35MIN Diagnoses Acute left flank pain R10.9 Bacteremia R78.81
[2024-03-06] MEDS: fentaNYL 50 MCG/HR TDSY TD SCH (10:16)
--- NOTE | 2024-03-06 15:25 | CT Scan Report ---
ABDOMEN AND PELVIS CT WITHOUT CONTRAST CT DOSE: 1405.73 mGy.cm HISTORY: persistent left flank pain, left pyelonephritis TECHNIQUE: Multiaxial CT images of the abdomen and pelvis were performed without contrast. A dose lo wering technique was utilized adhering to the principles of ALARA. COMPARISON STUDY: 03/03/2024 FINDINGS: ABDOMEN: Gallbladder is surgically absent. Liver, spleen, pancreas, and adrenal glands have an unrema rkable non-IV contrasted appearance. Stable cyst upper left kidney. There is mild residual inflammato ry stranding adjacent to the left kidney, improved. There is a small nonobstructing lower left renal calculus. There is no hydronephrosis or ureteral calculi bilaterally. There are scattered atheroscler otic calcifications. No abdominal aortic aneurysm. Pelvis: Uterus is absent. No adnexal mass. Urinary bladder is decompressed. There is extensive sigmoi d diverticulosis. No acute diverticulitis. No bowel inflammation or obstruction. No free fluid or jatinder e air. No enlarged adenopathy. Osseous structures: Stable lumbar metallic fusion. IMPRESSION: Mild residual inflammation at the left kidney, significantly improved. No adverse change. Otherwise as described. ACT 112: Negative or not required by law. The above report was generated using voice recognition software. It may contain grammatical, syntax o r spelling errors. Electronically signed by: Evan Emerson M.D. 03/06/2024 3:24 PM
--- NOTE | 2024-03-06 15:26 | Hospitalist Progress Note ---
Date of Service March 06, 2024 Assessment & Plan (1) Acute left flank pain: Plan: No definite ureteral stone seen on admission CT scanning. Appreciate urology consultation and recommendations. Will repeat CT scan today, March 06. Continue cefepime, day 4, for the E. coli UTI and possible pyelonephritis. Pain control measures. Topical fentanyl patch strength uptitrated today, March 06. (2) Bacteremia: Plan: E. coli isolated. Now on cefepime, antibiotic day 4. Anticipate eventual discharge to home on oral Bactrim therapy (3) Acute UTI (urinary tract infection): Plan: E. coli isolated. Now on cefepime, antibiotic day 4 (4) Sepsis: Plan: Present on admission. She did not require pressor support. Resolved (5) Paroxysmal atrial fibrillation: Plan: She is in normal sinus rhythm currently. Stable. Continue current medical management Plan Eventual discharge to home when pain is under control. Hopefully within the next day or 2 Admission and Anticipated Discharge Date Admission Date: March 03, 2024 Subjective The patient continues to have significant left flank pain that is most consistent with a left ureteral calculus and colic. Fentanyl topical patch uptitrated from 25 mcg to 50 mcg today. [address] repeat [address] scan. Cefepime day 4 for E. coli isolated in the urine and blood. She remains afebrile Review of Systems 2 Review of Systems: Constitutionalno fever or chills ENTno blurred vision, no double vision, no epistaxis, no sore throat Respiratoryno cough, no wheezing, no shortness of breath Cardiacno palpitations, no chest pain, no syncope [place] nausea, vomiting, diarrhea, melena, hematochezia GUno urinary retention, no urinary incontinence, no dysuria, no hematuria Musculoskeletalcontinued left flank pain Skinno bruising, no rashes, no pruritus Neurono isolated weakness, no paresthesia, no weakness Psychno depression, no anxiety Physical Exam 2 Physical Exam: General-alert and oriented x3, no fever, no chills HEENT-head atraumatic and normocephalic, pupils equal and reactive to light, extraocular muscles intact Neck-no lymphadenopathy or thyromegaly, trachea midline Chest-clear to auscultation. No rales, wheezing or rhonchi Cardiac-regular rate and rhythm, normal S1 and S2 Abdomen-normal bowel sounds, no hepatosplenomegaly. Tenderness to palpation in the left flank area. No shingles Extremities-no cyanosis, clubbing, or edema Neuro-cranial nerves II through XII intact, motor and sensory function within normal limits, strength symmetrical, no focal deficits Psych-normal affect, normal mood Results & Data Results & Data Vital Signs (Past 12 Hours) Vital Signs Temp Pulse Pulse Resp BP BP Pulse Ox 03/06/24 12:00 37.1 C 67 18 128/73 138/76 90 03/06/24 12:00 66 03/06/24 11:10 37.1 C 67 18 128/73 90 03/06/24 07:26 36.9 C 70 131/74 92 03/06/24 03:36 37.0 C 76 18 146/67 H 94 O2 Del Method 03/06/24 12:00 03/06/24 12:00 03/06/24 11:10 Room Air 03/06/24 07:26 Room Air 03/06/24 03:36 Room Air Laboratory Results 03/06/24 05:47 03/06/24 05:47 PG Care Time/CCT Total # of Minutes Spent Total Time Spent with Patient: Total time spent is greater than 50% in coordination of care (as documented) at patient's floor/unit and/or counseling patient: Coding Level of Care Code 09220 SUB INP/OBS CARE 3/50MIN Diagnoses Acute left flank pain R10.9 Bacteremia R78.81 Acute UTI (urinary tract infection) N39.0 Sepsis A41.9 Paroxysmal atrial fibrillation I48.0
[2024-03-06] MEDS: CHECK fentaNYL PATCH PLACEMENT SCH (15:59)
[2024-03-07 07:51] VITALS: RESP 18
[2024-03-07 11:42] VITALS: PULSE 73; TEMP 98.1; O2SAT 91
--- NOTE | 2024-03-07 12:03 | Discharge Summary ---
Discharge Summary Date of Service March 07, 2024 Principal Dx & Hospital Course #1 = Principal Diagnosis (1) Acute left flank pain: No definite ureteral stone seen on admission CT scanning. Appreciate urology consultation and recommendations. Abdomen CT scan #2 completed on March 06 shows improvement in appearance of left pyelonephritis. No other significant findings seen. No evidence of left ureter stone. Treated while hospitalized with intravenous cefepime for the E. coli isolated in the urine and blood. She has multiple allergies and will be discharged home on oral Bactrim therapy for 10 more days for the E. coli UTI and suspected left pyelonephritis. Left flank pain control with fentanyl patch. The strength was uptitrated on March 06. (2) Bacteremia: E. coli isolated. Treated while hospitalized with 5 days of intravenous cefepime. Discharge to home on oral Bactrim therapy for 10 more days (3) Acute UTI (urinary tract infection): E. coli isolated. Treated while hospitalized with intravenous cefepime for 5 days. She will continue oral Bactrim at discharge for 10 more days (4) Sepsis: Present on admission. She did not require pressor support. Resolved (5) Paroxysmal atrial fibrillation: She is in normal sinus rhythm currently. Stable. Continue current medical management Plan Home today, March 07 Admission HPI Per Admitting Provider Sheela is a 63-year-old female with PMH of paroxysmal atrial fibrillation (on Eliquis), tobacco use, dyslipidemia, anxiety, depression, and HTN. She presented on 03/03 for intermittent chest palpitations, SOB, left flank pain, and shoulder pressure with numbness and tingling in her left arm. She initially came in for a cardiac assessment. Patient developed left lower back pain and left flank pain that started on Sunday, but has progressively worsened. At first it was a dull achy pain, and she believes she pulled a muscle, but then got much worse Sunday night, and kept her up all night. She rated the pain 12/10 at worst, and 7/10 after receiving pain medicine in the ED. No radiation; remains on the left flank. Patient believes the palpitations are secondary to her nerves. She feels like there is a 20 pound weight sitting on her shoulders bilaterally. She is also having numbness and tingling in her left shoulder down to her elbow. Only pain medicine taken prior to coming in was Tylenol; she was told she could not take other pain medicine due to her A-fib. She took her regularly scheduled morning medications today; no recent change in medications. She did have a fever last night, but did not check how high. She denies any recent injuries to the abdomen/pelvis/back. No sick contacts. No recent alcohol use. Important history includes 3 prior back surgeries, as well as history of kidney stones; follows with [place] [facility]. Patient reports this feels similar to past episodes of kidney stones, but it has "never been this bad" in the past. Patient is a current everyday tobacco cigarette smoker; 3/4 PPD. She denies any recent alcohol use. Patient is hypertensive at 141/81 at time admission; vitals otherwise stable. ED Course: Fentanyl 50 mcg IV Toradol 15 mg IV Hydromorphone 0.5 mg IV NSS 1500 mL IV Ceftriaxone 2000 mg IV ROS: Patient endorses fever, chills, night-sweats, body aches, intermittent chest pain, intermittent palpitations (which she attributes to nerves), SOB at rest or with exertion, dry cough (attributes to smoking), shoulder pressure, diarrhea (which she attributes to IBS), numbness/tingling in the left arm, lower back pain on left side, and left flank pain. Patient denies chest pain, hemoptysis, pleuritic CP, abdominal pain, N/V, burning with urination, and urinary incontinence. Discharge Exam General-alert and oriented x3, no fever, no chills HEENT-head atraumatic and normocephalic, pupils equal and reactive to light, extraocular muscles intact Neck-no lymphadenopathy or thyromegaly, trachea midline Chest-clear to auscultation. No rales, wheezing or rhonchi Cardiac-regular rate and rhythm, normal S1 and S2 Abdomen-normal bowel sounds, no hepatosplenomegaly. Tenderness to palpation in the left flank area. No shingles Extremities-no cyanosis, clubbing, or edema Neuro-cranial nerves II through XII intact, motor and sensory function within normal limits, strength symmetrical, no focal deficits Psych-normal affect, normal mood Discharge Plan Discharge Items Patient Disposition: Home - Self-Care Reason For Visit: UROSEPSIS;?INFECTED KIDNEY STONES Discharge Diagnosis: Suspected left pyelonephritis, E. coli bacteremia, left flank pain without shingles or evidence of ureter stone Activity: Resume your previous activity Non-emergency contact: Primary Care Provider Call non-emergency contact if: you have any medication questions and your sympt oms worsen Follow-up/Referrals: Corin Rader MD [Primary Care Provider] - Hellen Dickson CRNP [Nurse Practitioner] - 04/01/24 2:00 pm Diet: Regular and Heart Healthy Addtl Attending Provider Instructions: Use fentanyl patch every 3 days for pain control. Take Bactrim (trimethoprim/sulfamethoxazole) twice daily for 10 days for kidney infection and blood infection. Pending Studies at Discharge: No Stand-Alone Forms: My [facility] [employer], Smoking Cessation Medications and DC Order Prescriptions: New fentanyl 50 mcg/hr Patch 72 Hour 1 patch transdermal Q3D Qty: 5 0RF sulfamethoxazole-trimethoprim [Bactrim DS] 800-160 mg tablet 1 tab PO BID 10 Days Qty: 20 0RF Continued diltiazem HCl 120 mg capsule,extended release 24hr 120 mg PO HS Qty: 90 3RF Eliquis 5 mg tablet 5 mg PO BID Qty: 180 3RF multivitamin Tablet 1 tab PO QAM Rx Instructions: OTC unable to verify aspirin 81 mg tablet,delayed release (DR/EC) 81 mg PO UD Rx Instructions: 81 mg po q2d. OTC unable to verify colestipol 1 gram tablet 2 g PO DAILY Qty: 60 5RF albuterol sulfate [Ventolin HFA] 90 mcg/actuation HFA aerosol inhaler 1 - 2 puff INH Q4H PRN (Reason: Shortness Of Breath) Qty: 18 5RF guaifenesin [Mucinex] 600 mg tablet extended release 12hr 600 mg PO Q12H PRN (Reason: cough) Qty: 14 1RF Rx Instructions: OTC unable to verify hydrocodone-acetaminophen 5-325 mg tablet 1 tab PO DAILY PRN (Reason: pain) Qty: 7 0RF atorvastatin 80 mg tablet 80 mg PO UD Rx Instructions: 80 mg po pm. last filled in Jun 30 2023 90 days methocarbamol 750 mg tablet 750 mg PO UD PRN (Reason: Muscle cramping) Rx Instructions: 750 mg po hs prn. last filled in august 2023 budesonide-formoterol [Symbicort] 80-4.5 mcg/actuation HFA aerosol inhaler 1 inh inhalation UD Rx Instructions: 1 inh inhalation bid. last filled november 2022 Discharge Orders: Discharge Order (Routine); Ordered 03/07/24 Ordered By: Major Jacques Admission Data Admit Date/Time: 03/03/24 14:27 Attending Provider: Major Jacques Admit Provider: Major Jacques Primary Care Provider: Corin Rader Other Providers: Major Jacques; Alexandru Pompa Other Interventions: Discharge Summary Assessment (RN) Last Done: 03/06/24 12:00 Hospital Stay Data Consultations 03/03/24 13:31 ED Decision to Admit Stat 03/03/24 14:29 Consult Urology Routine Diagnostic Imagining Performed 03/03/24 10:35 CT angio chest PE protocol Stat 03/03/24 11:44 CT Abd and Pelvis [CT abd pelvis IV con only] Stat 03/06/24 09:48 CT Abdomen and Pelvis [CT abd pelvis wo con] Urgent Pending Results Patient Have Any Pending Studies at Discharge: No Discharge Instructions Given to Patient (Per Discharging Provider) Use fentanyl patch every 3 days for pain control. Take Bactrim (trimethoprim/sulfamethoxazole) twice daily for 10 days for kidney infection and blood infection. Total Time Total Time Spent Total Time Spent (In Minutes): 45 minutes Coding Level of Care Code 25064 INP/OBS DISCH >30 MIN Diagnoses Acute left flank pain R10.9 Bacteremia R78.81 Acute UTI (urinary tract infection) N39.0 Sepsis A41.9 Paroxysmal atrial fibrillation I48.0
[2024-03-07 12:06] VITALS: BP 131/70
== END 2024-03-07 12:33 | disposition home or self-care (01) | DRG 872 ==
LOC: SUATTDRO → ED 10:08 → 2S 14:27
DX: N39.0 Urinary tract infection, site not specified; I10 Essential (primary) hypertension; A41.51 Sepsis due to Escherichia coli [E. coli]; Z79.82 Long term (current) use of aspirin; Z88.1 Allergy status to other antibiotic agents; Z88.0 Allergy status to penicillin; I48.0 Paroxysmal atrial fibrillation; N12 Tubulo-interstitial nephritis, not specified as acute or chronic; E78.5 Hyperlipidemia, unspecified; F17.210 Nicotine dependence, cigarettes, uncomplicated

== ENCOUNTER 2024-05-26 12:49 | Observation (INO) ==
--- NOTE | 2024-05-26 13:48 | Emergency Department Note ---
History of Present Illness General Chief complaint: Back Injury/Pain Stated complaint: BACK PAIN Time Seen by Provider: 05/26/24 13:27 History of Present Illness Maximum Pain Intensity: 8 This is a 63-year-old female that presents to the emergency department via private vehicle with complaints of "left low back pain". The patient notes history of L-spine surgery and ongoing left low back pain that has acutely worsened over time. The patient notes no recent trauma or injury. She notes last L-spine surgery was 10/07/[address] Schmidt. She had a follow-up about 1 to 2 weeks ago with spine and pain management and is awaiting insurance approval for a device for her spine. She is here today noting worsening of her left low back pain that radiates down the left leg with associated left leg tingling. She does note chronic weakness to the left leg. No bowel or bladder incontinence. No numbness or tingling in the genital region. There has not been no recent illness. No fever. No chills. No nausea or vomiting. No chest pain or shortness of breath. Low back pain worse with movement and mildly better with rest. She notes this is the same low back pain that she has been dealing with for some time now, rather has worsened. Home Medications Medication Instructions Recorded Confirmed Type multivitamin 1 tab PO QAM 10/28/20 05/26/24 History aspirin 81 mg tablet,delayed 81 mg PO UD 01/30/23 05/26/24 History release apixaban 5 mg tablet (Eliquis) 5 mg PO BID #180 tabs 11/29/23 05/26/24 Rx albuterol sulfate 90 mcg/actuation 1 - 2 puff inhalation Q4H PRN 12/19/23 05/26/24 Rx aerosol inhaler (Ventolin HFA) Shortness Of Breath #18 grams atorvastatin 80 mg tablet 80 mg PO UD 03/03/24 05/26/24 History budesonide-formoterol HFA 80 1 inh inhalation UD 03/03/24 05/26/24 History mcg-4.5 mcg/actuation aerosol inhaler (Symbicort) diltiazem HCl 120 mg 120 mg PO HS #90 caps 04/07/24 05/26/24 Rx capsule,extended release 24 hr colestipol 1 gram tablet 2 g PO UD 05/26/24 05/26/24 History hydrocodone 5 mg-acetaminophen 325 1 tab PO UD PRN pain 05/26/24 05/26/24 History mg tablet Allergies Allergy/AdvReac Type Severity Reaction Status Date / Time ceftriaxone [From Rocephin] Allergy Intermediate lightheaded Verified 04/07/24 15:50 lemon Allergy Intermediate Hives Verified 04/07/24 15:50 Penicillins Allergy Intermediate Hives Verified 04/07/24 15:50 bupropion [From Wellbutrin] AdvReac Intermediate Gastrointestinal Verified 04/07/24 15:50 Upset surgical syed Allergy Intermediate "infection Uncoded 04/07/24 15:50 at hysterectomy site d/t allergy from syed" Past Med/Surg History Problem List Lumbar back pain with radiculopathy affecting lower extremity (Acute) LLQ pain Bacteremia Acute left flank pain (Acute) S/P cystoscopy with ureteral stent placement (01/2023) H/O lithotripsy (Acute) Elevated lactic acid level (Acute) Leukocytosis (Acute) Nocturia Central stenosis of spinal canal (Acute) HTN (hypertension) PAD (peripheral artery disease) Decreased pedal pulses Vitamin D deficiency Diarrhea Hypokalemia Anxiety Prediabetes (Chronic) Dyslipidemia (Chronic) History of lumbar fusion x3--2015/ Paroxysmal atrial fibrillation on Eliquis, follows with [facility] cardiology Nephrolithiasis Tobacco use Medical History Depression Pyelonephritis Obesity HTN (hypertension) History of COVID-19 02/2020 History of kidney stones Asthma Insomnia Surgical History S/P lumbar discectomy H/O arthroscopy of right knee History of section x2 History of lithotripsy History of colonoscopy History of tooth extraction full upper denture [place] teeth removed S/P hysterectomy candy bso S/P appendectomy S/P cholecystectomy Family History Sister Afib Family history of diabetes mellitus Pancreatic cancer Heart disease Kidney stones Mother Afib Myocardial infarction Family history of diabetes mellitus Heart disease Father Prostate cancer Grandmother (Maternal) Family history of diabetes mellitus Brother Kidney stones Other No family history of adverse response to anesthesia Denies family history of Ovarian cancer Breast cancer Social History Smoking Status: Current every day smoker Tobacco Type: Cigarettes Age Started Using Tobacco: 16; packs per day: 0.75; Cigarettes Per Day: 10; Second Hand Exposure: No; Do You Dip or Chew Tobacco: No; Hx Alcohol Use: No Hx Substance Use: No Preferred Language: Bahamian Communication Ability: Effective Visual Impairment: No Limitations Hearing Ability: Normal Emergency Doctor Required: No Beliefs That Will Affect Care: None marital status: Current Living Situation: Alone current occupational status: retired 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 How many Children do You have: 2 How many Children do You have Comment: 2 living children 1 miscarry Other Information That Helps Us Care for You: No Feels Safe at Home: Yes Safety Concerns: Feels Safe At This Time Childhood Exposure to Second-Hand Smoke: No Diet: regular Diet Comment: regular caffeine: Yes during the past year weight has: increased > 10 lbs Dental Care, Regularly: No Physical Activity Frequency: Daily Seatbelt Use: always Sunscreen Use: Yes Assistive Devices: None Review of Systems A total of 10 systems reviewed and were otherwise negative Physical Exam Vital Signs Vital Signs - 24 hr 05/26/24 13:09 05/26/24 14:22 05/26/24 14:22 Temperature 36.4 C L Temperature Source Oral Pulse Rate 89 77 Pulse Rate [Apical] 76 Pulse Rate from SpO2 Sensor Pulse Rhythm [Apical] Pulse Strength [Apical] Respiratory Rate 18 12 12 Respiratory Effort / Characteristics Non-Labored Spontaneous Non-Labored Spontaneous Respiratory Depth Normal Normal Respiratory Pattern Regular Regular Blood Pressure 149/84 H Blood Pressure [Right Arm] Blood Pressure Mean 105 Blood Pressure Mean [Right Arm] Blood Pressure Position [Right Arm] Pulse Oximetry 96 95 95 Oxygen Delivery Method Room Air Room Air Room Air Oxygen Flow Rate Sepsis Recent Fever Within 48 Hours No Sepsis New/Unexplained Change in Mental Status N/A Sepsis Action Taken by Nursing No Action Required 05/26/24 14:37 05/26/24 14:39 05/26/24 14:40 Temperature Temperature Source Pulse Rate 76 73 74 Pulse Rate [Apical] Pulse Rate from SpO2 Sensor Pulse Rhythm [Apical] Pulse Strength [Apical] Respiratory Rate 18 15 Respiratory Effort / Characteristics Respiratory Depth Respiratory Pattern Blood Pressure Blood Pressure [Right Arm] Blood Pressure Mean Blood Pressure Mean [Right Arm] Blood Pressure Position [Right Arm] Pulse Oximetry 89 L 94 Oxygen Delivery Method Room Air Nasal Cannula Oxygen Flow Rate 2 Sepsis Recent Fever Within 48 Hours Sepsis New/Unexplained Change in Mental Status Sepsis Action Taken by Nursing 05/26/24 15:24 05/26/24 15:37 05/26/24 16:00 Temperature Temperature Source Pulse Rate 76 69 Pulse Rate [Apical] 74 Pulse Rate from SpO2 Sensor Pulse Rhythm [Apical] Regular Pulse Strength [Apical] Normal Respiratory Rate 17 20 20 Respiratory Effort / Characteristics Non-Labored Spontaneous Respiratory Depth Normal Respiratory Pattern Regular Blood Pressure 192/93 H 203/88 H Blood Pressure [Right Arm] 192/93 H Blood Pressure Mean 126 134 Blood Pressure Mean [Right Arm] 126 Blood Pressure Position [Right Arm] Sitting Pulse Oximetry 99 98 Oxygen Delivery Method Room Air Oxygen Flow Rate Sepsis Recent Fever Within 48 Hours Sepsis New/Unexplained Change in Mental Status Sepsis Action Taken by Nursing 05/26/24 16:30 Temperature Temperature Source Pulse Rate 74 Pulse Rate [Apical] Pulse Rate from SpO2 Sensor 74 Pulse Rhythm [Apical] Pulse Strength [Apical] Respiratory Rate 17 Respiratory Effort / Characteristics Respiratory Depth Respiratory Pattern Blood Pressure 182/100 H Blood Pressure [Right Arm] Blood Pressure Mean 127 Blood Pressure Mean [Right Arm] Blood Pressure Position [Right Arm] Pulse Oximetry 99 Oxygen Delivery Method Oxygen Flow Rate Sepsis Recent Fever Within 48 Hours Sepsis New/Unexplained Change in Mental Status Sepsis Action Taken by Nursing VITAL SIGNS - Vital signs and nursing notes were reviewed. Stable and afebrile. GENERAL -63-year-old female appearing her stated age who is in no acute distress but appears to be in pain and is tearful. Communicates well with provider and answers questions appropriately. SKIN - Without rashes. No meningeal or petechial rash. HEAD - NC/AT. EYES - PERRL with EOMI bilaterally. Sclera anicteric. EARS - No deformities of external structures noted on gross examination bilaterally. NOSE - Midline and without cyanosis. No epistaxis or purulent drainage noted. MOUTH/OROPHARYNX - Without perioral cyanosis. NECK - Neck with FROM. No nuchal rigidity. LUNGS - CTA CARDIAC - RRR ABDOMEN - Abdominal contour normal without pulsations or visible masses. BS normoactive all four quadrants. No tenderness, palpable masses, hepatosplenomegaly, or ascites noted. EXTREMITIES - No clubbing or peripheral cyanosis. Positive straight leg raise on the left +5/5 strength noted in UE/LE bilaterally. MSKthere is reproducible tenderness overlying the left low back paraspinous musculature and spinous processes. No crepitus NEUROLOGIC - Cranial nerves II through XII grossly intact. Patellar reflexes within normal limits bilaterally. PSYCH -alert, oriented and pleasant on exam. Course Administered Medications Acetaminophen (Acetaminophen 500 Mg Tab) 1,000 mg PO Q8H GURPREET Stop: 06/25/24 20:59 Last Admin: 05/26/24 21:44 Dose: 1,000 mg Documented By: ELLYN Aspirin (Aspirin 81 Mg Ectab) 81 mg PO Q2D GURPREET Stop: 06/25/24 20:59 Last Admin: 05/26/24 21:45 Dose: 81 mg Documented By: ELLYN Atorvastatin Calcium (Atorvastatin 40 Mg Tab) 80 mg PO HS GURPREET Stop: 06/25/24 20:59 Last Admin: 05/26/24 21:45 Dose: 80 mg Documented By: ELLYN Diltiazem HCl (Diltiazem Hcl 120 Mg Capcr) 120 mg PO HS GURPREET Stop: 06/25/24 20:59 Last Admin: 05/26/24 21:45 Dose: 120 mg Documented By: ELLYN Melatonin (Melatonin 3 Mg Tab) 3 mg PO HS PRN PRN Reason: Insomnia Stop: 06/25/24 20:43 Last Admin: 05/26/24 21:50 Dose: 3 mg Documented By: ELLYN Polyethylene Glycol (Polyethylene (Miralax) 17 Gm Pack) 17 gm PO DAILY GURPREET Stop: 06/25/24 20:43 Last Admin: 05/26/24 21:44 Dose: 17 gm Documented By: ELLYN Discontinued Medications Dexamethasone Sodium Phosphate (DexamethasonePf 10 Mg/Ml Vial) 10 mg IV NOW ONE Stop: 05/26/24 17:04 Last Admin: 05/26/24 17:21 Dose: 10 mg Documented By: AMANDA Hydromorphone HCl (Hydromorphone Inj 0.5 Mg/0.5 Ml Syr) 0.25 mg IV NOW STA Stop: 05/26/24 19:04 Last Admin: 05/26/24 20:47 Dose: 0.25 mg Documented By: ELLYN Ioversol (Optiray 320 100ml) 94 ml IV ONCE ONE Stop: 05/26/24 15:14 Last Admin: 05/26/24 15:13 Dose: 94 ml Documented By: FILEMON Miscellaneous (Patient's Height &/Or Weight Needed) 1 each N/A NOW STA Stop: 05/26/24 20:59 Last Admin: 05/26/24 20:59 Dose: 1 each Documented By: ELLYN Morphine Sulfate (Morphine Sulfate 4 Mg/Ml 1 Ml Carp\\Vial) 4 mg IV NOW STA Stop: 05/26/24 13:46 Last Admin: 05/26/24 14:16 Dose: 4 mg Documented By: HALEIGH Morphine Sulfate (Morphine Sulfate 2 Mg/Ml Carp) 2 mg IV NOW STA Stop: 05/26/24 15:37 Last Admin: 05/26/24 15:41 Dose: 2 mg Documented By: ANCA Ondansetron HCl (Ondansetron Inj 2 Mg/Ml 2 Ml Vial) 4 mg IV NOW STA Stop: 05/26/24 13:46 Last Admin: 05/26/24 14:18 Dose: 4 mg Documented By: HALEIGH Ondansetron HCl (Ondansetron Inj 2 Mg/Ml 2 Ml Vial) 4 mg IV NOW STA Stop: 05/26/24 16:18 Last Admin: 05/26/24 16:23 Dose: 4 mg Documented By: ANCA Medical Decision Making Laboratory Data 05/26/24 14:05 05/26/24 14:05 Lab Results 05/26/24 05/26/24 Range/Units 13:49 14:05 WBC 9.00 (4.8-10.8) K/ul RBC 4.51 (4.20-5.40) M/uL Hgb 12.6 (12.0-16.0) g/dl Hct 39.8 (37.0-47.0) % MCV 88.2 (80.0-100.0) fL MCH 27.9 (25.0-34.0) pg MCHC 31.7 L (32.0-36.0) g/dL RDW Std Deviation 53.6 H (36.4-46.3) fL RDW Coeff of Sylwia 16.6 H (11.5-14.5) % Plt Count 362 (130-400) K/uL MPV 8.9 L (9.4-12.4) fL Immature Gran % (Auto) 0.3 % Neut % (Auto) 64.8 % Lymph % (Auto) 22.4 % [place] % (Auto) 11.0 % Eos % (Auto) 0.7 % Baso % (Auto) 0.8 % Neut # (Auto) 5.83 (1.40-6.50) K/uL Lymph # (Auto) 2.02 (1.20-3.40) K/uL [place] # (Auto) 0.99 H (0.11-0.59) K/uL Eos # (Auto) 0.06 (0.00-0.50) K/uL Baso # (Auto) 0.07 (0.00-0.20) K/uL Immature Gran # (Auto) 0.03 (0.01-0.20) K/uL Sodium 140 (136-145) mmol/L Potassium 4.1 (3.5-5.1) mmol/L Chloride 106 (98-107) mmol/L Carbon Dioxide 26 (21-32) mmol/L Anion Gap 8 (3-11) BUN 12 (6-23) mg/dl Creatinine 0.81 (0.6-1.2) mg/dl Est Cr Clr Drug Dosing Not Reportable eGFR 80.51 BUN/Creatinine Ratio 14.8 (10-20) Glucose 85 (70-99(Fasting)) mg/dl Calcium 9.7 (8.6-10.3) mg/dl Total Bilirubin 0.3 (0.2-1.0) mg/dl AST 14 (13-39) U/L ALT 11 (7-52) U/L Alkaline Phosphatase 101 (34-104) U/L Troponin I High Sens < 2.3 (0-14) pg/ml Total Protein 7.7 (6.0-8.3) gm/dl Albumin 4.1 (3.4-5.0) gm/dl Globulin 3.6 (2.5-4.0) gm/dl Albumin/Globulin Ratio 1.1 (0.9-2) Lipase 7 L (11-82) U/L Urine Color Yellow Urine Appearance Clear (Clear) Urine pH 6.0 (4.5-7.5) Ur Specific [place] 1.006 (1.000-1.030) Urine Protein Negative (Negative) Urine Glucose (UA) Negative (Negative) Urine Ketones Negative (Negative) Urine Blood Trace H (Negative) Urine Nitrite Negative (Negative) Urine Bilirubin Negative (Negative) Urine Urobilinogen Negative (Negative) Ur Leukocyte Esterase Negative (Negative) Urine WBC (Auto) 0-5 (0-5) /hpf Urine RBC (Auto) 0-2 (0-2) /hpf U Hyaline Cast (Auto) 0-2 (0-2) /lpf U Epithel Cells (Auto) 0-2 (0-2) /hpf Urine Bacteria (Auto) None Seen (None Seen) Imaging Data Radiologist's Impression: Abdomen/Pelvis CT 05/26/24 13:[address] WITH IV CONTRAST CT DOSE: 1260.94 mGy.cm HISTORY: L low back pain TECHNIQUE: Multiaxial CT images of the abdomen and pelvis were performed following the IV administration of 90 cc of Optiray, A dose lowering technique was utilized adhering to the principles of ALARA. COMPARISON STUDY: 03/06/2024 FINDINGS: ABDOMEN: Stable cholecystectomy with stable mild distention of the common bile duct, common after gallbladder removal. Otherwise the liver, spleen, pancreas, and adrenal glands are unremarkable. Stable calculus inferior left kidney. There is no hydronephrosis or ureteral calculi bilaterally. There are a few stable cysts at the kidneys. There are scattered atherosclerotic calcifications. No abdominal aortic aneurysm. Pelvis: Uterus is absent. No adnexal mass. Urinary bladder is nondistended. There is sigmoid diverticulosis. No acute diverticulitis. There is mild retained stool. No bowel inflammation or obstruction. No free fluid, free air, or abscess. No enlarged adenopathy. Osseous structures: Stable lumbar metallic fusion. No acute osseous finding seen. IMPRESSION: No acute findings. ACT 112: Negative or not required by law. The above report was generated using voice recognition software. It may contain grammatical, syntax or spelling errors. Electronically signed by: Evan Emerson M.D. 05/26/2024 3:[address] 05/26/24 13:45 CT lumbar spine w con HISTORY: 63 years-old Female L low back pain acute low back pain without reported trauma COMPARISON: CT abdomen and pelvis 03/06/2024, MRI lumbar spine 02/05/2024 TECHNIQUE: Multiple axial CT images of the lumbar spine were obtained without IV contrast. A dose lowering technique was used consistent with the principals of ALARA. FINDINGS: L3 and L5 laminectomy changes redemonstrated. Posterior and bilateral reta and screw fusion hardware with discectomy again noted at L3-S1 with evidence of prior L5 screw removal. There is no evidence of acute hardware fracture or loosening. The spacer at L4-L5 is again noted to be somewhat posteriorly positioned within the disc space. Mild to moderate degeneration of the SI joints. Streak artifact from the hardware limits the study. No acute fracture, subluxation or osseous erosion. No significant paravertebral edema. Mild lumbar levoscoliosis. Moderate atherosclerosis of the abdominal aorta within infrarenal distal aortic ectasia measuring 2.8 cm. Cholecystectomy with likely postsurgical biliary ductal dilation. Cortical scarring of the left kidney. Evaluation of the central canal and neural foramen is better assessed by MRI. There is redemonstration of spondylitic spurring with circumferential annular disc bulging at L2-L3 in conjunction with moderate facet arthrosis which flattens the ventral thecal sac and causes mild to moderate bilateral foraminal stenosis. IMPRESSION: 1. No acute fracture or subluxation identified. 2. Degenerative and postoperative changes as above without evidence of acute hardware complication. 3. Annular disc bulging redemonstrated at L2-L3 with mild to moderate bilateral foraminal narrowing, similar to the prior MRI lumbar spine from 02/05/2024. ACT 112: Negative or not required by law. The above report was generated using voice recognition software. It may contain grammatical, syntax or spelling errors. Electronically signed by: Jc Ramos M.D. 05/26/2024 4:02 PM MDM Narrative Patient was seen and evaluated as above in room D01a. Review was performed of triage nursing notes and vital signs. I did review pertinent previous visits and patient history. After obtaining a thorough history and physical examination the above work up was performed. Patient presents to us today for evaluation of low back pain. The patient has had pain for quite some time now. On my examination there are no deficits. No evidence of cauda equina syndrome clinically. Options of care were discussed with the patient. IV access was established. Labs were drawn. There is no leukocytosis or concerning anemia. No emergent metabolic disturbance. Lipase and troponin are within normal range. Urinalysis does not suggest infection. A CT scan was obtained of the abdomen/pelvis with L-spine recons. No acute findings on the abdomen/pelvis. Annular disc bulge noted at L2-L3 similar to MRI dated 02/05/2024. Patient continues with low back pain despite multiple analgesics here. She did have some nausea which may have been from the morphine and was mitigated with Zofran. When that persisted that was when troponin, lipase and the EKG was added and fortunately labs were overall okay. EKG from interpretation reveals normal sinus rhythm at a rate of 72 bpm. QTc 470. QRS 90. No ST elevation on this rhythm tracing. Noting patient's continued low back pain I do believe that further evaluation and management in the inpatient setting is warranted. Case discussed with the hospitalist service. Please refer to further documentation regarding her stay. GCS: 15 In the evaluation and treatment of this patient the following differential diagnoses were entertained: Fracture, dislocation, subluxation, contusion, sprain, strain, among others. Impression & Plan Lumbar back pain with radiculopathy affecting lower extremity Discharge Plan Visit Data Chief Complaint: Back Injury/Pain Stated Complaint: BACK PAIN ED Provider: Xochitl Simpson ED Midlevel Provider: Clarence Yan Discharge Problem: Lumbar back pain with radiculopathy affecting lower extremity Patient Disposition: Admitted As Inpatient Condition: Good Discharge Instructions Interventions: ED Discharge Assessment Last Done: 05/26/24 20:28
[2024-05-26 14:05] LABS: Appearance Urine Clear (Clear); Bacteria Urine Automated None Seen (None Seen); Bilirubin Urine Negative (Negative); Blood Urine Trace (Negative); Cast Urine Automated 0-2 /lpf (0-2); Color Urine Yellow; Epithelial Cell Urine Auto 0-2 /hpf (0-2); Glucose Urine UA Negative (Negative); Ketones Urine Negative (Negative); Leukocyte Esterase Urine Negative (Negative); Nitrite Urine Negative (Negative); Protein Urine Negative (Negative); RBC Urine Automated 0-2 /hpf (0-2); Specific Gravity Urine 1.006 (1.000-1.030); Urobilinogen Urine Negative (Negative); WBC Urine Automated 0-5 /hpf (0-5)
[2024-05-26] MEDS: MoRPHine SULFATE 4 MG/ML 1 ML CARP\\VIAL IV STA (14:16)
[2024-05-26] MEDS: ONDANSETRON INJ 2 MG/ML 2 ML VIAL IV STA ×2 (14:18→16:23)
[2024-05-26 14:34] LABS: Basophils # (auto) 0.07 K/uL (0.00-0.20); Basophils % (auto) 0.8 %; Eosinophils # (auto) 0.06 K/uL (0.00-0.50); Eosinophils % (auto) 0.7 %; Hematocrit (blood only) 39.8 % (37.0-47.0); Hemoglobin 12.6 g/dl (12.0-16.0); Immature Granulocytes # (auto) 0.03 K/uL (0.01-0.20); Immature Granulocytes % (auto) 0.3 %; Lymphocytes # (auto) 2.02 K/uL (1.20-3.40); Lymphocytes % (auto) 22.4 %; Mean Corpuscular Hemoglobin 27.9 pg (25.0-34.0); Mean Corpuscular Hgb Conc 31.7 g/dL (32.0-36.0); Mean Corpuscular Volume 88.2 fL (80.0-100.0); Mean Platelet Volume 8.9 fL (9.4-12.4); Monocytes # (auto) 0.99 K/uL (0.11-0.59); Neutrophils # (auto) 5.83 K/uL (1.40-6.50); Neutrophils % (auto) 64.8 %; Platelet Count 362 K/uL (130-400); RDW Coefficient of Variation 16.6 % (11.5-14.5); RDW Standard Deviation 53.6 fL (36.4-46.3); Red Blood Count 4.51 M/uL (4.20-5.40)
[2024-05-26 15:00] LABS: Alanine Aminotransferase 11 U/L (7-52); Albumin Globulin Ratio 1.1 (0.9-2); Albumin Level 4.1 gm/dl (3.4-5.0); Alkaline Phosphatase 101 U/L (34-104); Anion Gap 8 (3-11); Aspartate Aminotransferase 14 U/L (13-39); BUN Creatinine Ratio 14.8 (10-20); Bilirubin,Total 0.3 mg/dl (0.2-1.0); Blood Urea Nitrogen 12 mg/dl (6-23); Calcium 9.7 mg/dl (8.6-10.3); Carbon Dioxide 26 mmol/L (21-32); Chloride 106 mmol/L (98-107); Globulin 3.6 gm/dl (2.5-4.0); Glucose 85 mg/dl (70-99(Fasting)); Potassium 4.1 mmol/L (3.5-5.1); Sodium 140 mmol/L (136-145); Total Protein 7.7 gm/dl (6.0-8.3)
[2024-05-26] MEDS: OPTIRAY 320 100ml IV ONE (15:13)
--- NOTE | 2024-05-26 15:39 | CT Scan Report ---
ABDOMEN AND PELVIS CT WITH IV CONTRAST CT DOSE: 1260.94 mGy.cm HISTORY: L low back pain TECHNIQUE: Multiaxial CT images of the abdomen and pelvis were performed following the IV administrat ion of 90 cc of Optiray, A dose lowering technique was utilized adhering to the principles of ALARA. COMPARISON STUDY: 03/06/2024 FINDINGS: ABDOMEN: Stable cholecystectomy with stable mild distention of the common bile duct, common after gal lbladder removal. Otherwise the liver, spleen, pancreas, and adrenal glands are unremarkable. Stable calculus inferior left kidney. There is no hydronephrosis or ureteral calculi bilaterally. There are a few stable cysts at the kidneys. There are scattered atherosclerotic calcifications. No abdominal a ortic aneurysm. Pelvis: Uterus is absent. No adnexal mass. Urinary bladder is nondistended. There is sigmoid divertic ulosis. No acute diverticulitis. There is mild retained stool. No bowel inflammation or obstruction. No free fluid, free air, or abscess. No enlarged adenopathy. Osseous structures: Stable lumbar metallic fusion. No acute osseous finding seen. IMPRESSION: No acute findings. ACT 112: Negative or not required by law. The above report was generated using voice recognition software. It may contain grammatical, syntax o r spelling errors. Electronically signed by: Evan Emerson M.D. 05/26/2024 3:36 PM
[2024-05-26] MEDS: MoRPHine SULFATE 2 MG/ML CARP IV STA (15:41)
--- NOTE | 2024-05-26 16:03 | CT Scan Report ---
CT lumbar spine w con HISTORY: 63 years-old Female L low back pain acute low back pain without reported trauma COMPARISON: CT abdomen and pelvis 03/06/2024, MRI lumbar spine 02/05/2024 TECHNIQUE: Multiple axial CT images of the lumbar spine were obtained without IV contrast. A dose low ering technique was used consistent with the principals of JOI. FINDINGS: L3 and L5 laminectomy changes redemonstrated. Posterior and bilateral reta and screw fusion hardware w ith discectomy again noted at L3-S1 with evidence of prior L5 screw removal. There is no evidence of acute hardware fracture or loosening. The spacer at L4-L5 is again noted to be somewhat posteriorly p ositioned within the disc space. Mild to moderate degeneration of the SI joints. Streak artifact from the hardware limits the study. No acute fracture, subluxation or osseous erosion. No significant par avertebral edema. Mild lumbar levoscoliosis. Moderate atherosclerosis of the abdominal aorta within infrarenal distal aortic ectasia measuring 2.8 cm. Cholecystectomy with likely postsurgical biliary ductal dilation. Cortical scarring of the left kidney. Evaluation of the central canal and neural foramen is better assessed by MRI. There is redemonstratio n of spondylitic spurring with circumferential annular disc bulging at L2-L3 in conjunction with mode rate facet arthrosis which flattens the ventral thecal sac and causes mild to moderate bilateral fora deb stenosis. IMPRESSION: 1. No acute fracture or subluxation identified. 2. Degenerative and postoperative changes as above without evidence of acute hardware complication. 3. Annular disc bulging redemonstrated at L2-L3 with mild to moderate bilateral foraminal narrowing, similar to the prior MRI lumbar spine from 02/05/2024. ACT 112: Negative or not required by law. The above report was generated using voice recognition software. It may contain grammatical, syntax o r spelling errors. Electronically signed by: Jc Ramos M.D. 05/26/2024 4:02 PM
[2024-05-26 16:47] LABS: Lipase 7 U/L (11-82)
[2024-05-26] MEDS: dexAMETHasone**PF** 10 MG/ML VIAL IV ONE (17:21)
--- NOTE | 2024-05-26 17:21 | History & Physical Report ---
Date of Service May 26, 2024 Assessment & Plan (1) Lumbar disc disease with radiculopathy: (2) LLQ pain: (3) Paroxysmal atrial fibrillation: (4) Dyslipidemia: Raisa Coker is a 63-year-old female with PMH of paroxysmal atrial fibrillation (on Eliquis), tobacco use, dyslipidemia, anxiety, depression, and HTN. Presents to the ER with worsening back pain without exacerbating event. Initial evaluation without infectious cause, CT A/P showing mild retained stool but no other acute findings. L-Spine CT showing postoperative changes without evidence of hardware complication, disc bulging at L2-L3 with mild to moderate bilateral foraminal narrowing, but this is similar to MRI from 01/2024. Admitted for pain control and further workup. #Acute on Chronic Lumbar Back Pain No fevers/chills, urinary/fecal incontinence, loss of sensation Continue 6mg IV Dexamethasone Daily Left leg weakness on exam - MRI ordered Consult Orth[facility]Spine - Dr. Schmidt (pending dorsal column stimulator) Pain control: Schedule PO tylenol, PRN PO oxycodone, prn morphine for breakthrough #LLQ pain No findings on CT A/P besides mild retained stool - will add miralax daily No chest pain, trop negative, no EKG changes. However pt notes being told by someone at [facility] that she had blockage on her left side that "impacts her nerves from getting blood flow" - unclear how this was diagnosed or what it is. Patient already received IV contrast today, will order CT with run off for AM - consider IVF pending AM BMP Also having nausea she was not having pre hospital #Paroxysmal atrial fibrillation | HLD Continue Diltiazem Continue statin and Aspirin Hold Eliquis #Tobacco Use Encourage cessation Declines nicotine patch Dispo: obs to med/tele DVT proh: Eliquis hold, reassess 05/27 after further imaging CODE STATUS: FULL CODE Family updated at bedside 05/26 History of Present Illness Chief Complaint: back pain Primary Care Provider: Corin Rader MD Sheela is a 63-year-old female with PMH of paroxysmal atrial fibrillation (on Eliquis), tobacco use, dyslipidemia, anxiety, depression, and HTN. Presents to the ER with worsening back pain. Hx of back surgeries with Dr. Schmidt, last one in 2021. Has recently been seen in his office and plan for pain management for trial of dorsal column stimulator however she is waiting insurance approval. Reports pain has been really bag the last two days. Taking oxycodone at home with minimal relief. Denies any recent trauma, no heavy lifitng, or falls - or aggravating event. She lives alone and knows she needs to take care of herself. Pain radiates down her left leg. Reports that she was told she has some blockage in her left leg that "has less blood flow to her nerves". Thinks this was diagnosed at [facility]. Reports 3 BM yesterday. She did not have nausea prior to arriving to hospital. Smokes cigarettes - declines nicotine patch, reports that causes her to be chronically short of breath. ED course: morphine 2mg x 1 zofran 4mg x 2 morphine 4mg x1 Dexamethasone 10mg IV x 1 Allergies Allergy/AdvReac Type Severity Reaction Status Date / Time ceftriaxone [From Rocephin] Allergy Intermediate lightheaded Verified 04/07/24 15:50 lemon Allergy Intermediate Hives Verified 04/07/24 15:50 Penicillins Allergy Intermediate Hives Verified 04/07/24 15:50 bupropion [From Wellbutrin] AdvReac Intermediate Gastrointestinal Verified 04/07/24 15:50 Upset surgical syed Allergy Intermediate "infection Uncoded 04/07/24 15:50 at hysterectomy site d/t allergy from syed" Home Medications Medication Instructions Recorded Confirmed Type multivitamin 1 tab PO QAM 10/28/20 05/26/24 History aspirin 81 mg tablet,delayed 81 mg PO UD 01/30/23 05/26/24 History release apixaban 5 mg tablet (Eliquis) 5 mg PO BID #180 tabs 11/29/23 05/26/24 Rx albuterol sulfate 90 mcg/actuation 1 - 2 puff inhalation Q4H PRN 12/19/23 05/26/24 Rx aerosol inhaler (Ventolin HFA) Shortness Of Breath #18 grams atorvastatin 80 mg tablet 80 mg PO UD 03/03/24 05/26/24 History budesonide-formoterol HFA 80 1 inh inhalation UD 03/03/24 05/26/24 History mcg-4.5 mcg/actuation aerosol inhaler (Symbicort) diltiazem HCl 120 mg 120 mg PO HS #90 caps 04/07/24 05/26/24 Rx capsule,extended release 24 hr colestipol 1 gram tablet 2 g PO UD 05/26/24 05/26/24 History hydrocodone 5 mg-acetaminophen 325 1 tab PO UD PRN pain 05/26/24 05/26/24 History mg tablet Past Med/Surg History Problem List LLQ pain Bacteremia Acute left flank pain (Acute) S/P cystoscopy with ureteral stent placement (01/2023) H/O lithotripsy (Acute) Elevated lactic acid level (Acute) Leukocytosis (Acute) Nocturia Central stenosis of spinal canal (Acute) HTN (hypertension) PAD (peripheral artery disease) Decreased pedal pulses Vitamin D deficiency Diarrhea Hypokalemia Anxiety Prediabetes (Chronic) Dyslipidemia (Chronic) History of lumbar fusion x3--2015/2016/2021 Paroxysmal atrial fibrillation on Eliquis, follows with [facility] cardiology Nephrolithiasis Tobacco use Medical History Depression Pyelonephritis Obesity HTN (hypertension) History of COVID-19 02/2020 History of kidney stones Asthma Insomnia Surgical History S/P lumbar discectomy H/O arthroscopy of right knee History of section x2 History of lithotripsy History of colonoscopy History of tooth extraction full upper denture Vantage teeth removed S/P hysterectomy candy bso S/P appendectomy S/P cholecystectomy Family History Sister Afib Family history of diabetes mellitus Pancreatic cancer Heart disease Kidney stones Mother Afib Myocardial infarction Family history of diabetes mellitus Heart disease Father Prostate cancer Grandmother (Maternal) Family history of diabetes mellitus Brother Kidney stones Other No family history of adverse response to anesthesia Denies family history of Ovarian cancer Breast cancer Social History Smoking Status: Current every day smoker Tobacco Type: Cigarettes Age Started Using Tobacco: 16; packs per day: 0.75; Cigarettes Per Day: half pack; Second Hand Exposure: No; Do You Dip or Chew Tobacco: No; Hx Alcohol Use: No Hx Substance Use: No Preferred Language: Swedish Communication Ability: Effective Visual Impairment: No Limitations Hearing Ability: Normal Channel Account Manager Required: No Beliefs That Will Affect Care: None marital status: Current Living Situation: Alone current occupational status: retired 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 How many Children do You have: 2 How many Children do You have Comment: 2 living children 1 miscarry Feels Safe at Home: Yes Childhood Exposure to Second-Hand Smoke: No Diet: regular Diet Comment: regular caffeine: Yes during the past year weight has: increased > 10 lbs Dental Care, Regularly: No Physical Activity Frequency: Daily Seatbelt Use: always Sunscreen Use: Yes Assistive Devices: None Review of Systems Review of Systems: All systems reviewed & are unremarkable except as noted in Subjective Physical Exam Physical Exam: General: NAD, VS as above, initially seen ambulating in the room, surface hoping, clearly in pain Resp: normal respiratory effort, lungs diminished in bases CV: RRR, no murmur, Abd: normal bowel sounds, significant LLQ pain Extremities: Moves all extremities, decreased strength to the left leg when lifting off the bed Neuro: A&O x3, Skin: intact, no lesions noted Results & Data Results & Data Vital Signs (Past 12 Hours) Vital Signs Temp Pulse Pulse Resp BP BP Pulse Ox 05/26/24 16:30 74 17 182/100 H 99 05/26/24 16:00 69 20 203/88 H 98 05/26/24 15:37 74 20 192/93 H 99 05/26/24 15:24 76 17 192/93 H 05/26/24 14:40 74 15 94 05/26/24 14:39 73 18 89 L 05/26/24 14:37 76 05/26/24 14:22 77 12 95 05/26/24 14:22 76 12 95 05/26/24 13:09 97.5 F L 89 18 149/84 H 96 O2 Del Method O2 Flow Rate 05/26/24 16:30 05/26/24 16:00 05/26/24 15:37 Room Air 05/26/24 15:24 05/26/24 14:40 Nasal Cannula 2 05/26/24 14:39 Room Air 05/26/24 14:37 05/26/24 14:22 Room Air 05/26/24 14:22 Room Air 05/26/24 13:09 Room Air Laboratory Results cbc, chemistry, troponin and liapse reviewed Diagnostic Findings CT A/P reviewed L-spine CT reviewed Supervising Physician Co-Signing Physician Notes Patient was seen and examined independently I discussed the case with Nia KNOTT I reviewed pertinent past medical social family history and also the plan of care and agree with the plan of care. Patient is previously seen by [facility] and is scheduled for consideration of a spinal cord stimulator. Patient's had a flareup of her discomfort over the last 2 days with worsening left leg discomfort. She states that she was in the office and they told her she had some issue with blood flow to her nerves in her left side and she is having increasing left-sided abdominal discomfort. She did CT scan of the abdomen on presentation without any evidence of intra-abdominal pathology. She states that she has some paresthesias to her foot but it is her complete foot not not lateralizing her to one side or the other. Her reflexes are brisk and equal bilaterally. She has some disc difficulty raising her left leg straight due to pain but her right leg is able to be raise without difficulty. Concern for radicular leg pain. MRI will be undertaken consult Dr. Schmidt. Steroids and parenteral pain control. PT/OT evaluation. Concern for intra-abdominal vascular insufficiency CTA with runoff will be ordered. Any exceptions will be noted below PG Care Time/CCT Total # of Minutes Spent Total Time Spent with Patient: Total time spent is greater than 50% in coordination of care (as documented) at patient's floor/unit and/or counseling patient: Coding Level of Care Code 03001 INT INP/OBS CARE 3/75MIN Diagnoses Lumbar disc disease with radiculopathy M51.16 LLQ pain R10.32 Paroxysmal atrial fibrillation I48.0 Dyslipidemia E78.5
[2024-05-26 17:27] LABS: Troponin I High Sensitivity < 2.3 pg/ml (0-14)
[2024-05-26] MEDS ORDERED: ALBUTEROL HFA 8 GM INHALER INH PRN (20:44)
[2024-05-26] MEDS: HYDROmorphone INJ 0.5 MG/0.5 ML SYR IV STA (20:47)
[2024-05-26] MEDS: Patient's HEIGHT &/or WEIGHT Needed STA (20:59)
[2024-05-26] MEDS: POLYETHYLENE (MIRALAX) 17 GM PACK PO SCH (21:44)
[2024-05-26] MEDS: ACETAMINOPHEN 500 MG TAB PO SCH (21:44)
[2024-05-26] MEDS: ATORVASTATIN 40 MG TAB PO SCH (21:45)
[2024-05-26] MEDS: dilTIAZem HCL 120 MG CAPCR PO SCH (21:45)
[2024-05-26] MEDS: ASPIRIN 81 MG ECTAB PO SCH (21:45)
[2024-05-26] MEDS: MELATONIN 3 MG TAB PO PRN (21:50)
[2024-05-26] MEDS: ONDANSETRON INJ 2 MG/ML 2 ML VIAL IV PRN (22:41)
[2024-05-26] MEDS: MoRPHine SULFATE 2 MG/ML CARP IV PRN (22:41)
--- NOTE | 2024-05-26 23:25 | Magnetic Resonance Report ---
Exam(s): MRI L SPINE Without Contrast EXAM: MR Lumbar Spine Without Intravenous Contrast CLINICAL HISTORY: Reason for exam: acute on chronic left sided back pain. TECHNIQUE: Magnetic resonance images of the lumbar spine without intravenous contrast in multiple planes. COMPARISON: CT lumbar spine 05/26/2024. FINDINGS: No acute fracture. Trace retrolisthesis at L2-3. Disc spacers at L3-4, L4-5, and L5-S1. Posterior pedicle screw and reta construct from L3-S1. Normal appearance of the conus which terminates at L1. L1-L2: Trace left paracentral disc protrusion. No stenosis. L2-L3: Trace retrolisthesis with a diffuse disc bulge and facet hypertrophy. Mild canal stenosis. Mild bilateral foraminal stenosis. L3-4: Discectomy and posterior decompression. No stenosis. L4-5: Discectomy and posterior decompression. No stenosis. L5-S1: Discectomy and posterior decompression. No stenosis. IMPRESSION: 1. No acute abnormality. 2. Degenerative disc disease is pronounced at L2-3. No critical stenosis. Electronically signed by: Tonio Shetty MD 05/26/24 23:24 PM
[2024-05-27 07:11] LABS: Hematocrit (blood only) 38.2 % (37.0-47.0); Hemoglobin 12.5 g/dl (12.0-16.0); Mean Corpuscular Hemoglobin 28.9 pg (25.0-34.0); Mean Corpuscular Hgb Conc 32.7 g/dL (32.0-36.0); Mean Corpuscular Volume 88.4 fL (80.0-100.0); Mean Platelet Volume 9.2 fL (9.4-12.4); Platelet Count 372 K/uL (130-400); RDW Coefficient of Variation 16.3 % (11.5-14.5); RDW Standard Deviation 52.8 fL (36.4-46.3); Red Blood Count 4.32 M/uL (4.20-5.40); White Blood Count 6.74 K/ul (4.8-10.8)
[2024-05-27 07:36] LABS: BUN Creatinine Ratio 22.1 (10-20); Calcium 9.7 mg/dl (8.6-10.3); Creatinine Clr Calc Pharmacy 81.4 ml/min; Potassium 4.6 mmol/L (3.5-5.1)
[2024-05-27] MEDS: FLUTICASONE/VILANTEROL 100/25MCG 14 PUFFS/INHALER INH SCH (07:52)
[2024-05-27] MEDS: dexAMETHasone 6 MG in SYRINGE 0 ML IV SCH (07:52)
[2024-05-27] MEDS: oxyCODONE HCL IR 5 MG TAB (IMMEDIATE RELEASE) PO PRN (10:59)
[2024-05-27] MEDS: COLESTIPOL HCL 1 GM TAB PO SCH (11:01)
[2024-05-27] MEDS: OPTIRAY 320 125ml IV ONE (11:36)
--- NOTE | 2024-05-27 11:36 | Electrocardiogram Report ---
Test Reason : Blood Pressure : */* mmHG Vent. Rate : 72 BPM Atrial Rate : 72 BPM P-R Int : 160 ms QRS Dur : 90 ms QT Int : 430 ms P-R-T Axes : 57 -21 71 degrees QTcB Int : 470 ms Normal sinus rhythm Normal ECG Confirmed by Eliseo Reeder ([id number]) on 05/27/2024 11:36:16 AM Referred By: REFERRED SELF Confirmed By: Eliseo Reeder
--- NOTE | 2024-05-27 16:34 | Hospitalist Progress Note ---
Date of Service May 27, 2024 Assessment & Plan (1) Lumbar disc disease with radiculopathy: (2) LLQ pain: (3) Paroxysmal atrial fibrillation: (4) Dyslipidemia: Raisa Coker is a 63-year-old female with PMH of paroxysmal atrial fibrillation (on Eliquis), tobacco use, dyslipidemia, anxiety, depression, and HTN. Presents to the ER with worsening back pain without exacerbating event. Initial evaluation without infectious cause, CT A/P showing mild retained stool but no other acute findings. L-Spine CT showing postoperative changes without evidence of hardware complication, disc bulging at L2-L3 with mild to moderate bilateral foraminal narrowing, but this is similar to MRI from 01/2024. Admitted for pain control and further workup. #Acute on Chronic Lumbar Back Pain No fevers/chills, urinary/fecal incontinence, loss of sensation Continue 6mg IV Dexamethasone Daily MRI lumbar spine 05/26/2024 shows no acute abnormality but degenerative disc disease more pronounced at L2-3 no critical stenosis was seen Patient is seeing outpatient orthopedics pending dorsal column stimulator attempted symptom control with return to the outpatient referral Pain control: Schedule PO tylenol, PRN PO oxycodone, prn morphine for breakthrough However pt notes being told by someone at [facility] that she had blockage on her left side that "impacts her nerves from getting blood flow" - unclear how this was diagnosed or what it is. CT scan of the abdomen pelvis did not show any intra- abdominal vascular abnormalities #Paroxysmal atrial fibrillation | HLD Continue Diltiazem Continue statin and Aspirin Resume Eliquis as no surgical intervention is planned #Tobacco Use Encourage cessation Declines nicotine patch PT/OT evaluation to determine if able to go home CODE STATUS: FULL CODE Admission and Anticipated Discharge Date Admission Date: May 26, 2024 Subjective pt states that her pain is improved and I helped her walk across her room, she still is a bit shakey and will have PT/OT eval Physical Exam Physical Exam: awake and alert, oriented cardiac is regular LE strength is equal bilaterally, Results & Data Results & Data Vital Signs (Past 12 Hours) Vital Signs Temp Pulse Resp BP Pulse Ox O2 Del Method 05/27/24 15:51 98.2 F 82 19 144/72 H 95 Room Air 05/27/24 07:37 Room Air 05/27/24 07:19 97.7 F 81 18 129/73 94 Room Air Laboratory Results . Reviewed CBC Reviewed chemistry Ordered B12 and TSH for the a.m. of 05/28 PG Care Time/CCT Total # of Minutes Spent Total Time Spent with Patient: Total time spent is greater than 50% in coordination of care (as documented) at patient's floor/unit and/or counseling patient: Coding Level of Care Code 12547 SUB INP/OBS CARE 3/50MIN Diagnoses Lumbar disc disease with radiculopathy M51.16 LLQ pain R10.32 Paroxysmal atrial fibrillation I48.0 Dyslipidemia E78.5
[2024-05-27] MEDS: APIXABAN 5 MG TABLET PO SCH (21:17)
[2024-05-27 21:21] VITALS: RESP 18
[2024-05-28] MEDS: tiZANidine HCL 4 MG TABLET PO SCH (13:05)
[2024-05-28 15:20] VITALS: TEMP 97.9; O2SAT 92
[2024-05-28] MEDS: Nursing to Pharmacy Communication SCH (15:30)
--- NOTE | 2024-05-28 17:42 | Discharge Summary ---
Discharge Summary Date of Service May 28, 2024 Principal Dx & Hospital Course #1 = Principal Diagnosis (1) Lumbar disc disease with radiculopathy: she will f/u with pain management and surgery (2) LLQ pain: (3) Paroxysmal atrial fibrillation: (4) Dyslipidemia: Raisa Coker is a 63-year-old female with PMH of paroxysmal atrial fibrillation (on Eliquis), tobacco use, dyslipidemia, anxiety, depression, and HTN. Presents to the ER with worsening back pain without exacerbating event. Initial evaluation without infectious cause, CT A/P showing mild retained stool but no other acute findings. L-Spine CT showing postoperative changes without evidence of hardware complication, disc bulging at L2-L3 with mild to moderate bilateral foraminal narrowing, but this is similar to MRI from 01/2024. Admitted for pain control and further workup. #Acute on Chronic Lumbar Back Pain No fevers/chills, urinary/fecal incontinence, loss of sensation Continue 6mg IV Dexamethasone Daily MRI lumbar spine 05/26/2024 shows no acute abnormality but degenerative disc disease more pronounced at L2-3 no critical stenosis was seen Patient is seeing outpatient orthopedics pending dorsal column stimulator attempted symptom control with return to the outpatient referral Pain control: Schedule PO tylenol, PRN PO oxycodone, prn morphine for breakthrough However pt notes being told by someone at [facility] that she had blockage on her left side that "impacts her nerves from getting blood flow" - unclear how this was diagnosed or what it is. CT scan of the abdomen pelvis did not show any intra-a bdominal vascular abnormalities #Paroxysmal atrial fibrillation | HLD Continue Diltiazem Continue statin and Aspirin Resume Eliquis as no surgical intervention is planned #Tobacco Use Encourage cessation Declines nicotine patch PT/OT evaluation to determine if able to go home CODE STATUS: FULL CODE Admission HPI Per Admitting Provider Sheela is a 63-year-old female with PMH of paroxysmal atrial fibrillation (on Eliquis), tobacco use, dyslipidemia, anxiety, depression, and HTN. Presents to the ER with worsening back pain. Hx of back surgeries with Dr. Schmidt, last one in 2021. Has recently been seen in his office and plan for pain management for trial of dorsal column stimulator however she is waiting insurance approval. Reports pain has been really bag the last two days. Taking oxycodone at home with minimal relief. Denies any recent trauma, no heavy lifitng, or falls - or aggravating event. She lives alone and knows she needs to take care of herself. Pain radiates down her left leg. Reports that she was told she has some blockage in her left leg that "has less blood flow to her nerves". Thinks this was diagnosed at [facility] [place]. Reports 3 BM yesterday. She did not have nausea prior to arriving to hospital. Smokes cigarettes - declines nicotine patch, reports that causes her to be chronically short of breath. ED course: morphine 2mg x 1 zofran 4mg x 2 morphine 4mg x1 Dexamethasone 10mg IV x 1 Discharge Exam VITALS: Reviewed. WEIGHT/BMI reviewed. GEN: Healthy appearing, well-developed, NAD. -Head: NC/AT; -Mouth and throat: MMM. Normal gums, mucosa, palate,. Good dentition. NECK: Supple, with no masses. CV: RRR, no m/r/g. LUNGS: CTAB, no w/r/c. ABD: Soft, NT/ND, NBS, no masses or organomegaly. : N/A SKIN: Warm, well perfused. No skin rashes or abnormal lesions. MSK: + for straight leg raise test on the left side; left lumbar/sacral region painful to palpation limited extension/flexion. hypertonic muscle on the left side neuro: 5/5 strength; AAox3 Discharge Plan Discharge Items Patient Disposition: Home - Home Health Services Reason For Visit: ACUTE ON CHRONIC BACK PAIN Discharge Diagnosis: intractable low back pain Condition on Discharge: Good Activity: Per Instructions section Lifting: No more than 5 pounds Bathing: No limitations Exercise/Sports: Gradually increase as tolerated Non-emergency contact: Primary Care Provider Call non-emergency contact if: your symptoms worsen, you have a fever and your temperature is above 101 Follow-up/Referrals: Corin Rader MD [Primary Care Provider] - Diet: Low Sodium (2gm) Addtl Attending Provider Instructions: you will follow up with neurosurgery and pain management do not take zanaflex with sedatives (alcohol, Benadryl). no driving within the next 5-7 days Stand-Alone Forms: My [employer], Smoking Cessation Medications and DC Order Prescriptions: New tizanidine 2 mg capsule 2 mg PO TID 14 Days Qty: 42 0RF Continued Eliquis 5 mg tablet 5 mg PO BID Qty: 180 3RF multivitamin Tablet 1 tab PO QAM Rx Instructions: OTC unable to verify aspirin 81 mg tablet,delayed release (DR/EC) 81 mg PO UD Rx Instructions: 81 mg po q2d. OTC unable to verify diltiazem HCl 120 mg capsule,extended release 24hr 120 mg PO HS Qty: 90 3RF albuterol sulfate [Ventolin HFA] 90 mcg/actuation HFA aerosol inhaler 1 - 2 puff INH Q4H PRN (Reason: Shortness Of Breath) Qty: 18 5RF atorvastatin 80 mg tablet 80 mg PO UD Rx Instructions: 80 mg po pm. last filled in Jun 30 2023 90 days budesonide-formoterol [Symbicort] 80-4.5 mcg/actuation HFA aerosol inhaler 1 inh inhalation UD Rx Instructions: 1 inh inhalation bid. last filled november 2022 colestipol 1 gram tablet 2 g PO UD Rx Instructions: 2g po daily. last filled 01/16/24 30 day supply hydrocodone-acetaminophen 5-325 mg tablet 1 tab PO UD PRN (Reason: pain) Rx Instructions: 1 tab po daily prn. last filled 02/05/24 7 day supply Krames/Other Patient Handouts: Back Safety: Poor Posture Hurts, Back Safety: Pushing and Pulling Admission Data Admit Date/Time: 05/26/24 18:14 Attending Provider: Moreno Post Admit Provider: Charles Gross Primary Care Provider: Corin Rader Other Providers: Charles Gross; [facility] Stay Data Consultations 05/26/24 17:17 ED Decision to Admit Stat Diagnostic Imagining Performed 05/26/24 13:45 CT abd pelvis IV con only Stat CT lumbar spine w con Stat 05/26/24 18:14 MRI Lumbar Spine [MR lumbar spine wo con] Urgent 05/27/24 07:00 CTA abd aorta runof w con [CT ang AA runof w inc wo ifdon] Urgent Discharge Instructions Given to Patient (Per Discharging Provider) you will follow up with neurosurgery and pain management do not take zanaflex with sedatives (alcohol, Benadryl). no driving within the next 5-7 days Home Health Attestation I certify that this patient is under my care and that I, or a physicians assistant to the ceo working with me, had a face to-face encounter that meets the home health [id number] encounter requirements with this patient. The encounter with the patient was in whole, or in part, for the following medical condition, which is the primary reason for home health care (list medical condition): I certify that, based on my findings, the following services are medically necessary home health services: My clinical findings support the need for the above services because: Further, I certify that my clinical findings support that this patient is homebound (i.e. absences from home require considerable and taxing effort and are for medical reasons or rastafari services or infrequently or of short duration when for other reasons) because: Certification for Home Health Services: Based on the above findings, I certify that this patient is confined to the home and needs intermittent prison care, physical therapy and/or speech therapy or continues to need occupational therapy. The patient is under my care, and I have initiated the establishment of the plan of care. This patient will be followed by a physician who will periodically review the plan of care. Total Time Total Time Spent Total Time Spent (In Minutes): 35 minutes Coding Level of Care Code 49152 INP/OBS DISCH >30 MIN Diagnoses Lumbar disc disease with radiculopathy M51.16 LLQ pain R10.32 Paroxysmal atrial fibrillation I48.0 Dyslipidemia E78.5 Time Spent (min) 35
[2024-05-28 18:43] VITALS: BP 161/87; PULSE 97
== END 2024-05-28 18:45 | disposition home health service (06) ==
LOC: ED 12:49 → 3N 12:49 → SUATTDRO 18:14 → 3N 20:28